=== PATIENT | male | born 1940 | race Caucasian/White ===

== ENCOUNTER → 2018-01-01 14:25 | Outpatient (CLI) | payer MEDICARE, OTHER, SELFPAY | PROVIDERS: Visit Provider Urology | DX: N39.0 Urinary tract infection, site not specified (principal) | CPT/HCPCS: 87086; 87088 ==

== ENCOUNTER → 2018-05-23 10:45 | Outpatient (CLI) | payer MEDICARE, OTHER, SELFPAY ==
[2018-05-23 11:06] LABS: Absolute Lymphocyte Count 1.21 X10^3/ul (0.83-4.51); Absolute Neutrophil Count 6.4 X10^3/uL (2.0-7.7); Basophil# 0.04 X10^3/uL; Basophil% 0.4 % (0-1); Eosinophil# 0.23 X10^3/uL; Eosinophils% 2.5 % (0-5); Hematocrit 39.5 % (40-54); Hemoglobin 13.1 g/dl (13.0-16.5); Lymphocyte # 1.21 X10^3/ul (4.0); Lymphocyte % 13.4 % (19-41); Mean Corp Hgb Conc 33.2 g/gl (32-36); Mean Corpuscular Hgb 28.9 pg (27.0-32.0); Mean Platelet Vol. 9.9 fl (6.2-12.0); Monocyte% 12.2 % (0-10); Neutrophil # 6.43 X10^3/uL (2.7-7.7); Neutrophil % 71.3 % (47-70); Platelet Count 163 K/mm3 (150-450); RBC Distribution Width CV 13.2 % (11.6-14.6); RBC Distribution Width SD 42.2 fl (35.1-43.9); Red Blood Count 4.54 M/mm3 (4.6-6.2)
[2018-05-23 11:07] LABS: POSITIVE COUNT NO; POSITIVE DIFFERENTIAL NO; POSITIVE MORPHOLOGY NO
[2018-05-23 11:32] LABS: Anion Gap 10 (5-15); BUN 26 mg/dL (7-18); BUN/Creat Ratio 19.5 RATIO (10-20); Calcium,Total 9.1 mg/dL (8.5-10.1); Chloride 100 mmol/L (98-107); Creatinine, Serum 1.33 mg/dL (0.70-1.30); EST Glomerular Filtration Rate 56 mL/min (>60); Est Glom Filt Rate - Afr Amer 67 mL/min (>60); Glucose 220 mg/dL (74-106); Sodium Level 136 mmol/L (136-145)
== END ==
PROVIDERS: Visit Provider Urology
DX: I10 Essential (primary) hypertension (principal); I51.9 Heart disease, unspecified
CPT/HCPCS: 36415; 80048; 85025

== ENCOUNTER → 2018-06-19 11:30 | Outpatient (CLI) | payer MEDICARE, OTHER, SELFPAY | PROVIDERS: Visit Provider Urology | DX: R31.9 Hematuria, unspecified (principal) | CPT/HCPCS: 87086; 87088 ==

== ENCOUNTER 2018-08-01 06:56 | Day surgery (SDC) | payer MEDICARE, OTHER, SELFPAY ==
[2018-08-01] VITALS (7 sets, daily range): BP systolic 108–161; BP diastolic 53–86; PULSE 65–73; RESP 14–18; TEMP 36.4–37.4; O2SAT 98–99; BMI 26.2
--- NOTE | 2018-08-01 | COLBX_PTH ---
PATIENT: SHONNA MCCORD LOC: EN U#:[id number] AGE/SX: 78/M ROOM: RE08/01/[address]: Dr. Kam Jenkins MD : 1940 BED: DIS: 08/01/2018 SPEC #: [id number] RECD: 08/01/18 13:06 STATUS: NEREYDA KAILYN #: [id number] VIPUL: 08/01/18 00:[address]: Kam Jenkins DEPT: SURGICAL PATHOLOGY RECD BY: Ruddy Harrison ENTERED: 08/01/18 13:07 SP TYPE: COLON BX OTHR DR: Dr. Jonathan Lombardi MD Tissues: Transverse colon Procedures: Surgery Specimen Level IV HEADER OPERATION: Colonoscopy PRE-OP DIAGNOSIS: Screening TISSUE SUBMITTED: Transverse colon polyps MICROSCOPIC DIAGNOSIS Transverse colon polyps, biopsy: Fragments of tubular adenoma. AM:corin 08/02/18 MICROSCOPIC DESCRIPTION Slides are reviewed. GROSS DESCRIPTION Received in fixative is one container labeled with the patient's name and designated transverse colon polyps. The specimen consists of multiple irregular fragments of chandler soft tissue mixed with fecal material that in aggregate measure 2.5 x 0.5 x 0.1 cm. The specimen is totally submitted in one cassette. / SJ:corin 08/01/18 TC:5 CPT: 06300
[2018-08-01 07:26] LABS: Bedside Glucose 190 mg/dL (70-110)
--- NOTE | 2018-08-01 08:44 | PCM.OPRPT ---
Problem List (1) Colon cancer screening Status: Acute Report of Operation Date of Procedure: 08/01/18 Pre-Operative Diagnosis: Z12.11 screening colon cancer Post-Operative Diagnosis: Same Surgery/Procedure Performed:: [id number] colonoscopy with snare polypectomy Type of Anesthesia:: MAC Description of Procedure: Patient was brought into the endoscopy suite. Placed in the left lateral decubitus position. He was given graded anesthesia. Colonoscope was inserted into the rectum. It was directed through the sigmoid colon, descending colon, transverse colon, ascending colon, to the cecum without difficulty. Operative findings: 1. Cecum: Normal appearance no mass lesions normal ileocecal valve. 2. Ascending colon: Normal appearance no mass lesions. 3. Transverse colon: 2 polyps were identified. One was sessile and was removed with snare cautery technique ?2 had a little bit of bleeding here and I injected some epinephrine and placed a clip on the area which controlled the bleeding quite nicely. Just next to this was another polyp which I removed with snare cautery technique and brought back to the channel the scope. Good hemostasis was noted. 4. Descending colon: Small polyp was identified was removed with snare cautery technique and brought back to the channel the scope. 5. Sigmoid colon: Normal appearance minimal diverticular disease seen. There is some slight narrowing in the distal sigmoid colon as it enters into the rectum. The scope was easily able to traverse this without any problem. And all of the mucosa looked normal. 6. Rectum: Normal appearance no mass lesions internal hemorrhoids were identified. Scope was withdrawn digital rectal exam showed no masses within the anus. He did however have a rock hard prostate and was very uncomfortable even with sedation with a rectal exam. He did not have any rectal fissures Patient will need to have another colonoscopy in 3 years. - Admit VTE Documentation VTE Present on Admission: No VTE Mechan Device Prophylaxis: None VTE Pharm Prophylaxis ordered?: No Reason prophylaxis not ordered:: Treatment Not Indicated
== END 2018-08-01 09:45 | disposition home or self-care (01) ==
LOC: EN 06:57 → AC 06:58
PROVIDERS: Visit Provider Surgery
PROC: 0DJD8ZZ Inspection of Lower Intestinal Tract, Via Natural or Artificial Opening Endoscopic (ICD-10-PCS; CPT 45378; principal; 2018-08-01 08:10)
DX: Z12.11 Encounter for screening for malignant neoplasm of colon (principal); D12.3 Benign neoplasm of transverse colon; K57.30 Diverticulosis of large intestine without perforation or abscess without bleeding; K64.8 Other hemorrhoids; I11.0 Hypertensive heart disease with heart failure; I50.22 Chronic systolic (congestive) heart failure; E78.5 Hyperlipidemia, unspecified; I25.10 Atherosclerotic heart disease of native coronary artery without angina pectoris; I25.2 Old myocardial infarction; E11.9 Type 2 diabetes mellitus without complications; Z87.891 Personal history of nicotine dependence; Z85.51 Personal history of malignant neoplasm of bladder; Z79.82 Long term (current) use of aspirin; Z79.84 Long term (current) use of oral hypoglycemic drugs; Z79.899 Other long term (current) drug therapy
CPT/HCPCS: 45380; 82962; 88305; J7120

== ENCOUNTER 2018-08-11 21:43 | Emergency (ER) | payer MEDICARE, OTHER, SELFPAY ==
[2018-08-11 21:44] VITALS: BP 141/73; PULSE 106; RESP 15; TEMP 36.6; O2SAT 96; BMI 26.6
[2018-08-11] MEDS: traMADol 50 MG Tablet PO ×2 (22:43→23:54)
[2018-08-11 22:56] LABS: Bacteria 0 SEEN /hpf (None Seen); Mucous, Urine 0 SEEN /hpf (<or=2+)
[2018-08-11 22:59] LABS: Color, Urine Yellow (Yellow); Glucose, Dipstick 100 mg/dl (Normal); Ketone-Dipstick Negative (Negative); Leukocyte Esterase-Dipstick 500 /ul (Negative); Nitrite-Dipstick Negative (Negative); Occult Blood-Urine 250 /ul (Negative); Protein-Dipstick 30 mg/dl (Negative); Specific Gravity, Urine 1.015 (1.002-1.030); Urine Bilirubin Dipstick Negative (Negative); Urine Clarity Clear (Clear); Urine Urobilinogen Normal (Normal)
[2018-08-11 23:11] LABS: Red Blood Cells-Urine 10-25 SEEN /hpf (0-5); Squamous Epithelial Cells - UA 0-5 SEEN /hpf (0-5); Transitional Epithelial - Ur 0-5 SEEN /hpf (0-5); White Blood Cells 25-50 SEEN /hpf (0-5)
--- NOTE | 2018-08-11 23:36 | ED.DCSUM_ITS ---
- ER Visit Summary Date of Service: 08/11/18 Chief Complaint: Rectal pain History of Present Illness: The patient is a 78 M who presents with rectal pain. The patient has a history of bladder cancer. He has to have frequent ureteral stents. He also recently had a prostate lift. He has continued to have some rectal pain since that time so underwent a colonoscopy 1 week ago which was reportedly normal. He has had increased rectal and prostate pain since that time. He called his urologist who has not yet been able to see him in the office but did call in Cipro. Tylenol and ibuprofen were helping with pain but his pain has become more severe so he presented here tonight in 3 days. No fevers. No nausea vomiting or diarrhea. Physical Examination: Afebrile heart rate 106 vitals otherwise unremarkable Resting comfortably no distress Heart regular rate and rhythm Lungs are clear Abdomen soft nontender nondistended Rectal exam is tender he has some external hemorrhoids I do not appreciate any fissures or perianal abscess he does have an enlarged firm prostate with some tenderness it is not boggy or fluctuant Test Results: Bladder scan showed roughly 240 cc of urine. Urinalysis shows 500 leukocyte esterase, 25-50 WBCs. Emergency Department Course and Treatment: Patient has been on antibiotics, I believe for presumed prostatitis. Given that he is not improving with Cipro and also has evidence of UTI we will switch to doxycycline. He was advised to keep his urology appointment. He was given tramadol here with improvement in symptoms. He will be given a prescription for the same. He understands to return for new or worsening symptoms and was discharged home. Treatment Plan: [] Disposition: Discharge Impression: UTI Prostatitis This note was generated with [employer] dictation software. It may contain incorrect words, spelling, and punctuation that were not noted in review of the chart prior to signing ED Disposition - Plan for ED Patient: Chief Complaint: Other, Pain/Inj Referrals: Jonathan Lombardi MD [Primary Care Provider] -
--- NOTE | 2018-08-11 23:36 | ED.DEP ---
ED Disposition - Plan for ED Patient: Chief Complaint: Other, Pain/Inj Instructions: ED UTI Cystitis Male, ED Prostatitis, ED Retention Urinary Male Prescriptions: Doxycycline Monohydrate 100 mg PO BID #20 cap traMADol [Ultram] 50 mg PO Q6H PRN 3 Days #12 tab PRN Reason: Pain Referrals: Jonathan Lombardi MD [Primary Care Provider] - Beltran Yi MD [STAFF PHYSICIAN] -
[2018-08-11] MEDS: Doxycycline 100 MG CAPSULE PO (23:54)
[2018-08-11 23:56] VITALS: BP 142/75; PULSE 81; RESP 18; O2SAT 100
== END 2018-08-11 23:57 | disposition home or self-care (01) ==
LOC: ED 22:39
PROVIDERS: Emergency Provider Emergency Medicine
DX: N41.9 Inflammatory disease of prostate, unspecified (principal); N39.0 Urinary tract infection, site not specified; Z85.51 Personal history of malignant neoplasm of bladder; I25.10 Atherosclerotic heart disease of native coronary artery without angina pectoris; I25.2 Old myocardial infarction; E11.9 Type 2 diabetes mellitus without complications; I10 Essential (primary) hypertension; Z79.2 Long term (current) use of antibiotics; Z79.84 Long term (current) use of oral hypoglycemic drugs; Z79.899 Other long term (current) drug therapy
CPT/HCPCS: 81001; 87086; 99283; A4216

== ENCOUNTER 2018-08-22 19:31 | Inpatient (IN) | payer MEDICARE, OTHER, SELFPAY ==
[2018-08-22 19:33] VITALS: BP 213/98; PULSE 87; RESP 17; TEMP 36.7; O2SAT 97; BMI 25.0
[2018-08-22 19:38] VITALS: BP 195/94; PULSE 83; RESP 14; O2SAT 98
--- NOTE | 2018-08-22 20:20 | CT_ITS ---
STUDY: CT ABDOMEN AND PELVIS WITHOUT CONTRAST REASON FOR EXAM: Male, 78 years old. Right flank pain. Prostatitis, biopsy tomorrow. Bladder CA status post excision, chemotherapy. Left ureteral stent. RADIATION DOSAGE (If Supplied By Facility): CTDIvol = ( 7.02 ) mGy, DLP = ( 372.02 ) mGycm TECHNIQUE: Transaxial images were obtained from the dome of the diaphragm to the symphysis pubis without oral contrast, and without intravenous contrast. Sagittal and coronal images were reconstructed. Individualized dose optimization techniques were used for this CT. COMPARISON: 10/07/2016. FINDINGS: The visualized lung bases are unremarkable. The visualized portions of the heart are within normal limits. Normal liver. Normal gallbladder and extrahepatic biliary system. Several granulomatous calcifications are noted in the spleen. The spleen is otherwise unremarkable. Normal pancreas. Normal bilateral adrenal glands. Aorta is normal in caliber, with marked atherosclerotic calcification. There is moderate to severe right hydronephrosis, new compared to the prior study. There is severe left hydronephrosis with ureteral stent in place. There is marked left ureteral dilation. Ureteral stent terminates in the bladder. The bladder is well distended. There is a 4.8 x 1.6 cm soft tissue mass in the posterior bladder base. This is suspicious for malignancy. There is a 1.5 x 1.6 cm nodule at the right ureterovesical junction which may result from direct extension of the posterior bladder mass. This is the likely cause of right hydronephrosis. The prostate gland measures 5.3 x 4.4 x 7.8 cm. Brachytherapy seeds are noted within the prostate gland. The superior-posterior margin of the prostate gland and seminal vesicles is irregular in appearance, greater on the left, concerning for malignancy. On the right, there is asymmetry and a 2.6 x 1.7 cm soft tissue nodule which may represent direct extension from the seminal vesicles, versus adenopathy. There is a 2.4 x 2.1 cm right perirectal node. There is no bowel obstruction or inflammatory change. There is no free fluid, free air, or organized collection. Normal abdominal wall. Degenerative spine changes are noted. No destructive bone changes are seen. CT/Abdomen/Pelvis without Cont IMPRESSION: 1. Posterior bladder mass with involvement of the right ureterovesical junction, superior prostate gland, and right seminal vesicles. 2. Moderate right hydronephrosis, likely due to obstruction by right UVJ nodular lesion. 3. Severe left hydronephrosis despite stent in place. 4. Right perirectal adenopathy. Electronically Signed: Isis Singh MD at 21:42 EDT Tel , Service support ,
--- NOTE | 2018-08-22 20:21 | ED.VISSUMM ---
- ER Visit Summary Date of Service: 08/22/18 Chief Complaint: Right flank pain History of Present Illness: The patient is a 78 M who presents for 2 days of right-sided flank pain. Pain is sharp and continuous, gradually worsening. It is located in the right flank region with no radiation into the abdomen or into the left side. Patient has associated nausea and intermittent vomiting, however that is been going on for the last week. No constipation, diarrhea. No dysuria frequency or urgency. Patient has an enlarged prostate and is scheduled for procedure in the morning for a biopsy. He has been on antibiotics for this. He is on tramadol for his prostate pain, but states that it does not touch the flank pain at all. No fever, chest pain, shortness of breath or other complaints. Physical Examination: Vital signs: afebrile, hemodynamically stable, no hypoxia on room air General: well nourished, well developed, in no distress, appears mildly uncomfortable Skin: warm, dry, no rash, no pallor HEENT: normocephalic and atraumatic; PERRL, EOMI, moist mucous membranes Cardiovascular: regular rate and rhythm without murmurs, no peripheral edema, 2+ pulses all distal extremities Respiratory: No increased work of breathing, lungs are clear to auscultation bilaterally, no rales, rhonchi or wheezing Abdominal: Abdomen is soft, very ticklish, nontender with normoactive bowel sounds, no guarding or rebound, no masses, positive tenderness to palpation of the right flank MSK: Moves all extremities, no deformities, normal strength Neuro: Awake and alert, oriented ?4. No facial droop, sensation and motor function intact and symmetric Test Results: Abnormal Lab Results 08/22/18 08/22/18 08/22/18 19:40 19:40 20:40 WBC 16.5 H RBC 4.90 Hgb 14.2 Hct 41.0 MCV 83.7 MCH 29.0 MCHC 34.6 RDW 12.5 RDW Differential 38.0 Plt Count 253 MPV 10.3 Immature Gran % (Auto) 0.100 Neut % (Auto) 76.0 H Lymph % (Auto) 13.2 L [place] % (Auto) 10.1 H Eos % (Auto) 0.5 Baso % (Auto) 0.1 Absolute Neuts (auto) 12.6 H Absolute Lymphs (auto) 2.18 Total Counted Not Reportable Differential Comment SCANNED Sodium 132 L Potassium 3.3 L Chloride 97 L Carbon Dioxide 22.0 Anion Gap 13 BUN 77 H Creatinine 4.68 H Estim Creat Clear Calc 12.12 Est GFR (MDRD) Af Amer 16 L Est GFR (MDRD) Non-Af 13 L BUN/Creatinine Ratio 16.5 Glucose 242 H Calcium 9.1 Total Bilirubin 0.60 AST 21 ALT 33 Alkaline Phosphatase 121 H Total Protein 8.7 H Albumin 3.6 Globulin 5.1 H Albumin/Globulin Ratio 0.7 L Urine Color Yellow Urine Clarity Sl. Cloudy Urine pH 6.0 Ur Specific [place] 1.015 Urine Protein 30 H Urine Glucose (UA) Normal Urine Ketones Negative Urine Occult Blood 250 H Urine Nitrite Negative Urine Bilirubin Negative Urine Urobilinogen Normal Ur Leukocyte Esterase 500 H Urine RBC 10-25 SEEN Urine WBC 5-10 SEEN Ur Squamous Epith Cells 0-5 SEEN Urine Bacteria 0 SEEN Urine Mucus 0 SEEN Clinical Impression(s) from Imaging Studies Abdomen/Pelvis CT 08/22/18 20:20 IMPRESSION: 1. Posterior bladder mass with involvement of the right ureterovesical junction, superior prostate gland, and right seminal vesicles. 2. Moderate right hydronephrosis, likely due to obstruction by right UVJ nodular lesion. 3. Severe left hydronephrosis despite stent in place. 4. Right perirectal adenopathy. Electronically Signed: Isis Singh MD at 21:42 EDT Tel , Service support , Medications Given Discontinued Medications Ceftriaxone Sodium (Rocephin) 1 gm in 50 mls @ 100 mls/hr IV X1 ONE Stop: 08/22/18 23:07 Last Admin: 08/22/18 22:52 Dose: 100 mls/hr Morphine Sulfate () 4 mg IV X1 ONE Stop: 08/22/18 20:19 Last Admin: 08/22/18 20:28 Dose: 4 mg Morphine Sulfate () 4 mg IV X1 ONE Stop: 08/22/18 21:19 Last Admin: 08/22/18 21:23 Dose: 4 mg Ondansetron HCl (Zofran) 4 mg IV X1 ONE Stop: 08/22/18 20:19 Last Admin: 08/22/18 20:28 Dose: 4 mg Emergency Department Course and Treatment: Patient was given morphine and Zofran for symptomatic relief. CT flank performed to evaluate for possible kidney stone. Labs were remarkable for acute renal insufficiency, with creatinine of 4.68. Patient had a leukocytosis of 16, and urine was concerning for possible infection. CT scan showed a large mass around the prostate and the bladder, with part of the mass causing constriction on the right ureter at the UVJ junction. This is a new finding, and is resulting in severe hydronephrosis. No stone was noted, however the severe hydronephrosis is likely contributing to patient's flank pain as well as his acute renal insufficiency. He has left hydronephrosis as well that is not relieved by the prior stent placement. Patient was started on Rocephin for coverage of urinary infection. He was given additional morphine for continued severe pain. Patient was discussed with Dr. Shaw and will be admitted for further management of his acute renal insufficiency, urinary tract infection, and new bladder mass. Treatment Plan: [] Disposition: [] Impression: Bladder mass concerning for malignancy, acute renal insufficiency, urinary tract infection This note was generated with [employer] dictation software. It may contain incorrect words, spelling, and punctuation that were not noted in review of the chart prior to signing ED Disposition - Plan for ED Patient: Chief Complaint: Flank Pain
[2018-08-22] MEDS: Morphine 4 MG/ML Syringe IV ×2 (20:28→21:23)
[2018-08-22] MEDS: Ondansetron 4 MG/2 ML Vial IV (20:28)
[2018-08-22 20:40] LABS: Absolute Lymphocyte Count 2.18 X10^3/ul (0.83-4.51); Absolute Neutrophil Count 12.6 X10^3/uL (2.0-7.7); Basophil# 0.02 X10^3/uL; Basophil% 0.1 % (0-1); Differential Indicated SCAN CRITERIA MET; Eosinophil# 0.09 X10^3/uL; Eosinophils% 0.5 % (0-5); Hemoglobin 14.2 g/dl (13.0-16.5); Lymphocyte # 2.18 X10^3/ul (4.0); Lymphocyte % 13.2 % (19-41); Mean Corp Hgb Conc 34.6 g/gl (32-36); Mean Corpuscular Volume 83.7 fL (80-94); Mean Platelet Vol. 10.3 fl (6.2-12.0); Monocyte# 1.67 X10^3/uL; Monocyte% 10.1 % (0-10); Neutrophil # 12.56 X10^3/uL (2.7-7.7); POSITIVE COUNT NO; POSITIVE DIFFERENTIAL YES; POSITIVE MORPHOLOGY NO; Platelet Count 253 K/mm3 (150-450); RBC Distribution Width CV 12.5 % (11.6-14.6); White Blood Count 16.5 K/mm3 (4.4-11.0)
[2018-08-22 20:44] LABS: Bacteria 0 SEEN /hpf (None Seen); Mucous, Urine 0 SEEN /hpf (<or=2+)
[2018-08-22 20:44] LABS: ALB/GLOB Ratio 0.7 RATIO (0.9-2.4); AST(SGOT) 21 U/L (15-37); Alanine Aminotransfer ALT/SGPT 33 U/L (16-61); Albumin, Serum 3.6 g/dL (3.2-5.0); Alkaline Phosphatase 121 U/L (45-117); Anion Gap 13 (5-15); BUN 77 mg/dL (7-18); BUN/Creat Ratio 16.5 RATIO (10-20); Calcium,Total 9.1 mg/dL (8.5-10.1); Chloride 97 mmol/L (98-107); Creatinine, Serum 4.68 mg/dL (0.70-1.30); EST Glomerular Filtration Rate 13 mL/min (>60); Est Glom Filt Rate - Afr Amer 16 mL/min (>60); Estimated Creatinine Clearance 12.12 ml/min; Globulin 5.1 g/dL (2.2-4.2); Glucose 242 mg/dL (74-106); Potassium 3.3 mmol/L (3.5-5.1); Protein, Total 8.7 g/dL (6.4-8.2); Sodium Level 132 mmol/L (136-145)
[2018-08-22 20:51] LABS: Color, Urine Yellow (Yellow); Glucose, Dipstick Normal (Normal); Ketone-Dipstick Negative (Negative); Leukocyte Esterase-Dipstick 500 /ul (Negative); Nitrite-Dipstick Negative (Negative); Occult Blood-Urine 250 /ul (Negative); Protein-Dipstick 30 mg/dl (Negative); Specific Gravity, Urine 1.015 (1.002-1.030); Urine Bilirubin Dipstick Negative (Negative); Urine Clarity Sl. Cloudy (Clear); Urine Urobilinogen Normal (Normal)
[2018-08-22 21:03] LABS: Red Blood Cells-Urine 10-25 SEEN /hpf (0-5); Squamous Epithelial Cells - UA 0-5 SEEN /hpf (0-5); White Blood Cells 5-10 SEEN /hpf (0-5)
[2018-08-22 21:08] LABS: Differential Comment SCANNED
[2018-08-22 21:14] VITALS: BP 184/89; PULSE 80; RESP 17; O2SAT 96
[2018-08-22] MEDS: Ceftriaxone 1 GM/50 ML BAG IV (22:52)
[2018-08-22 23:06] VITALS: BP 165/95; PULSE 79; RESP 15; O2SAT 96
--- NOTE | 2018-08-22 23:55 | NURSING ---
Pt arrives to room 208 c/o pain 3-4/10 in right flank. Pt appears calm without distress orientation to room provided. Family at bedside
--- NOTE | 2018-08-22 23:56 | PCM.HP.STD ---
Problem List (1) YOEL (acute kidney injury) Status: Acute (2) Bladder mass Status: Acute (3) Hydronephrosis Status: Acute Qualifiers: Hydronephrosis type: unspecified Qualified Code(s): N13.30 - Unspecified hydronephrosis (4) History of prostate surgery Status: Chronic Comment: Urolift system implanted (5) History of stent insertion of renal artery Status: Chronic Comment: Left kidney (6) Hx of bladder cancer Status: Chronic (7) Hyperlipidemia Status: Chronic Qualifiers: Hyperlipidemia type: pure hypercholesterolemia Qualified Code(s): E78.00 - Pure hypercholesterolemia, unspecified; E78.0 - Pure hypercholesterolemia (8) Atherosclerotic heart disease of elem coronary artery without angina pectoris Status: Chronic Qualifiers: [place] vs. transplanted heart: elem heart Qualified Code(s): I25.10 - Atherosclerotic heart disease of elem coronary artery without angina pectoris Comment: 99% stenosis in proximal to mid LAD, 70% stenosis in mid RCA and diffuse distal disease per [facility] 01/30/[address] Jameson (9) Congenital insufficiency of aortic valve Status: Chronic (10) Chronic systolic heart failure Status: Chronic (11) NSTEMI (non-ST elevated myocardial infarction) Status: Chronic Comment: 03/05/14, Non-ST elevation ND (12) Hypertension Status: Chronic Qualifiers: Hypertension type: essential hypertension Qualified Code(s): I10 - Essential (primary) hypertension (13) Type 2 diabetes mellitus Status: Chronic Qualifiers: Diabetes mellitus termite treater helper insulin use: without termite treater helper use Diabetes mellitus complication status: with unspecified complications Qualified Code(s): E11.8 - Type 2 diabetes mellitus with unspecified complications History of Present Illness Date of Admission: 08/22/18 Chief Complaint: R Flank Pain The patient is a 78 y/o M w/ PMHx: Chronic Systolic CHF, CAD w/ Hx NSTEMI following w/ Dr. Jameson, Chronic Normocytic Anemia, Diabetes mellitus type II, HTN, HLD, History of Advanced Invasive Bladder Cancer s/p local bladder surgeries in -01/2014 with post-operative radiation and very short duration of chemotherapy secondary to intolerance previously following w/ Dr. Mijares and ongoing evaluation per Dr. Yi w/ severe stricture and blockage of the left kidney with 07/02/2014 TUR bladder tumor and most recent 10/2016 laparoscopic robotic assisted left pelvic lymph node dissection, cystoscopy and left stent change who was recently initiated on treatment w/ cipro and possibly doxycycline for concern for prostatitis ~ 2 weeks prior to current presentation w/ planned per patient and family report planned prostate bx 08/23/[address] Yi who has had ongoing debilitating rectal pain, nausea and emesis; however, his discomfort has improved w/ narcotic therapy but suddenly worsened on day of ED presentation w/ onset new R flank, sharp, severe, constant pain. Work-up in the ED included T 97.5, heart rate 83, BP initially 195/94--> following administration of pain regimen improvement of BP to 165/95, respiratory rate 14, 98% on room air, BC with WBC 16.5, heme globin 14.2, platelet 253 with left shift, CMP with sodium 132, potassium 3.3, chloride 97, BUN/creatinine 77/4.68, glucose 242, alkaline phosphatase 121, analysis not severe appearing but noted 30 urine protein, 250 urine occult blood, 500 leukocyte esterase, 10-25 RBC, 5-10 WBC, no urine bacteria noted, culture pending per ED, CT A/P with posterior bladder mass with involvement of the right ureterovesical junction, superior prostate gland and right seminal vesicles, moderate right hydronephrosis likely secondary to obstruction by the right UVJ nodular lesion, severe left hydronephrosis despite stent in place, right perirectal adenopathy. In the ED patient administered Rocephin, morphine 4 mg x2 in addition to Zofran 4 mg IV x1. Past Medical History Past Medical History (Chronic Problems): Chronic Problems (Last Reviewed 07/03/18 @ 09:18 by Kam Jenkisn MD) History of prostate surgery (Chronic) Urolift system implanted History of stent insertion of renal artery (Chronic) Left kidney Hx of bladder cancer (Chronic) History of left heart catheterization (Chronic) 01/30/[address] Jameson @[facility] Hyperlipidemia (Chronic) Atherosclerotic heart disease of elem coronary artery without angina pectoris (Chronic) 99% stenosis in proximal to mid LAD, 70% stenosis in mid RCA and diffuse distal disease per [facility] 01/30/[address] Jameson Congenital insufficiency of aortic valve (Chronic) Old myocardial infarction (Chronic) Chronic systolic heart failure (Chronic) Other group home (current) drug therapy (Chronic) NSTEMI (non-ST elevated myocardial infarction) (Chronic) 03/05/14, Non-ST elevation ND Bladder cancer (Chronic) Hypertension (Chronic) Type 2 diabetes mellitus (Chronic) Medical History: Medical History (Last Reviewed 07/03/18 @ 09:18 by Kam Jenkins MD) Hx of bladder cancer (Acute) Z85.51 Hyperlipidemia (Chronic) E78.5 Atherosclerotic heart disease of elem coronary artery without angina pectoris (Chronic) I25.10 99% stenosis in proximal to mid LAD, 70% stenosis in mid RCA and diffuse distal disease per [facility] 01/30/[address] 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) Z79.899 NSTEMI (non-ST elevated myocardial infarction) (Resolved) I21.4 03/05/14, Non-ST elevation ND Hypertension (Chronic) I10 Type 2 diabetes mellitus (Chronic) E11.9 Allergies No Known Allergies Allergy (Verified 08/22/18 19:32) Home Medications: Ambulatory Orders Medication Instructions Recorded Metformin HCl [Glucophage] 1,000 mg PO BIDCM 02/06/15 losartan 100 mg tablet 100 mg PO QDAY 01/24/18 nitroglycerin 0.4 mg sublingual 0.4 mg SUBLINGUAL Q5M PRN 01/24/18 tablet sitagliptin 100 mg tablet 100 mg PO QDAY 07/03/18 Metoprolol Tartrate [Lopressor 75 mg PO BID 07/26/18 (beta prasanth)] traMADol [Ultram] 50 mg PO Q6H PRN 3 Days #12 tab 08/11/18 Hydrochlorothiazide [Hctz] 25 mg PO DAILY 08/22/18 Ibuprofen 400 - 600 mg PO PRN PRN 08/22/18 Isosorbide Mononitrate [Imdur] 60 mg PO DAILY 08/22/18 Surgical History: Surgical History (Last Reviewed 07/03/18 @ 09:18 by Kam Jenkins MD) Hx of appendectomy (Acute) Z90.49 History of prostate surgery (Acute) Z98.890 Urolift system implanted History of stent insertion of renal artery (Acute) Z98.890 Left kidney Hx of right inguinal hernia repair (Acute) Z98.890, Z87.19 History of left heart catheterization (Chronic) Z98.890 01/30/[address] Jameson @[facility] Surgical History: herniorrhaphy, - - Removal of benign neck mass on the right neck, appendectomy, multiple cystoscopies w/ L stent placement and change, hernia repair, TUR bladder mass, Renal artery stent placement, Prostate Urolift system implant. Psychiatric History: No pertinent psych hx Lives: Alone Smoking Status: Former smoker Tobacco Use: Non-smoker Alcohol: None Drugs: None - *Family History Maternal Family History: Family History (Last Reviewed 07/03/18 @ 09:18 by Kam Jenkins MD) Father Prostate cancer Mother CAD (coronary artery disease) Myocardial infarction, Onset Age: 48 Cancer Brother Myocardial infarction Abdominal aortic aneurysm History Items: Cancer, Heart Disease Paternal Family History: Family History (Last Reviewed 07/03/18 @ 09:18 by Kam Jenkins MD) Father Prostate cancer Mother CAD (coronary artery disease) Myocardial infarction, Onset Age: 48 Cancer Brother Myocardial infarction Abdominal aortic aneurysm History Items: Cancer Review of Systems Constitutional: Reports: Anorexia, Malaise, Weakness, Fatigue. Denies: Chills, Fever, Weight Change HEENT: Denies: Head Aches, Sinus Congestion, Sinus Drainage Cardiovascular: Denies: Chest Pain, Palpitations Respiratory: Denies: Cough, Shortness of breath at rest, Sputum production Gastrointestinal: Reports: Abdominal Pain, Nausea, Vomiting Genitourinary: Denies: Dysuria Musculoskeletal: Denies: Joint Pain, Joint Tenderness Skin: Denies: Rash, Wounds Neurological: Denies: Numbness, Tingling, Focal weakness Psychiatric: Denies: Anxiety, Depression, Homicidal Ideations, Suicidal Ideations Hematologic/ Lymphatic: Reports: Anemia. Denies: Easy Bruising, Easy Bleeding VTE Information - Inpt Only VTE Present on Admission: No VTE Mechan Device Prophylaxis: SCD's VTE Pharm Prophylaxis ordered?: No Reason prophylaxis not ordered:: Medical Contraindication - Hold for OR possibility Patient Problems: Active and Suspected Problems (Last Reviewed 07/03/18 @ 09:18 by Kam Jenkins MD) YOEL (acute kidney injury) (Acute) Bladder mass (Acute) Hydronephrosis (Acute) Subjective: Patient notes more comfortable than initial presentation, no current marked R flank pain. Objective: Physical Examination: General: awake, alert, oriented x 3 and cooperative, seated upright in bed in no apparent distress, notes pain improved currently, more comfortable. Skin: normal color, turgor, no icterus, cyanosis. HEENT: AT/NC, EOMI, PERRLA, moderately dry MM, no carotid bruits or JVD noted. Lungs: Diminished BS, > BL bases, moderate effort, no rales, ronchi or wheezing. Heart: Regular rate and rhythm; no gallop, rub audible. Abdomen: soft, NTTP, difficult examination as patient severely ticklish, ND, normal BS, difficulty assessing HSM secondary to patient being severely ticklish. Extremities: no cyanosis, clubbing, or edema. Neurological: patient awake, alert, oriented x 3; cognitive function intact; pupils equally reactive to light and accomodation; cranial nerves II-XII grossly normal, moving all 4 extremities, no focal deficits, strength moderately to severely globally decreased secondary to acute presentation. Psychiatric: affect appears fatigued, no acute evidence of depressive or anxiety feelings. - Physical Exam Vital Signs Temp Pulse Resp BP Pulse Ox 98.0 F 79 15 165/95 H 96 08/22/18 19:33 08/22/18 23:06 08/22/18 23:06 08/22/18 23:06 08/22/18 23:06 Oxygen Delivery Method Room Air Weight: 154 lb 15.759 oz Body Mass Index (BMI) 25.0 Finger Stick Blood Glucose 229 Laboratory Tests Past 24 Hrs 08/22/18 08/22/18 08/22/18 19:40 19:40 20:40 WBC 16.5 H RBC 4.90 Hgb 14.2 Hct 41.0 MCV 83.7 MCH 29.0 MCHC 34.6 RDW 12.5 RDW Differential 38.0 Plt Count 253 MPV 10.3 Immature Gran % (Auto) 0.100 Neut % (Auto) 76.0 H Lymph % (Auto) 13.2 L [place] % (Auto) 10.1 H Eos % (Auto) 0.5 Baso % (Auto) 0.1 Absolute Neuts (auto) 12.6 H Absolute Lymphs (auto) 2.18 Total Counted Not Reportable Differential Comment SCANNED Sodium 132 L Potassium 3.3 L Chloride 97 L Carbon Dioxide 22.0 Anion Gap 13 BUN 77 H Creatinine 4.68 H Estim Creat Clear Calc 12.12 Est GFR (MDRD) Af Amer 16 L Est GFR (MDRD) Non-Af 13 L BUN/Creatinine Ratio 16.5 Glucose 242 H Calcium 9.1 Total Bilirubin 0.60 AST 21 ALT 33 Alkaline Phosphatase 121 H Total Protein 8.7 H Albumin 3.6 Globulin 5.1 H Albumin/Globulin Ratio 0.7 L Urine Color Yellow Urine Clarity Sl. Cloudy Urine pH 6.0 Ur Specific [place] 1.015 Urine Protein 30 H Urine Glucose (UA) Normal Urine Ketones Negative Urine Occult Blood 250 H Urine Nitrite Negative Urine Bilirubin Negative Urine Urobilinogen Normal Ur Leukocyte Esterase 500 H Urine RBC 10-25 SEEN Urine WBC 5-10 SEEN Ur Squamous Epith Cells 0-5 SEEN Urine Bacteria 0 SEEN Urine Mucus 0 SEEN Assessment/Plan All Active Problems (Last Reviewed 07/03/18 @ 09:18 by Kam Jenkins MD) Colon cancer screening (Acute) YOEL (acute kidney injury) (Acute) Bladder mass (Acute) Hydronephrosis (Acute) Hx of appendectomy (Acute) Hx of right inguinal hernia repair (Acute) Precordial chest pain (Acute) The patient is a 78 y/o M w/ PMHx: Chronic Systolic CHF, CAD w/ Hx NSTEMI following w/ Dr. Jameson, Chronic Normocytic Anemia, Diabetes mellitus type II, HTN, HLD, History of Advanced Invasive Bladder Cancer s/p local bladder surgeries in -01/2014 with post-operative radiation and very short duration of chemotherapy secondary to intolerance previously following w/ Dr. Mijares and ongoing evaluation per Dr. Yi w/ severe stricture and blockage of the left kidney with 07/02/2014 TUR bladder tumor and most recent 10/2016 laparoscopic robotic assisted left pelvic lymph node dissection, cystoscopy and left stent change who was recently initiated on treatment w/ cipro and possibly doxycycline for concern for prostatitis ~ 2 weeks prior to current presentation w/ planned per patient and family report planned prostate bx 08/23/[address] Yi who has had ongoing debilitating rectal pain, nausea and emesis; however, his discomfort has improved w/ narcotic therapy but suddenly worsened on day of ED presentation w/ onset new R flank, sharp, severe, constant pain. (1) Posterior Bladder Mass Suspicious for Recurrent Bladder CA w/ Regional Involvement including Prostate w/ Hydronephrosis BL possibly secondary to Obstruction from Mass w/ ? Concurrent Prostatitis: Will admit to [facility] upon ED evaluation not severe appearing, was recently on cipro x 2 weeks and possible also doxycycline, CBC w/ WBC 16.5 with L shift, afebrile in the ED and at home, denies urinary retention but given CT appearance and patient admitted chronic retention issues concern for worsened retention, pending UCx, continue gentle IVFs, monitor I/Os, continue IV Rocephin given renal function. Urology consulted, NPO status, given prior plan for prostate Bx 08/23/18 and worsened YOEL w/ obstructive appearance hopeful for possible intervention 08/23/18, will discuss case with Urology. (2) Acute kidney injury: Secondary to obstruction with mass as noted, suspect recurrent bladder CA. Admission BUN/Cr 77/4.68, prior baseline creatinine noted to be 1.2-1.6. Will gently hydrate given underlying CHF history, hold nephrotoxic medications and repeat chemistry in AM. Will obtain FeNa assessment. Urology consulted as noted. (3) Hypokalemia: Admission K+ 3.3, supplementation given, repeat level in AM. (4) Diabetes mellitus type II: Hold oral home regimen, NPO status currently pending Urology assessment, accu checks w/ ISS. (5) CAD: Prior cardiac catheterization with left main coronary artery normal, ramus intermedius with moderate disease, left anterior descending artery with severe distal disease and 95% stenosis, first diagonal vessel with 95% stenosis circumflex artery, mild disease in a dominant right coronary artery with 70% stenosis w/ ongoing medical management. 10/14/2016 stress testing unremarkable. Maintain on BB, not on statin, holding ARB, hold ASA given planned intervention. (6) Hypertension: Continue home regimen including isosorbide, metoprolol, holding patient hydrochlorothiazide and losartan secondary to acute kidney injury as noted, PRN hydralazine. Will dose his medications to be given now as he has not had his medications today he notes. (7) Hyperlipidemia: Not on statin, defer to outpatient. (8) Chronic Systolic CHF: Appears compensated, following w/ Dr. Jameson, most recent 01/30/18 visit w/ Cardiology, ECHO 03/08/2014 normal LV size, EF 45%, mild to moderate segmental systolic dysfunction, mild MVI, PASP 34 mmHg, anterior hypokinesis. Holding asa, holding ARB, continue BB, not on statin. (9) DVT Prophylaxis: SCDs, defer chemoprophylaxis given possible AM interventions per Urology. Code Visit Inpatient E&M: 22185 Init Hosp L3
[2018-08-23] VITALS (17 sets, daily range): BP systolic 113–174; BP diastolic 59–84; PULSE 54–76; RESP 14–18; TEMP 36.1–36.8; O2SAT 95–99; BMI 24.5; BMI 24.6
--- NOTE | 2018-08-23 | IMM_PTH ---
PATIENT: SHONNA MCCORD LOC: MS2 U#:[id number] AGE/SX: 78/M ROOM: [facility] [place] RE08/22/[address]: Dr. Freddie Ortiz DO : 1940 BED: 1 DIS: 08/26/2018 SPEC #: [id number] RECD: 08/24/18 11:23 STATUS: NEREYDA REQ #: [id number] VIPUL: 08/23/18 00:[address]: Beltran Yi DEPT: IMMUNOHISTOCHEMISTRY RECD BY: Rylie Manning ENTERED: 08/24/18 11:25 SP TYPE: IMMUNO OTHR DR: Dr. Jonathan Lombardi MD Tissues: PROSTATE BIOPSY Procedures: Synapto (add) CD45 (add) CD56 (add) CHROMO (add) CK20 (add) CK5-6 (add) CK8 (add) P53 (add) PSA (add) Vimentin (add) Pankeratin (add) P40 (add) CD44 (add) PSAP (add) CK7 (initial) Comments: @ Originally on account #[id number] Req #[id number] PHYSICIAN & [place] [address] SPECIMEN INFORMATION: Tissue Source: Prostate biopsy and base of bladder Clinical Info: Bladder cancer and outlet obstruction Specimen Number: [id number] #3 CPT code: 51380, 97473 x14 METHODOLOGY: Deparaffinized sections of prefer/formalin-fixed tissue or PAP/DQ stained slides are incubated with monoclonal/polyclonal antibodies/oligonucleotide probes. Localization is made via biotin free immunoperoxidase method. Appropriate controls are performed and reacted as expected. Results on target cell population are indicated in the following table: RESULTS: ANTIBODY / CLONE RESULT Block 3 CK7 (OV-TL12/30) negative CK8 (88wdrmI37) negative CK20 (KS20.8) negative P53 (DO-7) positive, focal anti-CD44 (SP37) negative PSA (ER-PR8) negative PSAP (PASE/4LJ) negative P40 (BC28) negative CK5-6 (D5 & 1684) negative CD45 (RP2/18) negative Chromo (LK2H10) negative Synapto (polyclonal) positive CD56 (123C3.D5) positive AE1-3 (AE1/AE3/PCK26) positive Vimentin (V9) negative These tests were developed and their performance characteristics determined by [facility]. They may not have been cleared or approved by the U.[place]. Food and Drug Administration. The FDA has determined that such clearance or approval is not necessary. INTERPRETATION: Prostate biopsy and base of bladder: Poorly differentiated carcinoma with neuroendocrine features, small cell carcinoma. SJ:corin 08/27/18
[2018-08-23 00:42] LABS: Magnesium 2.8 mg/dL (1.6-2.6)
[2018-08-23] MEDS: 0.9% Normal Saline 1,000 ML 100 ML IV ×4 (00:51→21:55)
[2018-08-23] MEDS: Metoprolol Tartrate 50 MG Tablet 75 MG PO ×3 (00:55→21:54)
[2018-08-23] MEDS: Isosorbide Mononitrate 60 MG Tablet PO ×2 (00:56→16:59)
[2018-08-23] MEDS: Morphine 2 MG/ML Syringe IV ×5 (01:08→20:14)
[2018-08-23] MEDS: 0.9% NaCl Peripheral Flush Adult/Peds IV ×2 (01:11→03:54)
[2018-08-23 03:45] LABS: Urine Sodium 73 mmol/L (Not Establ.)
[2018-08-23] MEDS: oxyCODONE 5 MG Tablet PO ×2 (06:01→22:49)
[2018-08-23 06:31] LABS: Anion Gap 11 (5-15); BUN 81 mg/dL (7-18); BUN/Creat Ratio 17.7 RATIO (10-20); Calcium,Total 8.6 mg/dL (8.5-10.1); Chloride 105 mmol/L (98-107); Creatinine, Serum 4.58 mg/dL (0.70-1.30); EST Glomerular Filtration Rate 13 mL/min (>60); Est Glom Filt Rate - Afr Amer 16 mL/min (>60); Estimated Creatinine Clearance 12.38 ml/min; Glucose 140 mg/dL (74-106); Potassium 4.3 mmol/L (3.5-5.1); Sodium Level 136 mmol/L (136-145)
[2018-08-23 06:37] LABS: Absolute Lymphocyte Count 1.97 X10^3/ul (0.83-4.51); Basophil# 0.03 X10^3/uL; Basophil% 0.2 % (0-1); Eosinophil# 0.12 X10^3/uL; Eosinophils% 0.8 % (0-5); Hematocrit 37.1 % (40-54); Lymphocyte # 1.97 X10^3/ul (4.0); Mean Corpuscular Hgb 29.3 pg (27.0-32.0); Mean Corpuscular Volume 83.6 fL (80-94); Mean Platelet Vol. 10.1 fl (6.2-12.0); Monocyte# 2.04 X10^3/uL; Monocyte% 13.4 % (0-10); Neutrophil # 10.97 X10^3/uL (2.7-7.7); Neutrophil % 72.2 % (47-70); Platelet Count 233 K/mm3 (150-450); RBC Distribution Width CV 12.4 % (11.6-14.6); RBC Distribution Width SD 37.6 fl (35.1-43.9); Red Blood Count 4.44 M/mm3 (4.6-6.2); White Blood Count 15.2 K/mm3 (4.4-11.0)
[2018-08-23 06:47] LABS: POSITIVE COUNT NO; POSITIVE DIFFERENTIAL YES; POSITIVE MORPHOLOGY NO
[2018-08-23 06:48] LABS: Differential Indicated SCAN CRITERIA MET
[2018-08-23 06:56] LABS: Bedside Glucose 147 mg/dL (70-110)
--- NOTE | 2018-08-23 07:53 | PCM.CONS.U ---
Problem List (1) Bladder mass Status: Acute (2) Hx of bladder cancer Status: Chronic (3) Hydronephrosis Status: Acute Qualifiers: Hydronephrosis type: other Qualified Code(s): N13.39 - Other hydronephrosis Reason for Consult Date of Consultation: 08/23/18 Reason for Consultation: Recurrent bladder mass hydronephrosis History of Present Illness: The patient is a 78 year old male well known to my practice who has a history of bladder cancer treated with radiation therapy and chemotherapy a few years ago we have been changing his stent on the left side chronically now and presented to the hospital with new onset of right flank pain. Also in the office I have seen her recently for more difficulty with urination more difficulty with emptying his bladder. CAT scan was done which unfortunately demonstrates a recurrent mass within the prostate base and appears to be a mass going over to the right side. I suspect he has recurrent bladder cancer. Past Medical History Past Medical History (Chronic Problems): Chronic Problems (Last Reviewed 07/03/18 @ 09:18 by Kam Jenkins MD) History of prostate surgery (Chronic) Urolift system implanted History of stent insertion of renal artery (Chronic) Left kidney Hx of bladder cancer (Chronic) History of left heart catheterization (Chronic) 01/30/[address] Jameson @[facility] Hyperlipidemia (Chronic) Atherosclerotic heart disease of [place] coronary artery without angina pectoris (Chronic) 99% stenosis in proximal to mid LAD, 70% stenosis in mid RCA and diffuse distal disease per [facility] 01/30/[address] 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) Z79.899 NSTEMI (non-ST elevated myocardial infarction) (Chronic) I21.4 4, Non-ST elevation [place] Hypertension (Chronic) I10 Type 2 diabetes mellitus (Chronic) E11.9 Allergies No Known Allergies Allergy (Verified 08/22/18 19:32) Home Medications: Ambulatory Orders Medication Instructions Recorded Metformin HCl [Glucophage] 1,000 mg PO BIDCM 02/06/15 losartan 100 mg tablet 100 mg PO QDAY 01/24/18 nitroglycerin 0.4 mg sublingual 0.4 mg SUBLINGUAL Q5M PRN 01/24/18 tablet sitagliptin 100 mg tablet 100 mg PO QDAY 07/03/18 Metoprolol Tartrate [Lopressor 75 mg PO BID 07/26/18 (beta prasanth)] traMADol [Ultram] 50 mg PO Q6H PRN 3 Days #12 tab 08/11/18 Hydrochlorothiazide [Hctz] 25 mg PO DAILY 08/22/18 Ibuprofen 400 - 600 mg PO PRN PRN 08/22/18 Isosorbide Mononitrate [Imdur] 60 mg PO DAILY 08/22/18 Surgical History: Surgical History (Last Reviewed 07/03/18 @ 09:18 by Kam Jenkins MD) Hx of appendectomy (Acute) Z90.49 History of prostate surgery (Chronic) Z98.890 Urolift system implanted History of stent insertion of renal artery (Chronic) Z98.890 Left kidney Hx of right inguinal hernia repair (Acute) Z98.890, Z87.19 History of left heart catheterization (Chronic) Z98.890 01/30/[address] Jameson @[facility] Surgical History: herniorrhaphy, - - Removal of benign neck mass on the right neck, appendectomy, multiple cystoscopies w/ L stent placement and change, hernia repair, TUR bladder mass, Renal artery stent placement, Prostate Urolift system implant. Psychiatric History: No pertinent psych hx Lives: Alone Smoking Status: Former smoker Tobacco Use: Non-smoker Alcohol: None Drugs: None - *Family History Maternal Family History: Family History (Last Reviewed 07/03/18 @ 09:18 by Kam Jenkins MD) Father Prostate cancer Mother CAD (coronary artery disease) Myocardial infarction, Onset Age: 48 Cancer Brother Myocardial infarction Abdominal aortic aneurysm History Items: Cancer, Heart Disease Paternal Family History: Family History (Last Reviewed 07/03/18 @ 09:18 by Kam Jenkins MD) Father Prostate cancer Mother CAD (coronary artery disease) Myocardial infarction, Onset Age: 48 Cancer Brother Myocardial infarction Abdominal aortic aneurysm History Items: Cancer Review of Systems Constitutional: Denies: Chills, Fever, Weight Change HEENT: Denies: Head Aches, Sinus Congestion, Sinus Drainage Cardiovascular: Denies: Chest Pain, Palpitations Respiratory: Denies: Cough, Shortness of breath at rest, Sputum production Gastrointestinal: Denies: Abdominal Pain, Nausea, Vomiting Genitourinary: Denies: Dysuria Musculoskeletal: Denies: Joint Pain, Joint Tenderness Skin: Denies: Rash, Wounds Neurological: Denies: Numbness, Tingling, Focal weakness Psychiatric: Denies: Anxiety, Depression, Homicidal Ideations, Suicidal Ideations Hematologic/ Lymphatic: Denies: Easy Bruising, Easy Bleeding Physical Exam - Physical Exam Vital Signs Temp 98.3 F 08/23/18 03:57 Pulse 61 08/23/18 03:57 Resp 16 08/23/18 03:57 BP 128/66 H 08/23/18 03:57 Pulse Ox 96 08/23/18 07:38 Intake & Output 08/21/18 08/22/18 08/23/18 23:59 23:59 23:59 Intake Total 565 / 565 Balance 565 / 565 Weight: 70.3 kg 69.1 kg Intake: IV fluid/meds 565 / 565 General: Alert, Oriented x3 HEENT: Atraumatic Oral: Moist Mucosa Neck: Supple Lungs: Normal air movement Cardiovascular: Regular rate, Regular Rhythm Abdomen: Bowel Sounds Present, Soft, Obese Laboratory Tests Past 24 Hrs 08/22/18 08/22/18 08/22/18 19:40 19:40 19:40 WBC 16.5 H RBC 4.90 Hgb 14.2 Hct 41.0 MCV 83.7 MCH 29.0 MCHC 34.6 RDW 12.5 RDW Differential 38.0 Plt Count 253 MPV 10.3 Immature Gran % (Auto) 0.100 Neut % (Auto) 76.0 H Lymph % (Auto) 13.2 L [place] % (Auto) 10.1 H Eos % (Auto) 0.5 Baso % (Auto) 0.1 Absolute Neuts (auto) 12.6 H Absolute Lymphs (auto) 2.18 Total Counted Not Reportable Differential Comment SCANNED Sodium 132 L Potassium 3.3 L Chloride 97 L Carbon Dioxide 22.0 Anion Gap 13 BUN 77 H Creatinine 4.68 H Estim Creat Clear Calc 12.12 Est GFR (MDRD) Af Amer 16 L Est GFR (MDRD) Non-Af 13 L BUN/Creatinine Ratio 16.5 Glucose 242 H Calcium 9.1 Magnesium 2.8 H Total Bilirubin 0.60 AST 21 ALT 33 Alkaline Phosphatase 121 H Total Protein 8.7 H Albumin 3.6 Globulin 5.1 H Albumin/Globulin Ratio 0.7 L Urine Color Urine Clarity Urine pH Ur Specific [place] Urine Protein Urine Glucose (UA) Urine Ketones Urine Occult Blood Urine Nitrite Urine Bilirubin Urine Urobilinogen Ur Leukocyte Esterase Urine RBC Urine WBC Ur Squamous Epith Cells Urine Bacteria Urine Mucus Ur Random Sodium Urine Creatinine 08/22/18 08/22/18 08/23/18 20:40 20:40 06:02 WBC 15.2 H RBC 4.44 L Hgb 13.0 Hct 37.1 L MCV 83.6 MCH 29.3 MCHC 35.0 RDW 12.4 RDW Differential 37.6 Plt Count 233 MPV 10.1 Immature Gran % (Auto) 0.400 Neut % (Auto) 72.2 H Lymph % (Auto) 13.0 L [place] % (Auto) 13.4 H Eos % (Auto) 0.8 Baso % (Auto) 0.2 Absolute Neuts (auto) 11.0 H Absolute Lymphs (auto) 1.97 Total Counted Not Reportable Differential Comment Sodium Potassium Chloride Carbon Dioxide Anion Gap BUN Creatinine Estim Creat Clear Calc Est GFR (MDRD) Af Amer Est GFR (MDRD) Non-Af BUN/Creatinine Ratio Glucose Calcium Magnesium Total Bilirubin AST ALT Alkaline Phosphatase Total Protein Albumin Globulin Albumin/Globulin Ratio Urine Color Yellow Urine Clarity Sl. Cloudy Urine pH 6.0 Ur Specific [place] 1.015 Urine Protein 30 H Urine Glucose (UA) Normal Urine Ketones Negative Urine Occult Blood 250 H Urine Nitrite Negative Urine Bilirubin Negative Urine Urobilinogen Normal Ur Leukocyte Esterase 500 H Urine RBC 10-25 SEEN Urine WBC 5-10 SEEN Ur Squamous Epith Cells 0-5 SEEN Urine Bacteria 0 SEEN Urine Mucus 0 SEEN Ur Random Sodium 73 Urine Creatinine 84.80 08/23/18 06:02 WBC RBC Hgb Hct MCV MCH MCHC RDW RDW Differential Plt Count MPV Immature Gran % (Auto) Neut % (Auto) Lymph % (Auto) [place] % (Auto) Eos % (Auto) Baso % (Auto) Absolute Neuts (auto) Absolute Lymphs (auto) Total Counted Differential Comment Sodium 136 Potassium 4.3 Chloride 105 Carbon Dioxide 20.0 L Anion Gap 11 BUN 81 H Creatinine 4.58 H Estim Creat Clear Calc 12.38 Est GFR (MDRD) Af Amer 16 L Est GFR (MDRD) Non-Af 13 L BUN/Creatinine Ratio 17.7 Glucose 140 H Calcium 8.6 Magnesium Total Bilirubin AST ALT Alkaline Phosphatase Total Protein Albumin Globulin Albumin/Globulin Ratio Urine Color Urine Clarity Urine pH Ur Specific [place] Urine Protein Urine Glucose (UA) Urine Ketones Urine Occult Blood Urine Nitrite Urine Bilirubin Urine Urobilinogen Ur Leukocyte Esterase Urine RBC Urine WBC Ur Squamous Epith Cells Urine Bacteria Urine Mucus Ur Random Sodium Urine Creatinine Assessment/Plan All Active Problems (Last Reviewed 07/03/18 @ 09:18 by Kam Jenkins MD) Colon cancer screening (Acute) YOEL (acute kidney injury) (Acute) Bladder mass (Acute) Hydronephrosis (Acute) Hx of appendectomy (Acute) Hx of right inguinal hernia repair (Acute) Precordial chest pain (Acute) Plan today is to taken to the operating room for a cystoscopy and a do a transrectal prostate biopsy I am also going to do a transurethral resection of this bladder mass and place a stent on the right side where the new hydro-has developed he has a stent in the left side will probably get some resection of tissue on the left side to to document this recurrence. Recently did a cystoscopy and changes stent and did not see this mass this is a rapid progression. Patient is n.p.o. we will have the nurse put a catheter and if he cannot urinate and will plan for surgery today at noon as planned.
--- NOTE | 2018-08-23 07:56 | CON.PCM_ITS ---
Problem List (1) Bladder mass Status: Acute (2) Hx of bladder cancer Status: Chronic (3) Hydronephrosis Status: Acute Qualifiers: Hydronephrosis type: other Qualified Code(s): N13.39 - Other hydronephrosis Reason for Consult Date of Consultation: 08/23/18 Reason for Consultation: Recurrent bladder mass hydronephrosis History of Present Illness: The patient is a 78 year old male well known to my practice who has a history of bladder cancer treated with radiation therapy and chemotherapy a few years ago we have been changing his stent on the left side chronically now and presented to the hospital with new onset of right flank pain. Also in the office I have seen her recently for more difficulty with urination more difficulty with emptying his bladder. CAT scan was done which unfortunately demonstrates a recurrent mass within the prostate base and appears to be a mass going over to the right side. I suspect he has recurrent bladder cancer. Past Medical History Past Medical History (Chronic Problems): Chronic Problems (Last Reviewed 07/03/18 @ 09:18 by Kam Jenkins MD) History of prostate surgery (Chronic) Urolift system implanted History of stent insertion of renal artery (Chronic) Left kidney Hx of bladder cancer (Chronic) History of left heart catheterization (Chronic) 01/30/[address] Jameson @[facility] Hyperlipidemia (Chronic) Atherosclerotic heart disease of [place] coronary artery without angina pectoris (Chronic) 99% stenosis in proximal to mid LAD, 70% stenosis in mid RCA and diffuse distal disease per [facility] 01/30/[address] 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 therapy (Chronic) Z79.899 NSTEMI (non-ST elevated myocardial infarction) (Chronic) I21.4 4, Non-ST elevation [place] Hypertension (Chronic) I10 Type 2 diabetes mellitus (Chronic) E11.9 Allergies No Known Allergies Allergy (Verified 08/22/18 19:32) Home Medications: Ambulatory Orders Medication Instructions Recorded Metformin HCl [Glucophage] 1,000 mg PO BIDCM 02/06/15 losartan 100 mg tablet 100 mg PO QDAY 01/24/18 nitroglycerin 0.4 mg sublingual 0.4 mg SUBLINGUAL Q5M PRN 01/24/18 tablet sitagliptin 100 mg tablet 100 mg PO QDAY 07/03/18 Metoprolol Tartrate [Lopressor 75 mg PO BID 07/26/18 (beta prasanth)] traMADol [Ultram] 50 mg PO Q6H PRN 3 Days #12 tab 08/11/18 Hydrochlorothiazide [Hctz] 25 mg PO DAILY 08/22/18 Ibuprofen 400 - 600 mg PO PRN PRN 08/22/18 Isosorbide Mononitrate [Imdur] 60 mg PO DAILY 08/22/18 Surgical History: Surgical History (Last Reviewed 07/03/18 @ 09:18 by Kam Jenkins MD) Hx of appendectomy (Acute) Z90.49 History of prostate surgery (Chronic) Z98.890 Urolift system implanted History of stent insertion of renal artery (Chronic) Z98.890 Left kidney Hx of right inguinal hernia repair (Acute) Z98.890, Z87.19 History of left heart catheterization (Chronic) Z98.890 01/30/[address] Jameson @[facility] Surgical History: herniorrhaphy, - - Removal of benign neck mass on the right neck, appendectomy, multiple cystoscopies w/ L stent placement and change, hernia repair, TUR bladder mass, Renal artery stent placement, Prostate Urolift system implant. Psychiatric History: No pertinent psych hx Lives: Alone Smoking Status: Former smoker Tobacco Use: Non-smoker Alcohol: None Drugs: None - *Family History Maternal Family History: Family History (Last Reviewed 07/03/18 @ 09:18 by Kam Jenkins MD) Father Prostate cancer Mother CAD (coronary artery disease) Myocardial infarction, Onset Age: 48 Cancer Brother Myocardial infarction Abdominal aortic aneurysm History Items: Cancer, Heart Disease Paternal Family History: Family History (Last Reviewed 07/03/18 @ 09:18 by aKm Jenkins MD) Father Prostate cancer Mother CAD (coronary artery disease) Myocardial infarction, Onset Age: 48 Cancer Brother Myocardial infarction Abdominal aortic aneurysm History Items: Cancer Review of Systems Constitutional: Denies: Chills, Fever, Weight Change HEENT: Denies: Head Aches, Sinus Congestion, Sinus Drainage Cardiovascular: Denies: Chest Pain, Palpitations Respiratory: Denies: Cough, Shortness of breath at rest, Sputum production Gastrointestinal: Denies: Abdominal Pain, Nausea, Vomiting Genitourinary: Denies: Dysuria Musculoskeletal: Denies: Joint Pain, Joint Tenderness Skin: Denies: Rash, Wounds Neurological: Denies: Numbness, Tingling, Focal weakness Psychiatric: Denies: Anxiety, Depression, Homicidal Ideations, Suicidal Ideations Hematologic/ Lymphatic: Denies: Easy Bruising, Easy Bleeding Physical Exam - Physical Exam Vital Signs Temp 98.3 F 08/23/18 03:57 Pulse 61 08/23/18 03:57 Resp 16 08/23/18 03:57 BP 128/66 H 08/23/18 03:57 Pulse Ox 96 08/23/18 07:38 Intake & Output 08/21/18 08/22/18 08/23/18 23:59 23:59 23:59 Intake Total 565 / 565 Balance 565 / 565 Weight: 70.3 kg 69.1 kg Intake: IV fluid/meds 565 / 565 General: Alert, Oriented x3 HEENT: Atraumatic Oral: Moist Mucosa Neck: Supple Lungs: Normal air movement Cardiovascular: Regular rate, Regular Rhythm Abdomen: Bowel Sounds Present, Soft, Obese Laboratory Tests Past 24 Hrs 08/22/18 08/22/18 08/22/18 19:40 19:40 19:40 WBC 16.5 H RBC 4.90 Hgb 14.2 Hct 41.0 MCV 83.7 MCH 29.0 MCHC 34.6 RDW 12.5 RDW Differential 38.0 Plt Count 253 MPV 10.3 Immature Gran % (Auto) 0.100 Neut % (Auto) 76.0 H Lymph % (Auto) 13.2 L [place] % (Auto) 10.1 H Eos % (Auto) 0.5 Baso % (Auto) 0.1 Absolute Neuts (auto) 12.6 H Absolute Lymphs (auto) 2.18 Total Counted Not Reportable Differential Comment SCANNED Sodium 132 L Potassium 3.3 L Chloride 97 L Carbon Dioxide 22.0 Anion Gap 13 BUN 77 H Creatinine 4.68 H Estim Creat Clear Calc 12.12 Est GFR (MDRD) Af Amer 16 L Est GFR (MDRD) Non-Af 13 L BUN/Creatinine Ratio 16.5 Glucose 242 H Calcium 9.1 Magnesium 2.8 H Total Bilirubin 0.60 AST 21 ALT 33 Alkaline Phosphatase 121 H Total Protein 8.7 H Albumin 3.6 Globulin 5.1 H Albumin/Globulin Ratio 0.7 L Urine Color Urine Clarity Urine pH Ur Specific [place] Urine Protein Urine Glucose (UA) Urine Ketones Urine Occult Blood Urine Nitrite Urine Bilirubin Urine Urobilinogen Ur Leukocyte Esterase Urine RBC Urine WBC Ur Squamous Epith Cells Urine Bacteria Urine Mucus Ur Random Sodium Urine Creatinine 08/22/18 08/22/18 08/23/18 20:40 20:40 06:02 WBC 15.2 H RBC 4.44 L Hgb 13.0 Hct 37.1 L MCV 83.6 MCH 29.3 MCHC 35.0 RDW 12.4 RDW Differential 37.6 Plt Count 233 MPV 10.1 Immature Gran % (Auto) 0.400 Neut % (Auto) 72.2 H Lymph % (Auto) 13.0 L [place] % (Auto) 13.4 H Eos % (Auto) 0.8 Baso % (Auto) 0.2 Absolute Neuts (auto) 11.0 H Absolute Lymphs (auto) 1.97 Total Counted Not Reportable Differential Comment Sodium Potassium Chloride Carbon Dioxide Anion Gap BUN Creatinine Estim Creat Clear Calc Est GFR (MDRD) Af Amer Est GFR (MDRD) Non-Af BUN/Creatinine Ratio Glucose Calcium Magnesium Total Bilirubin AST ALT Alkaline Phosphatase Total Protein Albumin Globulin Albumin/Globulin Ratio Urine Color Yellow Urine Clarity Sl. Cloudy Urine pH 6.0 Ur Specific [place] 1.015 Urine Protein 30 H Urine Glucose (UA) Normal Urine Ketones Negative Urine Occult Blood 250 H Urine Nitrite Negative Urine Bilirubin Negative Urine Urobilinogen Normal Ur Leukocyte Esterase 500 H Urine RBC 10-25 SEEN Urine WBC 5-10 SEEN Ur Squamous Epith Cells 0-5 SEEN Urine Bacteria 0 SEEN Urine Mucus 0 SEEN Ur Random Sodium 73 Urine Creatinine 84.80 08/23/18 06:02 WBC RBC Hgb Hct MCV MCH MCHC RDW RDW Differential Plt Count MPV Immature Gran % (Auto) Neut % (Auto) Lymph % (Auto) [place] % (Auto) Eos % (Auto) Baso % (Auto) Absolute Neuts (auto) Absolute Lymphs (auto) Total Counted Differential Comment Sodium 136 Potassium 4.3 Chloride 105 Carbon Dioxide 20.0 L Anion Gap 11 BUN 81 H Creatinine 4.58 H Estim Creat Clear Calc 12.38 Est GFR (MDRD) Af Amer 16 L Est GFR (MDRD) Non-Af 13 L BUN/Creatinine Ratio 17.7 Glucose 140 H Calcium 8.6 Magnesium Total Bilirubin AST ALT Alkaline Phosphatase Total Protein Albumin Globulin Albumin/Globulin Ratio Urine Color Urine Clarity Urine pH Ur Specific [place] Urine Protein Urine Glucose (UA) Urine Ketones Urine Occult Blood Urine Nitrite Urine Bilirubin Urine Urobilinogen Ur Leukocyte Esterase Urine RBC Urine WBC Ur Squamous Epith Cells Urine Bacteria Urine Mucus Ur Random Sodium Urine Creatinine Assessment/Plan All Active Problems (Last Reviewed 07/03/18 @ 09:18 by Kam Jenkins MD) Colon cancer screening (Acute) YOEL (acute kidney injury) (Acute) Bladder mass (Acute) Hydronephrosis (Acute) Hx of appendectomy (Acute) Hx of right inguinal hernia repair (Acute) Precordial chest pain (Acute) Plan today is to taken to the operating room for a cystoscopy and a do a transrectal prostate biopsy I am also going to do a transurethral resection of this bladder mass and place a stent on the right side where the new hydro-has developed he has a stent in the left side will probably get some resection of tissue on the left side to to document this recurrence. Recently did a cystoscopy and changes stent and did not see this mass this is a rapid progression. Patient is n.p.o. we will have the nurse put a catheter and if he cannot urinate and will plan for surgery today at noon as planned.
[2018-08-23] MEDS: Ceftriaxone 1 GM/50 ML BAG IV (10:19)
--- NOTE | 2018-08-23 11:09 | CASEMGMT ---
RN CM assessment completed. Anticipate dc to home. CM will continue to follow and assist with dc needs if they arise. -pt states he was independent prior to admission. Murray ARCOSN RN ACM
[2018-08-23 11:10] LABS: Bedside Glucose 167 mg/dL (70-110)
--- NOTE | 2018-08-23 11:14 | NURSING ---
called report to Ingrid in [place].
--- NOTE | 2018-08-23 11:44 | US_ITS ---
PROCEDURE: Ultrasound Guided prostate biopsy. CLINICAL HISTORY: Male, 78 years old. Heterogeneous prostate. CONSENT: Time-Out Called: Yes Consent form signed: YES PT-PTT Levels Checked: Yes TECHNIQUE: Under direct sonographic guidance, the urologist performed 6 core biopsies of the prostate. US/Prostate Biopsy IMPRESSION: Successful ultrasound-guided prostate biopsy. Electronically Signed: Suresh Rosales MD at 15:00 EDT Tel [phone], Service support ,
--- NOTE | 2018-08-23 12:30 | PROSB_PTH ---
PATIENT: SHONNA MCCORD LOC: MS2 U#:[id number] AGE/SX: 78/M ROOM: [facility] [place] RE08/22/[address]: Dr. Freddie Ortiz DO : 1940 BED: 1 DIS: 08/26/2018 SPEC #: [id number] RECD: 08/23/18 14:50 STATUS: KADENLuis REQ #: [id number] VIPUL: 08/23/18 12:[address]: Beltran Yi DEPT: SURGICAL PATHOLOGY RECD BY: Anuj Sorenson ENTERED: 08/24/18 04:58 SP TYPE: PROST BX OTHR DR: Dr. Jonathan Lombardi MD Tissues: Prostate, NOS Procedures: Surgery Specimen Level IV Comments: @ Originally on account #[id number] Req #[id number] HEADER OPERATION: Transrectal ultrasound-guided prostate biopsy, cystoscopy PRE-OP DIAGNOSIS: Bladder cancer and outlet obstruction TISSUE SUBMITTED: Prostate biopsy and base of bladder MICROSCOPIC DIAGNOSIS Prostate and base of bladder, core biopsy: Poorly differentiated carcinoma with neuroendocrine features, small cell carcinoma. See comment. RANI:corin 08/24/18 COMMENT Immunohistochemistry ([id number]) supports the above diagnosis. Correlation with clinical findings and appropriate follow up are necessary. Please make reference to previous specimen ([id number]), bladder tumor, TUR with diagnosis of necrotic carcinoma, favor squamous cell carcinoma. MICROSCOPIC DESCRIPTION Slides are reviewed. GROSS DESCRIPTION Received in fixative is one container labeled with the patient's name and designated prostate biopsy and base of bladder. The specimen consists of eight elongated fragments of [place]andler soft tissue measuring 0.5 to 2.5 cm in length and 0.1 cm in diameter. The entire specimen is submitted in three cassettes. / RANI:corin 08/23/18 TC:0 CPT: 36599
--- NOTE | 2018-08-23 13:03 | PCM.OPRPT ---
Problem List (1) Bladder mass Status: Acute (2) Hx of bladder cancer Status: Chronic (3) Hydronephrosis Status: Acute Qualifiers: Hydronephrosis type: other Qualified Code(s): N13.39 - Other hydronephrosis Report of Operation Date of Procedure: 08/23/18 Pre-Operative Diagnosis: Recurrent bladder cancer Post-Operative Diagnosis: Same Surgery/Procedure Performed:: Transrectal ultrasound-guided prostate biopsy and cystoscopy Description of Surgical Findings:: 78-year-old male had a history of bladder cancer was treated with radiation chemotherapy about 4 years ago he has been cancer free ever since then and then this past month has been having more difficulty going to the bathroom or difficulty with urination we were setting him up for a cystoscopy and evaluation he presented to the hospital with more pain and discomfort CAT scan was done to demonstrate a mass growing in within the bladder base and prostate is a stent and on the left side. Today we will taken back to the operating room for cystoscopy evaluate of this mass and biopsy. Most of the performed transrectal ultrasound-guided biopsy. 78-year-old male taken back to the operating room after smooth induction of anesthesia he was placed supine on the table in dorsal lithotomy position. On exam of the prostate the really rockhard firm prostate I then introduced a ultrasound probe into the rectum I did transrectal ultrasonography could see the large mass protruding into the base of the bladder biopsies were done and these were sent off as specimens. I then went to the bladder with the scope could see a really high riding bladder neck from a mass growing at the base of the bladder stent was in place on the left side I could not identify any orifice on the right side of the left side start the stent emanating so stands [address] thought about trying to place a stent on the right side but it is impossible given the mass growing in the base of the bladder so at this point I drain the bladder the prostate biopsies and transrectal ultrasound of these were performed I suspect he has significant recurrence of his bladder cancer in the pelvic area. Will consult Dr. Mijares from oncology for further evaluation and possible management options. Type of Anesthesia:: General Drains: del rosario - Admit VTE Documentation VTE Present on Admission: No VTE Mechan Device Prophylaxis: SCD's VTE Pharm Prophylaxis ordered?: No
[2018-08-23 13:41] LABS: Bedside Glucose 125 mg/dL (70-110)
[2018-08-23] MEDS: Polyethylene Glycol 3350 17 GM PACKET PO (14:54)
--- NOTE | 2018-08-23 15:42 | CHAPLAIN ---
Type of Pastoral Visit _x__ Initial Visit ___ Follow-up Visit ___ On-call Visit ___ General Patient Visit ___ Spiritual Assessment ___ Family Conference ___ Bereavement ___ Rapid Response ___ Code Blue ___ Other (describe below) Pastoral Care Referral From _x__ Patient _x__ Family ___ Nurse ___ Physician ___ Director Of Services ___ Boiler Fireman ___ Other (describe below) Sacrament/Intervention ___ Active listening ___ Anointing ___ Alevism ___ Bereavement ___ Communion ___ Vikki exploration ___ ___ Life review _x__ Prayer ___ Reconciliation ___ Sacrament of Sick _x__ Supportive presence ___ Wedding ___ Other (describe below) Pastoral Comments many family members in the room; RN also actively attending to patient; pt and family are welcoming of prayer and give invitation to come back; family steps out of room and network design architect offers further support;
--- NOTE | 2018-08-23 16:52 | PCM.PROGNOTE ---
Patient Problems: Active and Suspected Problems (Last Reviewed 07/03/18 @ 09:18 by Kam Jenkins MD) YOEL (acute kidney injury) (Acute) Bladder mass (Acute) Hydronephrosis (Acute) Subjective: Patient was seen and examined today, his family are in the room at the time of my examination. Patient underwent a cystoscopy today with biopsy of a bladder mass and also needle biopsy of the prostate. Urology was unable to place a ureteral stent, I talked to Dr. Yi late this afternoon and he agreed that a percutaneous nephrostomy tube would need to be placed on the right side because of his hydronephrosis and acute kidney injury. I am worried that if this is not placed tomorrow, the patient would have pain on Monday and we would have to transfer him out to another hospital for treatment. - Physical Exam General: Alert, Oriented x3, Cooperative, No apparent distress, Well developed, Well nourished HEENT: Atraumatic, PERRLA, EOMI, Normocephalic Oral: Moist Mucosa Neck: Supple, No Nuchal Rigidity, Trachea Midline, Thyroid Normal Size and Texture Lungs: Clear to auscultation, Normal air movement, No rhonchi, No wheeze Cardiovascular: Regular rate, Regular Rhythm, Normal S1, Normal S2, No murmurs, No Ectopic Activity, PMI Normal, No rub noted, No Gallop Abdomen: Bowel Sounds Present, Soft, Non Tender, Non-Distended Extremities: No clubbing, No cyanosis, No edema, Capillary Refill Less than 3 Seconds Skin: No rashes, No breakdown Musculoskeletal: No Tenderness to Palpation of Joints or Extremities Neurological: Cranial nerves II-XII grossly intact, Neuro grossly intact, Sensory exam intact to light touch and pain, Coordination normal Psych/Mental Status: Normal Affect, Appropriate, Alert and oriented to time, place, person, mood and affect Vital Signs Temp Pulse Resp BP Pulse Ox 97.6 F L 64 14 134/64 H 96 08/23/18 14:36 08/23/18 14:36 08/23/18 14:36 08/23/18 14:36 08/23/18 14:36 Oxygen Delivery Method Room Air Weight: 69.1 kg Body Mass Index (BMI) 24.5 Finger Stick Blood Glucose 125 Intake and Output for Last 24 Hours 08/21/18 08/22/18 08/23/18 23:59 23:59 23:59 Intake Total 1665 / 1665 Output Total 200 / 200 Balance 1465 / 1465 Laboratory Tests Past 24 Hrs 08/22/18 08/22/18 08/22/18 19:40 19:40 19:40 WBC 16.5 H RBC 4.90 Hgb 14.2 Hct 41.0 MCV 83.7 MCH 29.0 MCHC 34.6 RDW 12.5 RDW Differential 38.0 Plt Count 253 MPV 10.3 Immature Gran % (Auto) 0.100 Neut % (Auto) 76.0 H Lymph % (Auto) 13.2 L [place] % (Auto) 10.1 H Eos % (Auto) 0.5 Baso % (Auto) 0.1 Absolute Neuts (auto) 12.6 H Absolute Lymphs (auto) 2.18 Total Counted Not Reportable Differential Comment SCANNED Sodium 132 L Potassium 3.3 L Chloride 97 L Carbon Dioxide 22.0 Anion Gap 13 BUN 77 H Creatinine 4.68 H Estim Creat Clear Calc 12.12 Est GFR (MDRD) Af Amer 16 L Est GFR (MDRD) Non-Af 13 L BUN/Creatinine Ratio 16.5 Glucose 242 H Calcium 9.1 Magnesium 2.8 H Total Bilirubin 0.60 AST 21 ALT 33 Alkaline Phosphatase 121 H Total Protein 8.7 H Albumin 3.6 Globulin 5.1 H Albumin/Globulin Ratio 0.7 L Urine Color Urine Clarity Urine pH Ur Specific [place] Urine Protein Urine Glucose (UA) Urine Ketones Urine Occult Blood Urine Nitrite Urine Bilirubin Urine Urobilinogen Ur Leukocyte Esterase Urine RBC Urine WBC Ur Squamous Epith Cells Urine Bacteria Urine Mucus Ur Random Sodium Urine Creatinine 08/22/18 08/22/18 08/23/18 20:40 20:40 06:02 WBC 15.2 H RBC 4.44 L Hgb 13.0 Hct 37.1 L MCV 83.6 MCH 29.3 MCHC 35.0 RDW 12.4 RDW Differential 37.6 Plt Count 233 MPV 10.1 Immature Gran % (Auto) 0.400 Neut % (Auto) 72.2 H Lymph % (Auto) 13.0 L [place] % (Auto) 13.4 H Eos % (Auto) 0.8 Baso % (Auto) 0.2 Absolute Neuts (auto) 11.0 H Absolute Lymphs (auto) 1.97 Total Counted Not Reportable Differential Comment Sodium Potassium Chloride Carbon Dioxide Anion Gap BUN Creatinine Estim Creat Clear Calc Est GFR (MDRD) Af Amer Est GFR (MDRD) Non-Af BUN/Creatinine Ratio Glucose Calcium Magnesium Total Bilirubin AST ALT Alkaline Phosphatase Total Protein Albumin Globulin Albumin/Globulin Ratio Urine Color Yellow Urine Clarity Sl. Cloudy Urine pH 6.0 Ur Specific [place] 1.015 Urine Protein 30 H Urine Glucose (UA) Normal Urine Ketones Negative Urine Occult Blood 250 H Urine Nitrite Negative Urine Bilirubin Negative Urine Urobilinogen Normal Ur Leukocyte Esterase 500 H Urine RBC 10-25 SEEN Urine WBC 5-10 SEEN Ur Squamous Epith Cells 0-5 SEEN Urine Bacteria 0 SEEN Urine Mucus 0 SEEN Ur Random Sodium 73 Urine Creatinine 84.80 08/23/18 06:02 WBC RBC Hgb Hct MCV MCH MCHC RDW RDW Differential Plt Count MPV Immature Gran % (Auto) Neut % (Auto) Lymph % (Auto) [place] % (Auto) Eos % (Auto) Baso % (Auto) Absolute Neuts (auto) Absolute Lymphs (auto) Total Counted Differential Comment Sodium 136 Potassium 4.3 Chloride 105 Carbon Dioxide 20.0 L Anion Gap 11 BUN 81 H Creatinine 4.58 H Estim Creat Clear Calc 12.38 Est GFR (MDRD) Af Amer 16 L Est GFR (MDRD) Non-Af 13 L BUN/Creatinine Ratio 17.7 Glucose 140 H Calcium 8.6 Magnesium Total Bilirubin AST ALT Alkaline Phosphatase Total Protein Albumin Globulin Albumin/Globulin Ratio Urine Color Urine Clarity Urine pH Ur Specific [place] Urine Protein Urine Glucose (UA) Urine Ketones Urine Occult Blood Urine Nitrite Urine Bilirubin Urine Urobilinogen Ur Leukocyte Esterase Urine RBC Urine WBC Ur Squamous Epith Cells Urine Bacteria Urine Mucus Ur Random Sodium Urine Creatinine POC Glucose 08/23/18 08/23/18 08/23/18 13:38 11:05 06:46 POC Glucose 125 H 167 H 147 H Medical Necessity - Tobacco Use Smoking Status: Former smoker Tobacco Use: Non-smoker Assessment/Plan All Active Problems (Last Reviewed 07/03/18 @ 09:18 by Kam Jenkins MD) Colon cancer screening (Resolved) YOEL (acute kidney injury) (Acute) Bladder mass (Acute) Hydronephrosis (Acute) Precordial chest pain (Resolved) #1 right flank pain secondary to right hydronephrosis from bladder cancer-patient will undergo a right percutaneous nephrostomy tube insertion tomorrow #2 acute kidney injury secondary to hydronephrosis from bladder cancer-again, nephrostomy tube will be inserted tomorrow, labs will be monitored #3 chronic bladder cancer #4 atherosclerotic heart disease #5 hypertension #6 type 2 diabetes #7 hyperlipidemia #8 leukocytosis-possibly secondary to acute cystitis, patient is now on Rocephin, I will maintain him on Rocephin daily #9 hypokalemia-resolved at this time Code Visit Inpatient E&M: [id number] Subs Hosp L2
--- NOTE | 2018-08-23 17:06 | CON.PCM_ITS ---
Consult Referring Physician: Dr. Ortiz Consult Results: Recurrent bladder cancer. Subjective Date of Service:: 08/23/18 Chief Complaint: Right flank pain History of Present Illness: 78y.o.man was diagnosed with bladder cancer on July 02, 2014. He was treated with chemotherapy and radiation therapy, did not tolerate first cycle of chemo so finished treatment with radiation alone. He was recently admitted with right flank pain, CT on 08/22/2018 showed posterior bladder mass with involvement of the right ureterovesical junction, superior plus prostate gland and right seminal vesicles with moderate right hydronephrosis and severe left hydronephrosis with right perirectal adenopathy. He had cystoscopy and transrectal biopsy on 08/23/2018, stenting of right ureter was not possible. He is scheduled to have right nephrostomy tube placed. 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) NSTEMI (non-ST elevated myocardial infarction) (Chronic) 03/05/14, Non-ST elevation [place] Bladder cancer (Chronic) Hypertension (Chronic) Type 2 diabetes mellitus (Chronic) Past Medical/Surgical History: Past Medical History - Most Recent Inpatient Visit Past Medical History Start: 08/23/18 00:01 Text: Status: Complete Freq: ONCE Protocol: Document 08/23/18 00:01 EKP (Rec: 08/23/18 00:14 EKP [id number]) BMI Required to complete PMH What is Patient's BMI 24.6 Past Medical History Unable History Recalled No Query Text:Pt Unable/Family Not Present Neurologic Medical History Hx Stroke/TIA No Hx Dementia/Alzheimer's No Hx Parkinson's Disease No Hx Seizures No Hx Multiple Sclerosis No Hx Migraines No Cardiac Medical History VTE Present on Admission No Hx of Deep Vein Thrombosis/VTE/PE No Hx Hypertension Yes: STATES CONTROLLED WITH MEDS Hx Chest Pain/Angina No Hx Heart Attack Yes: 2013 Hx Cardiac Surgery/Stents/Etc. No Hx Heart Failure No Hx Pacemaker/AICD No Hx Irregular Heartbeat and/or Afib No: follows with dr lauren last visit 01/2018 Hx Anticoagulant Therapy Yes: asprin 81 mg Query Text:(Coumadin, Aspirin, Plavix, Xarelto, etc.) Hx Pain in Legs when Walking/Leg Cramps No Respiratory Medical History Hx COPD No Hx Emphysema No Hx Smoking Yes: QUIT 1997 Smoking Status Former smoker Hx Smoking Cessation Counseling No Hx Smoking Exposure Yes Hx Tobacco Use in last 12 months No Hx of Pipe Smoking Yes Hx Sleep Apnea No CPAP No BIPAP No Do you snore loudly (louder than talking No or can be heard through closed doors)? Do you often feel tired/ fatigued/ No sleepy during daytime? Has anyone observed you stop breathing No during sleep? STOP Results Negative GI Medical History Hx Ulcer No Hx Hepatitis No Hx Cirrhosis No Hx GI Bleed No Hx Unplanned Weight Loss No Genitourinary Medical History Indwelling Catheter in Place on Arrival/ No Admission Hx Renal Disease Yes: BLADDER CA 2013/ RADIATION Hx Dialysis No Musculoskeletal History Hx Arthritis Yes Hx Rheumatoid Arthritis No Endocrine Medical History Hx Diabetes Yes: ORAL MEDS Hx Thyroid Disease No Hematologic Medical History Hx of Blood Transfusion No Hx of Transfusion in last 3 Months No Ever experience any problems with No transfusion(s)? Hx of Preganancy in last 3 Months N/A Nurse Filling Out Transfusion & EPETERSHE Questions: Date: 08/23/18 Time: 00:12 Psycho/Social Medical History Hx Depression No Hx Anxiety No Hx Alcohol Use No Hx Substance Use No Other Medical History Hx Blood Disorders No Hx Anemia No Hx Cancer Yes: BLADDER-- TUMOR REMOVED Hx Drug Resistant Organism No Wound/Pressure Injury Present on Arrival No /Admission Query Text:If yes, chart assessment in Shift/Clinical Findings Central Line/PICC/VAD Present on Arrival No /Admission Antibiotics within last 7 days? 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) Old myocardial infarction (Chronic) Chronic systolic heart failure (Chronic) 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) NSTEMI (non-ST elevated myocardial infarction) (Chronic) Hypertension (Chronic) Type 2 diabetes mellitus (Chronic) Past Surgical History (Last Reviewed 07/03/18 @ 09:18 by Kam Jenkins MD) Hx of appendectomy (Acute) History of prostate surgery (Chronic) History of stent insertion of renal artery (Chronic) Hx of right inguinal hernia repair (Acute) History of left heart catheterization (Chronic) Maternal Family History: Family History (Last Reviewed 07/03/18 @ 09:18 by Kam Jenkins MD) Father Prostate cancer Mother CAD (coronary artery disease) Myocardial infarction, Onset Age: 48 Cancer Brother Myocardial infarction Abdominal aortic aneurysm Family History: Cancer, Heart Disease Paternal Family History: Family History (Last Reviewed 07/03/18 @ 09:18 by Kam Jenkins MD) Father Prostate cancer Mother CAD (coronary artery disease) Myocardial infarction, Onset Age: 48 Cancer Brother Myocardial infarction Abdominal aortic aneurysm Family History: Cancer - Social History Lives: Alone Smoking Status: Former smoker Tobacco Use: Non-smoker Alcohol: None Drugs: None Allergies/Adverse Reactions: Allergy/AdvReac Type Severity Reaction Status Date / Time No Known Allergies Allergy Verified 08/22/18 19:32 Review of Systems Constitutional:: Reports: Fatigue. Denies: Weakness Cardiovascular:: Denies: Chest pain, Palpitations, Dyspnea on exertion, Orthopnea, PND, Shortness of breath Respiratory: Denies: Cough, Hemoptysis, Shortness of Breath, Wheezing Gastrointestinal:: Reports: Abdominal pain - R flank area. Genitourinary: Denies: Dysuria, Hematuria, 15, Flank pain Musculoskeletal:: Denies: Back pain, Myalgia, Arthralgia Skin: Denies: Rash, Skin Changes, Wounds Neurological:: Denies: Headache, Dizziness, Visual changes, Tinnitus, Hearing loss Psychiatric: Denies: Anxiety, Depression, Homicidal Ideations, Suicidal Ideations Vital Signs Height 5 ft 6 in Weight: 69.1 kg Weight in Pounds 152.3 lbs Pulse Ox 96 Temperature 97.6 F Pulse Rate 64 Respiratory Rate 14 Blood Pressure 134/64 Blood Pressure Position Semi-Fowlers - Physical Exam General: Alert, Oriented x3, No apparent distress HEENT: Atraumatic, PERRLA, EOMI, Normocephalic Oropharynx:: Dry mucosa Neck:: Supple, Trachea midline. Negative for: JVD, bilateral Cardiac:: Regular rate, Regular rhythm, Normal S1, Normal S2. Negative for: Murmur Lungs: Clear to auscultation, Excusion symmetrical. Negative for: Rhonchi, Wheezes Abdomen:: Non-tender Extremities:: Negative for: Cyanosis, Edema Neurological: Neuro grossly intact Skin:: Negative for: Lesions, Rash, Petechiae, Ecchymosis Psychiatric:: Appropriate affect, Euthymic Lymphatics:: Negative for: Cervical lymphadenopathy, Supraclavicular lymphadenopathy, Axillary lymphadenopathy Laboratory Data: Laboratory Tests 08/23/18 08/23/18 08/23/18 Range/Units 13:38 11:05 06:46 WBC (4.4-11.0) K/mm3 RBC (4.6-6.2) M/mm3 Hgb (13.0-16.5) g/dl Hct (40-54) % MCV (80-94) fL MCH (27.0-32.0) pg MCHC (32-36) g/gl RDW (11.6-14.6) % RDW Differential (35.1-43.9) fl Plt Count (150-450) K/mm3 MPV (6.2-12.0) fl Immature Gran % (Auto) (0.0-0.9) % Neut % (Auto) (47-70) % Lymph % (Auto) (19-41) % [place] % (Auto) (0-10) % Eos % (Auto) (0-5) % Baso % (Auto) (0-1) % Absolute Neuts (auto) (2.0-7.7) X10^3/uL Absolute Lymphs (auto) (0.83-4.51) X10^3/ul Total Counted Differential Comment Sodium (136-145) mmol/L Potassium (3.5-5.1) mmol/L Chloride (98-107) mmol/L Carbon Dioxide (21.0-32.0) mmol/L Anion Gap (5-15) BUN (7-18) mg/dL Creatinine (0.70-1.30) mg/dL Estim Creat Clear Calc ml/min Est GFR (MDRD) Af Amer (>60) mL/min Est GFR (MDRD) Non-Af (>60) mL/min BUN/Creatinine Ratio (10-20) RATIO Glucose (74-106) mg/dL Calcium (8.5-10.1) mg/dL Magnesium (1.6-2.6) mg/dL Total Bilirubin (0.20-1.00) mg/dL AST (15-37) U/L ALT (16-61) U/L Alkaline Phosphatase (45-117) U/L Total Protein (6.4-8.2) g/dL Albumin (3.2-5.0) g/dL Globulin (2.2-4.2) g/dL Albumin/Globulin Ratio (0.9-2.4) RATIO Urine Color (Yellow) Urine Clarity (Clear) Urine pH (5.0 - 8.0) Ur Specific [place] (1.002-1.030) Urine Protein (Negative) mg/dl Urine Glucose (UA) (Normal) mg/dl Urine Ketones (Negative) mg/dl Urine Occult Blood (Negative) /ul Urine Nitrite (Negative) Urine Bilirubin (Negative) mg/dL Urine Urobilinogen (Normal) mg/dl Ur Leukocyte Esterase (Negative) /ul Urine RBC (0-5) /hpf Urine WBC (0-5) /hpf Ur Squamous Epith Cells (0-5) /hpf Urine Bacteria (None Seen) /hpf Urine Mucus (<or=2+) /hpf Ur Random Sodium (Not Establ.) mmol/L Urine Creatinine (NO RANGE EST.) mg/dL POC Glucose 125 H 167 H 147 H (70-110) mg/dL 08/23/18 08/23/18 08/22/18 Range/Units 06:02 06:02 20:40 WBC 15.2 H (4.4-11.0) K/mm3 RBC 4.44 L (4.6-6.2) M/mm3 Hgb 13.0 (13.0-16.5) g/dl Hct 37.1 L (40-54) % MCV 83.6 (80-94) fL MCH 29.3 (27.0-32.0) pg MCHC 35.0 (32-36) g/gl RDW 12.4 (11.6-14.6) % RDW Differential 37.6 (35.1-43.9) fl Plt Count 233 (150-450) K/mm3 MPV 10.1 (6.2-12.0) fl Immature Gran % (Auto) 0.400 (0.0-0.9) % Neut % (Auto) 72.2 H (47-70) % Lymph % (Auto) 13.0 L (19-41) % [place] % (Auto) 13.4 H (0-10) % Eos % (Auto) 0.8 (0-5) % Baso % (Auto) 0.2 (0-1) % Absolute Neuts (auto) 11.0 H (2.0-7.7) X10^3/uL Absolute Lymphs (auto) 1.97 (0.83-4.51) X10^3/ul Total Counted Not Reportable Differential Comment Sodium 136 (136-145) mmol/L Potassium 4.3 (3.5-5.1) mmol/L Chloride 105 (98-107) mmol/L Carbon Dioxide 20.0 L (21.0-32.0) mmol/L Anion Gap 11 (5-15) BUN 81 H (7-18) mg/dL Creatinine 4.58 H (0.70-1.30) mg/dL Estim Creat Clear Calc 12.38 ml/min Est GFR (MDRD) Af Amer 16 L (>60) mL/min Est GFR (MDRD) Non-Af 13 L (>60) mL/min BUN/Creatinine Ratio 17.7 (10-20) RATIO Glucose 140 H (74-106) mg/dL Calcium 8.6 (8.5-10.1) mg/dL Magnesium (1.6-2.6) mg/dL Total Bilirubin (0.20-1.00) mg/dL AST (15-37) U/L ALT (16-61) U/L Alkaline Phosphatase (45-117) U/L Total Protein (6.4-8.2) g/dL Albumin (3.2-5.0) g/dL Globulin (2.2-4.2) g/dL Albumin/Globulin Ratio (0.9-2.4) RATIO Urine Color (Yellow) Urine Clarity (Clear) Urine pH (5.0 - 8.0) Ur Specific [place] (1.002-1.030) Urine Protein (Negative) mg/dl Urine Glucose (UA) (Normal) mg/dl Urine Ketones (Negative) mg/dl Urine Occult Blood (Negative) /ul Urine Nitrite (Negative) Urine Bilirubin (Negative) mg/dL Urine Urobilinogen (Normal) mg/dl Ur Leukocyte Esterase (Negative) /ul Urine RBC (0-5) /hpf Urine WBC (0-5) /hpf Ur Squamous Epith Cells (0-5) /hpf Urine Bacteria (None Seen) /hpf Urine Mucus (<or=2+) /hpf Ur Random Sodium 73 (Not Establ.) mmol/L Urine Creatinine 84.80 (NO RANGE EST.) mg/dL POC Glucose (70-110) mg/dL 08/22/18 08/22/18 08/22/18 Range/Units 20:40 19:40 19:40 WBC (4.4-11.0) K/mm3 RBC (4.6-6.2) M/mm3 Hgb (13.0-16.5) g/dl Hct (40-54) % MCV (80-94) fL MCH (27.0-32.0) pg MCHC (32-36) g/gl RDW (11.6-14.6) % RDW Differential (35.1-43.9) fl Plt Count (150-450) K/mm3 MPV (6.2-12.0) fl Immature Gran % (Auto) (0.0-0.9) % Neut % (Auto) (47-70) % Lymph % (Auto) (19-41) % [place] % (Auto) (0-10) % Eos % (Auto) (0-5) % Baso % (Auto) (0-1) % Absolute Neuts (auto) (2.0-7.7) X10^3/uL Absolute Lymphs (auto) (0.83-4.51) X10^3/ul Total Counted Differential Comment Sodium 132 L (136-145) mmol/L Potassium 3.3 L (3.5-5.1) mmol/L Chloride 97 L (98-107) mmol/L Carbon Dioxide 22.0 (21.0-32.0) mmol/L Anion Gap 13 (5-15) BUN 77 H (7-18) mg/dL Creatinine 4.68 H (0.70-1.30) mg/dL Estim Creat Clear Calc 12.12 ml/min Est GFR (MDRD) Af Amer 16 L (>60) mL/min Est GFR (MDRD) Non-Af 13 L (>60) mL/min BUN/Creatinine Ratio 16.5 (10-20) RATIO Glucose 242 H (74-106) mg/dL Calcium 9.1 (8.5-10.1) mg/dL Magnesium 2.8 H (1.6-2.6) mg/dL Total Bilirubin 0.60 (0.20-1.00) mg/dL AST 21 (15-37) U/L ALT 33 (16-61) U/L Alkaline Phosphatase 121 H (45-117) U/L Total Protein 8.7 H (6.4-8.2) g/dL Albumin 3.6 (3.2-5.0) g/dL Globulin 5.1 H (2.2-4.2) g/dL Albumin/Globulin Ratio 0.7 L (0.9-2.4) RATIO Urine Color Yellow (Yellow) Urine Clarity Sl. Cloudy (Clear) Urine pH 6.0 (5.0 - 8.0) Ur Specific [place] 1.015 (1.002-1.030) Urine Protein 30 H (Negative) mg/dl Urine Glucose (UA) Normal (Normal) mg/dl Urine Ketones Negative (Negative) mg/dl Urine Occult Blood 250 H (Negative) /ul Urine Nitrite Negative (Negative) Urine Bilirubin Negative (Negative) mg/dL Urine Urobilinogen Normal (Normal) mg/dl Ur Leukocyte Esterase 500 H (Negative) /ul Urine RBC 10-25 SEEN (0-5) /hpf Urine WBC 5-10 SEEN (0-5) /hpf Ur Squamous Epith Cells 0-5 SEEN (0-5) /hpf Urine Bacteria 0 SEEN (None Seen) /hpf Urine Mucus 0 SEEN (<or=2+) /hpf Ur Random Sodium (Not Establ.) mmol/L Urine Creatinine (NO RANGE EST.) mg/dL POC Glucose (70-110) mg/dL 08/22/18 Range/Units 19:40 WBC 16.5 H (4.4-11.0) K/mm3 RBC 4.90 (4.6-6.2) M/mm3 Hgb 14.2 (13.0-16.5) g/dl Hct 41.0 (40-54) % MCV 83.7 (80-94) fL MCH 29.0 (27.0-32.0) pg MCHC 34.6 (32-36) g/gl RDW 12.5 (11.6-14.6) % RDW Differential 38.0 (35.1-43.9) fl Plt Count 253 (150-450) K/mm3 MPV 10.3 (6.2-12.0) fl Immature Gran % (Auto) 0.100 (0.0-0.9) % Neut % (Auto) 76.0 H (47-70) % Lymph % (Auto) 13.2 L (19-41) % [place] % (Auto) 10.1 H (0-10) % Eos % (Auto) 0.5 (0-5) % Baso % (Auto) 0.1 (0-1) % Absolute Neuts (auto) 12.6 H (2.0-7.7) X10^3/uL Absolute Lymphs (auto) 2.18 (0.83-4.51) X10^3/ul Total Counted Not Reportable Differential Comment SCANNED Sodium (136-145) mmol/L Potassium (3.5-5.1) mmol/L Chloride (98-107) mmol/L Carbon Dioxide (21.0-32.0) mmol/L Anion Gap (5-15) BUN (7-18) mg/dL Creatinine (0.70-1.30) mg/dL Estim Creat Clear Calc ml/min Est GFR (MDRD) Af Amer (>60) mL/min Est GFR (MDRD) Non-Af (>60) mL/min BUN/Creatinine Ratio (10-20) RATIO Glucose (74-106) mg/dL Calcium (8.5-10.1) mg/dL Magnesium (1.6-2.6) mg/dL Total Bilirubin (0.20-1.00) mg/dL AST (15-37) U/L ALT (16-61) U/L Alkaline Phosphatase (45-117) U/L Total Protein (6.4-8.2) g/dL Albumin (3.2-5.0) g/dL Globulin (2.2-4.2) g/dL Albumin/Globulin Ratio (0.9-2.4) RATIO Urine Color (Yellow) Urine Clarity (Clear) Urine pH (5.0 - 8.0) Ur Specific [place] (1.002-1.030) Urine Protein (Negative) mg/dl Urine Glucose (UA) (Normal) mg/dl Urine Ketones (Negative) mg/dl Urine Occult Blood (Negative) /ul Urine Nitrite (Negative) Urine Bilirubin (Negative) mg/dL Urine Urobilinogen (Normal) mg/dl Ur Leukocyte Esterase (Negative) /ul Urine RBC (0-5) /hpf Urine WBC (0-5) /hpf Ur Squamous Epith Cells (0-5) /hpf Urine Bacteria (None Seen) /hpf Urine Mucus (<or=2+) /hpf Ur Random Sodium (Not Establ.) mmol/L Urine Creatinine (NO RANGE EST.) mg/dL POC Glucose (70-110) mg/dL Diagnostic Data: Diagnostic Data Abdomen/Pelvis CT 08/22/18 20:20 IMPRESSION: 1. Posterior bladder mass with involvement of the right ureterovesical junction, superior prostate gland, and right seminal vesicles. 2. Moderate right hydronephrosis, likely due to obstruction by right UVJ nodular lesion. 3. Severe left hydronephrosis despite stent in place. 4. Right perirectal adenopathy. Electronically Signed: Isis Singh MD at 21:42 EDT Tel , Service support , Prostate Biopsy 08/23/18 11:44 IMPRESSION: Successful ultrasound-guided prostate biopsy. Electronically Signed: Suresh Rosales MD at 15:00 EDT Tel [phone], Service support , Assessment and Plan Recurrent Bladder cancer with R & L hydronephrosis. S/P bladder and prostate biopsies. Agree with nephrostomy tube placement to maintain kidney function. Suggest is to await biopsy results and decide on further management. If stable and discharged, follow up in the [facility] as outpatient. Thank you. Medications: Prescriptions This Visit Medication Instructions Recorded Hydrochlorothiazide [Hctz] 25 mg PO DAILY 08/22/18 Ibuprofen 400 - 600 mg PO PRN PRN 08/22/18 Isosorbide Mononitrate [Imdur] 60 mg PO DAILY 08/22/18 Medications Added to Medication List This Visit Category Date Time Status Ceftriaxone [Rocephin] Med 08/23/18 10:00 Active 1 gm in 50 ml IV Q24 Polyethylene Glycol 3350 [Miralax] Med 08/23/18 10:00 Active 17 gm PO DAILY Primary Care Provider: Jonathan Lombardi MD Referring Provider: - 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 Status: Acute (2) Bladder cancer Status: Chronic Code Visit Office Visits / Consults: [id number] IP Consult L5
[2018-08-23 17:31] LABS: Bedside Glucose 135 mg/dL (70-110)
--- NOTE | 2018-08-23 18:11 | NURSING ---
reviewed and agree with charting by Christa Knight, student nurse
[2018-08-23 22:01] LABS: Bedside Glucose 149 mg/dL (70-110)
[2018-08-23] MEDS: Acetaminophen 325 MG Tablet 650 MG PO (22:49)
[2018-08-24] VITALS (15 sets, daily range): BP systolic 100–196; BP diastolic 29–102; PULSE 66–82; RESP 12–18; TEMP 36.7–36.8; O2SAT 95–100; BMI 24.5
[2018-08-24] MEDS: Magnesium Hydroxide 30 ML UDC PO (02:07)
[2018-08-24 05:15] LABS: International Normalized Ratio 1.3; Prothrombin Time (Protime)PT. 16.6 SECONDS (11.7-14.9)
[2018-08-24 05:16] LABS: Partial Thromboplast Time 36.9 Seconds (24.1-36.2)
[2018-08-24 05:19] LABS: Anion Gap 9 (5-15); BUN 66 mg/dL (7-18); BUN/Creat Ratio 18.5 RATIO (10-20); Calcium,Total 8.3 mg/dL (8.5-10.1); Chloride 111 mmol/L (98-107); Creatinine, Serum 3.57 mg/dL (0.70-1.30); EST Glomerular Filtration Rate 18 mL/min (>60); Est Glom Filt Rate - Afr Amer 22 mL/min (>60); Estimated Creatinine Clearance 15.89 ml/min; Glucose 126 mg/dL (74-106); Potassium 4.1 mmol/L (3.5-5.1); Sodium Level 140 mmol/L (136-145)
[2018-08-24 05:27] LABS: Absolute Lymphocyte Count 1.46 X10^3/ul (0.83-4.51); Absolute Neutrophil Count 9.7 X10^3/uL (2.0-7.7); Basophil# 0.04 X10^3/uL; Basophil% 0.3 % (0-1); Eosinophil# 0.13 X10^3/uL; Hematocrit 36.9 % (40-54); Hemoglobin 12.4 g/dl (13.0-16.5); Lymphocyte # 1.46 X10^3/ul (4.0); Lymphocyte % 11.2 % (19-41); Mean Corp Hgb Conc 33.6 g/gl (32-36); Mean Corpuscular Hgb 29.1 pg (27.0-32.0); Mean Corpuscular Volume 86.6 fL (80-94); Monocyte# 1.67 X10^3/uL; Monocyte% 12.8 % (0-10); Neutrophil # 9.69 X10^3/uL (2.7-7.7); Neutrophil % 74.5 % (47-70); Platelet Count 197 K/mm3 (150-450); RBC Distribution Width CV 12.8 % (11.6-14.6); RBC Distribution Width SD 39.8 fl (35.1-43.9); Red Blood Count 4.26 M/mm3 (4.6-6.2)
[2018-08-24 05:28] LABS: Differential Indicated SCAN CRITERIA MET; POSITIVE COUNT NO; POSITIVE DIFFERENTIAL YES; POSITIVE MORPHOLOGY NO
--- NOTE | 2018-08-24 05:55 | CT_ITS ---
PROCEDURE: DIGITAL COMPUTED TOMOGRAPHIC GUIDANCE DURING PERCUTANEOUS NEPHROSTOMY PROCEDURE. DATE OF EXAMINATION: August 24, 2018 INDICATION: Male, 78 years old. Right ureteral obstruction PHYSICIAN: Suresh Rosales M.D. CONSENT: The patient's history and physical findings were reviewed. Prior to the procedure the percutaneous nephrostomy and attempted right ureteral stent insertion were described to the patient who then signed a consent. SEDATION: Conscious sedation was performed. The patient received 3 mg of Versed and 50 mcg of fentanyl intravenously. The patient was monitored independently by the department nurse. Conscious sedation was started at 1:20 PM and terminated at 2:[address] D: 21.7 DLP: 13.4, 2.56. Individualized dose optimization techniques were utilized. TECHNIQUE: A percutaneous right nephrostomy catheter was inserted under CT guidance. A loop of the pigtail catheter was formed within the right renal pelvis and locked in this position. There is dilatation of the upper collecting system and dilatation of the right ureter to the bladder. No contrast passed into the urinary bladder. A guidewire would not pass into the urinary bladder. The catheter was secured to the skin surface and covered with a sterile dressing. The catheter was attached to a drainage bag attached to the patient's leg. CT/Guided Neph Tube Ins IMPRESSION: 1. The percutaneous right nephrostomy catheter is in good position with the pigtail portion located in the right renal pelvis. Electronically Signed: Suresh Rosales MD at 15:30 EDT Tel [phone], Service support ,
[2018-08-24] MEDS: 0.9% Normal Saline 1,000 ML 100 ML IV ×2 (06:24→15:02)
[2018-08-24] MEDS: Morphine 2 MG/ML Syringe IV ×4 (06:24→21:36)
[2018-08-24 06:46] LABS: Bedside Glucose 122 mg/dL (70-110)
[2018-08-24] MEDS: Metoprolol Tartrate 50 MG Tablet 75 MG PO ×2 (09:54→21:29)
[2018-08-24] MEDS: Ceftriaxone 1 GM/50 ML BAG IV (10:33)
--- NOTE | 2018-08-24 11:14 | PN_ITS ---
Patient Problems: Active and Suspected Problems (Last Reviewed 07/03/18 @ 09:18 by Kam Jenkins MD) YOEL (acute kidney injury) (Acute) Bladder mass (Acute) Hydronephrosis (Acute) Subjective: Patient seen and examined today, he still having some pain in his right flank area, patient's blood pressure is elevated today, I noted that he was taken off his Cozaar when he was admitted due to his kidney failure, I have decided to add Norvasc 10 mg p.o. daily starting today. Patient's renal function is improved today. Patient is due for a percutaneous nephrostomy tube insertion today. - Physical Exam General: Alert, Oriented x3, Cooperative, No apparent distress, Well developed, Well nourished HEENT: Atraumatic, PERRLA, EOMI, Normocephalic Oral: Moist Mucosa Neck: Supple, No Nuchal Rigidity, Trachea Midline, Thyroid Normal Size and Texture Lungs: Clear to auscultation, Normal air movement, No rhonchi, No wheeze, No rales Cardiovascular: Regular rate, Regular Rhythm, Normal S1, Normal S2, No murmurs, No Ectopic Activity, PMI Normal, No rub noted, No Gallop Abdomen: Bowel Sounds Present, Soft, Non Tender, Non-Distended Extremities: No clubbing, No cyanosis, No edema, Capillary Refill Less than 3 Seconds Skin: No rashes, No breakdown Musculoskeletal: No Tenderness to Palpation of Joints or Extremities Neurological: Cranial nerves II-XII grossly intact, Neuro grossly intact, Sensory exam intact to light touch and pain, Coordination normal Psych/Mental Status: Normal Affect, Appropriate, Alert and oriented to time, place, person, mood and affect Vital Signs Temp Pulse Resp BP Pulse Ox 98.1 F 77 16 196/102 H 97 08/24/18 09:42 08/24/18 09:54 08/24/18 09:42 08/24/18 09:54 08/24/18 09:42 Oxygen Delivery Method Room Air Weight: 69.1 kg Body Mass Index (BMI) 24.5 Finger Stick Blood Glucose 125 Intake and Output for Last 24 Hours 08/22/18 08/23/18 08/24/18 23:59 23:59 23:59 Intake Total 2925 / 2925 714 / 714 Output Total 1450 / 1450 700 / 700 Balance 1475 / 1475 Microbiology Past 72 Hours 08/22/18 20:40 Urine Culture - Preliminary Urine, Clean Catch Culture exhibits no growth. Laboratory Tests Past 24 Hrs 08/24/18 08/24/18 08/24/18 05:00 05:00 05:00 WBC 13.0 H RBC 4.26 L Hgb 12.4 L Hct 36.9 L MCV 86.6 MCH 29.1 MCHC 33.6 RDW 12.8 RDW Differential 39.8 Plt Count 197 MPV 10.0 Immature Gran % (Auto) 0.200 Neut % (Auto) 74.5 H Lymph % (Auto) 11.2 L [place] % (Auto) 12.8 H Eos % (Auto) 1.0 Baso % (Auto) 0.3 Absolute Neuts (auto) 9.7 H Absolute Lymphs (auto) 1.46 Total Counted Not Reportable PT 16.6 H INR 1.3 APTT 36.9 H Sodium 140 Potassium 4.1 Chloride 111 H Carbon Dioxide 20.0 L Anion Gap 9 BUN 66 H Creatinine 3.57 H Estim Creat Clear Calc 15.89 Est GFR (MDRD) Af Amer 22 L Est GFR (MDRD) Non-Af 18 L BUN/Creatinine Ratio 18.5 Glucose 126 H Calcium 8.3 L POC Glucose 08/24/18 08/23/18 08/23/18 06:21 21:51 17:07 POC Glucose 122 H 149 H 135 H 08/23/18 08/23/18 13:38 11:05 POC Glucose 125 H 167 H Medical Necessity - Tobacco Use Smoking Status: Former smoker Tobacco Use: Non-smoker Assessment/Plan All Active Problems (Last Reviewed 07/03/18 @ 09:18 by Kam Jenkins MD) Colon cancer screening (Resolved) YOEL (acute kidney injury) (Acute) Bladder mass (Acute) Hydronephrosis (Acute) Precordial chest pain (Resolved) #1 right flank pain secondary to right hydronephrosis from bladder cancer- patient will undergo a right percutaneous nephrostomy tube insertion today #2 acute kidney injury secondary to hydronephrosis from bladder cancer-again, nephrostomy tube will be inserted tomorrow, labs will be monitored #3 chronic bladder cancer #4 atherosclerotic heart disease #5 hypertension-patient's blood pressure is elevated today, I have added Norvasc to his medications #6 type 2 diabetes #7 hyperlipidemia #8 leukocytosis-possibly secondary to acute cystitis, patient is now on Rocephin, I will maintain him on Rocephin daily #9 hypokalemia-resolved at this time Code Visit Inpatient E&M: 32035 Subs Hosp L2
[2018-08-24] MEDS: amLODIPine 10 MG Tablet PO (11:50)
[2018-08-24] MEDS: Isosorbide Mononitrate 60 MG Tablet PO (11:50)
[2018-08-24 12:25] LABS: Bedside Glucose 142 mg/dL (70-110)
--- NOTE | 2018-08-24 12:51 | CASEMGMT ---
SW spoke w/pt and pt's granddaughter's in room, support offered to pt. Pt talked about getting a nephrostomy tube today, pt states he has had a nephrostomy tube in the past and it did not stay in, states that the procedure is barbaric. Pt spoke w/Dr. Yo yesterday, the plan for treatment is yet to be determined. SW offered support and let pt know that SW is available for pt and family if needed. AUGUSTINA Andersen, SENIOR COMMUNICATIONS SPECIALIST
--- NOTE | 2018-08-24 12:54 | NURSING ---
pt transported down to CT for procedure.
--- NOTE | 2018-08-24 13:04 | CASEMGMT ---
RN CM Note. DC plan remains home on dc. Per [facility] nurse, nephrostomy tube bag will be supplied and dressing changes sent home with pt. No further script for supplies needed. Pt has had nephrostomy tube in past, nursing will complete teaching. Home Health not indicated Murray ARCOSN RN ACM
[2018-08-24] MEDS: Polyethylene Glycol 3350 17 GM PACKET PO (15:03)
[2018-08-24] MEDS: oxyCODONE 5 MG Tablet PO ×2 (15:24→23:52)
--- NOTE | 2018-08-24 16:11 | CHAPLAIN ---
Type of Pastoral Visit ___ Initial Visit _x__ Follow-up Visit ___ On-call Visit ___ General Patient Visit ___ Spiritual Assessment ___ Family Conference ___ Bereavement ___ Rapid Response ___ Code Blue ___ Other (describe below) Pastoral Care Referral From _x__ Patient _x__ Family ___ Nurse ___ Physician ___ Front Desk Worker ___ Skilled Nursing Facilities Professional ___ Other (describe below) Sacrament/Intervention ___ Active listening ___ Anointing ___ Druze ___ Bereavement ___ Communion ___ Vikki exploration ___ ___ Life review ___ Prayer ___ Reconciliation ___ Sacrament of Sick ___ Supportive presence ___ Wedding _x__ Other (describe below) Pastoral Comments spoke with and offered support to family member in the room; patient was having procedure done at time of visit
[2018-08-24] MEDS: Insulin Lispro 100 UNIT/ML INSULN.PEN SC ×2 (16:27→21:29)
[2018-08-24 17:20] LABS: Bedside Glucose 190 mg/dL (70-110)
[2018-08-24 22:20] LABS: Bedside Glucose 176 mg/dL (70-110)
[2018-08-25] VITALS (9 sets, daily range): BP systolic 127–186; BP diastolic 77–97; PULSE 75–85; RESP 16–18; TEMP 35.7–36.8; O2SAT 97–98
[2018-08-25] MEDS: 0.9% Normal Saline 1,000 ML 100 ML IV (00:48)
[2018-08-25] MEDS: 0.9% NaCl Peripheral Flush Adult/Peds IV ×2 (02:41→02:59)
[2018-08-25] MEDS: Magnesium Hydroxide 30 ML UDC PO (02:46)
[2018-08-25] MEDS: Morphine 2 MG/ML Syringe IV ×2 (02:58→09:11)
[2018-08-25] MEDS: oxyCODONE 5 MG Tablet PO ×4 (05:42→20:27)
[2018-08-25] MEDS: Insulin Lispro 100 UNIT/ML INSULN.PEN SC ×4 (06:08→20:36)
[2018-08-25 06:50] LABS: Bedside Glucose 168 mg/dL (70-110)
[2018-08-25 07:54] LABS: Anion Gap 8 (5-15); BUN 35 mg/dL (7-18); BUN/Creat Ratio 19.6 RATIO (10-20); Calcium,Total 8.4 mg/dL (8.5-10.1); Chloride 109 mmol/L (98-107); Creatinine, Serum 1.79 mg/dL (0.70-1.30); EST Glomerular Filtration Rate 39 mL/min (>60); Est Glom Filt Rate - Afr Amer 48 mL/min (>60); Estimated Creatinine Clearance 31.68 ml/min; Glucose 195 mg/dL (74-106); Potassium 3.9 mmol/L (3.5-5.1); Sodium Level 139 mmol/L (136-145)
[2018-08-25] MEDS: Metoprolol Tartrate 50 MG Tablet 75 MG PO ×2 (09:00→20:29)
[2018-08-25] MEDS: Polyethylene Glycol 3350 17 GM PACKET PO (09:00)
[2018-08-25] MEDS: amLODIPine 10 MG Tablet PO (09:00)
[2018-08-25] MEDS: Isosorbide Mononitrate 60 MG Tablet PO (09:01)
[2018-08-25] MEDS: Ceftriaxone 1 GM/50 ML BAG IV (09:06)
--- NOTE | 2018-08-25 09:44 | PCM.PROGNOTE ---
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 Patient's creatinine is dropped down to 1.79, I believe he does not need IV fluids currently so I have stopped them. I will place the patient on oral antibiotics for a short course due to his urinary tract instrumentation. - Physical Exam General: Alert, Oriented x3, Cooperative, No apparent distress, Well developed, Well nourished HEENT: Atraumatic, PERRLA, EOMI, Normocephalic Oral: Moist Mucosa Neck: Supple, Trachea Midline, Thyroid Normal Size and Texture Lungs: Clear to auscultation, Normal air movement, No rhonchi, No wheeze, No rales Cardiovascular: Regular rate, Regular Rhythm, Normal S1, Normal S2, No murmurs, PMI Normal, No rub noted, No Gallop Abdomen: Bowel Sounds Present, Soft, Non Tender Extremities: No clubbing, No cyanosis, No edema, Capillary Refill Less than 3 Seconds Skin: No rashes, No breakdown Musculoskeletal: No Tenderness to Palpation of Joints or Extremities Neurological: Cranial nerves II-XII grossly intact, Neuro grossly intact, Sensory exam intact to light touch and pain, Coordination normal Psych/Mental Status: Normal Affect, Appropriate, Alert and oriented to time, place, person, mood and affect Vital Signs Temp Pulse Resp BP Pulse Ox 97.9 F 85 18 186/85 H 98 08/25/18 08:57 08/25/18 09:00 08/25/18 08:57 08/25/18 08:57 08/25/18 08:57 Oxygen Flow Rate (L/min) [9] 2 Oxygen Flow Rate (L/min) [8] 2 Oxygen Flow Rate (L/min) [7] 2 Oxygen Flow Rate (L/min) [6] 2 Oxygen Flow Rate (L/min) [5] 2 Oxygen Flow Rate (L/min) [4] 2 Oxygen Flow Rate (L/min) [3] 2 Oxygen Flow Rate (L/min) [2] 2 Oxygen Flow Rate (L/min) [1 ( 2 Initial Baseline)] Oxygen Delivery Method [9] Nasal Cannula Oxygen Delivery Method [8] Nasal Cannula Oxygen Delivery Method [7] Nasal Cannula Oxygen Delivery Method [6] Nasal Cannula Oxygen Delivery Method [5] Nasal Cannula Oxygen Delivery Method [4] Nasal Cannula Oxygen Delivery Method [3] Nasal Cannula Oxygen Delivery Method [2] Nasal Cannula Oxygen Delivery Method [1 ( Nasal Cannula Initial Baseline)] Oxygen Delivery Method Room Air Weight: 69.1 kg Body Mass Index (BMI) 24.5 Finger Stick Blood Glucose 125 Intake and Output for Last 24 Hours 08/23/18 08/24/18 08/25/18 23:59 23:59 23:59 Intake Total 2925 / 2925 2329 / 2329 751 / 751 Output Total 1450 / 1450 2975 / 2975 1450 / 1450 Balance 1475 / 1475 -646 / -646 -699 / -699 Microbiology Past 72 Hours 08/22/18 20:40 Urine Culture - Final Urine, Clean Catch Culture exhibits no growth. 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 #6 type 2 diabetes #7 hyperlipidemia #8 leukocytosis-possibly secondary to acute cystitis, patient is now on Rocephin, I will maintain him on Rocephin today and change him to oral antibiotics tomorrow #9 hypokalemia-resolved at this time #10 generalized debility-patient will see PT and OT today Code Visit Inpatient E&M: 52241 Subs Hosp L2
[2018-08-25 12:01] LABS: Bedside Glucose 232 mg/dL (70-110)
[2018-08-25] MEDS: Acetaminophen 325 MG Tablet 650 MG PO ×2 (12:56→19:33)
[2018-08-25 16:31] LABS: Bedside Glucose 284 mg/dL (70-110)
[2018-08-25 20:51] LABS: Bedside Glucose 233 mg/dL (70-110)
[2018-08-26 03:09] VITALS: BP 154/60; PULSE 75; RESP 16; TEMP 36.9; O2SAT 99
[2018-08-26] MEDS: oxyCODONE 5 MG Tablet PO ×2 (03:13→11:20)
[2018-08-26] MEDS: Acetaminophen 325 MG Tablet 650 MG PO ×2 (03:13→11:20)
[2018-08-26] MEDS: Insulin Lispro 100 UNIT/ML INSULN.PEN SC ×2 (06:15→11:24)
[2018-08-26 06:33] LABS: Anion Gap 7 (5-15); BUN 28 mg/dL (7-18); BUN/Creat Ratio 19.6 RATIO (10-20); Calcium,Total 8.2 mg/dL (8.5-10.1); Chloride 106 mmol/L (98-107); Creatinine, Serum 1.43 mg/dL (0.70-1.30); EST Glomerular Filtration Rate 51 mL/min (>60); Est Glom Filt Rate - Afr Amer 62 mL/min (>60); Estimated Creatinine Clearance 39.66 ml/min; Glucose 146 mg/dL (74-106); Potassium 3.6 mmol/L (3.5-5.1); Sodium Level 137 mmol/L (136-145)
[2018-08-26 06:35] LABS: Bedside Glucose 158 mg/dL (70-110)
[2018-08-26 07:13] VITALS: O2SAT 97
[2018-08-26 08:07] VITALS: BP 173/78; PULSE 89; RESP 18; TEMP 36.4; O2SAT 98
[2018-08-26 08:09] VITALS: PULSE 89
[2018-08-26] MEDS: Isosorbide Mononitrate 60 MG Tablet PO (08:09)
[2018-08-26] MEDS: Metoprolol Tartrate 50 MG Tablet 75 MG PO (08:09)
[2018-08-26] MEDS: amLODIPine 10 MG Tablet PO (08:10)
[2018-08-26] MEDS: Polyethylene Glycol 3350 17 GM PACKET PO (08:10)
[2018-08-26] MEDS: Ceftriaxone 1 GM/50 ML BAG IV (08:13)
[2018-08-26] MEDS: 0.9% NaCl Peripheral Flush Adult/Peds IV (08:13)
--- NOTE | 2018-08-26 11:05 | PCM.DC ---
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 (Acute) YOEL (acute kidney injury) (Acute) Bladder mass (Acute) Hydronephrosis (Acute) You will use the following diet at home:: Calorie/Carbohydrate Controlled (specify 1200, 1400, etc) - 1800 joshua Your food should be the consistency of: Regular Your liquids should be the consistency of: Regular/Thin Discharge Activity: Return to Normal Activity Weight Bearing Status: Full weight bearing Allergies/Adverse Reactions: Allergies No Known Allergies Allergy (Verified 08/22/18 19:32) Medications to take at Discharge Metformin HCl [Glucophage] 1,000 mg PO BIDCM 02/06/15 nitroglycerin 0.4 mg sublingual tablet 0.4 mg SUBLINGUAL Q5M PRN 01/24/18 sitagliptin 100 mg tablet 100 mg PO QDAY 07/03/18 Metoprolol Tartrate [Lopressor (beta prasanth)] 75 mg PO BID 07/26/18 Isosorbide Mononitrate [Imdur] 60 mg PO DAILY 08/22/18 Acetaminophen [Tylenol Tablet] 650 mg PO Q6H PRN PRN tablet 08/26/18 Amlodipine [Norvasc] 10 mg PO DAILY #30 tab 08/26/18 Cephalexin [Keflex] 500 mg PO BID #4 cap 08/26/18 Hydrocodone Bitart/Apap 5-325 [[place] 5MG-325MG] 1 - 2 tablet PO Q4H PRN PRN 7 Days #40 tablet 08/26/18 Polyethylene Glycol 3350 [Miralax] 17 gm PO DAILY packet 08/26/18 The following prescriptions were given: Hydrocodone Bitart/Apap 5-325 [[place] 5MG-325MG] 1 - 2 tablet PO Q4H PRN PRN 7 Days #40 tablet PRN Reason: Pain Amlodipine [Norvasc] 10 mg PO DAILY #30 tab Cephalexin [Keflex] 500 mg PO BID #4 cap Primary Care Physician: Jonathan Lombardi MD [Primary Care Provider] - Please follow up with your Primary Care Physician in: in 2 weeks Test Results: Test results from this visit will be discussed in further detail at your follow-up appointment, if applicable. Please Follow Up With: Joe Yo MD When: this Monday or next Monday-call for appt Please Follow Up With: Beltran Yi MD When: next week-call for apptionment
--- NOTE | 2018-08-26 11:08 | DCINST_ITS ---
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 (Acute) YOEL (acute kidney injury) (Acute) Bladder mass (Acute) Hydronephrosis (Acute) You will use the following diet at home:: Calorie/Carbohydrate Controlled (specify 1200, 1400, etc) - 1800 joshua Your food should be the consistency of: Regular Your liquids should be the consistency of: Regular/Thin Discharge Activity: Return to Normal Activity Weight Bearing Status: Full weight bearing Allergies/Adverse Reactions: Allergies No Known Allergies Allergy (Verified 08/22/18 19:32) Medications to take at Discharge Metformin HCl [Glucophage] 1,000 mg PO BIDCM 02/06/15 nitroglycerin 0.4 mg sublingual tablet 0.4 mg SUBLINGUAL Q5M PRN 01/24/18 sitagliptin 100 mg tablet 100 mg PO QDAY 07/03/18 Metoprolol Tartrate [Lopressor (beta prasanth)] 75 mg PO BID 07/26/18 Isosorbide Mononitrate [Imdur] 60 mg PO DAILY 08/22/18 Acetaminophen [Tylenol Tablet] 650 mg PO Q6H PRN PRN tablet 08/26/18 Amlodipine [Norvasc] 10 mg PO DAILY #30 tab 08/26/18 Cephalexin [Keflex] 500 mg PO BID #4 cap 08/26/18 Hydrocodone Bitart/Apap 5-325 [[place] 5MG-325MG] 1 - 2 tablet PO Q4H PRN PRN 7 Days #40 tablet 08/26/18 Polyethylene Glycol 3350 [Miralax] 17 gm PO DAILY packet 08/26/18 The following prescriptions were given: Hydrocodone Bitart/Apap 5-325 [[place] 5MG-325MG] 1 - 2 tablet PO Q4H PRN PRN 7 Days #40 tablet PRN Reason: Pain Amlodipine [Norvasc] 10 mg PO DAILY #30 tab Cephalexin [Keflex] 500 mg PO BID #4 cap Primary Care Physician: Jonathan Lombardi MD [Primary Care Provider] - Please follow up with your Primary Care Physician in: in 2 weeks Test Results: Test results from this visit will be discussed in further detail at your follow- up appointment, if applicable. Please Follow Up With: Joe Yo MD When: this Monday or next Monday-call for appt Please Follow Up With: Beltran Yi MD When: next week-call for apptionment
[2018-08-26 12:16] LABS: Bedside Glucose 316 mg/dL (70-110)
--- NOTE | 2018-08-26 17:19 | PCM.DC.SUM ---
Discharge Date and Diagnosis Date of Admission: 08/22/18 Date of Discharge: 08/26/18 - Primary Discharge Diagnosis 1 right flank pain secondary to right hydronephrosis from bladder cancer #2 acute kidney injury secondary to hydronephrosis from bladder cancer #3 chronic bladder cancer #4 atherosclerotic heart disease #5 hypertension- #6 type 2 diabetes #7 hyperlipidemia #8 leukocytosis- etiology unknown #9 hypokalemia #10 generalized debility #11 severe caloric and protein malnutrition #12 ischemic cardiomyopathy - Secondary Discharge Diagnosis Chronic Problems (Last Reviewed 07/03/18 @ 09:18 by Kam Jenkins MD) History of stent insertion of renal artery (Chronic) Left kidney Hx of bladder cancer (Chronic) Hyperlipidemia (Chronic) Atherosclerotic heart disease of [place] coronary artery without angina pectoris (Chronic) 99% stenosis in proximal to mid LAD, 70% stenosis in mid RCA and diffuse distal disease per [facility] 01/30/[address] 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) NSTEMI (non-ST elevated myocardial infarction) (Chronic) 03/05/14, Non-ST elevation [place] Bladder cancer (Chronic) Hypertension (Chronic) Type 2 diabetes mellitus (Chronic) Hospital Course and Treatment Operations: - - Cystoscopy with bladder biopsy Procedures: - - Right nephrostomy tube insertion Summary of Care Provided: The patient is a 78 year old M who was seen in the emergency room at [facility] with chief complaint of right flank pain, workup in the emergency room revealed the patient's white blood cell count to be elevated at 16.5, patient's creatinine was elevated at 4.68 with an elevated BUN at 77. Glucose was 242, potassium was 3.3, sodium was 132. Patient's magnesium was 2.8. CT of the abdomen and pelvis was obtained which showed a posterior bladder mass with involvement of the right ureterovesical junction superior prostate gland and right seminal vesicles. There was moderate right hydronephrosis likely due to obstruction, severe left hydronephrosis was present despite a stent being in place. Patient was admitted to [place] [address], seen in consultation by urology, given IV fluids, IV pain medications, and placed on IV antibiotics. Cystoscopy was performed which showed an extensive bladder mass, ureteral stent were not able to be placed in the right ureter. Due to the patient's pain and increased creatinine, it was felt necessary to place a percutaneous nephrostomy tube in the right kidney. This was done and the patient's creatinine dropped after this procedure was performed. Patient was seen by PT and OT. On 08/26/18, patient was seen and examined felt to be in stable condition for discharge home, patient was seen in the hospital by Dr. Yo for follow-up oncology care, at the time of discharge, patient's pathology from his bladder biopsy was not available for review. Physical exam: On examination he appeared in good health and spirits. Vital signs as documented. Skin warm and dry and without overt rashes. Neck without JVD. Lungs clear. Heart exam notable for regular rhythm, normal sounds and absence of murmurs, rubs or gallops. Abdomen unremarkable and without evidence of organomegaly, masses, or abdominal aortic enlargement. Extremities nonedematous. There is a percutaneous right nephrostomy tube present and it is draining clear urine. Patient has a French present and it is draining clear urine. Neuro: Cranial nerves II through XII are grossly intact, no focal motor deficits were noted. Psych: Patient is alert and oriented x3 and is appropriate, patient does not seem anxious or depressed Patient was discharged home in stable condition on 08/26/18. Discharge Activity: Return to Normal Activity Weight Bearing Status: Full weight bearing Home Medications: Medications to take at Discharge Metformin HCl [Glucophage] 1,000 mg PO BIDCM 02/06/15 nitroglycerin 0.4 mg sublingual tablet 0.4 mg SUBLINGUAL Q5M PRN 01/24/18 sitagliptin 100 mg tablet 100 mg PO QDAY 07/03/18 Metoprolol Tartrate [Lopressor (beta prasanth)] 75 mg PO BID 07/26/18 Isosorbide Mononitrate [Imdur] 60 mg PO DAILY 08/22/18 Acetaminophen [Tylenol Tablet] 650 mg PO Q6H PRN PRN tablet 08/26/18 Amlodipine [Norvasc] 10 mg PO DAILY #30 tab 08/26/18 Cephalexin [Keflex] 500 mg PO BID #4 cap 08/26/18 Hydrocodone Bitart/Apap 5-325 [[place] 5MG-325MG] 1 - 2 tab PO Q4H PRN PRN 7 Days #40 tab 08/26/18 Polyethylene Glycol 3350 [Miralax] 17 gm PO DAILY packet 08/26/18 Following Prescrptions Were Given to Patient: Hydrocodone Bitart/Apap 5-325 [[place] 5MG-325MG] 1 - 2 tab PO Q4H PRN PRN 7 Days #40 tab PRN Reason: Pain Amlodipine [Norvasc] 10 mg PO DAILY #30 tab Cephalexin [Keflex] 500 mg PO BID #4 cap Primary Care Physician: Jonathan Lombardi MD [Primary Care Provider] - Please follow up with your Primary Care Physician in: in 2 weeks Please Follow Up With: Joe Yo MD When: this Monday or next Monday-call for appt Please Follow Up With: Beltran Yi MD When: next week-call for apptionment Disposition: Home Minutes spent on discharge:: 32 Patient Condition:: Stable Medical Necessity - Tobacco Use Smoking Status: Former smoker Tobacco Use: Non-smoker Meaningful Use Info Meaningful Use Diagnoses (Choose all that apply): None applicable Code Visit Inpatient E&M: 39534 Disch Hosp
--- NOTE | 2018-08-26 17:31 | DS.PCM_ITS ---
Discharge Date and Diagnosis Date of Admission: 08/22/18 Date of Discharge: 08/26/18 - Primary Discharge Diagnosis 1 right flank pain secondary to right hydronephrosis from bladder cancer #2 acute kidney injury secondary to hydronephrosis from bladder cancer #3 chronic bladder cancer #4 atherosclerotic heart disease #5 hypertension- #6 type 2 diabetes #7 hyperlipidemia #8 leukocytosis- etiology unknown #9 hypokalemia #10 generalized debility #11 severe caloric and protein malnutrition #12 ischemic cardiomyopathy - Secondary Discharge Diagnosis Chronic Problems (Last Reviewed 07/03/18 @ 09:18 by Kam Jenkins MD) History of stent insertion of renal artery (Chronic) Left kidney Hx of bladder cancer (Chronic) Hyperlipidemia (Chronic) Atherosclerotic heart disease of [place] coronary artery without angina pectoris (Chronic) 99% stenosis in proximal to mid LAD, 70% stenosis in mid RCA and diffuse distal disease per [facility] 01/30/[address] 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) NSTEMI (non-ST elevated myocardial infarction) (Chronic) 03/05/14, Non-ST elevation [place] Bladder cancer (Chronic) Hypertension (Chronic) Type 2 diabetes mellitus (Chronic) Hospital Course and Treatment Operations: - - Cystoscopy with bladder biopsy Procedures: - - Right nephrostomy tube insertion Summary of Care Provided: The patient is a 78 year old M who was seen in the emergency room at [facility] with chief complaint of right flank pain, workup in the emergency room revealed the patient's white blood cell count to be elevated at 16.5, patient's creatinine was elevated at 4.68 with an elevated BUN at 77. Glucose was 242, potassium was 3.3, sodium was 132. Patient's magnesium was 2.8. CT of the abdomen and pelvis was obtained which showed a posterior bladder mass with involvement of the right ureterovesical junction superior prostate gland and right seminal vesicles. There was moderate right hydronephrosis likely due to obstruction, severe left hydronephrosis was present despite a stent being in place. Patient was admitted to [place] [address], seen in consultation by urology, given IV fluids, IV pain medications, and placed on IV antibiotics. Cystoscopy was performed which showed an extensive bladder mass, ureteral stent were not able to be placed in the right ureter. Due to the patient's pain and increased creatinine, it was felt necessary to place a percutaneous nephrostomy tube in the right kidney. This was done and the patient's creatinine dropped after this procedure was performed. Patient was seen by PT and OT. On 08/26/18, patient was seen and examined felt to be in stable condition for discharge home, patient was seen in the hospital by Dr. Yo for follow-up oncology care, at the time of discharge, patient's pathology from his bladder biopsy was not available for review. Physical exam: On examination he appeared in good health and spirits. Vital signs as documented. Skin warm and dry and without overt rashes. Neck without JVD. Lungs clear. Heart exam notable for regular rhythm, normal sounds and absence of murmurs, rubs or gallops. Abdomen unremarkable and without evidence of organomegaly, masses, or abdominal aortic enlargement. Extremities nonedematous. There is a percutaneous right nephrostomy tube present and it is draining clear urine. Patient has a French present and it is draining clear urine. Neuro: Cranial nerves II through XII are grossly intact, no focal motor deficits were noted. Psych: Patient is alert and oriented x3 and is appropriate, patient does not seem anxious or depressed Patient was discharged home in stable condition on 08/26/18. Discharge Activity: Return to Normal Activity Weight Bearing Status: Full weight bearing Home Medications: Medications to take at Discharge Metformin HCl [Glucophage] 1,000 mg PO BIDCM 02/06/15 nitroglycerin 0.4 mg sublingual tablet 0.4 mg SUBLINGUAL Q5M PRN 01/24/18 sitagliptin 100 mg tablet 100 mg PO QDAY 07/03/18 Metoprolol Tartrate [Lopressor (beta prasanth)] 75 mg PO BID 07/26/18 Isosorbide Mononitrate [Imdur] 60 mg PO DAILY 08/22/18 Acetaminophen [Tylenol Tablet] 650 mg PO Q6H PRN PRN tablet 08/26/18 Amlodipine [Norvasc] 10 mg PO DAILY #30 tab 08/26/18 Cephalexin [Keflex] 500 mg PO BID #4 cap 08/26/18 Hydrocodone Bitart/Apap 5-325 [[place] 5MG-325MG] 1 - 2 tab PO Q4H PRN PRN 7 Days #40 tab 08/26/18 Polyethylene Glycol 3350 [Miralax] 17 gm PO DAILY packet 08/26/18 Following Prescrptions Were Given to Patient: Hydrocodone Bitart/Apap 5-325 [[place] 5MG-325MG] 1 - 2 tab PO Q4H PRN PRN 7 Days #40 tab PRN Reason: Pain Amlodipine [Norvasc] 10 mg PO DAILY #30 tab Cephalexin [Keflex] 500 mg PO BID #4 cap Primary Care Physician: Jonathan Lombardi MD [Primary Care Provider] - Please follow up with your Primary Care Physician in: in 2 weeks Please Follow Up With: Joe Yo MD When: this Monday or next Monday-call for appt Please Follow Up With: Beltran Yi MD When: next week-call for apptionment Disposition: Home Minutes spent on discharge:: 32 Patient Condition:: Stable Medical Necessity - Tobacco Use Smoking Status: Former smoker Tobacco Use: Non-smoker Meaningful Use Info Meaningful Use Diagnoses (Choose all that apply): None applicable Code Visit Inpatient E&M: 35456 Disch Hosp
== END 2018-08-26 12:26 | disposition home or self-care (01) | DRG 668 ==
LOC: ED 20:32 → MS2 23:28
PROVIDERS: Urology; Admitting Provider Family Medicine; Emergency Provider Emergency Medicine; Visit Provider Internal Medicine
PROC: 0TBB3ZX Excision of Bladder, Percutaneous Approach, Diagnostic (ICD-10-PCS; CPT 55700; principal; 2018-08-23 12:20)
DX: C67.9 Malignant neoplasm of bladder, unspecified (principal); E43 Unspecified severe protein-calorie malnutrition; N17.9 Acute kidney failure, unspecified; I50.22 Chronic systolic (congestive) heart failure; N13.39 Other hydronephrosis; E87.6 Hypokalemia; E11.9 Type 2 diabetes mellitus without complications; I11.0 Hypertensive heart disease with heart failure; Z23 Encounter for immunization; I25.10 Atherosclerotic heart disease of native coronary artery without angina pectoris; E78.5 Hyperlipidemia, unspecified; R53.81 Other malaise; I25.5 Ischemic cardiomyopathy; D72.829 Elevated white blood cell count, unspecified; Z79.899 Other long term (current) drug therapy; Z68.24 Body mass index [BMI] 24.0-24.9, adult; I25.2 Old myocardial infarction; Z79.84 Long term (current) use of oral hypoglycemic drugs; Z87.891 Personal history of nicotine dependence
CPT/HCPCS: 36415; 50395; 55700; 74176; 74485; 76942; 80048; 80053; 81001; 82570; 82962; 83735; 84300; 85025; 85610; 85730; 87086; 88305; 88341; 88342; 97161; 97802; 99156; 99157; 99283; J7030; J7040; 90686; A4216; J2405

== ENCOUNTER → 2018-09-05 13:24 | Outpatient (CLI) | payer MEDICARE, OTHER, SELFPAY ==
--- NOTE | 2018-09-05 13:28 | CT_ITS ---
STUDY: CT CHEST WITHOUT CONTRAST REASON FOR EXAM: Male, 78 years old. Bladder cancer with possible lung metastasis RADIATION DOSAGE (If Supplied By Facility): CTDIvol = ( 13.72 ) mGy, DLP = ( 497.16 ) mGycm TECHNIQUE: Transaxial imaging was performed without the administration of intravenous contrast material. Multiplanar coronal and sagittal images were reformatted. Individualized dose optimization techniques were used for this CT. COMPARISON: CT abdomen and pelvis from 08/22/2018 FINDINGS: Centrilobular emphysematous changes with blebs of the upper lung zones identified. There are NO noncalcified pulmonary nodules are localized groundglass opacities. No intrabronchial lesions are seen. No pleural effusions or mass. Normal heart and pericardium. There are calcifications of the coronary arteries. Normal mediastinum. Normal hilar regions. Normal unenhanced pulmonary arteries. There is atherosclerotic calcification of the aortic arch with tortuosity and elongation of the aortic arch and descending thoracic aorta. There are multi-level degenerative changes of the thoracic spine. A right nephrostomy tube is partially visualized. There is a small hiatal hernia. CT/Chest without Contrast IMPRESSION: 1. No pulmonary nodule, mass or metastasis. 2. Atherosclerosis. 3. Right nephrostomy tube partially visualized. Electronically Signed: Jimi Delaney MD at 9:43 EDT , Service support ,
== END ==
PROVIDERS: Referring Provider Internal Medicine Medical Oncology; Visit Provider Internal Medicine Medical Oncology
DX: C61 Malignant neoplasm of prostate (principal)
CPT/HCPCS: 71250

== ENCOUNTER → 2018-09-26 14:16 | Outpatient (CLI) | payer MEDICARE, OTHER, SELFPAY ==
[2018-09-13 08:52] VITALS: BMI 24.7
== END ==
PROVIDERS: Visit Provider Urology
DX: R10.9 Unspecified abdominal pain (principal); R30.0 Dysuria
CPT/HCPCS: 87077; 87086; 87088; 87186

== ENCOUNTER 2018-10-12 14:37 | Inpatient (IN) | payer MEDICARE, OTHER, SELFPAY ==
[2018-09-13 08:52] VITALS: BMI 24.7
[2018-10-12] VITALS (20 sets, daily range): BP systolic 89–168; BP diastolic 58–130; PULSE 83–161; RESP 11–30; TEMP 36.8–37.7; O2SAT 90–100; BMI 23.2; BMI 23.3; BMI 23.4
--- NOTE | 2018-10-12 15:07 | EKG12_ITS ---
Test Reason : GENERALILLNESS Blood Pressure : / mmHG Vent. Rate : 126 BPM Atrial Rate : 126 BPM P-R Int : 118 ms QRS Dur : 082 ms QT Int : 314 ms P-R-T Axes : 071 060 062 degrees QTc Int : 454 ms Sinus tachycardia Otherwise normal ECG Confirmed by FALGUNI DSOUZA, STEPHANY ([id number]), international editorial producer LORENA YAÑEZ ([id number]) on 10/17/2018 11:35:03 AM Referred By: Joe Yo Confirmed By:STEPHANY MONTES DE OCA MD
[2018-10-12] MEDS: 0.9% Normal Saline 1,000 ML IV.SOLN. 2000 ML IV (15:22)
[2018-10-12 15:31] LABS: ALB/GLOB Ratio 0.4 RATIO (0.9-2.4); AST(SGOT) 55 U/L (15-37); Alanine Aminotransfer ALT/SGPT 153 U/L (16-61); Albumin, Serum 2.5 g/dL (3.2-5.0); Alkaline Phosphatase 211 U/L (45-117); Anion Gap 21 (5-15); BUN 22 mg/dL (7-18); BUN/Creat Ratio 10.3 RATIO (10-20); Chloride 92 mmol/L (98-107); Creatinine, Serum 2.14 mg/dL (0.70-1.30); EST Glomerular Filtration Rate 32 mL/min (>60); Est Glom Filt Rate - Afr Amer 39 mL/min (>60); Glucose 282 mg/dL (74-106); Lactic Acid 14.9 mmol/L (0.4-2.0); Potassium 3.9 mmol/L (3.5-5.1); Protein, Total 8.5 g/dL (6.4-8.2); Sodium Level 131 mmol/L (136-145)
[2018-10-12] MEDS: Piperacil/Tazobactam 3.375 GM/50 ML ML IV (15:31)
[2018-10-12 15:39] LABS: International Normalized Ratio 1.4; Partial Thromboplast Time 33.1 Seconds (24.1-36.2); Prothrombin Time (Protime)PT. 16.7 SECONDS (11.7-14.9)
[2018-10-12 15:41] LABS: Absolute Lymphocyte Count 2.48 X10^3/ul (0.83-4.51); Basophil# 0.01 X10^3/uL; Basophil% 0.3 % (0-1); Eosinophil# 0.01 X10^3/uL; Eosinophils% 0.3 % (0-5); Hematocrit 27.8 % (40-54); Hemoglobin 9.1 g/dl (13.0-16.5); Lymphocyte # 2.48 X10^3/ul (4.0); Lymphocyte % 74.3 % (19-41); Mean Corp Hgb Conc 32.7 g/gl (32-36); Mean Corpuscular Hgb 27.5 pg (27.0-32.0); Mean Platelet Vol. 11.3 fl (6.2-12.0); Monocyte# 0.84 X10^3/uL; Monocyte% 25.1 % (0-10); RBC Distribution Width SD 39.8 fl (35.1-43.9); Red Blood Count 3.31 M/mm3 (4.6-6.2); White Blood Count 3.3 K/mm3 (4.4-11.0)
[2018-10-12 15:43] LABS: POSITIVE COUNT YES; POSITIVE DIFFERENTIAL YES; POSITIVE MORPHOLOGY YES; Platelet Count 37 K/mm3 (150-450)
[2018-10-12 15:44] LABS: Differential Indicated SCAN CRITERIA MET
[2018-10-12 15:49] LABS: Platelet Estimate MKD DEC (ADEQ)
[2018-10-12] MEDS: Vancomycin IV 1,000 MG/200 ML BAG 200 MG IV (16:24)
[2018-10-12] MEDS: 0.9% Normal Saline 1,000 ML 50 ML IV (16:25)
--- NOTE | 2018-10-12 16:26 | ED.RN ---
UNABLE TO OBTAIN URINE, AWARE.
--- NOTE | 2018-10-12 16:58 | ED.RN ---
UNABLE TO OBTAIN URINE FROM BOTH NEPHROSTOMY AND JESUSMD AWARE, ATB STARTED WITHOUT OBTAINING URINE CULTURE.
--- NOTE | 2018-10-12 17:36 | NURSING ---
DR MUNROE FOR DR VALE
--- NOTE | 2018-10-12 17:58 | PCM.HP.STD ---
<Ricky Penny - Last Filed: 10/12/18 17:58> Problem List (1) Septic shock Status: Acute (2) YOEL (acute kidney injury) Status: Acute (3) CAD (coronary artery disease) Status: Chronic (4) Prostate cancer Status: Chronic (5) Hyperlipidemia Status: Chronic (6) Bladder cancer Status: Chronic (7) Hypertension Status: Chronic (8) Type 2 diabetes mellitus Status: Chronic History of Present Illness Date of Admission: 10/12/18 Chief Complaint: fever The patient is a 78 year old M with pmhx of bladder and prostate cancer, pt of Dr. Yo, last chemo October 03 (palliative), s/p right nephrostomy tube, chronic del rosario, also with hx of CAD, HTN, HLD, T2DM, who presents to the ER today with c/o fever and shaking chills at home. He notes that he has been feeling generalized malaise for several days that has progressively worsened. He had shaking chills at home today, checked his temperature and found it to be 101. He came to the ER and appears to have septic shock with LA of 14.9, pancytopenia, tachycardia, hypotension. UA is pending. He has no output from his nephrostomy. He appears to have YOEL. CXR is pending. Central line is in place. He c/o right flank pain around nephrostomy, occasionally productive cough, mild dyspnea. He was treated 3 weeks ago for UTI with Cipro, keflex, and amoxicillin. He will be admitted to ICU. [] Past Medical History Past Medical History (Chronic Problems): Chronic Problems (Last Reviewed 10/01/18 @ 11:38 by India Laguna) Prostate cancer (Chronic) CAD (coronary artery disease) (Chronic) History of stent insertion of renal artery (Chronic) Left kidney Hx of bladder cancer (Chronic) Hyperlipidemia (Chronic) Atherosclerotic heart disease of [place] coronary artery without angina pectoris (Chronic) 99% stenosis in proximal to mid LAD, 70% stenosis in mid RCA and diffuse distal disease per [facility] 01/30/[address] Jameson Congenital insufficiency of aortic valve (Chronic) Old myocardial infarction (Chronic) Chronic systolic heart failure (Chronic) Other long term care social worker (current) drug therapy (Chronic) NSTEMI (non-ST elevated myocardial infarction) (Chronic) 03/05/14, Non-ST elevation [place] Bladder cancer (Chronic) Hypertension (Chronic) Type 2 diabetes mellitus (Chronic) Medical History: Medical History (Last Reviewed 10/01/18 @ 11:38 by India Laguna) Hx of bladder cancer (Chronic) Z85.51 Hyperlipidemia (Chronic) E78.5 Atherosclerotic heart disease of [place] coronary artery without angina pectoris (Chronic) I25.10 99% stenosis in proximal to mid LAD, 70% stenosis in mid RCA and diffuse distal disease per [facility] 01/30/[address] Jameson Congenital insufficiency of aortic valve (Chronic) Q23.1 Old myocardial infarction (Chronic) I25.2 Chronic systolic heart failure (Chronic) I50.22 Other nursing home (current) drug therapy (Chronic) Z79.899 NSTEMI (non-ST elevated myocardial infarction) (Chronic) I21.4 03/05/14, Non-ST elevation [place] Hypertension (Chronic) I10 Type 2 diabetes mellitus (Chronic) E11.9 Allergies No Known Allergies Allergy (Verified 10/12/18 14:45) Home Medications: Ambulatory Orders Medication Instructions Recorded Metformin HCl [Glucophage] 1,000 mg PO BIDCM 02/06/15 nitroglycerin 0.4 mg sublingual 0.4 mg SUBLINGUAL Q5M PRN 01/24/18 tablet sitagliptin 100 mg tablet 100 mg PO QDAY 07/03/18 Metoprolol Tartrate [Lopressor 75 mg PO BID 07/26/18 (beta prasanth)] Amlodipine [Norvasc] 10 mg PO DAILY #30 tab 08/26/18 Polyethylene Glycol 3350 [Miralax] 17 gm PO DAILY packet 08/26/18 Dutasteride [Avodart] 0.5 mg PO DAILY 09/04/18 Hydrochlorothiazide [Hctz] 25 mg PO DAILY 09/04/18 isosorbide mononitrate ER 60 mg 60 mg PO DAILY #90 tab 09/07/18 tablet,extended release 24 hr Oxycodone CR [Oxycontin] 10 mg PO Q12H #60 tablet 09/10/18 Hydrocodone Bitart/Apap 5-325 1 - 2 tablet PO Q4H PRN PRN #60 09/17/18 [[place] 5MG-325MG] tablet Ondansetron [Zofran Odt] 4 mg PO Q8H PRN PRN #30 tablet 09/17/18 Alfuzosin HCl [Uroxatral] 10 mg PO QHS 10/12/18 Surgical History: Surgical History (Last Reviewed 10/01/18 @ 11:38 by India Laguna) Hx of appendectomy (Inactive) Z90.49 History of prostate surgery (Inactive) Z98.890 Urolift system implanted History of stent insertion of renal artery (Chronic) Z98.890 Left kidney Hx of right inguinal hernia repair (Inactive) Z98.890, Z87.19 History of left heart catheterization (Inactive) Z98.890 01/30/[address] Jameson @[facility] Surgical History: herniorrhaphy, - - Removal of benign neck mass on the right neck, appendectomy, multiple cystoscopies w/ L stent placement and change, hernia repair, TUR bladder mass, Renal artery stent placement, Prostate Urolift system implant. Psychiatric History: No pertinent psych hx Smoking Status: Former smoker - *Family History Maternal Family History: Family History (Last Reviewed 10/01/18 @ 11:38 by India Laguna) Father Prostate cancer Mother CAD (coronary artery disease) Myocardial infarction, Onset Age: 48 Cancer Brother Myocardial infarction Abdominal aortic aneurysm History Items: Cancer, Heart Disease Paternal Family History: Family History (Last Reviewed 10/01/18 @ 11:38 by India Laguna) Father Prostate cancer Mother CAD (coronary artery disease) Myocardial infarction, Onset Age: 48 Cancer Brother Myocardial infarction Abdominal aortic aneurysm History Items: Cancer Review of Systems Constitutional: Reports: Chills, Fever, Malaise, Weakness, Fatigue. Denies: Weight Change HEENT: Denies: Head Aches, Sinus Congestion, Sinus Drainage Cardiovascular: Denies: Chest Pain, Palpitations Respiratory: Reports: Cough, Shortness of Breath, Sputum production. Denies: Hemoptysis, Pleuritic Pain, Shortness of breath at rest Gastrointestinal: Reports: - - right flank pain. Denies: Abdominal Pain, Nausea, Vomiting Genitourinary: Denies: Dysuria Musculoskeletal: Denies: Joint Pain, Joint Tenderness Skin: Denies: Rash, Wounds Neurological: Denies: Numbness, Tingling, Focal weakness Psychiatric: Denies: Anxiety, Depression, Homicidal Ideations, Suicidal Ideations Hematologic/ Lymphatic: Denies: Easy Bruising, Easy Bleeding VTE Information - Inpt Only VTE Present on Admission: No VTE Mechan Device Prophylaxis: None VTE Pharm Prophylaxis ordered?: No Patient Problems: Active and Suspected Problems (Last Reviewed 10/01/18 @ 11:38 by India Laguna) Septic shock (Acute) - Physical Exam General: Alert, Oriented x3, Cooperative, - - frail HEENT: Atraumatic, PERRLA, EOMI, Normocephalic Neck: Supple, No JVD, Negative Carotid Bruits Lungs: Clear to auscultation, Normal air movement Cardiovascular: Regular rate, No murmurs Abdomen: Bowel Sounds Present, Soft, Non Tender Extremities: No edema, Capillary Refill Less than 3 Seconds Skin: No rashes, No breakdown Musculoskeletal: No Tenderness to Palpation of Joints or Extremities Neurological: Cranial nerves II-XII grossly intact Psych/Mental Status: Normal Affect, Appropriate, Alert and oriented to time, place, person, mood and affect Vital Signs Temp Pulse Resp BP Pulse Ox 98.2 F 93 15 100/67 100 10/12/18 15:07 10/12/18 17:54 10/12/18 17:54 10/12/18 17:54 10/12/18 17:54 Oxygen Flow Rate (L/min) 2 Oxygen Delivery Method Room Air Weight: 144 lb 2.917 oz Body Mass Index (BMI) 23.2 Finger Stick Blood Glucose 125 Laboratory Tests Past 24 Hrs 10/12/18 10/12/18 10/12/18 14:35 14:45 14:45 WBC 3.3 L RBC 3.31 L Hgb 9.1 L Hct 27.8 L MCV 84.0 MCH 27.5 MCHC 32.7 RDW 13.0 RDW Differential 39.8 Plt Count 37 L* MPV 11.3 Immature Gran % (Auto) 0.000 Neut % (Auto) 0.0 L Lymph % (Auto) 74.3 H [place] % (Auto) 25.1 H Eos % (Auto) 0.3 Baso % (Auto) 0.3 Absolute Neuts (auto) 0.0 L Absolute Lymphs (auto) 2.48 Total Counted Not Reportable Diff Path Review May foll Platelet Estimate MKD DEC PT 16.7 H INR 1.4 APTT 33.1 Sodium Potassium Chloride Carbon Dioxide Anion Gap BUN Creatinine Estim Creat Clear Calc Est GFR (MDRD) Af Amer Est GFR (MDRD) Non-Af BUN/Creatinine Ratio Glucose Lactic Acid Calcium Total Bilirubin AST ALT Alkaline Phosphatase Troponin I Total Protein Albumin Globulin Albumin/Globulin Ratio Urine Color Cancelled Urine Clarity Cancelled Urine pH Cancelled Ur Specific [place] Cancelled U Specif Grav (Refrac) Cancelled Urine Protein Cancelled Urine Glucose (UA) Cancelled Urine Ketones Cancelled Urine Occult Blood Cancelled Urine Nitrite Cancelled Urine Bilirubin Cancelled Urine Urobilinogen Cancelled Ur Leukocyte Esterase Cancelled Urine RBC Cancelled Urine WBC Cancelled Ur Squamous Epith Cells Cancelled Ur Transition Epith Cell Cancelled Ur Renal Epithelial Cell Cancelled Calcium Oxalate Crystal Cancelled Uric Acid Crystals Cancelled Triple Phos Crystals Cancelled Other Crystals Cancelled Amorphous Sediment Cancelled Urine Bacteria Cancelled Hyaline Casts Cancelled Fine Granular Casts Cancelled Coarse Granular Casts Cancelled Waxy Casts Cancelled RBC Casts Cancelled WBC Casts Cancelled Urine Mucus Cancelled Urine Trichomonas Cancelled Urine Yeast Cancelled 10/12/18 10/12/18 14:45 14:45 WBC RBC Hgb Hct MCV MCH MCHC RDW RDW Differential Plt Count MPV Immature Gran % (Auto) Neut % (Auto) Lymph % (Auto) [place] % (Auto) Eos % (Auto) Baso % (Auto) Absolute Neuts (auto) Absolute Lymphs (auto) Total Counted Diff Path Review Platelet Estimate PT INR APTT Sodium 131 L Potassium 3.9 Chloride 92 L Carbon Dioxide 18.0 L Anion Gap 21 H BUN 22 H Creatinine 2.14 H Estim Creat Clear Calc 26.50 Est GFR (MDRD) Af Amer 39 L Est GFR (MDRD) Non-Af 32 L BUN/Creatinine Ratio 10.3 Glucose 282 H Lactic Acid 14.9 H* Calcium 9.0 Total Bilirubin 1.30 H AST 55 H ALT 153 H Alkaline Phosphatase 211 H Troponin I < 0.015 Total Protein 8.5 H Albumin 2.5 L Globulin 6.0 H Albumin/Globulin Ratio 0.4 L Urine Color Urine Clarity Urine pH Ur Specific [place] U Specif Grav (Refrac) Urine Protein Urine Glucose (UA) Urine Ketones Urine Occult Blood Urine Nitrite Urine Bilirubin Urine Urobilinogen Ur Leukocyte Esterase Urine RBC Urine WBC Ur Squamous Epith Cells Ur Transition Epith Cell Ur Renal Epithelial Cell Calcium Oxalate Crystal Uric Acid Crystals Triple Phos Crystals Other Crystals Amorphous Sediment Urine Bacteria Hyaline Casts Fine Granular Casts Coarse Granular Casts Waxy Casts RBC Casts WBC Casts Urine Mucus Urine Trichomonas Urine Yeast Assessment/Plan All Active Problems (Last Reviewed 10/01/18 @ 11:38 by India Laguna) 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 Acute septic shock, presumed 2/2 Neutropenic fever possibly UTI, respiratory infection - ANC=0.0. UA and CXR pending at this time. Continue Vanc/Zosyn. Culture del rosario, nephrostomy, blood, sputum. Continue IV hydration - monitor for fluid overload with CHF hx. May need pressors. BP systolic 60s responded to IV fluids in ER. 2. YOEL - 2/2 sepsis. Hydrate. Urine from del rosario, however none from nephrostomy (right). He does not have a healthcare manager. 3. Bladder/Prostate cancer - pt of Dr. Yo. Has nephrostomy and del rosario. Last chemo Oct 03 - reportedly palliative. 4. Pancytopenia - trend, 2/2 above. 5. Hx CAD - hold antihypertensives. 6. DMt2 - SSI 7. Hx CHF, last echo showed indeterminate EF 45% (2013) DVT ppx: SCDs, thrombocytopenic - avoid heparin producits DC planning: PTOT, very weak, lives alone, on palliative chemo, wants DNRCCA, d/w granddaughter POA. This patient was seen by Ricky Penny PA-C under the supervision of Dr. Blanton. <Meron Blanton - Last Filed: 10/12/18 19:47> History of Present Illness The patient is a 78 year old M [] Past Medical History Medical History: Medical History (Last Reviewed 10/01/18 @ 11:38 by India Laguna) Hx of bladder cancer (Chronic) Z85.51 Hyperlipidemia (Chronic) E78.5 Atherosclerotic heart disease of [place] coronary artery without angina pectoris (Chronic) I25.10 99% stenosis in proximal to mid LAD, 70% stenosis in mid RCA and diffuse distal disease per [facility] 01/30/[address] Jameson Congenital insufficiency of aortic valve (Chronic) Q23.1 Old myocardial infarction (Chronic) I25.2 Chronic systolic heart failure (Chronic) I50.22 Other long term care social worker (current) drug therapy (Chronic) Z79.899 NSTEMI (non-ST elevated myocardial infarction) (Chronic) I21.4 03/05/14, Non-ST elevation [place] Hypertension (Chronic) I10 Type 2 diabetes mellitus (Chronic) E11.9 Allergies No Known Allergies Allergy (Verified 10/12/18 14:45) Surgical History: Surgical History (Last Reviewed 10/01/18 @ 11:38 by India Laguna) Hx of appendectomy (Inactive) Z90.49 History of prostate surgery (Inactive) Z98.890 Urolift system implanted History of stent insertion of renal artery (Chronic) Z98.890 Left kidney Hx of right inguinal hernia repair (Inactive) Z98.890, Z87.19 History of left heart catheterization (Inactive) Z98.890 01/30/[address] Jameson @[facility] - *Family History Maternal Family History: Family History (Last Reviewed 10/01/18 @ 11:38 by India Laguna) Father Prostate cancer Mother CAD (coronary artery disease) Myocardial infarction, Onset Age: 48 Cancer Brother Myocardial infarction Abdominal aortic aneurysm Paternal Family History: Family History (Last Reviewed 10/01/18 @ 11:38 by India Laguna) Father Prostate cancer Mother CAD (coronary artery disease) Myocardial infarction, Onset Age: 48 Cancer Brother Myocardial infarction Abdominal aortic aneurysm - Physical Exam Vital Signs Temp Pulse Resp BP Pulse Ox 98.2 F 93 15 100/67 100 10/12/18 15:07 10/12/18 17:54 10/12/18 17:54 10/12/18 17:54 10/12/18 17:54 Oxygen Flow Rate (L/min) 2 Oxygen Delivery Method Room Air Weight: 65.4 kg Body Mass Index (BMI) 23.2 Finger Stick Blood Glucose 125 Laboratory Tests Past 24 Hrs 10/12/18 10/12/18 10/12/18 14:35 14:45 14:45 WBC 3.3 L RBC 3.31 L Hgb 9.1 L Hct 27.8 L MCV 84.0 MCH 27.5 MCHC 32.7 RDW 13.0 RDW Differential 39.8 Plt Count 37 L* MPV 11.3 Immature Gran % (Auto) 0.000 Neut % (Auto) 0.0 L Lymph % (Auto) 74.3 H [place] % (Auto) 25.1 H Eos % (Auto) 0.3 Baso % (Auto) 0.3 Absolute Neuts (auto) 0.0 L Absolute Lymphs (auto) 2.48 Total Counted Not Reportable Diff Path Review May foll Platelet Estimate MKD DEC PT 16.7 H INR 1.4 APTT 33.1 Sodium Potassium Chloride Carbon Dioxide Anion Gap BUN Creatinine Estim Creat Clear Calc Est GFR (MDRD) Af Amer Est GFR (MDRD) Non-Af BUN/Creatinine Ratio Glucose Lactic Acid Calcium Total Bilirubin AST ALT Alkaline Phosphatase Troponin I Total Protein Albumin Globulin Albumin/Globulin Ratio Urine Color Cancelled Urine Clarity Cancelled Urine pH Cancelled Ur Specific [place] Cancelled U Specif Grav (Refrac) Cancelled Urine Protein Cancelled Urine Glucose (UA) Cancelled Urine Ketones Cancelled Urine Occult Blood Cancelled Urine Nitrite Cancelled Urine Bilirubin Cancelled Urine Urobilinogen Cancelled Ur Leukocyte Esterase Cancelled Urine RBC Cancelled Urine WBC Cancelled Ur Squamous Epith Cells Cancelled Ur Transition Epith Cell Cancelled Ur Renal Epithelial Cell Cancelled Calcium Oxalate Crystal Cancelled Uric Acid Crystals Cancelled Triple Phos Crystals Cancelled Other Crystals Cancelled Amorphous Sediment Cancelled Urine Bacteria Cancelled Hyaline Casts Cancelled Fine Granular Casts Cancelled Coarse Granular Casts Cancelled Waxy Casts Cancelled RBC Casts Cancelled WBC Casts Cancelled Urine Mucus Cancelled Urine Trichomonas Cancelled Urine Yeast Cancelled 10/12/18 10/12/18 10/12/18 14:45 14:45 18:00 WBC RBC Hgb Hct MCV MCH MCHC RDW RDW Differential Plt Count MPV Immature Gran % (Auto) Neut % (Auto) Lymph % (Auto) [place] % (Auto) Eos % (Auto) Baso % (Auto) Absolute Neuts (auto) Absolute Lymphs (auto) Total Counted Diff Path Review Platelet Estimate PT INR APTT Sodium 131 L Potassium 3.9 Chloride 92 L Carbon Dioxide 18.0 L Anion Gap 21 H BUN 22 H Creatinine 2.14 H Estim Creat Clear Calc 26.50 Est GFR (MDRD) Af Amer 39 L Est GFR (MDRD) Non-Af 32 L BUN/Creatinine Ratio 10.3 Glucose 282 H Lactic Acid 14.9 H* Calcium 9.0 Total Bilirubin 1.30 H AST 55 H ALT 153 H Alkaline Phosphatase 211 H Troponin I < 0.015 Total Protein 8.5 H Albumin 2.5 L Globulin 6.0 H Albumin/Globulin Ratio 0.4 L Urine Color [place]iki Urine Clarity Cloudy Urine pH 5.0 Ur Specific [place] 1.015 U Specif Grav (Refrac) Urine Protein 100 H Urine Glucose (UA) Normal Urine Ketones 5 H Urine Occult Blood 250 H Urine Nitrite Positive H Urine Bilirubin 1 H Urine Urobilinogen 4 H Ur Leukocyte Esterase 500 H Urine RBC Pending Urine WBC Pending Ur Squamous Epith Cells Pending Ur Transition Epith Cell Ur Renal Epithelial Cell Calcium Oxalate Crystal Uric Acid Crystals Triple Phos Crystals Other Crystals Amorphous Sediment Urine Bacteria Pending Hyaline Casts Fine Granular Casts Coarse Granular Casts Waxy Casts RBC Casts WBC Casts Urine Mucus Pending Urine Trichomonas Urine Yeast Assessment/Plan This patient was seen in conjunction with RYLEY Rosenthal. I have independently interviewed and examined the patient and reviewed pertinent historical, laboratory, and other data. Please refer to RYLEY Rosenthal note for his patient's presentation, findings, and recommendations. I have reviewed and his note and concur with his documentation 78-year-old male with past medical history of squamous cell bladder CA, poorly differentiated prostate cancer, follows with oncology in the outpatient, status post radiotherapy and currently on palliative chemotherapy who last had chemotherapy on 10/03/2018. Patient complains of feeling unwell, shortness of breath and fever of 101 over the last couple of days. He denied any chest pain, dizziness, palpitations. PMHX: CAD, chronic systolic CHF, aortic valve insufficiency, hypertension, hyperlipidemia, type II DM, history of an STEMI PSHX: Status post prostate surgery, cystoscopies, appendectomy, herniorrhaphy, s/p nephrostomy FHx: CAD/[place] in mother, prostate cancer in father SHx: Denies any use of alcohol, smoking or tobacco use or illicit drugs ROS: 11 point review of system was negative except for in HPI Physical Exam: GEN: Oriented x3, appears weak, not pale, not jaundiced, moderately dehydrated HEENT: Atraumatic, EOMI CVS:HS I +II, regular, 3/6 holosystolic murmur best in the aortic region RESP:Clinically clear to auscultation, vesicular breath sounds, no added sounds GI: BS present and normal, flat abdomen, soft, nontender, no palpable organs EXT:No edema DOUPER: Alert oriented x3, cranial nerves II through XII intact, power is 5/5 in all extremities, normal tone Labs: WBC count is 3.3, hemoglobin 9.1, platelet 37, INR 1.4, sodium 131, potassium 3.9, chloride 92, bicarbonate 18, anion gap 21, BUN 22, creatinine 2.14 Lactic acid 14.9, total bilirubin 1.30, AST 55, ALT 153, ALP 211 Imaging: Chest X-ray -No acute cardiopulmonary findings ASSESSMENT: 1. Septic shock 2. Neutropenia/pancytopenia 3. YOEL on CKD stage III 4. Elevated liver enzymes 5. Malnutrition, BMI 23.3 6. Hypertension 7. Chronic systolic CHF, no signs of acute exacerbation 8. Type II DM 9. Bladder/prostate cancer Plan: Admit to ICU Journeyman Mechanic consult IV vancomycin and Zosyn IV fluids Neutropenic precautions Granix 480 mcg daily Oncology consult Hold metformin and sitagliptin Accu-Cheks with insulin sliding scale Labs in a.m. Code Visit Inpatient E&M: 58609 Init Hosp L3
--- NOTE | 2018-10-12 18:00 | RAD_ITS ---
STUDY: X-RAY CHEST REASON FOR EXAM: Male, 78 years old. Evaluation of central line placement. TECHNIQUE: 1 view COMPARISON: Prior chest radiograph from July 03, 2014. FINDINGS: A right central venous catheter ends in the distal superior vena cava with no complication of line placement. The lung ortiz remain well expanded and clear. A small nodular opacity at the right lung base is most likely a nipple marker. Normal size heart. Normal mediastinum and maria m. Normal visualized pulmonary arteries. There is atherosclerotic calcification of the aortic arch with tortuosity. Normal visualized thoracic spine. Normal visualized ribs, clavicles, and shoulders. There is no demonstrated abnormality of the visualized soft tissue structures of the upper abdomen. RAD/CXR for Line Placement IMPRESSION: Right central venous catheter ends in the distal superior vena cava with no complication of line placement. No additional acute cardiopulmonary findings or changes. Electronically Signed: Eva Thakur MD at 18:25 EST , Service support ,
--- NOTE | 2018-10-12 18:03 | HP.PCM_ITS ---
<Ricky Penny - Last Filed: 10/12/18 17:58> Problem List (1) Septic shock Status: Acute (2) YOEL (acute kidney injury) Status: Acute (3) CAD (coronary artery disease) Status: Chronic (4) Prostate cancer Status: Chronic (5) Hyperlipidemia Status: Chronic (6) Bladder cancer Status: Chronic (7) Hypertension Status: Chronic (8) Type 2 diabetes mellitus Status: Chronic History of Present Illness Date of Admission: 10/12/18 Chief Complaint: fever The patient is a 78 year old M with pmhx of bladder and prostate cancer, pt of Dr. Yo, last chemo October 03 (palliative), s/p right nephrostomy tube, chronic del rosario, also with hx of CAD, HTN, HLD, T2DM, who presents to the ER today with c/o fever and shaking chills at home. He notes that he has been feeling generalized malaise for several days that has progressively worsened. He had shaking chills at home today, checked his temperature and found it to be 101. He came to the ER and appears to have septic shock with LA of 14.9, pancytopenia, tachycardia, hypotension. UA is pending. He has no output from his nephrostomy. He appears to have YOEL. CXR is pending. Central line is in place. He c/o right flank pain around nephrostomy, occasionally productive cough, mild dyspnea. He was treated 3 weeks ago for UTI with Cipro, keflex, and amoxicillin. He will be admitted to ICU. [] Past Medical History Past Medical History (Chronic Problems): Chronic Problems (Last Reviewed 10/01/18 @ 11:38 by India Laguna) Prostate cancer (Chronic) CAD (coronary artery disease) (Chronic) History of stent insertion of renal artery (Chronic) Left kidney Hx of bladder cancer (Chronic) Hyperlipidemia (Chronic) Atherosclerotic heart disease of [place] coronary artery without angina pectoris (Chronic) 99% stenosis in proximal to mid LAD, 70% stenosis in mid RCA and diffuse distal disease per [facility] 01/30/[address] Jameson Congenital insufficiency of aortic valve (Chronic) Old myocardial infarction (Chronic) Chronic systolic heart failure (Chronic) Other grape crusher (current) drug therapy (Chronic) NSTEMI (non-ST elevated myocardial infarction) (Chronic) 03/05/14, Non-ST elevation [place] Bladder cancer (Chronic) Hypertension (Chronic) Type 2 diabetes mellitus (Chronic) Medical History: Medical History (Last Reviewed 10/01/18 @ 11:38 by India Laguna) Hx of bladder cancer (Chronic) Z85.51 Hyperlipidemia (Chronic) E78.5 Atherosclerotic heart disease of [place] coronary artery without angina pectoris (Chronic) I25.10 99% stenosis in proximal to mid LAD, 70% stenosis in mid RCA and diffuse distal disease per [facility] 01/30/[address] Jameson Congenital insufficiency of aortic valve (Chronic) Q23.1 Old myocardial infarction (Chronic) I25.2 Chronic systolic heart failure (Chronic) I50.22 Other mcfp (current) drug therapy (Chronic) Z79.899 NSTEMI (non-ST elevated myocardial infarction) (Chronic) I21.4 03/05/14, Non-ST elevation [place] Hypertension (Chronic) I10 Type 2 diabetes mellitus (Chronic) E11.9 Allergies No Known Allergies Allergy (Verified 10/12/18 14:45) Home Medications: Ambulatory Orders Medication Instructions Recorded Metformin HCl [Glucophage] 1,000 mg PO BIDCM 02/06/15 nitroglycerin 0.4 mg sublingual 0.4 mg SUBLINGUAL Q5M PRN 01/24/18 tablet sitagliptin 100 mg tablet 100 mg PO QDAY 07/03/18 Metoprolol Tartrate [Lopressor 75 mg PO BID 07/26/18 (beta prasanth)] Amlodipine [Norvasc] 10 mg PO DAILY #30 tab 08/26/18 Polyethylene Glycol 3350 [Miralax] 17 gm PO DAILY packet 08/26/18 Dutasteride [Avodart] 0.5 mg PO DAILY 09/04/18 Hydrochlorothiazide [Hctz] 25 mg PO DAILY 09/04/18 isosorbide mononitrate ER 60 mg 60 mg PO DAILY #90 tab 09/07/18 tablet,extended release 24 hr Oxycodone CR [Oxycontin] 10 mg PO Q12H #60 tablet 09/10/18 Hydrocodone Bitart/Apap 5-325 1 - 2 tablet PO Q4H PRN PRN #60 09/17/18 [[place] 5MG-325MG] tablet Ondansetron [Zofran Odt] 4 mg PO Q8H PRN PRN #30 tablet 09/17/18 Alfuzosin HCl [Uroxatral] 10 mg PO QHS 10/12/18 Surgical History: Surgical History (Last Reviewed 10/01/18 @ 11:38 by India Laguna) Hx of appendectomy (Inactive) Z90.49 History of prostate surgery (Inactive) Z98.890 Urolift system implanted History of stent insertion of renal artery (Chronic) Z98.890 Left kidney Hx of right inguinal hernia repair (Inactive) Z98.890, Z87.19 History of left heart catheterization (Inactive) Z98.890 01/30/[address] Jameson @[facility] Surgical History: herniorrhaphy, - - Removal of benign neck mass on the right neck, appendectomy, multiple cystoscopies w/ L stent placement and change, hernia repair, TUR bladder mass, Renal artery stent placement, Prostate Urolift system implant. Psychiatric History: No pertinent psych hx Smoking Status: Former smoker - *Family History Maternal Family History: Family History (Last Reviewed 10/01/18 @ 11:38 by India Laguna) Father Prostate cancer Mother CAD (coronary artery disease) Myocardial infarction, Onset Age: 48 Cancer Brother Myocardial infarction Abdominal aortic aneurysm History Items: Cancer, Heart Disease Paternal Family History: Family History (Last Reviewed 10/01/18 @ 11:38 by India Laguna) Father Prostate cancer Mother CAD (coronary artery disease) Myocardial infarction, Onset Age: 48 Cancer Brother Myocardial infarction Abdominal aortic aneurysm History Items: Cancer Review of Systems Constitutional: Reports: Chills, Fever, Malaise, Weakness, Fatigue. Denies: Weight Change HEENT: Denies: Head Aches, Sinus Congestion, Sinus Drainage Cardiovascular: Denies: Chest Pain, Palpitations Respiratory: Reports: Cough, Shortness of Breath, Sputum production. Denies: Hemoptysis, Pleuritic Pain, Shortness of breath at rest Gastrointestinal: Reports: - - right flank pain. Denies: Abdominal Pain, Nausea, Vomiting Genitourinary: Denies: Dysuria Musculoskeletal: Denies: Joint Pain, Joint Tenderness Skin: Denies: Rash, Wounds Neurological: Denies: Numbness, Tingling, Focal weakness Psychiatric: Denies: Anxiety, Depression, Homicidal Ideations, Suicidal Ideations Hematologic/ Lymphatic: Denies: Easy Bruising, Easy Bleeding VTE Information - Inpt Only VTE Present on Admission: No VTE Mechan Device Prophylaxis: None VTE Pharm Prophylaxis ordered?: No Patient Problems: Active and Suspected Problems (Last Reviewed 10/01/18 @ 11:38 by India Laguna) Septic shock (Acute) - Physical Exam General: Alert, Oriented x3, Cooperative, - - frail HEENT: Atraumatic, PERRLA, EOMI, Normocephalic Neck: Supple, No JVD, Negative Carotid Bruits Lungs: Clear to auscultation, Normal air movement Cardiovascular: Regular rate, No murmurs Abdomen: Bowel Sounds Present, Soft, Non Tender Extremities: No edema, Capillary Refill Less than 3 Seconds Skin: No rashes, No breakdown Musculoskeletal: No Tenderness to Palpation of Joints or Extremities Neurological: Cranial nerves II-XII grossly intact Psych/Mental Status: Normal Affect, Appropriate, Alert and oriented to time, place, person, mood and affect Vital Signs Temp Pulse Resp BP Pulse Ox 98.2 F 93 15 100/67 100 10/12/18 15:07 10/12/18 17:54 10/12/18 17:54 10/12/18 17:54 10/12/18 17:54 Oxygen Flow Rate (L/min) 2 Oxygen Delivery Method Room Air Weight: 144 lb 2.917 oz Body Mass Index (BMI) 23.2 Finger Stick Blood Glucose 125 Laboratory Tests Past 24 Hrs 10/12/18 10/12/18 10/12/18 14:35 14:45 14:45 WBC 3.3 L RBC 3.31 L Hgb 9.1 L Hct 27.8 L MCV 84.0 MCH 27.5 MCHC 32.7 RDW 13.0 RDW Differential 39.8 Plt Count 37 L* MPV 11.3 Immature Gran % (Auto) 0.000 Neut % (Auto) 0.0 L Lymph % (Auto) 74.3 H [place] % (Auto) 25.1 H Eos % (Auto) 0.3 Baso % (Auto) 0.3 Absolute Neuts (auto) 0.0 L Absolute Lymphs (auto) 2.48 Total Counted Not Reportable Diff Path Review May foll Platelet Estimate MKD DEC PT 16.7 H INR 1.4 APTT 33.1 Sodium Potassium Chloride Carbon Dioxide Anion Gap BUN Creatinine Estim Creat Clear Calc Est GFR (MDRD) Af Amer Est GFR (MDRD) Non-Af BUN/Creatinine Ratio Glucose Lactic Acid Calcium Total Bilirubin AST ALT Alkaline Phosphatase Troponin I Total Protein Albumin Globulin Albumin/Globulin Ratio Urine Color Cancelled Urine Clarity Cancelled Urine pH Cancelled Ur Specific [place] Cancelled U Specif Grav (Refrac) Cancelled Urine Protein Cancelled Urine Glucose (UA) Cancelled Urine Ketones Cancelled Urine Occult Blood Cancelled Urine Nitrite Cancelled Urine Bilirubin Cancelled Urine Urobilinogen Cancelled Ur Leukocyte Esterase Cancelled Urine RBC Cancelled Urine WBC Cancelled Ur Squamous Epith Cells Cancelled Ur Transition Epith Cell Cancelled Ur Renal Epithelial Cell Cancelled Calcium Oxalate Crystal Cancelled Uric Acid Crystals Cancelled Triple Phos Crystals Cancelled Other Crystals Cancelled Amorphous Sediment Cancelled Urine Bacteria Cancelled Hyaline Casts Cancelled Fine Granular Casts Cancelled Coarse Granular Casts Cancelled Waxy Casts Cancelled RBC Casts Cancelled WBC Casts Cancelled Urine Mucus Cancelled Urine Trichomonas Cancelled Urine Yeast Cancelled 10/12/18 10/12/18 14:45 14:45 WBC RBC Hgb Hct MCV MCH MCHC RDW RDW Differential Plt Count MPV Immature Gran % (Auto) Neut % (Auto) Lymph % (Auto) [place] % (Auto) Eos % (Auto) Baso % (Auto) Absolute Neuts (auto) Absolute Lymphs (auto) Total Counted Diff Path Review Platelet Estimate PT INR APTT Sodium 131 L Potassium 3.9 Chloride 92 L Carbon Dioxide 18.0 L Anion Gap 21 H BUN 22 H Creatinine 2.14 H Estim Creat Clear Calc 26.50 Est GFR (MDRD) Af Amer 39 L Est GFR (MDRD) Non-Af 32 L BUN/Creatinine Ratio 10.3 Glucose 282 H Lactic Acid 14.9 H* Calcium 9.0 Total Bilirubin 1.30 H AST 55 H ALT 153 H Alkaline Phosphatase 211 H Troponin I < 0.015 Total Protein 8.5 H Albumin 2.5 L Globulin 6.0 H Albumin/Globulin Ratio 0.4 L Urine Color Urine Clarity Urine pH Ur Specific [place] U Specif Grav (Refrac) Urine Protein Urine Glucose (UA) Urine Ketones Urine Occult Blood Urine Nitrite Urine Bilirubin Urine Urobilinogen Ur Leukocyte Esterase Urine RBC Urine WBC Ur Squamous Epith Cells Ur Transition Epith Cell Ur Renal Epithelial Cell Calcium Oxalate Crystal Uric Acid Crystals Triple Phos Crystals Other Crystals Amorphous Sediment Urine Bacteria Hyaline Casts Fine Granular Casts Coarse Granular Casts Waxy Casts RBC Casts WBC Casts Urine Mucus Urine Trichomonas Urine Yeast Assessment/Plan All Active Problems (Last Reviewed 10/01/18 @ 11:38 by [place] Laguna) 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 Acute septic shock, presumed 2/2 Neutropenic fever possibly UTI, respiratory infection - ANC=0.0. UA and CXR pending at this time. Continue Vanc/Zosyn. Culture del rosario, nephrostomy, blood, sputum. Continue IV hydration - monitor for fluid overload with CHF hx. May need pressors. BP systolic 60s responded to IV fluids in ER. 2. YOEL - 2/2 sepsis. Hydrate. Urine from del rosario, however none from nephrostomy (right). 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 3. Bladder/Prostate cancer - pt of Dr. Yo. Has nephrostomy and del rosario. Last chemo Oct 03 - reportedly palliative. 4. Pancytopenia - trend, 2/2 above. 5. Hx CAD - hold antihypertensives. 6. DMt2 - SSI 7. Hx CHF, last echo showed indeterminate EF 45% (2013) DVT ppx: SCDs, thrombocytopenic - avoid heparin producits DC planning: PTOT, very weak, lives alone, on palliative chemo, wants DNRCCA, d/w granddaughter POA. This patient was seen by Ricky Penny PA-C under the supervision of Dr. Blanton. <Meron Blanton - Last Filed: 10/12/18 19:47> History of Present Illness The patient is a 78 year old M [] Past Medical History Medical History: Medical History (Last Reviewed 10/01/18 @ 11:38 by India Laguna) Hx of bladder cancer (Chronic) Z85.51 Hyperlipidemia (Chronic) E78.5 Atherosclerotic heart disease of [place] coronary artery without angina pectoris (Chronic) I25.10 99% stenosis in proximal to mid LAD, 70% stenosis in mid RCA and diffuse distal disease per [facility] 01/30/[address] Jameson Congenital insufficiency of aortic valve (Chronic) Q23.1 Old myocardial infarction (Chronic) I25.2 Chronic systolic heart failure (Chronic) I50.22 Other grape crusher (current) drug therapy (Chronic) Z79.899 NSTEMI (non-ST elevated myocardial infarction) (Chronic) I21.4 03/05/14, Non-ST elevation [place] Hypertension (Chronic) I10 Type 2 diabetes mellitus (Chronic) E11.9 Allergies No Known Allergies Allergy (Verified 10/12/18 14:45) Surgical History: Surgical History (Last Reviewed 10/01/18 @ 11:38 by India Laguna) Hx of appendectomy (Inactive) Z90.49 History of prostate surgery (Inactive) Z98.890 Urolift system implanted History of stent insertion of renal artery (Chronic) Z98.890 Left kidney Hx of right inguinal hernia repair (Inactive) Z98.890, Z87.19 History of left heart catheterization (Inactive) Z98.890 01/30/[address] Jameson @[facility] - *Family History Maternal Family History: Family History (Last Reviewed 10/01/18 @ 11:38 by India Laguna) Father Prostate cancer Mother CAD (coronary artery disease) Myocardial infarction, Onset Age: 48 Cancer Brother Myocardial infarction Abdominal aortic aneurysm Paternal Family History: Family History (Last Reviewed 10/01/18 @ 11:38 by India Laguna) Father Prostate cancer Mother CAD (coronary artery disease) Myocardial infarction, Onset Age: 48 Cancer Brother Myocardial infarction Abdominal aortic aneurysm - Physical Exam Vital Signs Temp Pulse Resp BP Pulse Ox 98.2 F 93 15 100/67 100 10/12/18 15:07 10/12/18 17:54 10/12/18 17:54 10/12/18 17:54 10/12/18 17:54 Oxygen Flow Rate (L/min) 2 Oxygen Delivery Method Room Air Weight: 65.4 kg Body Mass Index (BMI) 23.2 Finger Stick Blood Glucose 125 Laboratory Tests Past 24 Hrs 10/12/18 10/12/18 10/12/18 14:35 14:45 14:45 WBC 3.3 L RBC 3.31 L Hgb 9.1 L Hct 27.8 L MCV 84.0 MCH 27.5 MCHC 32.7 RDW 13.0 RDW Differential 39.8 Plt Count 37 L* MPV 11.3 Immature Gran % (Auto) 0.000 Neut % (Auto) 0.0 L Lymph % (Auto) 74.3 H [place] % (Auto) 25.1 H Eos % (Auto) 0.3 Baso % (Auto) 0.3 Absolute Neuts (auto) 0.0 L Absolute Lymphs (auto) 2.48 Total Counted Not Reportable Diff Path Review May foll Platelet Estimate MKD DEC PT 16.7 H INR 1.4 APTT 33.1 Sodium Potassium Chloride Carbon Dioxide Anion Gap BUN Creatinine Estim Creat Clear Calc Est GFR (MDRD) Af Amer Est GFR (MDRD) Non-Af BUN/Creatinine Ratio Glucose Lactic Acid Calcium Total Bilirubin AST ALT Alkaline Phosphatase Troponin I Total Protein Albumin Globulin Albumin/Globulin Ratio Urine Color Cancelled Urine Clarity Cancelled Urine pH Cancelled Ur Specific [place] Cancelled U Specif Grav (Refrac) Cancelled Urine Protein Cancelled Urine Glucose (UA) Cancelled Urine Ketones Cancelled Urine Occult Blood Cancelled Urine Nitrite Cancelled Urine Bilirubin Cancelled Urine Urobilinogen Cancelled Ur Leukocyte Esterase Cancelled Urine RBC Cancelled Urine WBC Cancelled Ur Squamous Epith Cells Cancelled Ur Transition Epith Cell Cancelled Ur Renal Epithelial Cell Cancelled Calcium Oxalate Crystal Cancelled Uric Acid Crystals Cancelled Triple Phos Crystals Cancelled Other Crystals Cancelled Amorphous Sediment Cancelled Urine Bacteria Cancelled Hyaline Casts Cancelled Fine Granular Casts Cancelled Coarse Granular Casts Cancelled Waxy Casts Cancelled RBC Casts Cancelled WBC Casts Cancelled Urine Mucus Cancelled Urine Trichomonas Cancelled Urine Yeast Cancelled 10/12/18 10/12/18 10/12/18 14:45 14:45 18:00 WBC RBC Hgb Hct MCV MCH MCHC RDW RDW Differential Plt Count MPV Immature Gran % (Auto) Neut % (Auto) Lymph % (Auto) [place] % (Auto) Eos % (Auto) Baso % (Auto) Absolute Neuts (auto) Absolute Lymphs (auto) Total Counted Diff Path Review Platelet Estimate PT INR APTT Sodium 131 L Potassium 3.9 Chloride 92 L Carbon Dioxide 18.0 L Anion Gap 21 H BUN 22 H Creatinine 2.14 H Estim Creat Clear Calc 26.50 Est GFR (MDRD) Af Amer 39 L Est GFR (MDRD) Non-Af 32 L BUN/Creatinine Ratio 10.3 Glucose 282 H Lactic Acid 14.9 H* Calcium 9.0 Total Bilirubin 1.30 H AST 55 H ALT 153 H Alkaline Phosphatase 211 H Troponin I < 0.015 Total Protein 8.5 H Albumin 2.5 L Globulin 6.0 H Albumin/Globulin Ratio 0.4 L Urine Color [place] Urine Clarity Cloudy Urine pH 5.0 Ur Specific [place] 1.015 U Specif Grav (Refrac) Urine Protein 100 H Urine Glucose (UA) Normal Urine Ketones 5 H Urine Occult Blood 250 H Urine Nitrite Positive H Urine Bilirubin 1 H Urine Urobilinogen 4 H Ur Leukocyte Esterase 500 H Urine RBC Pending Urine WBC Pending Ur Squamous Epith Cells Pending Ur Transition Epith Cell Ur Renal Epithelial Cell Calcium Oxalate Crystal Uric Acid Crystals Triple Phos Crystals Other Crystals Amorphous Sediment Urine Bacteria Pending Hyaline Casts Fine Granular Casts Coarse Granular Casts Waxy Casts RBC Casts WBC Casts Urine Mucus Pending Urine Trichomonas Urine Yeast Assessment/Plan This patient was seen in conjunction with RYLEY Rosenthal. I have independently interviewed and examined the patient and reviewed pertinent historical, laboratory, and other data. Please refer to RYLEY Rosenthal note for his patient's presentation, findings, and recommendations. I have reviewed and his note and concur with his documentation 78-year-old male with past medical history of squamous cell bladder CA, poorly differentiated prostate cancer, follows with oncology in the outpatient, status post radiotherapy and currently on palliative chemotherapy who last had chemotherapy on 10/03/2018. Patient complains of feeling unwell, shortness of breath and fever of 101 over the last couple of days. He denied any chest pain, dizziness, palpitations. PMHX: CAD, chronic systolic CHF, aortic valve insufficiency, hypertension, hyperlipidemia, type II DM, history of an STEMI PSHX: Status post prostate surgery, cystoscopies, appendectomy, herniorrhaphy, s/p nephrostomy FHx: CAD/[place] in mother, prostate cancer in father SHx: Denies any use of alcohol, smoking or tobacco use or illicit drugs ROS: 11 point review of system was negative except for in HPI Physical Exam: GEN: Oriented x3, appears weak, not pale, not jaundiced, moderately dehydrated HEENT: Atraumatic, EOMI CVS:HS I +II, regular, 3/6 holosystolic murmur best in the aortic region RESP:Clinically clear to auscultation, vesicular breath sounds, no added sounds GI: BS present and normal, flat abdomen, soft, nontender, no palpable organs EXT:No edema DIRECTOR ELECTRONICS: Alert oriented x3, cranial nerves II through XII intact, power is 5/5 in all extremities, normal tone Labs: WBC count is 3.3, hemoglobin 9.1, platelet 37, INR 1.4, sodium 131, potassium 3.9, chloride 92, bicarbonate 18, anion gap 21, BUN 22, creatinine 2.14 Lactic acid 14.9, total bilirubin 1.30, AST 55, ALT 153, ALP 211 Imaging: Chest X-ray -No acute cardiopulmonary findings ASSESSMENT: 1. Septic shock 2. Neutropenia/pancytopenia 3. YOEL on CKD stage III 4. Elevated liver enzymes 5. Malnutrition, BMI 23.3 6. Hypertension 7. Chronic systolic CHF, no signs of acute exacerbation 8. Type II DM 9. Bladder/prostate cancer Plan: Admit to ICU Vessel Captain consult IV vancomycin and Zosyn IV fluids Neutropenic precautions Granix 480 mcg daily Oncology consult Hold metformin and sitagliptin Accu-Cheks with insulin sliding scale Labs in a.m. Code Visit Inpatient E&M: 15588 Init Hosp L3
--- NOTE | 2018-10-12 18:09 | ED.VISSUMM ---
- ER Visit Summary Date of Service: 10/12/18 Chief Complaint: Fever Patient and his healthcare power of county attorney state that he does not want chest compressions, CPR, or intubation. History of Present Illness: The patient is a 78 M with fever, chills, and shaking episodes. Symptoms started this morning. He has had some mild shortness of breath which is new but otherwise does not have many other new symptoms. His family thought he looked pale and ashen. He does have a history of prostate cancer and follows with Dr. Yo. He has undergone chemotherapy, most recently on October 03. He is primarily focused on palliative care. He is not a radiation candidate or a surgical candidate. He does report that he was septic in the past and after fluid resuscitation had an IL and CHF. Physical Examination: Afebrile and normotensive. Heart rate 151 and respiratory rate 30. 93% on 4 L. Patient appears pale but has no diaphoresis or rashes noted. HEENT exam unremarkable. Heart tachycardic but regular. Lungs clear throughout. Abdomen soft and nontender. Calves soft and supple. Test Results: EKG showed sinus rhythm at a rate of 126. No sign of acute ischemia or infarction pattern. He is pancytopenic, white count 3.3, Hemoccult 9.1, platelets 37. Sodium 131, chloride 92, CO2 18, anion gap 21, glucose 282, BUN 22, creatinine 2.14. Total bilirubin 1.3, alkaline phosphatase 211, ALT 153, AST 55. INR 1.4 and PTT 33.1. Urinalysis pending. Troponin normal. Lactate 14.9. Cultures pending. Chest x-ray pending but appears to be unremarkable. Line appears to be in good placement. Emergency Department Course and Treatment: Patient was treated with oxygen and fluids. He was monitored. He had neutropenic precautions on arrival. His pressures started to trend down despite fluid hydration. He was started on Zosyn and vancomycin for broad-spectrum coverage. We continued fluid hydration, but it became apparent that he would likely need central access if he were to have pressors. Patient consented to this. Area was identified with ultrasound. Cleaned and draped. Anesthetized with lidocaine. Reidentified with ultrasound under sterile conditions. Right IJ central line was placed using the Seldinger technique under sterile conditions. The patient tolerated this well. Follow-up chest x-ray appeared to be normal. Official read is pending. Patient's heart rate has improved but his most recent systolic blood pressure is 99. We will continue fluid hydration. He will likely need pressors if this drops any further. Healthcare Translator and hospitalist were contacted. At this time, he is being evaluated by the hospitalist for further inpatient care. Treatment Plan: As above Disposition: Admit to ICU Impression: 1. Neutropenic fever 2. Septic shock 3. Prostate cancer This note was generated with [employer] dictation software. It may contain incorrect words, spelling, and punctuation that were not noted in review of the chart prior to signing ED Disposition - Plan for ED Patient: Chief Complaint: General Illness Referrals: Jonathan Lombardi MD [Primary Care Provider] -
[2018-10-12 18:10] LABS: Mucous, Urine 0 SEEN /hpf (<or=2+); Squamous Epithelial Cells - UA 0 SEEN /hpf (0-5)
--- NOTE | 2018-10-12 18:13 | NURSING ---
ICU PAINTSIL SEPTIC SHOCK, NEUT FEVER
--- NOTE | 2018-10-12 18:15 | ED.DCSUM_ITS ---
- ER Visit Summary Date of Service: 10/12/18 Chief Complaint: Fever Patient and his healthcare power of state attorney state that he does not want chest compressions, CPR, or intubation. History of Present Illness: The patient is a 78 M with fever, chills, and shaking episodes. Symptoms started this morning. He has had some mild shortness of breath which is new but otherwise does not have many other new symptoms. His family thought he looked pale and ashen. He does have a history of prostate cancer and follows with Dr. Yo. He has undergone chemotherapy, most recently on October 03. He is primarily focused on palliative care. He is not a radiation candidate or a surgical candidate. He does report that he was septic in the past and after fluid resuscitation had an TX and CHF. Physical Examination: Afebrile and normotensive. Heart rate 151 and respiratory rate 30. 93% on 4 L. Patient appears pale but has no diaphoresis or rashes noted. HEENT exam unremarkable. Heart tachycardic but regular. Lungs clear throughout. Abdomen soft and nontender. Calves soft and supple. Test Results: EKG showed sinus rhythm at a rate of 126. No sign of acute ischemia or infarction pattern. He is pancytopenic, white count 3.3, Hemoccult 9.1, platelets 37. Sodium 131, chloride 92, CO2 18, anion gap 21, glucose 282, BUN 22, creatinine 2.14. Total bilirubin 1.3, alkaline phosphatase 211, ALT 153, AST 55. INR 1.4 and PTT 33.1. Urinalysis pending. Troponin normal. Lactate 14.9. Cultures pending. Chest x-ray pending but appears to be unremarkable. Line appears to be in good placement. Emergency Department Course and Treatment: Patient was treated with oxygen and fluids. He was monitored. He had neutropenic precautions on arrival. His pressures started to trend down despite fluid hydration. He was started on Zosyn and vancomycin for broad-spectrum coverage. We continued fluid hydration, but it became apparent that he would likely need central access if he were to have pressors. Patient consented to this. Area was identified with ultrasound. Cleaned and draped. Anesthetized with lidocaine. Reidentified with ultrasound under sterile conditions. Right IJ central line was placed using the Seldinger technique under sterile conditions. The patient tolerated this well. Follow-up chest x-ray appeared to be normal. Official read is pending. Patient's heart rate has improved but his most recent systolic blood pressure is 99. We will continue fluid hydration. He will likely need pressors if this drops any further. Medicaid Billing Clerk and hospitalist were contacted. At this time, he is being evaluated by the hospitalist for further inpatient care. Treatment Plan: As above Disposition: Admit to ICU Impression: 1. Neutropenic fever 2. Septic shock 3. Prostate cancer This note was generated with [employer]er[employer] dictation software. It may contain incorrect words, spelling, and punctuation that were not noted in review of the chart prior to signing ED Disposition - Plan for ED Patient: Chief Complaint: General Illness Referrals: Jonathan Lombardi MD [Primary Care Provider] -
[2018-10-12 18:20] LABS: Color, Urine Amber (Yellow); Glucose, Dipstick Normal (Normal); Ketone-Dipstick 5 mg/dl (Negative); Leukocyte Esterase-Dipstick 500 /ul (Negative); Nitrite-Dipstick Positive (Negative); Occult Blood-Urine 250 /ul (Negative); Protein-Dipstick 100 mg/dl (Negative); Specific Gravity, Urine 1.015 (1.002-1.030); Urine Clarity Cloudy (Clear); Urine Urobilinogen 4 mg/dl (Normal)
[2018-10-12 18:23] LABS: Urine Bilirubin Dipstick 1 mg/dL (Negative)
[2018-10-12 18:33] LABS: Amorphous Sediment 1+; Bacteria RARE /hpf (None Seen); Red Blood Cells-Urine > 100 SEEN /hpf (0-5); White Blood Cells >100 SEEN /hpf (0-5); Yeast-Urine 1+ /hpf (None Seen)
[2018-10-12] MEDS: Oxymetazoline 0.05% 1 SPRAY SPRAY.BTL 2 SPRAY NASAL (18:33)
[2018-10-12 19:13] LABS: Reflex Lactate? Y
[2018-10-12 20:14] LABS: Lactic Acid 2.6 mmol/L (0.4-2.0)
--- NOTE | 2018-10-12 20:46 | PCM.RX.CS ---
Consult Pharmacy has been consulted to manage selected antiobiotic: Vancomycin Type of Consult: New start Suspected Infection: Sepsis Prior Doses of Antibiotics Received/Current Regimen: 1000MG GIVEN IN ED 10/12 AT 16:24 Labs: Sodium 131 mmol/L (136-145) L 10/12/18 14:45 Potassium 3.9 mmol/L (3.5-5.1) 10/12/18 14:45 Chloride 92 mmol/L (98-107) L 10/12/18 14:45 Carbon Dioxide 18.0 mmol/L (21.0-32.0) L 10/12/18 14:45 Anion Gap 21 (5-15) H 10/12/18 14:45 BUN 22 mg/dL (7-18) H 10/12/18 14:45 Creatinine 2.14 mg/dL (0.70-1.30) H 10/12/18 14:45 Est GFR (MDRD) Af Amer 39 mL/min (>60) L 10/12/18 14:45 Est GFR (MDRD) Non-Af 32 mL/min (>60) L 10/12/18 14:45 BUN/Creatinine Ratio 10.3 RATIO (10-20) 10/12/18 14:45 Glucose 282 mg/dL (74-106) H 10/12/18 14:45 Weight used for dosin lb 2.917 oz Estimated Creatinine Clearance: 26.5 Goal Trough: 15-20 mcg/mL Pharmacy Plan for Drug Dosing: Calculated dose is 750mg q24 for goal rate of 15-20. First dose will be 10/13 at 1600. A trough is ordered for 10/14 15:30 Pharmacy Service will continue to monitor and adjust dosing as required.
[2018-10-12] MEDS: TBO-FILGRASTIM 480 MCG/0.8 ML ML SC (21:13)
[2018-10-12] MEDS: Acetaminophen 325 MG Tablet 650 MG PO (21:13)
[2018-10-12] MEDS: guaiFENesin 10 ML UDC (200MG/10ML) PO (21:13)
[2018-10-12] MEDS: Heparin Injection (Vial) 5,000 UNIT/ML VIAL 5000 UNIT SC (21:14)
[2018-10-12] MEDS: Tamsulosin HCl 0.4 MG Capsule PO (21:14)
[2018-10-12] MEDS: Insulin Lispro 100 UNIT/ML INSULN.PEN SQ (21:24)
[2018-10-12 21:36] LABS: Bedside Glucose 189 mg/dL (70-110)
--- NOTE | 2018-10-12 22:02 | NURSING ---
no zone management tools were applicable for this patient at this time
[2018-10-12 23:28] LABS: M R Staph aureus DNA By PCR Negative (Negative)
[2018-10-12 23:29] LABS: Probe Check PASS; Specimen Processing Control PASS
[2018-10-13] VITALS (26 sets, daily range): BP systolic 98–135; BP diastolic 54–87; PULSE 80–115; RESP 13–22; TEMP 36.3–37.2; O2SAT 91–100
[2018-10-13] MEDS: guaiFENesin 10 ML UDC (200MG/10ML) PO (02:48)
[2018-10-13] MEDS: CHLORHEXIDINE GLUC 2% CLOTH 1 EACH TOWELETTE TOPICAL (04:50)
[2018-10-13 05:00] LABS: Hematocrit 20.4 % (40-54); Mean Corp Hgb Conc 34.3 g/gl (32-36); Mean Corpuscular Hgb 28.2 pg (27.0-32.0); Mean Corpuscular Volume 82.3 fL (80-94); Mean Platelet Vol. 10.5 fl (6.2-12.0); RBC Distribution Width CV 12.1 % (11.6-14.6); RBC Distribution Width SD 35.2 fl (35.1-43.9); Red Blood Count 2.48 M/mm3 (4.6-6.2)
[2018-10-13 05:02] LABS: Platelet Count 19 K/mm3 (150-450)
[2018-10-13 05:03] LABS: White Blood Count 1.3 K/mm3 (4.4-11.0)
[2018-10-13 05:08] LABS: Phosphorus 2.1 mg/dL (2.5-4.9)
[2018-10-13 05:40] LABS: Differential Comment SCANNED; Scan Indicated on CBC? Y/N YES- FLAGS NOTED
--- NOTE | 2018-10-13 07:00 | PCM.CON.CC ---
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 Status: Acute (2) Prostate cancer Status: Chronic (3) Pelvic pain Status: Acute (4) Septic shock Status: Acute (5) CAD (coronary artery disease) Status: Chronic (6) YOEL (acute kidney injury) Status: Acute (7) Hx of appendectomy Status: Inactive (8) History of prostate surgery Status: Inactive Comment: Urolift system implanted (9) History of stent insertion of renal artery Status: Chronic Comment: Left kidney (10) Hx of bladder cancer Status: Chronic (11) Hx of right inguinal hernia repair Status: Inactive (12) Hyperlipidemia Status: Chronic Qualifiers: (13) 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 Patient reportedly had symptoms of onset on the day of presentation. Patient had had some mild shortness of breath and family thought he looked pale and ashen. Patient does have a history of prostate cancer being treated by Dr. Yo, but is currently on palliative chemotherapy. On presentation, patient was noted to have a heart rate of 151 bpm and 4 L nasal cannula to maintain saturations. Patient also had an elevated creatinine at 2.14, INR 1.4 and lactate of 14.9. Patient was pancytopenic with neutropenia. Patient was given Zosyn, vancomycin and fluid resuscitation prior to being sent to the intensive care unit. In the intensive care unit, patient has remained relatively hemodynamically stable. Patient responded well to fluid boluses. Patient has not received any Zosyn therapy, but does have vancomycin ordered. Patient denies any chest pain, abdominal pain, nausea or vomiting. Patient does feel subjectively improved since presentation. Patient had complained of right flank pain around the nephrostomy and feels this is also improved. Patient did reveal that he was treated 3 weeks ago for UTI with Cipro, Keflex and amoxicillin. Patient does not endorse any other symptoms on review of systems x10. Past Medical History Past Medical History (Chronic Problems): Chronic Problems (Last Reviewed 10/01/18 @ 11:38 by India Laguna) Prostate cancer (Chronic) CAD (coronary artery disease) (Chronic) History of stent insertion of renal artery (Chronic) Left kidney Hx of bladder cancer (Chronic) Hyperlipidemia (Chronic) Atherosclerotic heart disease of [place] coronary artery without angina pectoris (Chronic) 99% stenosis in proximal to mid LAD, 70% stenosis in mid RCA and diffuse distal disease per [facility] 01/30/[address] 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 Jameson Congenital insufficiency of aortic valve (Chronic) Q23.1 Old myocardial infarction (Chronic) I25.2 Chronic systolic heart failure (Chronic) I50.22 Other [facility] (current) drug therapy (Chronic) Z79.899 NSTEMI (non-ST elevated myocardial infarction) (Chronic) I21.4 03/05/14, Non-ST elevation [place] Hypertension (Chronic) I10 Type 2 diabetes mellitus (Chronic) E11.9 Allergies No Known Allergies Allergy (Verified 10/12/18 14:45) Home Medications: Ambulatory Orders Medication Instructions Recorded Metformin HCl [Glucophage] 1,000 mg PO BIDCM 02/06/15 nitroglycerin 0.4 mg sublingual 0.4 mg SUBLINGUAL Q5M PRN 01/24/18 tablet sitagliptin 100 mg tablet 100 mg PO QDAY 07/03/18 Metoprolol Tartrate [Lopressor 75 mg PO BID 07/26/18 (beta prasanth)] Amlodipine [Norvasc] 10 mg PO DAILY #30 tab 08/26/18 Polyethylene Glycol 3350 [Miralax] 17 gm PO DAILY packet 08/26/18 Dutasteride [Avodart] 0.5 mg PO DAILY 09/04/18 Hydrochlorothiazide [Hctz] 25 mg PO DAILY 09/04/18 isosorbide mononitrate ER 60 mg 60 mg PO DAILY #90 tab 09/07/18 tablet,extended release 24 hr Oxycodone CR [Oxycontin] 10 mg PO Q12H #60 tablet 09/10/18 Hydrocodone Bitart/Apap 5-325 1 - 2 tablet PO Q4H PRN PRN #60 09/17/18 [[place] 5MG-325MG] tablet Ondansetron [Zofran Odt] 4 mg PO Q8H PRN PRN #30 tablet 09/17/18 Alfuzosin HCl [Uroxatral] 10 mg PO QHS 10/12/18 Surgical History: Surgical History (Last Reviewed 10/01/18 @ 11:38 by India Laguna) Hx of appendectomy (Inactive) Z90.49 History of prostate surgery (Inactive) Z98.890 Urolift system implanted History of stent insertion of renal artery (Chronic) Z98.890 Left kidney Hx of right inguinal hernia repair (Inactive) Z98.890, Z87.19 History of left heart catheterization (Inactive) Z98.890 01/30/[address] Jameson @[facility] Surgical History: herniorrhaphy, - - Removal of benign neck mass on the right neck, appendectomy, multiple cystoscopies w/ L stent placement and change, hernia repair, TUR bladder mass, Renal artery stent placement, Prostate Urolift system implant. Psychiatric History: No pertinent psych hx Smoking Status: Former smoker - *Family History Maternal Family History: Family History (Last Reviewed 10/01/18 @ 11:38 by India Laguna) Father Prostate cancer Mother CAD (coronary artery disease) Myocardial infarction, Onset Age: 48 Cancer Brother Myocardial infarction Abdominal aortic aneurysm History Items: Cancer, Heart Disease Paternal Family History: Family History (Last Reviewed 10/01/18 @ 11:38 by India Laguna) Father Prostate cancer Mother CAD (coronary artery disease) Myocardial infarction, Onset Age: 48 Cancer Brother Myocardial infarction Abdominal aortic aneurysm History Items: Cancer Review of Systems Comment: See HPI, otherwise negative x10 systems. Patient Problems: Active and Suspected Problems (Last Reviewed 10/01/18 @ 11:38 by [place] Laguna) Septic shock (Acute) Objective: Chest x-ray was personally reviewed showing a right IJ in proper position and no acute infiltrates. - Physical Exam General: Alert, Oriented x3, Cooperative, No apparent distress, - - Appears stated age. No conversational dyspnea. HEENT: Atraumatic, PERRLA, EOMI, Normocephalic, - - No scleral icterus or injection noted. Oral: Moist Mucosa, No Gingival or Mucosal Lesions/ Ulcerations Neck: Supple, No JVD, No Nodes, Trachea Midline, - - Right IJ has mild blood at insertion site. Lungs: Clear to auscultation, Normal air movement, No rhonchi, No wheeze, No rales, - - Symmetric expansion. No dullness to percussion. Cardiovascular: Regular rate, Regular Rhythm, Normal S1, Normal S2, No murmurs, No rub noted, No Gallop Abdomen: Bowel Sounds Present, Soft, Non-Distended, Tender - Slightly to palpation Extremities: No clubbing, No cyanosis, No edema, Capillary Refill Less than 3 Seconds Skin: No rashes, No breakdown Musculoskeletal: No Tenderness to Palpation of Joints or Extremities Lymphatic: No Cervical, Supraclavicular, or Inguinal Adenopathy Neurological: Cranial nerves II-XII grossly intact, Neuro grossly intact, Motor Exam 5/5 strength throughout Psych/Mental Status: Alert and oriented to time, place, person, mood and affect Vital Signs Temp Pulse Resp BP Pulse Ox 36.3 C L 94 22 H 119/61 92 10/13/18 05:00 10/13/18 06:00 10/13/18 06:00 10/13/18 06:00 10/13/18 06:00 Oxygen Flow Rate (L/min) 2 Oxygen Delivery Method Room Air Weight: 63.7 kg Body Mass Index (BMI) 23.4 Finger Stick Blood Glucose 125 Intake and Output for Last 24 Hours 10/11/18 10/12/18 10/13/18 23:59 23:59 23:59 Intake Total 240 / 240 120 / 120 Output Total 385 / 385 600 / 600 Balance -145 / -145 -480 / -480 Laboratory Tests Past 24 Hrs 10/12/18 10/12/18 10/12/18 14:35 14:45 14:45 WBC 3.3 L RBC 3.31 L Hgb 9.1 L Hct 27.8 L MCV 84.0 MCH 27.5 MCHC 32.7 RDW 13.0 RDW Differential 39.8 Plt Count 37 L* MPV 11.3 Immature Gran % (Auto) 0.000 Neut % (Auto) 0.0 L Lymph % (Auto) 74.3 H [place] % (Auto) 25.1 H Eos % (Auto) 0.3 Baso % (Auto) 0.3 Absolute Neuts (auto) 0.0 L Absolute Lymphs (auto) 2.48 Total Counted Not Reportable Differential Comment Diff Path Review May foll Platelet Estimate MKD OCT PT 16.7 H INR 1.4 APTT 33.1 Sodium Potassium Chloride Carbon Dioxide Anion Gap BUN Creatinine Estim Creat Clear Calc Est GFR (MDRD) Af Amer Est GFR (MDRD) Non-Af BUN/Creatinine Ratio Glucose Lactic Acid Calcium Phosphorus Total Bilirubin AST ALT Alkaline Phosphatase Troponin I Total Protein Albumin Globulin Albumin/Globulin Ratio Urine Color Cancelled Urine Clarity Cancelled Urine pH Cancelled Ur Specific [place] Cancelled U Specif Grav (Refrac) Cancelled Urine Protein Cancelled Urine Glucose (UA) Cancelled Urine Ketones Cancelled Urine Occult Blood Cancelled Urine Nitrite Cancelled Urine Bilirubin Cancelled Urine Urobilinogen Cancelled Ur Leukocyte Esterase Cancelled Urine RBC Cancelled Urine WBC Cancelled Ur Squamous Epith Cells Cancelled Ur Transition Epith Cell Cancelled Ur Renal Epithelial Cell Cancelled Calcium Oxalate Crystal Cancelled Uric Acid Crystals Cancelled Triple Phos Crystals Cancelled Other Crystals Cancelled Amorphous Sediment Cancelled Urine Bacteria Cancelled Hyaline Casts Cancelled Fine Granular Casts Cancelled Coarse Granular Casts Cancelled Waxy Casts Cancelled RBC Casts Cancelled WBC Casts Cancelled Urine Mucus Cancelled Urine Trichomonas Cancelled Urine Yeast Cancelled MRSA (PCR) 10/12/18 10/12/18 10/12/18 14:45 14:45 18:00 WBC RBC Hgb Hct MCV MCH MCHC RDW RDW Differential Plt Count MPV Immature Gran % (Auto) Neut % (Auto) Lymph % (Auto) Coke % (Auto) Eos % (Auto) Baso % (Auto) Absolute Neuts (auto) Absolute Lymphs (auto) Total Counted Differential Comment Diff Path Review Platelet Estimate PT INR APTT Sodium 131 L Potassium 3.9 Chloride 92 L Carbon Dioxide 18.0 L Anion Gap 21 H BUN 22 H Creatinine 2.14 H Estim Creat Clear Calc 26.50 Est GFR (MDRD) Af Amer 39 L Est GFR (MDRD) Non-Af 32 L BUN/Creatinine Ratio 10.3 Glucose 282 H Lactic Acid 14.9 H* Calcium 9.0 Phosphorus Total Bilirubin 1.30 H AST 55 H ALT 153 H Alkaline Phosphatase 211 H Troponin I < 0.015 Total Protein 8.5 H Albumin 2.5 L Globulin 6.0 H Albumin/Globulin Ratio 0.4 L Urine Color [place] Urine Clarity Cloudy Urine pH 5.0 Ur Specific [place] 1.015 U Specif Grav (Refrac) Urine Protein 100 H Urine Glucose (UA) Normal Urine Ketones 5 H Urine Occult Blood 250 H Urine Nitrite Positive H Urine Bilirubin 1 H Urine Urobilinogen 4 H Ur Leukocyte Esterase 500 H Urine RBC > 100 SEEN Urine WBC >100 SEEN Ur Squamous Epith Cells 0 SEEN Ur Transition Epith Cell Ur Renal Epithelial Cell Calcium Oxalate Crystal Uric Acid Crystals Triple Phos Crystals Other Crystals Amorphous Sediment 1+ Urine Bacteria RARE Hyaline Casts Fine Granular Casts Coarse Granular Casts Waxy Casts RBC Casts WBC Casts Urine Mucus 0 SEEN Urine Trichomonas Urine Yeast 1+ MRSA (PCR) 10/12/18 10/12/18 10/13/18 19:35 21:45 04:50 WBC 1.3 L* RBC 2.48 L Hgb 7.0 L Hct 20.4 L MCV 82.3 MCH 28.2 MCHC 34.3 RDW 12.1 RDW Differential 35.2 Plt Count 19 L* MPV 10.5 Immature Gran % (Auto) Neut % (Auto) Lymph % (Auto) [place] % (Auto) Eos % (Auto) Baso % (Auto) Absolute Neuts (auto) Absolute Lymphs (auto) Total Counted Differential Comment SCANNED Diff Path Review May foll Platelet Estimate PT INR APTT Sodium Potassium Chloride Carbon Dioxide Anion Gap BUN Creatinine Estim Creat Clear Calc Est GFR (MDRD) Af Amer Est GFR (MDRD) Non-Af BUN/Creatinine Ratio Glucose Lactic Acid 2.6 H Calcium Phosphorus Total Bilirubin AST ALT Alkaline Phosphatase Troponin I Total Protein Albumin Globulin Albumin/Globulin Ratio Urine Color Urine Clarity Urine pH Ur Specific [place] U Specif Grav (Refrac) Urine Protein Urine Glucose (UA) Urine Ketones Urine Occult Blood Urine Nitrite Urine Bilirubin Urine Urobilinogen Ur Leukocyte Esterase Urine RBC Urine WBC Ur Squamous Epith Cells Ur Transition Epith Cell Ur Renal Epithelial Cell Calcium Oxalate Crystal Uric Acid Crystals Triple Phos Crystals Other Crystals Amorphous Sediment Urine Bacteria Hyaline Casts Fine Granular Casts Coarse Granular Casts Waxy Casts RBC Casts WBC Casts Urine Mucus Urine Trichomonas Urine Yeast MRSA (PCR) Negative 10/13/18 04:50 WBC RBC Hgb Hct MCV MCH MCHC RDW RDW Differential Plt Count MPV Immature Gran % (Auto) Neut % (Auto) Lymph % (Auto) [place] % (Auto) Eos % (Auto) Baso % (Auto) Absolute Neuts (auto) Absolute Lymphs (auto) Total Counted Differential Comment Diff Path Review Platelet Estimate PT INR APTT Sodium Potassium Chloride Carbon Dioxide Anion Gap BUN Creatinine Estim Creat Clear Calc Est GFR (MDRD) Af Amer Est GFR (MDRD) Non-Af BUN/Creatinine Ratio Glucose Lactic Acid Calcium Phosphorus 2.1 L Total Bilirubin AST ALT Alkaline Phosphatase Troponin I Total Protein Albumin Globulin Albumin/Globulin Ratio Urine Color Urine Clarity Urine pH Ur Specific [place] U Specif Grav (Refrac) Urine Protein Urine Glucose (UA) Urine Ketones Urine Occult Blood Urine Nitrite Urine Bilirubin Urine Urobilinogen Ur Leukocyte Esterase Urine RBC Urine WBC Ur Squamous Epith Cells Ur Transition Epith Cell Ur Renal Epithelial Cell Calcium Oxalate Crystal Uric Acid Crystals Triple Phos Crystals Other Crystals Amorphous Sediment Urine Bacteria Hyaline Casts Fine Granular Casts Coarse Granular Casts Waxy Casts RBC Casts WBC Casts Urine Mucus Urine Trichomonas Urine Yeast MRSA (PCR) POC Glucose 10/12/18 21:21 POC Glucose 189 H Clinical Impression(s) from Imaging Studies Chest X-Ray 10/12/18 18:00 IMPRESSION: Right central venous catheter ends in the distal superior vena cava with no complication of line placement. No additional acute cardiopulmonary findings or changes. Electronically Signed: Eva Thakur MD at 18:25 EST , Service support , Assessment/Plan Active and Suspected Problems (Last Reviewed 10/01/18 @ 11:38 by [place] Laguna) Septic shock (Acute) RECOMMENDATIONS: 1. Reinitiate Zosyn therapy 2. Fluid boluses as necessary for hypotension 3. No transfusions at this time 4. Sliding scale insulin for diabetes 5. Avoid heparin given thrombocytopenia IMPRESSIONS: 1. Septic shock secondary to probable nephrostomy infection Patient with significant pyuria, leukocyte esterase and nitrite positive urine in the setting of nephrostomy tube. High clinical suspicion for gram-negative infection. Patient is on Zosyn therapy. MRSA swab is negative, but patient does have a nephrostomy tube, so coverage for MRSA for 48 hours would be reasonable. Patient currently neutropenic and may develop significant hypotension with lysis of bacteria and reconstitution of bone marrow. Monitor in the intensive care unit over the next 24 hours 2. Pancytopenia secondary to chemotherapy for bladder/prostate cancer Patient currently receiving palliative chemotherapy. Patient's last chemotherapy was on October 03. Patient may benefit from Neulasta, but defer to primary service. Would hold on heparin products given patient's thrombocytopenia. 3. Acute kidney injury/hypovolemic hyponatremia and hypochloremia Likely secondary to #1. Continue with blood pressure support and aggressive rehydration. No indication for renal replacement therapy initially. Patient will continue to have electrolytes followed. 4. Diabetes mellitus type 2 Patient was some hyperglycemia on presentation. We will continue to follow. Patient should have sliding scale insulin. May need to add basal insulin. 5. Chronic systolic congestive heart failure/history of coronary artery disease/advanced age/debility Last known ejection fraction of 45% in 2013. Complicates care, management, recovery and prognosis. Patient currently saturating okay on room air. Will continue to monitor closely with fluid output. No indication for Lasix at this time. Code Visit Inpatient E&M: [id number] Init [facility] L3
--- NOTE | 2018-10-13 07:05 | CON.PCM_ITS ---
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 Status: Acute (2) Prostate cancer Status: Chronic (3) Pelvic pain Status: Acute (4) Septic shock Status: Acute (5) CAD (coronary artery disease) Status: Chronic (6) YOEL (acute kidney injury) Status: Acute (7) Hx of appendectomy Status: Inactive (8) History of prostate surgery Status: Inactive Comment: Urolift system implanted (9) History of stent insertion of renal artery Status: Chronic Comment: Left kidney (10) Hx of bladder cancer Status: Chronic (11) Hx of right inguinal hernia repair Status: Inactive (12) Hyperlipidemia Status: Chronic Qualifiers: (13) Congenital insufficiency of aortic valve Status: Chronic (14) Chronic systolic heart failure Status: Chronic (15) Precordial chest pain Status: Resolved (16) NSTEMI (non-ST elevated myocardial infarction) Status: Chronic Comment: 03/05/14, Non-ST elevation [place] (17) Type 2 diabetes mellitus Status: Chronic Qualifiers: Reason for Consult Date of Consultation: 10/13/18 Reason for Consultation: Septic shock History of Present Illness: The patient is a 78 year old M, with past medical history listed below, who presented to [facility] on 10/12/2018 after developing fever, chills and shaking episodes. Patient reportedly had symptoms of onset on the day of presentation. Patient had had some mild shortness of breath and family thought he looked pale and ashen. Patient does have a history of prostate cancer being treated by Dr. Yo, but is currently on palliative chemotherapy. On presentation, patient was noted to have a heart rate of 151 bpm and 4 L nasal cannula to maintain saturations. Patient also had an elevated creatinine at 2.14, INR 1.4 and lactate of 14.9. Patient was pancytopenic with neutropenia. Patient was given Zosyn, vancomycin and fluid resuscitation prior to being sent to the intensive care unit. In the intensive care unit, patient has remained relatively hemodynamically stable. Patient responded well to fluid boluses. Patient has not received any Zosyn therapy, but does have vancomycin ordered. Patient denies any chest pain, abdominal pain, nausea or vomiting. Patient does feel subjectively improved since presentation. Patient had complained of right flank pain around the nephrostomy and feels this is also improved. Patient did reveal that he was treated 3 weeks ago for UTI with Cipro, Keflex and amoxicillin. Patient does not endorse any other symptoms on review of systems x10. Past Medical History Past Medical History (Chronic Problems): Chronic Problems (Last Reviewed 10/01/18 @ 11:38 by India Laguna) Prostate cancer (Chronic) CAD (coronary artery disease) (Chronic) History of stent insertion of renal artery (Chronic) Left kidney Hx of bladder cancer (Chronic) Hyperlipidemia (Chronic) Atherosclerotic heart disease of [place] coronary artery without angina pectoris (Chronic) 99% stenosis in proximal to mid LAD, 70% stenosis in mid RCA and diffuse distal disease per [facility] 01/30/[address] Jameson Congenital insufficiency of aortic valve (Chronic) Old myocardial infarction (Chronic) Chronic systolic heart failure (Chronic) Other [employer] (current) drug therapy (Chronic) NSTEMI (non-ST elevated myocardial infarction) (Chronic) 03/05/14, Non-ST elevation AL Bladder cancer (Chronic) Hypertension (Chronic) Type 2 diabetes mellitus (Chronic) Medical History: Medical History (Last Reviewed 10/01/18 @ 11:38 by India Laguna) Hx of bladder cancer (Chronic) Z85.51 Hyperlipidemia (Chronic) E78.5 Atherosclerotic heart disease of [place] coronary artery without angina pectoris (Chronic) I25.10 99% stenosis in proximal to mid LAD, 70% stenosis in mid RCA and diffuse distal disease per [facility] 01/30/[address] Jameson Congenital insufficiency of aortic valve (Chronic) Q23.1 Old myocardial infarction (Chronic) I25.2 Chronic systolic heart failure (Chronic) I50.22 Other fpc (current) drug therapy (Chronic) Z79.899 NSTEMI (non-ST elevated myocardial infarction) (Chronic) I21.4 03/05/14, Non-ST elevation AL Hypertension (Chronic) I10 Type 2 diabetes mellitus (Chronic) E11.9 Allergies No Known Allergies Allergy (Verified 10/12/18 14:45) Home Medications: Ambulatory Orders Medication Instructions Recorded Metformin HCl [Glucophage] 1,000 mg PO BIDCM 02/06/15 nitroglycerin 0.4 mg sublingual 0.4 mg SUBLINGUAL Q5M PRN 01/24/18 tablet sitagliptin 100 mg tablet 100 mg PO QDAY 07/03/18 Metoprolol Tartrate [Lopressor 75 mg PO BID 07/26/18 (beta prasanth)] Amlodipine [Norvasc] 10 mg PO DAILY #30 tab 08/26/18 Polyethylene Glycol 3350 [Miralax] 17 gm PO DAILY packet 08/26/18 Dutasteride [Avodart] 0.5 mg PO DAILY 09/04/18 Hydrochlorothiazide [Hctz] 25 mg PO DAILY 09/04/18 isosorbide mononitrate ER 60 mg 60 mg PO DAILY #90 tab 09/07/18 tablet,extended release 24 hr Oxycodone CR [Oxycontin] 10 mg PO Q12H #60 tablet 09/10/18 Hydrocodone Bitart/Apap 5-325 1 - 2 tablet PO Q4H PRN PRN #60 09/17/18 [[place] 5MG-325MG] tablet Ondansetron [Zofran Odt] 4 mg PO Q8H PRN PRN #30 tablet 09/17/18 Alfuzosin HCl [Uroxatral] 10 mg PO QHS 10/12/18 Surgical History: Surgical History (Last Reviewed 10/01/18 @ 11:38 by India Laguna) Hx of appendectomy (Inactive) Z90.49 History of prostate surgery (Inactive) Z98.890 Urolift system implanted History of stent insertion of renal artery (Chronic) Z98.890 Left kidney Hx of right inguinal hernia repair (Inactive) Z98.890, Z87.19 History of left heart catheterization (Inactive) Z98.890 01/30/[address] Jameson @[facility] Surgical History: herniorrhaphy, - - Removal of benign neck mass on the right neck, appendectomy, multiple cystoscopies w/ L stent placement and change, hernia repair, TUR bladder mass, Renal artery stent placement, Prostate Urolift system implant. Psychiatric History: No pertinent psych hx Smoking Status: Former smoker - *Family History Maternal Family History: Family History (Last Reviewed 10/01/18 @ 11:38 by India Laguna) Father Prostate cancer Mother CAD (coronary artery disease) Myocardial infarction, Onset Age: 48 Cancer Brother Myocardial infarction Abdominal aortic aneurysm History Items: Cancer, Heart Disease Paternal Family History: Family History (Last Reviewed 10/01/18 @ 11:38 by India Laguna) Father Prostate cancer Mother CAD (coronary artery disease) Myocardial infarction, Onset Age: 48 Cancer Brother Myocardial infarction Abdominal aortic aneurysm History Items: Cancer Review of Systems Comment: See HPI, otherwise negative x10 systems. Patient Problems: Active and Suspected Problems (Last Reviewed 10/01/18 @ 11:38 by India Laguna) Septic shock (Acute) Objective: Chest x-ray was personally reviewed showing a right IJ in proper position and no acute infiltrates. - Physical Exam General: Alert, Oriented x3, Cooperative, No apparent distress, - - Appears stated age. No conversational dyspnea. HEENT: Atraumatic, PERRLA, EOMI, Normocephalic, - - No scleral icterus or injection noted. Oral: Moist Mucosa, No Gingival or Mucosal Lesions/ Ulcerations Neck: Supple, No JVD, No Nodes, Trachea Midline, - - Right IJ has mild blood at insertion site. Lungs: Clear to auscultation, Normal air movement, No rhonchi, No wheeze, No rales, - - Symmetric expansion. No dullness to percussion. Cardiovascular: Regular rate, Regular Rhythm, Normal S1, Normal S2, No murmurs, No rub noted, No Gallop Abdomen: Bowel Sounds Present, Soft, Non-Distended, Tender - Slightly to palpation Extremities: No clubbing, No cyanosis, No edema, Capillary Refill Less than 3 Seconds Skin: No rashes, No breakdown Musculoskeletal: No Tenderness to Palpation of Joints or Extremities Lymphatic: No Cervical, Supraclavicular, or Inguinal Adenopathy Neurological: Cranial nerves II-XII grossly intact, Neuro grossly intact, Motor Exam 5/5 strength throughout Psych/Mental Status: Alert and oriented to time, place, person, mood and affect Vital Signs Temp Pulse Resp BP Pulse Ox 36.3 C L 94 22 H 119/61 92 10/13/18 05:00 10/13/18 06:00 10/13/18 06:00 10/13/18 06:00 10/13/18 06:00 Oxygen Flow Rate (L/min) 2 Oxygen Delivery Method Room Air Weight: 63.7 kg Body Mass Index (BMI) 23.4 Finger Stick Blood Glucose 125 Intake and Output for Last 24 Hours 10/11/18 10/12/18 10/13/18 23:59 23:59 23:59 Intake Total 240 / 240 120 / 120 Output Total 385 / 385 600 / 600 Balance -145 / -145 -480 / -480 Laboratory Tests Past 24 Hrs 10/12/18 10/12/18 10/12/18 14:35 14:45 14:45 WBC 3.3 L RBC 3.31 L Hgb 9.1 L Hct 27.8 L MCV 84.0 MCH 27.5 MCHC 32.7 RDW 13.0 RDW Differential 39.8 Plt Count 37 L* MPV 11.3 Immature Gran % (Auto) 0.000 Neut % (Auto) 0.0 L Lymph % (Auto) 74.3 H [place] % (Auto) 25.1 H Eos % (Auto) 0.3 Baso % (Auto) 0.3 Absolute Neuts (auto) 0.0 L Absolute Lymphs (auto) 2.48 Total Counted Not Reportable Differential Comment Diff Path Review May foll Platelet Estimate MKD OCT PT 16.7 H INR 1.4 APTT 33.1 Sodium Potassium Chloride Carbon Dioxide Anion Gap BUN Creatinine Estim Creat Clear Calc Est GFR (MDRD) Af Amer Est GFR (MDRD) Non-Af BUN/Creatinine Ratio Glucose Lactic Acid Calcium Phosphorus Total Bilirubin AST ALT Alkaline Phosphatase Troponin I Total Protein Albumin Globulin Albumin/Globulin Ratio Urine Color Cancelled Urine Clarity Cancelled Urine pH Cancelled Ur Specific [place] Cancelled U Specif Grav (Refrac) Cancelled Urine Protein Cancelled Urine Glucose (UA) Cancelled Urine Ketones Cancelled Urine Occult Blood Cancelled Urine Nitrite Cancelled Urine Bilirubin Cancelled Urine Urobilinogen Cancelled Ur Leukocyte Esterase Cancelled Urine RBC Cancelled Urine WBC Cancelled Ur Squamous Epith Cells Cancelled Ur Transition Epith Cell Cancelled Ur Renal Epithelial Cell Cancelled Calcium Oxalate Crystal Cancelled Uric Acid Crystals Cancelled Triple Phos Crystals Cancelled Other Crystals Cancelled Amorphous Sediment Cancelled Urine Bacteria Cancelled Hyaline Casts Cancelled Fine Granular Casts Cancelled Coarse Granular Casts Cancelled Waxy Casts Cancelled RBC Casts Cancelled WBC Casts Cancelled Urine Mucus Cancelled Urine Trichomonas Cancelled Urine Yeast Cancelled MRSA (PCR) 10/12/18 10/12/18 10/12/18 14:45 14:45 18:00 WBC RBC Hgb Hct MCV MCH MCHC RDW RDW Differential Plt Count MPV Immature Gran % (Auto) Neut % (Auto) Lymph % (Auto) [place] % (Auto) Eos % (Auto) Baso % (Auto) Absolute Neuts (auto) Absolute Lymphs (auto) Total Counted Differential Comment Diff Path Review Platelet Estimate PT INR APTT Sodium 131 L Potassium 3.9 Chloride 92 L Carbon Dioxide 18.0 L Anion Gap 21 H BUN 22 H Creatinine 2.14 H Estim Creat Clear Calc 26.50 Est GFR (MDRD) Af Amer 39 L Est GFR (MDRD) Non-Af 32 L BUN/Creatinine Ratio 10.3 Glucose 282 H Lactic Acid 14.9 H* Calcium 9.0 Phosphorus Total Bilirubin 1.30 H AST 55 H ALT 153 H Alkaline Phosphatase 211 H Troponin I < 0.015 Total Protein 8.5 H Albumin 2.5 L Globulin 6.0 H Albumin/Globulin Ratio 0.4 L Urine Color [place] Urine Clarity Cloudy Urine pH 5.0 Ur Specific [place] 1.015 U Specif Grav (Refrac) Urine Protein 100 H Urine Glucose (UA) Normal Urine Ketones 5 H Urine Occult Blood 250 H Urine Nitrite Positive H Urine Bilirubin 1 H Urine Urobilinogen 4 H Ur Leukocyte Esterase 500 H Urine RBC > 100 SEEN Urine WBC >100 SEEN Ur Squamous Epith Cells 0 SEEN Ur Transition Epith Cell Ur Renal Epithelial Cell Calcium Oxalate Crystal Uric Acid Crystals Triple Phos Crystals Other Crystals Amorphous Sediment 1+ Urine Bacteria RARE Hyaline Casts Fine Granular Casts Coarse Granular Casts Waxy Casts RBC Casts WBC Casts Urine Mucus 0 SEEN Urine Trichomonas Urine Yeast 1+ MRSA (PCR) 10/12/18 10/12/18 10/13/18 19:35 21:45 04:50 WBC 1.3 L* RBC 2.48 L Hgb 7.0 L Hct 20.4 L MCV 82.3 MCH 28.2 MCHC 34.3 RDW 12.1 RDW Differential 35.2 Plt Count 19 L* MPV 10.5 Immature Gran % (Auto) Neut % (Auto) Lymph % (Auto) [place] % (Auto) Eos % (Auto) Baso % (Auto) Absolute Neuts (auto) Absolute Lymphs (auto) Total Counted Differential Comment SCANNED Diff Path Review May foll Platelet Estimate PT INR APTT Sodium Potassium Chloride Carbon Dioxide Anion Gap BUN Creatinine Estim Creat Clear Calc Est GFR (MDRD) Af Amer Est GFR (MDRD) Non-Af BUN/Creatinine Ratio Glucose Lactic Acid 2.6 H Calcium Phosphorus Total Bilirubin AST ALT Alkaline Phosphatase Troponin I Total Protein Albumin Globulin Albumin/Globulin Ratio Urine Color Urine Clarity Urine pH Ur Specific [place] U Specif Grav (Refrac) Urine Protein Urine Glucose (UA) Urine Ketones Urine Occult Blood Urine Nitrite Urine Bilirubin Urine Urobilinogen Ur Leukocyte Esterase Urine RBC Urine WBC Ur Squamous Epith Cells Ur Transition Epith Cell Ur Renal Epithelial Cell Calcium Oxalate Crystal Uric Acid Crystals Triple Phos Crystals Other Crystals Amorphous Sediment Urine Bacteria Hyaline Casts Fine Granular Casts Coarse Granular Casts Waxy Casts RBC Casts WBC Casts Urine Mucus Urine Trichomonas Urine Yeast MRSA (PCR) Negative 10/13/18 04:50 WBC RBC Hgb Hct MCV MCH MCHC RDW RDW Differential Plt Count MPV Immature Gran % (Auto) Neut % (Auto) Lymph % (Auto) [place] % (Auto) Eos % (Auto) Baso % (Auto) Absolute Neuts (auto) Absolute Lymphs (auto) Total Counted Differential Comment Diff Path Review Platelet Estimate PT INR APTT Sodium Potassium Chloride Carbon Dioxide Anion Gap BUN Creatinine Estim Creat Clear Calc Est GFR (MDRD) Af Amer Est GFR (MDRD) Non-Af BUN/Creatinine Ratio Glucose Lactic Acid Calcium Phosphorus 2.1 L Total Bilirubin AST ALT Alkaline Phosphatase Troponin I Total Protein Albumin Globulin Albumin/Globulin Ratio Urine Color Urine Clarity Urine pH Ur Specific [place] U Specif Grav (Refrac) Urine Protein Urine Glucose (UA) Urine Ketones Urine Occult Blood Urine Nitrite Urine Bilirubin Urine Urobilinogen Ur Leukocyte Esterase Urine RBC Urine WBC Ur Squamous Epith Cells Ur Transition Epith Cell Ur Renal Epithelial Cell Calcium Oxalate Crystal Uric Acid Crystals Triple Phos Crystals Other Crystals Amorphous Sediment Urine Bacteria Hyaline Casts Fine Granular Casts Coarse Granular Casts Waxy Casts RBC Casts WBC Casts Urine Mucus Urine Trichomonas Urine Yeast MRSA (PCR) POC Glucose 10/12/18 21:21 POC Glucose 189 H Clinical Impression(s) from Imaging Studies Chest X-Ray 10/12/18 18:00 IMPRESSION: Right central venous catheter ends in the distal superior vena cava with no complication of line placement. No additional acute cardiopulmonary findings or changes. Electronically Signed: Eva Thakur MD at 18:25 EST , Service support , Assessment/Plan Active and Suspected Problems (Last Reviewed 10/01/18 @ 11:38 by India Laguna) Septic shock (Acute) RECOMMENDATIONS: 1. Reinitiate Zosyn therapy 2. Fluid boluses as necessary for hypotension 3. No transfusions at this time 4. Sliding scale insulin for diabetes 5. Avoid heparin given thrombocytopenia IMPRESSIONS: 1. Septic shock secondary to probable nephrostomy infection Patient with significant pyuria, leukocyte esterase and nitrite positive urine in the setting of nephrostomy tube. High clinical suspicion for gram- negative infection. Patient is on Zosyn therapy. MRSA swab is negative, but patient does have a nephrostomy tube, so coverage for MRSA for 48 hours would be reasonable. Patient currently neutropenic and may develop significant hypotension with lysis of bacteria and reconstitution of bone marrow. Monitor in the intensive care unit over the next 24 hours 2. Pancytopenia secondary to chemotherapy for bladder/prostate cancer Patient currently receiving palliative chemotherapy. Patient's last chemotherapy was on October 03. Patient may benefit from Neulasta, but defer to primary service. Would hold on heparin products given patient's thrombocytopenia. 3. Acute kidney injury/hypovolemic hyponatremia and hypochloremia Likely secondary to #1. Continue with blood pressure support and aggressive rehydration. No indication for renal replacement therapy initially. Patient will continue to have electrolytes followed. 4. Diabetes mellitus type 2 Patient was some hyperglycemia on presentation. We will continue to follow. Patient should have sliding scale insulin. May need to add basal insulin. 5. Chronic systolic congestive heart failure/history of coronary artery disease/advanced age/debility Last known ejection fraction of 45% in 2013. Complicates care, management, recovery and prognosis. Patient currently saturating okay on room air. Will continue to monitor closely with fluid output. No indication for Lasix at this time. Code Visit Inpatient E&M: [id number] Init [facility] L3
[2018-10-13] MEDS: Piperacil/Tazobactam 3.375 GM/50 ML ML IV ×3 (07:14→21:16)
[2018-10-13 07:30] LABS: Bedside Glucose 140 mg/dL (70-110)
--- NOTE | 2018-10-13 09:31 | PN_ITS ---
Patient Problems: Active and Suspected Problems (Last Updated 10/13/18 @ 09:32 by Elijah Frederick MD) Septic shock (Acute) Subjective: Chief complaint: Follow-up after admission for septic shock secondary to acute complicated cystitis and pancytopenia as well as acute kidney injury top of stage III chronic kidney disease. Patient seen and examined. No acute events overnight. He complains of minimal cough, no sputum. He denies chest pain or shortness of breath. He reported minimal discomfort at the insertion site of the right nephrostomy tube. Denied abdominal pain, nausea or vomiting. He is afebrile, tachycardic, blood pressure is maintained, pulse ox is 96% on room air. - Physical Exam General: Alert, Oriented x3, Cooperative, No apparent distress HEENT: Atraumatic, PERRLA, EOMI, Normocephalic Oral: Moist Mucosa, No Gingival or Mucosal Lesions/ Ulcerations Neck: Supple, No JVD, Negative Carotid Bruits, Trachea Midline, Thyroid Normal Size and Texture Lungs: Clear to auscultation, No rhonchi, No wheeze, No rales, Diminished Cardiovascular: Regular rate, Regular Rhythm, Normal S1, Normal S2, PMI Normal, Tachycardic Abdomen: Bowel Sounds Present, Soft, Non Tender, Non-Distended, No Hepato- splenomegaly, - - Right nephrostomy tube in place. Extremities: No clubbing, No cyanosis, No edema Skin: No rashes, No breakdown Lymphatic: No Cervical, Supraclavicular, or Inguinal Adenopathy Neurological: Cranial nerves II-XII grossly intact, Motor Exam 5/5 strength throughout Psych/Mental Status: Normal Affect, Appropriate, Alert and oriented to time, place, person, mood and affect Vital Signs Temp Pulse Resp BP Pulse Ox 98 F 102 H 21 H 125/57 H 96 10/13/18 07:00 10/13/18 09:00 10/13/18 09:00 10/13/18 09:00 10/13/18 09:00 Oxygen Flow Rate (L/min) 2 Oxygen Delivery Method Room Air Weight: 140 lb 6.951 oz Body Mass Index (BMI) 23.4 Finger Stick Blood Glucose 125 Intake and Output for Last 24 Hours 10/11/18 10/12/18 10/13/18 23:59 23:59 23:59 Intake Total 240 / 240 120 / 120 Output Total 385 / 385 1000 / 1000 Balance -145 / -145 -880 / -880 Laboratory Tests Past 24 Hrs 10/12/18 10/12/18 10/12/18 14:35 14:45 14:45 WBC 3.3 L RBC 3.31 L Hgb 9.1 L Hct 27.8 L MCV 84.0 MCH 27.5 MCHC 32.7 RDW 13.0 RDW Differential 39.8 Plt Count 37 L* MPV 11.3 Immature Gran % (Auto) 0.000 Neut % (Auto) 0.0 L Lymph % (Auto) 74.3 H [place] % (Auto) 25.1 H Eos % (Auto) 0.3 Baso % (Auto) 0.3 Absolute Neuts (auto) 0.0 L Absolute Lymphs (auto) 2.48 Total Counted Not Reportable Differential Comment Diff Path Review May foll Platelet Estimate MKD OCT PT 16.7 H INR 1.4 APTT 33.1 Sodium Potassium Chloride Carbon Dioxide Anion Gap BUN Creatinine Estim Creat Clear Calc Est GFR (MDRD) Af Amer Est GFR (MDRD) Non-Af BUN/Creatinine Ratio Glucose Lactic Acid Calcium Phosphorus Total Bilirubin AST ALT Alkaline Phosphatase Troponin I Total Protein Albumin Globulin Albumin/Globulin Ratio Urine Color Cancelled Urine Clarity Cancelled Urine pH Cancelled Ur Specific [place] Cancelled U Specif Grav (Refrac) Cancelled Urine Protein Cancelled Urine Glucose (UA) Cancelled Urine Ketones Cancelled Urine Occult Blood Cancelled Urine Nitrite Cancelled Urine Bilirubin Cancelled Urine Urobilinogen Cancelled Ur Leukocyte Esterase Cancelled Urine RBC Cancelled Urine WBC Cancelled Ur Squamous Epith Cells Cancelled Ur Transition Epith Cell Cancelled Ur Renal Epithelial Cell Cancelled Calcium Oxalate Crystal Cancelled Uric Acid Crystals Cancelled Triple Phos Crystals Cancelled Other Crystals Cancelled Amorphous Sediment Cancelled Urine Bacteria Cancelled Hyaline Casts Cancelled Fine Granular Casts Cancelled Coarse Granular Casts Cancelled Waxy Casts Cancelled RBC Casts Cancelled WBC Casts Cancelled Urine Mucus Cancelled Urine Trichomonas Cancelled Urine Yeast Cancelled MRSA (PCR) 10/12/18 10/12/18 10/12/18 14:45 14:45 18:00 WBC RBC Hgb Hct MCV MCH MCHC RDW RDW Differential Plt Count MPV Immature Gran % (Auto) Neut % (Auto) Lymph % (Auto) [place] % (Auto) Eos % (Auto) Baso % (Auto) Absolute Neuts (auto) Absolute Lymphs (auto) Total Counted Differential Comment Diff Path Review Platelet Estimate PT INR APTT Sodium 131 L Potassium 3.9 Chloride 92 L Carbon Dioxide 18.0 L Anion Gap 21 H BUN 22 H Creatinine 2.14 H Estim Creat Clear Calc 26.50 Est GFR (MDRD) Af Amer 39 L Est GFR (MDRD) Non-Af 32 L BUN/Creatinine Ratio 10.3 Glucose 282 H Lactic Acid 14.9 H* Calcium 9.0 Phosphorus Total Bilirubin 1.30 H AST 55 H ALT 153 H Alkaline Phosphatase 211 H Troponin I < 0.015 Total Protein 8.5 H Albumin 2.5 L Globulin 6.0 H Albumin/Globulin Ratio 0.4 L Urine Color [place] Urine Clarity Cloudy Urine pH 5.0 Ur Specific [place] 1.015 U Specif Grav (Refrac) Urine Protein 100 H Urine Glucose (UA) Normal Urine Ketones 5 H Urine Occult Blood 250 H Urine Nitrite Positive H Urine Bilirubin 1 H Urine Urobilinogen 4 H Ur Leukocyte Esterase 500 H Urine RBC > 100 SEEN Urine WBC >100 SEEN Ur Squamous Epith Cells 0 SEEN Ur Transition Epith Cell Ur Renal Epithelial Cell Calcium Oxalate Crystal Uric Acid Crystals Triple Phos Crystals Other Crystals Amorphous Sediment 1+ Urine Bacteria RARE Hyaline Casts Fine Granular Casts Coarse Granular Casts Waxy Casts RBC Casts WBC Casts Urine Mucus 0 SEEN Urine Trichomonas Urine Yeast 1+ MRSA (PCR) 10/12/18 10/12/18 10/13/18 19:35 21:45 04:50 WBC 1.3 L* RBC 2.48 L Hgb 7.0 L Hct 20.4 L MCV 82.3 MCH 28.2 MCHC 34.3 RDW 12.1 RDW Differential 35.2 Plt Count 19 L* MPV 10.5 Immature Gran % (Auto) Neut % (Auto) Lymph % (Auto) [place] % (Auto) Eos % (Auto) Baso % (Auto) Absolute Neuts (auto) Absolute Lymphs (auto) Total Counted Differential Comment SCANNED Diff Path Review May foll Platelet Estimate PT INR APTT Sodium Potassium Chloride Carbon Dioxide Anion Gap BUN Creatinine Estim Creat Clear Calc Est GFR (MDRD) Af Amer Est GFR (MDRD) Non-Af BUN/Creatinine Ratio Glucose Lactic Acid 2.6 H Calcium Phosphorus Total Bilirubin AST ALT Alkaline Phosphatase Troponin I Total Protein Albumin Globulin Albumin/Globulin Ratio Urine Color Urine Clarity Urine pH Ur Specific [place] U Specif Grav (Refrac) Urine Protein Urine Glucose (UA) Urine Ketones Urine Occult Blood Urine Nitrite Urine Bilirubin Urine Urobilinogen Ur Leukocyte Esterase Urine RBC Urine WBC Ur Squamous Epith Cells Ur Transition Epith Cell Ur Renal Epithelial Cell Calcium Oxalate Crystal Uric Acid Crystals Triple Phos Crystals Other Crystals Amorphous Sediment Urine Bacteria Hyaline Casts Fine Granular Casts Coarse Granular Casts Waxy Casts RBC Casts WBC Casts Urine Mucus Urine Trichomonas Urine Yeast MRSA (PCR) Negative 10/13/18 04:50 WBC RBC Hgb Hct MCV MCH MCHC RDW RDW Differential Plt Count MPV Immature Gran % (Auto) Neut % (Auto) Lymph % (Auto) [place] % (Auto) Eos % (Auto) Baso % (Auto) Absolute Neuts (auto) Absolute Lymphs (auto) Total Counted Differential Comment Diff Path Review Platelet Estimate PT INR APTT Sodium Potassium Chloride Carbon Dioxide Anion Gap BUN Creatinine Estim Creat Clear Calc Est GFR (MDRD) Af Amer Est GFR (MDRD) Non-Af BUN/Creatinine Ratio Glucose Lactic Acid Calcium Phosphorus 2.1 L Total Bilirubin AST ALT Alkaline Phosphatase Troponin I Total Protein Albumin Globulin Albumin/Globulin Ratio Urine Color Urine Clarity Urine pH Ur Specific [place] U Specif Grav (Refrac) Urine Protein Urine Glucose (UA) Urine Ketones Urine Occult Blood Urine Nitrite Urine Bilirubin Urine Urobilinogen Ur Leukocyte Esterase Urine RBC Urine WBC Ur Squamous Epith Cells Ur Transition Epith Cell Ur Renal Epithelial Cell Calcium Oxalate Crystal Uric Acid Crystals Triple Phos Crystals Other Crystals Amorphous Sediment Urine Bacteria Hyaline Casts Fine Granular Casts Coarse Granular Casts Waxy Casts RBC Casts WBC Casts Urine Mucus Urine Trichomonas Urine Yeast MRSA (PCR) POC Glucose 10/13/18 10/12/18 06:52 21:21 POC Glucose 140 H 189 H Clinical Impression(s) from Imaging Studies Chest X-Ray 10/12/18 18:00 IMPRESSION: Right central venous catheter ends in the distal superior vena cava with no complication of line placement. No additional acute cardiopulmonary findings or changes. Electronically Signed: Eva Thakur MD at 18:25 EST , Service support , Medical Necessity - Tobacco Use Smoking Status: Former smoker Assessment/Plan All Active Problems (Last Updated 10/13/18 @ 09:32 by Elijah Frederick MD) Septic shock (Acute) This is a 78 years old male patient presented to the emergency room because of fever and malaise and he was found to have septic shock secondary to acute complicated cystitis, pancytopenia and acute kidney injury on top of stage III chronic kidney disease. #1 septic shock: Attributed to acute complicated cystitis. He is on IV vancomycin and Zosyn. Remain tachycardic, blood pressure maintained, pulse ox is normal on room air. His white blood cell count is very low, worsened than yesterday. Lactic acid came down to 2.6, it was 14.9 upon admission. Blood and urine cultures are pending. Plan to continue same treatment, repeat CBC and CMP tomorrow morning. #2 acute complicated cystitis: In context of insertion of right nephrostomy tube for right hydronephrosis due to obstructive uropathy secondary to bladder cancer. Urinalysis reviewed, revealed cloudy urine, positive for nitrite and leukocyte esterase, there was more than 100 WBCs and RBCs. Again, he is on IV Zosyn and vancomycin. Cultures are pending. #3 pancytopenia: Secondary to recent chemotherapy for bladder and prostate cancer, last dose of chemotherapy was on October 03. Total white blood cell count and platelet count as well as hemoglobin are worsening compared to yesterday. Differential was not done today. Yesterday, absolute neutrophil count was 0. He is on Granix injections. Plan to transfuse if patient becomes hypotensive, to repeat CBC tomorrow morning. #4 elevated LFT: Probably due to recent chemotherapy. Patient denied any right upper quadrant abdominal pain. Plan to repeat LFT tomorrow morning. #5 right-sided hydronephrosis: Secondary to obstructive uropathy due to bladder cancer. Status post right nephrostomy tube. Nephrostomy tube is working, urine is clear on the urine bag. #6 bladder cancer/prostate cancer: On palliative chemotherapy, last session was October 03, 2018. He follows up with Dr. Yo as outpatient, he was consulted. #7 coronary artery disease: Stable, no chest pain. EKG revealed sinus tachycardia, otherwise normal. He is on isosorbide mononitrate. Metoprolol held. #8 type 2 diabetes mellitus: ADA diet, Accu-Cheks, insulin sliding scale. Metformin and sitagliptin held because of worsening kidney function. #9 hypertension: Blood pressure maintained with fluids. Antihypertensive medications held at this time. #10 chronic systolic CHF: Clinically stable, compensated. He is on isosorbide mononitrate. Metoprolol and HCTZ held. #12 DVT prophylaxis: SCDs. No chemical prophylaxis because of severe thrombocytopenia. This note was generated with [employer] dictation software. It may contain incorrect words, spelling, and punctuation that were not noted in checking the note before signing. Code Visit Inpatient E&M: 93081 Subs Hosp L3
--- NOTE | 2018-10-13 09:42 | CM.UR ---
Participated in interdisciplinary rounds and then completed devops consultant. Plan is to return home as a DNRCC-A with home care. Plan will be to transition to palliative care/hospice after skilled care. Debating to complete ongoing palliative chemo. Granddaughter will discuss further with patient. See devops consultant for further details. Peter Nolasco RN, [facility].
--- NOTE | 2018-10-13 09:48 | CM.UR ---
See assessment consultant. Patient lives alone but has a lot of family support. Granddaughter is a RN in [facility] ([facility]). Patient has expressed that he wants no CPR or intubation. Discuss DNRCC-Marquis Tapia RN was in room and explained that Dr. Perkins can do that for them. Encouraged them to keep a copy on his refrigerator at home. Peter Nolasco RN, [facility].
[2018-10-13] MEDS: Glucerna Shake 120 ML LIQUID PO ×4 (10:40→21:16)
[2018-10-13] MEDS: Isosorbide Mononitrate 60 MG Tablet PO (10:41)
[2018-10-13] MEDS: TBO-FILGRASTIM 480 MCG/0.8 ML ML SC (10:41)
[2018-10-13] MEDS: Finasteride 5 MG Tablet PO (10:41)
[2018-10-13] MEDS: Polyethylene Glycol 3350 17 GM PACKET PO (10:41)
--- NOTE | 2018-10-13 10:50 | ONC.CONS.INP ---
Consult Referring Physician: Dr. Frederick Consult Results: Neutropenic sepsis. Subjective Date of Service:: 10/13/18 Chief Complaint: Septic Shock History of Present Illness: 78y.o.man was diagnosed with bladder cancer, squamous cell type on June 30, 2014. He was treated with radiation therapy and a short course of chemotherapy. He did not tolerate chemotherapy so most of his treatment was with radiation therapy. He presented to the hospital with abdominal pain, was found to have right hydronephrosis with posterior bladder mass involving right ureterovesical junction, superior prostate gland and right seminal vesicles left hydronephrosis with stent in place and right perirectal adenopathy on CT done on 08/22/2018. He had R nephrostomy tube placed for hydronephrosis. Biopsy of prostate on 08/23/2018 showed Poorly differentiated carcinoma with neuroendocrine features, small cell carcinoma. He switched his care to [facility]. Chemotherapy was suggested but he wants to see if Radiation can be done before thinking about chemotherapy. Pain in pelvic area has improved with Oxycontin, requires [place] 1-2 tabs per day. He received chemotherapy-Carboplatin and Etoposide C1from 10/01/2018-10/03/2018. He is now admitted with Neutropenic fever and sepsis with ANC of Zero. 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) Prostate cancer (Chronic) CAD (coronary artery disease) (Chronic) History of stent insertion of renal artery (Chronic) Left kidney Hyperlipidemia (Chronic) Chronic systolic heart failure (Chronic) NSTEMI (non-ST elevated myocardial infarction) (Chronic) 03/05/14, Non-ST elevation NC Bladder cancer (Chronic) Hypertension (Chronic) Type 2 diabetes mellitus (Chronic) Past Medical/Surgical History: Past Medical History - Most Recent Inpatient Visit Past Medical History Start: 10/12/18 18:34 Text: Status: Complete Freq: Protocol: Document 10/12/18 18:37 [facility] [place] (Rec: 10/12/18 18:40 [facility] [id number]) BMI Required to complete PMH What is Patient's BMI 23.3 Past Medical History Unable History Recalled No Query Text:Pt Unable/Family Not Present Neurologic Medical History Hx Stroke/TIA No Hx Dementia/Alzheimer's No Hx Parkinson's Disease No Hx Seizures No Hx Multiple Sclerosis No Hx Migraines No Cardiac Medical History VTE Present on Admission No Hx of Deep Vein Thrombosis/VTE/PE No Hx Hypertension Yes: STATES CONTROLLED WITH MEDS Hx Chest Pain/Angina No Hx Heart Attack Yes: 2013 Hx Cardiac Surgery/Stents/Etc. No Hx Heart Failure Yes Hx Pacemaker/AICD No Hx Irregular Heartbeat and/or Afib No: follows with dr lauren Hx Anticoagulant Therapy Yes: asprin 81 mg Query Text:(Coumadin, Aspirin, Plavix, Xarelto, etc.) Hx Pain in Legs when Walking/Leg Cramps No Respiratory Medical History Hx COPD No Hx Emphysema No Hx Smoking Yes: QUIT 1997 Smoking Status Former smoker Hx Smoking Cessation Date 1997 Hx Smoking Cessation Counseling No Hx Smoking Exposure Yes Hx Tobacco Use in last 12 months No Hx of Pipe Smoking Yes Hx Sleep Apnea No CPAP No BIPAP No Do you snore loudly (louder than talking No or can be heard through closed doors)? Do you often feel tired/ fatigued/ No sleepy during daytime? Has anyone observed you stop breathing No during sleep? STOP Results Negative GI Medical History Hx Ulcer No Hx Hepatitis No Hx Cirrhosis No Hx GI Bleed No Hx Unplanned Weight Loss No Genitourinary Medical History Indwelling Catheter in Place on Arrival/ Yes Admission Hx Renal Disease Yes: BLADDER CA 2013/ RADIATION Hx Dialysis No Comments nephrostomy tube Musculoskeletal History Hx Arthritis Yes Hx Rheumatoid Arthritis No Endocrine Medical History Hx Diabetes Yes: ORAL MEDS Hx Thyroid Disease No Hematologic Medical History Patient unable to answer at this time ( Yes ie. confused, unresponsive etc...) Psycho/Social Medical History Hx Depression No Hx Anxiety No Hx Alcohol Use No Hx Substance Use No Other Medical History Hx Blood Disorders No Hx Anemia No Hx Cancer Yes: BLADDER/Prostate-- TUMOR REMOVED Hx Drug Resistant Organism No Wound/Pressure Injury Present on Arrival No: to be assessed per primary /Admission rn Query Text:If yes, chart assessment in Shift/Clinical Findings Central Line/PICC/VAD Present on Arrival Yes /Admission Antibiotics within last 7 days? No Comments last chemo 2017 CENTRAL LINE PLACED IN ED Risk for Readmission Number of Risk Factors 4 At Risk for Readmission Patient is At Risk For Readmission Patient is eligible for Call Back Y Past Medical History (Last Updated 10/13/18 @ 09:32 by Elijah Frederick MD) Hyperlipidemia (Chronic) Chronic systolic heart failure (Chronic) NSTEMI (non-ST elevated myocardial infarction) (Chronic) Hypertension (Chronic) Type 2 diabetes mellitus (Chronic) Past Surgical History (Last Updated 10/13/18 @ 09:32 by Elijah Frederick MD) Hx of appendectomy (Inactive) History of prostate surgery (Inactive) History of stent insertion of renal artery (Chronic) Maternal Family History: Family History (Last Reviewed 10/01/18 @ 11:38 by India Laguna) Father Prostate cancer Mother CAD (coronary artery disease) Myocardial infarction, Onset Age: 48 Cancer Brother Myocardial infarction Abdominal aortic aneurysm Family History: Cancer, Heart Disease Paternal Family History: Family History (Last Reviewed 10/01/18 @ 11:38 by India Laguna) Father Prostate cancer Mother CAD (coronary artery disease) Myocardial infarction, Onset Age: 48 Cancer Brother Myocardial infarction Abdominal aortic aneurysm Family History: Cancer - Social History Smoking Status: Former smoker Allergies/Adverse Reactions: Allergy/AdvReac Type Severity Reaction Status Date / Time No Known Allergies Allergy Verified 10/12/18 14:45 Review of Systems Constitutional:: Reports: Fatigue, Pain - Pain in rectal area is better., Chills - Had chills before admission. Cardiovascular:: Denies: Chest pain, Palpitations, Dyspnea on exertion, Orthopnea, PND, Shortness of breath Respiratory: Denies: Cough, Hemoptysis, Shortness of Breath, Wheezing Gastrointestinal:: Denies: Abdominal pain, Nausea, Vomiting, Diarrhea, Constipation, Hematochezia Genitourinary: Denies: Dysuria, Hematuria, 15, Flank pain Musculoskeletal:: Denies: Back pain, Myalgia, Arthralgia Vital Signs Height 5 ft 6 in Weight: 63.7 kg Weight in Pounds 140.4 lbs BMI 24.7 Pulse Ox 100 Temperature 98 F Pulse Rate 101 Respiratory Rate 16 Blood Pressure [BP] 117/61 Blood Pressure 110/61 Blood Pressure Position [BP] Semi-Fowlers Blood Pressure Position Semi-Fowlers - Physical Exam General: Alert, Oriented x3, No apparent distress HEENT: Atraumatic, PERRLA, EOMI, Normocephalic Oropharynx:: Dry mucosa Neck:: Supple, Trachea midline. Negative for: JVD, bilateral Cardiac:: Regular rate, Regular rhythm, Normal S1, Normal S2. Negative for: Murmur Lungs: Clear to auscultation, Excusion symmetrical. Negative for: Rhonchi, Wheezes Abdomen:: Bowel sounds x 4, Soft, Non-tender, Non-distended. Negative for: Hepatosplenomegaly Neurological: Neuro grossly intact Lymphatics:: Negative for: Cervical lymphadenopathy, Supraclavicular lymphadenopathy, Axillary lymphadenopathy Laboratory Data: Laboratory Tests 10/13/18 10/13/18 10/13/18 Range/Units 09:30 06:52 04:50 WBC (4.4-11.0) K/mm3 RBC (4.6-6.2) M/mm3 Hgb (13.0-16.5) g/dl Hct (40-54) % MCV (80-94) fL MCH (27.0-32.0) pg MCHC (32-36) g/gl RDW (11.6-14.6) % RDW Differential (35.1-43.9) fl Plt Count (150-450) K/mm3 MPV (6.2-12.0) fl Immature Gran % (Auto) (0.0-0.9) % Neut % (Auto) (47-70) % Lymph % (Auto) (19-41) % [place] % (Auto) (0-10) % Eos % (Auto) (0-5) % Baso % (Auto) (0-1) % Absolute Neuts (auto) (2.0-7.7) X10^3/uL Absolute Lymphs (auto) (0.83-4.51) X10^3/ul Total Counted Differential Comment Diff Path Review Platelet Estimate (ADEQ) PT (11.7-14.9) SECONDS INR APTT (24.1-36.2) Seconds Sodium (136-145) mmol/L Potassium (3.5-5.1) mmol/L Chloride (98-107) mmol/L Carbon Dioxide (21.0-32.0) mmol/L Anion Gap (5-15) BUN (7-18) mg/dL Creatinine (0.70-1.30) mg/dL Estim Creat Clear Calc ml/min Est GFR (MDRD) Af Amer (>60) mL/min Est GFR (MDRD) Non-Af (>60) mL/min BUN/Creatinine Ratio (10-20) RATIO Glucose (74-106) mg/dL Lactic Acid (0.4-2.0) mmol/L Calcium (8.5-10.1) mg/dL Phosphorus 2.1 L (2.5-4.9) mg/dL Total Bilirubin (0.20-1.00) mg/dL AST (15-37) U/L ALT (16-61) U/L Alkaline Phosphatase (45-117) U/L Troponin I (<0.045) ng/mL Total Protein (6.4-8.2) g/dL Albumin (3.2-5.0) g/dL Globulin (2.2-4.2) g/dL Albumin/Globulin Ratio (0.9-2.4) RATIO Urine Color Urine Clarity Urine pH Ur Specific [place] U Specif Grav (Refrac) Urine Protein Urine Glucose (UA) Urine Ketones Urine Occult Blood Urine Nitrite Urine Bilirubin Urine Urobilinogen Ur Leukocyte Esterase Urine RBC Urine WBC Ur Squamous Epith Cells Ur Transition Epith Cell Ur Renal Epithelial Cell Calcium Oxalate Crystal Uric Acid Crystals Triple Phos Crystals Other Crystals Amorphous Sediment Urine Bacteria Hyaline Casts Fine Granular Casts Coarse Granular Casts Waxy Casts RBC Casts WBC Casts Urine Mucus Urine Trichomonas Urine Yeast MRSA (PCR) (Negative) POC Glucose 140 H (70-110) mg/dL Blood Type A POSITIVE Antibody Screen NEGATIVE 10/13/18 10/12/18 10/12/18 Range/Units 04:50 21:45 21:21 WBC 1.3 L* (4.4-11.0) K/mm3 RBC 2.48 L (4.6-6.2) M/mm3 Hgb 7.0 L (13.0-16.5) g/dl Hct 20.4 L (40-54) % MCV 82.3 (80-94) fL MCH 28.2 (27.0-32.0) pg MCHC 34.3 (32-36) g/gl RDW 12.1 (11.6-14.6) % RDW Differential 35.2 (35.1-43.9) fl Plt Count 19 L* (150-450) K/mm3 MPV 10.5 (6.2-12.0) fl Immature Gran % (Auto) (0.0-0.9) % Neut % (Auto) (47-70) % Lymph % (Auto) (19-41) % [place] % (Auto) (0-10) % Eos % (Auto) (0-5) % Baso % (Auto) (0-1) % Absolute Neuts (auto) (2.0-7.7) X10^3/uL Absolute Lymphs (auto) (0.83-4.51) X10^3/ul Total Counted Differential Comment SCANNED Diff Path Review May foll Platelet Estimate (ADEQ) PT (11.7-14.9) SECONDS INR APTT (24.1-36.2) Seconds Sodium (136-145) mmol/L Potassium (3.5-5.1) mmol/L Chloride (98-107) mmol/L Carbon Dioxide (21.0-32.0) mmol/L Anion Gap (5-15) BUN (7-18) mg/dL Creatinine (0.70-1.30) mg/dL Estim Creat Clear Calc ml/min Est GFR (MDRD) Af Amer (>60) mL/min Est GFR (MDRD) Non-Af (>60) mL/min BUN/Creatinine Ratio (10-20) RATIO Glucose (74-106) mg/dL Lactic Acid (0.4-2.0) mmol/L Calcium (8.5-10.1) mg/dL Phosphorus (2.5-4.9) mg/dL Total Bilirubin (0.20-1.00) mg/dL AST (15-37) U/L ALT (16-61) U/L Alkaline Phosphatase (45-117) U/L Troponin I (<0.045) ng/mL Total Protein (6.4-8.2) g/dL Albumin (3.2-5.0) g/dL Globulin (2.2-4.2) g/dL Albumin/Globulin Ratio (0.9-2.4) RATIO Urine Color Urine Clarity Urine pH Ur Specific [place] U Specif Grav (Refrac) Urine Protein Urine Glucose (UA) Urine Ketones Urine Occult Blood Urine Nitrite Urine Bilirubin Urine Urobilinogen Ur Leukocyte Esterase Urine RBC Urine WBC Ur Squamous Epith Cells Ur Transition Epith Cell Ur Renal Epithelial Cell Calcium Oxalate Crystal Uric Acid Crystals Triple Phos Crystals Other Crystals Amorphous Sediment Urine Bacteria Hyaline Casts Fine Granular Casts Coarse Granular Casts Waxy Casts RBC Casts WBC Casts Urine Mucus Urine Trichomonas Urine Yeast MRSA (PCR) Negative (Negative) POC Glucose 189 H (70-110) mg/dL Blood Type Antibody Screen 10/12/18 10/12/18 10/12/18 Range/Units 19:35 18:00 14:45 WBC (4.4-11.0) K/mm3 RBC (4.6-6.2) M/mm3 Hgb (13.0-16.5) g/dl Hct (40-54) % MCV (80-94) fL MCH (27.0-32.0) pg MCHC (32-36) g/gl RDW (11.6-14.6) % RDW Differential (35.1-43.9) fl Plt Count (150-450) K/mm3 MPV (6.2-12.0) fl Immature Gran % (Auto) (0.0-0.9) % Neut % (Auto) (47-70) % Lymph % (Auto) (19-41) % [place] % (Auto) (0-10) % Eos % (Auto) (0-5) % Baso % (Auto) (0-1) % Absolute Neuts (auto) (2.0-7.7) X10^3/uL Absolute Lymphs (auto) (0.83-4.51) X10^3/ul Total Counted Differential Comment Diff Path Review Platelet Estimate (ADEQ) PT (11.7-14.9) SECONDS INR APTT (24.1-36.2) Seconds Sodium (136-145) mmol/L Potassium (3.5-5.1) mmol/L Chloride (98-107) mmol/L Carbon Dioxide (21.0-32.0) mmol/L Anion Gap (5-15) BUN (7-18) mg/dL Creatinine (0.70-1.30) mg/dL Estim Creat Clear Calc ml/min Est GFR (MDRD) Af Amer (>60) mL/min Est GFR (MDRD) Non-Af (>60) mL/min BUN/Creatinine Ratio (10-20) RATIO Glucose (74-106) mg/dL Lactic Acid 2.6 H 14.9 H* (0.4-2.0) mmol/L Calcium (8.5-10.1) mg/dL Phosphorus (2.5-4.9) mg/dL Total Bilirubin (0.20-1.00) mg/dL AST (15-37) U/L ALT (16-61) U/L Alkaline Phosphatase (45-117) U/L Troponin I (<0.045) ng/mL Total Protein (6.4-8.2) g/dL Albumin (3.2-5.0) g/dL Globulin (2.2-4.2) g/dL Albumin/Globulin Ratio (0.9-2.4) RATIO Urine Color [place] Urine Clarity Cloudy Urine pH 5.0 Ur Specific [place] 1.015 U Specif Grav (Refrac) Urine Protein 100 H Urine Glucose (UA) Normal Urine Ketones 5 H Urine Occult Blood 250 H Urine Nitrite Positive H Urine Bilirubin 1 H Urine Urobilinogen 4 H Ur Leukocyte Esterase 500 H Urine RBC > 100 SEEN Urine WBC >100 SEEN Ur Squamous Epith Cells 0 SEEN Ur Transition Epith Cell Ur Renal Epithelial Cell Calcium Oxalate Crystal Uric Acid Crystals Triple Phos Crystals Other Crystals Amorphous Sediment 1+ Urine Bacteria RARE Hyaline Casts Fine Granular Casts Coarse Granular Casts Waxy Casts RBC Casts WBC Casts Urine Mucus 0 SEEN Urine Trichomonas Urine Yeast 1+ MRSA (PCR) (Negative) POC Glucose (70-110) mg/dL Blood Type Antibody Screen 10/12/18 10/12/18 10/12/18 Range/Units 14:45 14:45 14:45 WBC 3.3 L (4.4-11.0) K/mm3 RBC 3.31 L (4.6-6.2) M/mm3 Hgb 9.1 L (13.0-16.5) g/dl Hct 27.8 L (40-54) % MCV 84.0 (80-94) fL MCH 27.5 (27.0-32.0) pg MCHC 32.7 (32-36) g/gl RDW 13.0 (11.6-14.6) % RDW Differential 39.8 (35.1-43.9) fl Plt Count 37 L* (150-450) K/mm3 MPV 11.3 (6.2-12.0) fl Immature Gran % (Auto) 0.000 (0.0-0.9) % Neut % (Auto) 0.0 L (47-70) % Lymph % (Auto) 74.3 H (19-41) % [place] % (Auto) 25.1 H (0-10) % Eos % (Auto) 0.3 (0-5) % Baso % (Auto) 0.3 (0-1) % Absolute Neuts (auto) 0.0 L (2.0-7.7) X10^3/uL Absolute Lymphs (auto) 2.48 (0.83-4.51) X10^3/ul Total Counted Not Reportable Differential Comment Diff Path Review May foll Platelet Estimate MKD DEC (ADEQ) PT 16.7 H (11.7-14.9) SECONDS INR 1.4 APTT 33.1 (24.1-36.2) Seconds Sodium 131 L (136-145) mmol/L Potassium 3.9 (3.5-5.1) mmol/L Chloride 92 L (98-107) mmol/L Carbon Dioxide 18.0 L (21.0-32.0) mmol/L Anion Gap 21 H (5-15) BUN 22 H (7-18) mg/dL Creatinine 2.14 H (0.70-1.30) mg/dL Estim Creat Clear Calc 26.50 ml/min Est GFR (MDRD) Af Amer 39 L (>60) mL/min Est GFR (MDRD) Non-Af 32 L (>60) mL/min BUN/Creatinine Ratio 10.3 (10-20) RATIO Glucose 282 H (74-106) mg/dL Lactic Acid (0.4-2.0) mmol/L Calcium 9.0 (8.5-10.1) mg/dL Phosphorus (2.5-4.9) mg/dL Total Bilirubin 1.30 H (0.20-1.00) mg/dL AST 55 H (15-37) U/L ALT 153 H (16-61) U/L Alkaline Phosphatase 211 H (45-117) U/L Troponin I < 0.015 (<0.045) ng/mL Total Protein 8.5 H (6.4-8.2) g/dL Albumin 2.5 L (3.2-5.0) g/dL Globulin 6.0 H (2.2-4.2) g/dL Albumin/Globulin Ratio 0.4 L (0.9-2.4) RATIO Urine Color Urine Clarity Urine pH Ur Specific [place] U Specif Grav (Refrac) Urine Protein Urine Glucose (UA) Urine Ketones Urine Occult Blood Urine Nitrite Urine Bilirubin Urine Urobilinogen Ur Leukocyte Esterase Urine RBC Urine WBC Ur Squamous Epith Cells Ur Transition Epith Cell Ur Renal Epithelial Cell Calcium Oxalate Crystal Uric Acid Crystals Triple Phos Crystals Other Crystals Amorphous Sediment Urine Bacteria Hyaline Casts Fine Granular Casts Coarse Granular Casts Waxy Casts RBC Casts WBC Casts Urine Mucus Urine Trichomonas Urine Yeast MRSA (PCR) (Negative) POC Glucose (70-110) mg/dL Blood Type Antibody Screen 10/12/18 Range/Units 14:35 WBC (4.4-11.0) K/mm3 RBC (4.6-6.2) M/mm3 Hgb (13.0-16.5) g/dl Hct (40-54) % MCV (80-94) fL MCH (27.0-32.0) pg MCHC (32-36) g/gl RDW (11.6-14.6) % RDW Differential (35.1-43.9) fl Plt Count (150-450) K/mm3 MPV (6.2-12.0) fl Immature Gran % (Auto) (0.0-0.9) % Neut % (Auto) (47-70) % Lymph % (Auto) (19-41) % [place] % (Auto) (0-10) % Eos % (Auto) (0-5) % Baso % (Auto) (0-1) % Absolute Neuts (auto) (2.0-7.7) X10^3/uL Absolute Lymphs (auto) (0.83-4.51) X10^3/ul Total Counted Differential Comment Diff Path Review Platelet Estimate (ADEQ) PT (11.7-14.9) SECONDS INR APTT (24.1-36.2) Seconds Sodium (136-145) mmol/L Potassium (3.5-5.1) mmol/L Chloride (98-107) mmol/L Carbon Dioxide (21.0-32.0) mmol/L Anion Gap (5-15) BUN (7-18) mg/dL Creatinine (0.70-1.30) mg/dL Estim Creat Clear Calc ml/min Est GFR (MDRD) Af Amer (>60) mL/min Est GFR (MDRD) Non-Af (>60) mL/min BUN/Creatinine Ratio (10-20) RATIO Glucose (74-106) mg/dL Lactic Acid (0.4-2.0) mmol/L Calcium (8.5-10.1) mg/dL Phosphorus (2.5-4.9) mg/dL Total Bilirubin (0.20-1.00) mg/dL AST (15-37) U/L ALT (16-61) U/L Alkaline Phosphatase (45-117) U/L Troponin I (<0.045) ng/mL Total Protein (6.4-8.2) g/dL Albumin (3.2-5.0) g/dL Globulin (2.2-4.2) g/dL Albumin/Globulin Ratio (0.9-2.4) RATIO Urine Color Cancelled Urine Clarity Cancelled Urine pH Cancelled Ur Specific [place] Cancelled U Specif Grav (Refrac) Cancelled Urine Protein Cancelled Urine Glucose (UA) Cancelled Urine Ketones Cancelled Urine Occult Blood Cancelled Urine Nitrite Cancelled Urine Bilirubin Cancelled Urine Urobilinogen Cancelled Ur Leukocyte Esterase Cancelled Urine RBC Cancelled Urine WBC Cancelled Ur Squamous Epith Cells Cancelled Ur Transition Epith Cell Cancelled Ur Renal Epithelial Cell Cancelled Calcium Oxalate Crystal Cancelled Uric Acid Crystals Cancelled Triple Phos Crystals Cancelled Other Crystals Cancelled Amorphous Sediment Cancelled Urine Bacteria Cancelled Hyaline Casts Cancelled Fine Granular Casts Cancelled Coarse Granular Casts Cancelled Waxy Casts Cancelled RBC Casts Cancelled WBC Casts Cancelled Urine Mucus Cancelled Urine Trichomonas Cancelled Urine Yeast Cancelled MRSA (PCR) (Negative) POC Glucose (70-110) mg/dL Blood Type Antibody Screen Diagnostic Data: Diagnostic Data Chest X-Ray 10/12/18 18:00 IMPRESSION: Right central venous catheter ends in the distal superior vena cava with no complication of line placement. No additional acute cardiopulmonary findings or changes. Electronically Signed: Eva Thakur MD at 18:25 EST , Service support , Assessment and Plan Neutropenic Fever and Sepsis after Chemotherapy. Clinically improving. BP stable now. Suggestion: To continue broad spectrum antibiotics. Continue Granix till ANC is greater than 1000. Can be discharged for outpatient follow if Neutropenia resolves. Thanks. Medications: Prescriptions This Visit Medication Instructions Recorded Alfuzosin HCl [Uroxatral] 10 mg PO QHS 10/12/18 Medications Added to Medication List This Visit Category Date Time Status Chlorhexidine Gluc 2% Cloth Med 10/13/18 10:00 Active 1 each TOPICAL DAILY Finasteride [Proscar] Med 10/13/18 10:00 Active 5 mg PO DAILY Glucerna Shake Med 10/13/18 10:00 Active 120 ml PO 4X/DAY Isosorbide Mononitrate [Imdur] Med 10/13/18 10:00 Active 60 mg PO DAILY Piperacil/Tazobactam [Zosyn] Med 10/13/18 06:45 Active 3.375 gm in 50 ml IV Q8 Polyethylene Glycol 3350 [Miralax] Med 10/13/18 10:00 Active 17 gm PO DAILY Vancomycin IV 750 mg Med 10/13/18 16:00 Active 0.9% Normal Saline 250 ml IV Q24H Primary Care Provider: Jonathan Lombardi MD Referring Provider: Joe Yo MD - Problem List (1) Neutropenia due to and not concurrent with chemotherapy Status: Acute (2) Septic shock Status: Acute (3) Prostate cancer Status: Chronic Code Visit Office Visits / Consults: [id number] IP Consult [id number]
[2018-10-13 11:16] LABS: Bedside Glucose 272 mg/dL (70-110)
[2018-10-13] MEDS: Insulin Lispro 100 UNIT/ML INSULN.PEN SQ ×3 (11:56→21:18)
[2018-10-13 17:31] LABS: Bedside Glucose 197 mg/dL (70-110)
[2018-10-13] MEDS: Tamsulosin HCl 0.4 MG Capsule PO (21:16)
[2018-10-13 21:25] LABS: Bedside Glucose 193 mg/dL (70-110)
[2018-10-14] VITALS (25 sets, daily range): BP systolic 105–132; BP diastolic 55–97; PULSE 74–113; RESP 14–22; TEMP 36.6–37.1; O2SAT 21–100
[2018-10-14 04:12] LABS: Absolute Lymphocyte Count 0.92 X10^3/ul (0.83-4.51); Absolute Neutrophil Count 2.2 X10^3/uL (2.0-7.7); Basophil# 0.03 X10^3/uL; Basophil% 0.7 % (0-1); Hematocrit 18.7 % (40-54); Hemoglobin 6.4 g/dl (13.0-16.5); Lymphocyte # 0.92 X10^3/ul (4.0); Lymphocyte % 22.8 % (19-41); Mean Corp Hgb Conc 34.2 g/gl (32-36); Mean Corpuscular Hgb 28.1 pg (27.0-32.0); Mean Platelet Vol. 10.7 fl (6.2-12.0); Monocyte# 0.83 X10^3/uL; Monocyte% 20.6 % (0-10); Neutrophil # 2.19 X10^3/uL (2.7-7.7); Neutrophil % 54.4 % (47-70); RBC Distribution Width CV 12.1 % (11.6-14.6); RBC Distribution Width SD 34.7 fl (35.1-43.9); Red Blood Count 2.28 M/mm3 (4.6-6.2)
[2018-10-14 04:13] LABS: International Normalized Ratio 1.3; Prothrombin Time (Protime)PT. 16.5 SECONDS (11.7-14.9)
[2018-10-14 04:25] LABS: Differential Indicated SCAN CRITERIA MET; POSITIVE COUNT YES; POSITIVE DIFFERENTIAL NO; POSITIVE MORPHOLOGY YES; Platelet Count 25 K/mm3 (150-450)
[2018-10-14 04:26] LABS: ALB/GLOB Ratio 0.4 RATIO (0.9-2.4); AST(SGOT) 63 U/L (15-37); Alanine Aminotransfer ALT/SGPT 103 U/L (16-61); Albumin, Serum 1.9 g/dL (3.2-5.0); Alkaline Phosphatase 134 U/L (45-117); Anion Gap 13 (5-15); BUN 19 mg/dL (7-18); BUN/Creat Ratio 12.5 RATIO (10-20); Calcium,Total 7.8 mg/dL (8.5-10.1); Chloride 99 mmol/L (98-107); Creatinine, Serum 1.52 mg/dL (0.70-1.30); EST Glomerular Filtration Rate 48 mL/min (>60); Est Glom Filt Rate - Afr Amer 58 mL/min (>60); Estimated Creatinine Clearance 37.25 ml/min; Globulin 4.3 g/dL (2.2-4.2); Glucose 135 mg/dL (74-106); Potassium 2.7 mmol/L (3.5-5.1); Protein, Total 6.2 g/dL (6.4-8.2); Sodium Level 137 mmol/L (136-145)
[2018-10-14 04:43] LABS: Differential Comment SCAN; Platelet Estimate MKD DEC (ADEQ)
[2018-10-14 04:44] LABS: Platelet Morphology LARGE
[2018-10-14] MEDS: Piperacil/Tazobactam 3.375 GM/50 ML ML IV ×3 (05:29→22:46)
[2018-10-14] MEDS: 0.9% NaCl Peripheral Flush Adult/Peds IV ×3 (05:29→18:22)
[2018-10-14 05:48] LABS: Phosphorus 1.2 mg/dL (2.5-4.9)
--- NOTE | 2018-10-14 06:36 | PCM.PN.INT ---
Subjective: Patient did well overnight. Patient subjectively improved compared to yesterday. No blood loss has been reported. Patient's blood pressure has remained stable and patient is saturating well on room air. Nursing has noted decreased output through the nephrostomy, but overall urine output is adequate. General: Alert, Oriented x3, Cooperative, No apparent distress, Well developed, Well nourished, - - Speaking in full sentences. HEENT: Atraumatic, PERRLA, EOMI, Normocephalic, - - No scleral icterus or injection noted. Slightly pale membranes noted. Oral: Moist Mucosa, No Gingival or Mucosal Lesions/ Ulcerations Neck: Supple, No JVD, No Nodes, Trachea Midline Lungs: No rhonchi, No wheeze, No rales, Diminished, - - Symmetric expansion. No dullness to percussion. Cardiovascular: Regular rate, Regular Rhythm, Normal S1, Normal S2, No murmurs, No rub noted, No Gallop Abdomen: Bowel Sounds Present, Soft, Non Tender, Non-Distended Extremities: No clubbing, No cyanosis, Capillary Refill Less than 3 Seconds, Edema - Trace Skin: - - Grossly unchanged compared to previous Musculoskeletal: No Tenderness to Palpation of Joints or Extremities, No Muscle Wasting Lymphatic: No Cervical, Supraclavicular, or Inguinal Adenopathy Neurological: Cranial nerves II-XII grossly intact, Neuro grossly intact, Motor Exam 5/5 strength throughout Psych/Mental Status: Alert and oriented to time, place, person, mood and affect Vital Signs Temp Pulse Resp BP Pulse Ox 36.8 C 99 16 125/62 H 100 10/14/18 00:00 10/14/18 06:00 10/14/18 06:00 10/14/18 06:00 10/14/18 06:00 Oxygen Flow Rate (L/min) 2 Oxygen Delivery Method Room Air Weight: 66.4 kg Body Mass Index (BMI) 23.4 Finger Stick Blood Glucose 125 Intake and Output for Last 24 Hours 10/12/18 10/13/18 10/14/18 23:59 23:59 23:59 Intake Total 240 / 240 2029 / 2029 133.7 / 133.7 Output Total 385 / 385 2380 / 2380 445 / 445 Balance -145 / -145 -350 / -350 -311.3 / -311.3 Labs (Last 48 Hours) 10/12/18 10/12/18 10/12/18 14:35 14:45 14:45 WBC 3.3 L RBC 3.31 L Hgb 9.1 L Hct 27.8 L MCV 84.0 MCH 27.5 MCHC 32.7 RDW 13.0 RDW Differential 39.8 Plt Count 37 L* MPV 11.3 Immature Gran % (Auto) 0.000 Neut % (Auto) 0.0 L Lymph % (Auto) 74.3 H [place] % (Auto) 25.1 H Eos % (Auto) 0.3 Baso % (Auto) 0.3 Absolute Neuts (auto) 0.0 L Absolute Lymphs (auto) 2.48 Total Counted Not Reportable Differential Comment Diff Path Review May foll Platelet Estimate MKD DEC Plt Morphology Comment PT 16.7 H INR 1.4 APTT 33.1 Sodium Potassium Chloride Carbon Dioxide Anion Gap BUN Creatinine Estim Creat Clear Calc Est GFR (MDRD) Af Amer Est GFR (MDRD) Non-Af BUN/Creatinine Ratio Glucose Lactic Acid Calcium Phosphorus Total Bilirubin AST ALT Alkaline Phosphatase Troponin I Total Protein Albumin Globulin Albumin/Globulin Ratio Urine Color Cancelled Urine Clarity Cancelled Urine pH Cancelled Ur Specific [place] Cancelled U Specif Grav (Refrac) Cancelled Urine Protein Cancelled Urine Glucose (UA) Cancelled Urine Ketones Cancelled Urine Occult Blood Cancelled Urine Nitrite Cancelled Urine Bilirubin Cancelled Urine Urobilinogen Cancelled Ur Leukocyte Esterase Cancelled Urine RBC Cancelled Urine WBC Cancelled Ur Squamous Epith Cells Cancelled Ur Transition Epith Cell Cancelled Ur Renal Epithelial Cell Cancelled Calcium Oxalate Crystal Cancelled Uric Acid Crystals Cancelled Triple Phos Crystals Cancelled Other Crystals Cancelled Amorphous Sediment Cancelled Urine Bacteria Cancelled Hyaline Casts Cancelled Fine Granular Casts Cancelled Coarse Granular Casts Cancelled Waxy Casts Cancelled RBC Casts Cancelled WBC Casts Cancelled Urine Mucus Cancelled Urine Trichomonas Cancelled Urine Yeast Cancelled MRSA (PCR) POC Glucose Blood Type Antibody Screen Crossmatch 10/12/18 10/12/18 10/12/18 14:45 14:45 18:00 WBC RBC Hgb Hct MCV MCH MCHC RDW RDW Differential Plt Count MPV Immature Gran % (Auto) Neut % (Auto) Lymph % (Auto) [place] % (Auto) Eos % (Auto) Baso % (Auto) Absolute Neuts (auto) Absolute Lymphs (auto) Total Counted Differential Comment Diff Path Review Platelet Estimate Plt Morphology Comment PT INR APTT Sodium 131 L Potassium 3.9 Chloride 92 L Carbon Dioxide 18.0 L Anion Gap 21 H BUN 22 H Creatinine 2.14 H Estim Creat Clear Calc 26.50 Est GFR (MDRD) Af Amer 39 L Est GFR (MDRD) Non-Af 32 L BUN/Creatinine Ratio 10.3 Glucose 282 H Lactic Acid 14.9 H* Calcium 9.0 Phosphorus Total Bilirubin 1.30 H AST 55 H ALT 153 H Alkaline Phosphatase 211 H Troponin I < 0.015 Total Protein 8.5 H Albumin 2.5 L Globulin 6.0 H Albumin/Globulin Ratio 0.4 L Urine Color [place] Urine Clarity Cloudy Urine pH 5.0 Ur Specific [place] 1.015 U Specif Grav (Refrac) Urine Protein 100 H Urine Glucose (UA) Normal Urine Ketones 5 H Urine Occult Blood 250 H Urine Nitrite Positive H Urine Bilirubin 1 H Urine Urobilinogen 4 H Ur Leukocyte Esterase 500 H Urine RBC > 100 SEEN Urine WBC >100 SEEN Ur Squamous Epith Cells 0 SEEN Ur Transition Epith Cell Ur Renal Epithelial Cell Calcium Oxalate Crystal Uric Acid Crystals Triple Phos Crystals Other Crystals Amorphous Sediment 1+ Urine Bacteria RARE Hyaline Casts Fine Granular Casts Coarse Granular Casts Waxy Casts RBC Casts WBC Casts Urine Mucus 0 SEEN Urine Trichomonas Urine Yeast 1+ MRSA (PCR) POC Glucose Blood Type Antibody Screen Crossmatch 10/12/18 10/12/18 10/12/18 19:35 21:21 21:45 WBC RBC Hgb Hct MCV MCH MCHC RDW RDW Differential Plt Count MPV Immature Gran % (Auto) Neut % (Auto) Lymph % (Auto) [place] % (Auto) Eos % (Auto) Baso % (Auto) Absolute Neuts (auto) Absolute Lymphs (auto) Total Counted Differential Comment Diff Path Review Platelet Estimate Plt Morphology Comment PT INR APTT Sodium Potassium Chloride Carbon Dioxide Anion Gap BUN Creatinine Estim Creat Clear Calc Est GFR (MDRD) Af Amer Est GFR (MDRD) Non-Af BUN/Creatinine Ratio Glucose Lactic Acid 2.6 H Calcium Phosphorus Total Bilirubin AST ALT Alkaline Phosphatase Troponin I Total Protein Albumin Globulin Albumin/Globulin Ratio Urine Color Urine Clarity Urine pH Ur Specific [place] U Specif Grav (Refrac) Urine Protein Urine Glucose (UA) Urine Ketones Urine Occult Blood Urine Nitrite Urine Bilirubin Urine Urobilinogen Ur Leukocyte Esterase Urine RBC Urine WBC Ur Squamous Epith Cells Ur Transition Epith Cell Ur Renal Epithelial Cell Calcium Oxalate Crystal Uric Acid Crystals Triple Phos Crystals Other Crystals Amorphous Sediment Urine Bacteria Hyaline Casts Fine Granular Casts Coarse Granular Casts Waxy Casts RBC Casts WBC Casts Urine Mucus Urine Trichomonas Urine Yeast MRSA (PCR) Negative POC Glucose 189 H Blood Type Antibody Screen Crossmatch 10/13/18 10/13/18 10/13/18 04:50 04:50 06:52 WBC 1.3 L* RBC 2.48 L Hgb 7.0 L Hct 20.4 L MCV 82.3 MCH 28.2 MCHC 34.3 RDW 12.1 RDW Differential 35.2 Plt Count 19 L* MPV 10.5 Immature Gran % (Auto) Neut % (Auto) Lymph % (Auto) [place] % (Auto) Eos % (Auto) Baso % (Auto) Absolute Neuts (auto) Absolute Lymphs (auto) Total Counted Differential Comment SCANNED Diff Path Review May foll Platelet Estimate Plt Morphology Comment PT INR APTT Sodium Potassium Chloride Carbon Dioxide Anion Gap BUN Creatinine Estim Creat Clear Calc Est GFR (MDRD) Af Amer Est GFR (MDRD) Non-Af BUN/Creatinine Ratio Glucose Lactic Acid Calcium Phosphorus 2.1 L Total Bilirubin AST ALT Alkaline Phosphatase Troponin I Total Protein Albumin Globulin Albumin/Globulin Ratio Urine Color Urine Clarity Urine pH Ur Specific [place] U Specif Grav (Refrac) Urine Protein Urine Glucose (UA) Urine Ketones Urine Occult Blood Urine Nitrite Urine Bilirubin Urine Urobilinogen Ur Leukocyte Esterase Urine RBC Urine WBC Ur Squamous Epith Cells Ur Transition Epith Cell Ur Renal Epithelial Cell Calcium Oxalate Crystal Uric Acid Crystals Triple Phos Crystals Other Crystals Amorphous Sediment Urine Bacteria Hyaline Casts Fine Granular Casts Coarse Granular Casts Waxy Casts RBC Casts WBC Casts Urine Mucus Urine Trichomonas Urine Yeast MRSA (PCR) POC Glucose 140 H Blood Type Antibody Screen Crossmatch 10/13/18 10/13/18 10/13/18 09:30 09:30 11:10 WBC RBC Hgb Hct MCV MCH MCHC RDW RDW Differential Plt Count MPV Immature Gran % (Auto) Neut % (Auto) Lymph % (Auto) [place] % (Auto) Eos % (Auto) Baso % (Auto) Absolute Neuts (auto) Absolute Lymphs (auto) Total Counted Differential Comment Diff Path Review Platelet Estimate Plt Morphology Comment PT INR APTT Sodium Potassium Chloride Carbon Dioxide Anion Gap BUN Creatinine Estim Creat Clear Calc Est GFR (MDRD) Af Amer Est GFR (MDRD) Non-Af BUN/Creatinine Ratio Glucose Lactic Acid Calcium Phosphorus Total Bilirubin AST ALT Alkaline Phosphatase Troponin I Total Protein Albumin Globulin Albumin/Globulin Ratio Urine Color Urine Clarity Urine pH Ur Specific [place] U Specif Grav (Refrac) Urine Protein Urine Glucose (UA) Urine Ketones Urine Occult Blood Urine Nitrite Urine Bilirubin Urine Urobilinogen Ur Leukocyte Esterase Urine RBC Urine WBC Ur Squamous Epith Cells Ur Transition Epith Cell Ur Renal Epithelial Cell Calcium Oxalate Crystal Uric Acid Crystals Triple Phos Crystals Other Crystals Amorphous Sediment Urine Bacteria Hyaline Casts Fine Granular Casts Coarse Granular Casts Waxy Casts RBC Casts WBC Casts Urine Mucus Urine Trichomonas Urine Yeast MRSA (PCR) POC Glucose 272 H Blood Type A POSITIVE Antibody Screen NEGATIVE Crossmatch See Detail 10/13/18 10/13/18 10/14/18 17:08 21:17 03:50 WBC 4.0 L RBC 2.28 L Hgb 6.4 L Hct 18.7 L MCV 82.0 MCH 28.1 MCHC 34.2 RDW 12.1 RDW Differential 34.7 L Plt Count 25 L* MPV 10.7 Immature Gran % (Auto) 1.500 H Neut % (Auto) 54.4 Lymph % (Auto) 22.8 [place] % (Auto) 20.6 H Eos % (Auto) 0.0 Baso % (Auto) 0.7 Absolute Neuts (auto) 2.2 Absolute Lymphs (auto) 0.92 Total Counted Not Reportable Differential Comment SCAN Diff Path Review May foll Platelet Estimate MKD DEC Plt Morphology Comment LARGE PT INR APTT Sodium Potassium Chloride Carbon Dioxide Anion Gap BUN Creatinine Estim Creat Clear Calc Est GFR (MDRD) Af Amer Est GFR (MDRD) Non-Af BUN/Creatinine Ratio Glucose Lactic Acid Calcium Phosphorus Total Bilirubin AST ALT Alkaline Phosphatase Troponin I Total Protein Albumin Globulin Albumin/Globulin Ratio Urine Color Urine Clarity Urine pH Ur Specific [place] U Specif Grav (Refrac) Urine Protein Urine Glucose (UA) Urine Ketones Urine Occult Blood Urine Nitrite Urine Bilirubin Urine Urobilinogen Ur Leukocyte Esterase Urine RBC Urine WBC Ur Squamous Epith Cells Ur Transition Epith Cell Ur Renal Epithelial Cell Calcium Oxalate Crystal Uric Acid Crystals Triple Phos Crystals Other Crystals Amorphous Sediment Urine Bacteria Hyaline Casts Fine Granular Casts Coarse Granular Casts Waxy Casts RBC Casts WBC Casts Urine Mucus Urine Trichomonas Urine Yeast MRSA (PCR) POC Glucose 197 H 193 H Blood Type Antibody Screen Crossmatch 10/14/18 10/14/18 10/14/18 03:50 03:50 03:50 WBC RBC Hgb Hct MCV MCH MCHC RDW RDW Differential Plt Count MPV Immature Gran % (Auto) Neut % (Auto) Lymph % (Auto) [place] % (Auto) Eos % (Auto) Baso % (Auto) Absolute Neuts (auto) Absolute Lymphs (auto) Total Counted Differential Comment Diff Path Review Platelet Estimate Plt Morphology Comment PT 16.5 H INR 1.3 APTT Sodium 137 Potassium 2.7 L* Chloride 99 Carbon Dioxide 25.0 Anion Gap 13 BUN 19 H Creatinine 1.52 H Estim Creat Clear Calc 37.25 Est GFR (MDRD) Af Amer 58 L Est GFR (MDRD) Non-Af 48 L BUN/Creatinine Ratio 12.5 Glucose 135 H Lactic Acid Calcium 7.8 L Phosphorus 1.2 L Total Bilirubin 0.60 AST 63 H ALT 103 H Alkaline Phosphatase 134 H Troponin I Total Protein 6.2 L Albumin 1.9 L Globulin 4.3 H Albumin/Globulin Ratio 0.4 L Urine Color Urine Clarity Urine pH Ur Specific [place] U Specif Grav (Refrac) Urine Protein Urine Glucose (UA) Urine Ketones Urine Occult Blood Urine Nitrite Urine Bilirubin Urine Urobilinogen Ur Leukocyte Esterase Urine RBC Urine WBC Ur Squamous Epith Cells Ur Transition Epith Cell Ur Renal Epithelial Cell Calcium Oxalate Crystal Uric Acid Crystals Triple Phos Crystals Other Crystals Amorphous Sediment Urine Bacteria Hyaline Casts Fine Granular Casts Coarse Granular Casts Waxy Casts RBC Casts WBC Casts Urine Mucus Urine Trichomonas Urine Yeast MRSA (PCR) POC Glucose Blood Type Antibody Screen Crossmatch Microbiology 10/12/18 23:10 Urine, Nephrostomy Urine Culture - Preliminary GPC Poss Enterococcus sp 10/12/18 22:30 Mucosa - Nose Respiratory Panel (PCR) - Final 10/12/18 18:00 Urine Catheter - French Urine Culture - Preliminary GPC Poss Enterococcus sp Medical Necessity - Tobacco Use Smoking Status: Former smoker Assessment/Plan All Active Problems (Last Updated 10/13/18 @ 09:32 by Elijah Frederick MD) Neutropenia due to and not concurrent with chemotherapy (Acute) Septic shock (Acute) RECOMMENDATIONS: 1. Continue empiric antibiotics pending sensitivities 2. Fluid boluses as necessary for hypotension 3. Transfuse 1 unit of packed red blood cells 4. Sliding scale insulin for diabetes 5. Aggressive electrolyte repletion 6. Okay to transfer from the intensive care unit 7. Hemodynamically stable on room air. Will sign off from a critical care perspective IMPRESSIONS: 1. Septic shock secondary to probable nephrostomy infection Patient with significant pyuria, leukocyte esterase and nitrite positive urine in the setting of nephrostomy tube. Patient currently growing enterococcus from the urine. Patient has remained hemodynamically stable on room air. Will await sensitivities, but patient is likely okay to go to the floor from my perspective. No fluid boluses have been required over the last 24 hours. Will sign off from a critical care perspective. 2. Pancytopenia secondary to chemotherapy for bladder/prostate cancer Patient currently receiving palliative chemotherapy. Patient's last chemotherapy was on October 03. Patient may benefit from Neulasta, but defer to hematology. Would hold on heparin products given patient's thrombocytopenia. Patient's hemoglobin is slightly down, likely secondary from decreased production with chemotherapy. 1 unit of packed red blood cells will be ordered. No indication for platelet transfusion. 3. Acute kidney injury/hypovolemic hyponatremia and hypochloremia IMPROVING > likely secondary to #1. Continue with blood pressure support and aggressive rehydration. No indication for renal replacement therapy initially. Patient will continue to have electrolytes followed. 4. Diabetes mellitus type 2 Patient was some hyperglycemia on presentation. We will continue to follow. Patient should have sliding scale insulin. May need to add basal insulin. 5. Chronic systolic congestive heart failure/history of coronary artery disease/advanced age/debility Last known ejection fraction of 45% in 2013. Complicates care, management, recovery and prognosis. Patient currently saturating okay on room air. Will continue to monitor closely with fluid output. No indication for Lasix at this time. Code Visit Inpatient E&M: 16942 [facility] L3
[2018-10-14 06:55] LABS: Bedside Glucose 139 mg/dL (70-110)
--- NOTE | 2018-10-14 08:14 | PCM.PROGNOTE ---
Patient Problems: Active and Suspected Problems (Last Updated 10/13/18 @ 09:32 by Elijah Frederick MD) Neutropenia due to and not concurrent with chemotherapy (Acute) Septic shock (Acute) Subjective: Chief complaint: Follow-up after admission for septic shock secondary to acute complicated cystitis and pancytopenia as well as acute kidney injury top of stage III chronic kidney disease. Hospital course complicated by acute on chronic anemia requiring blood transfusion as well as severe hypokalemia. Patient seen and examined. No acute events overnight. Patient mentioned that he is feeling better compared to yesterday. He reported some discomfort at the right nephrostomy tube insertion site. Denied anterior abdominal pain, nausea or vomiting. No chest pain or shortness of breath. He has been afebrile overnight, heart rate has been 100, blood pressure is maintained and pulse ox is normal on room air. - Physical Exam General: Alert, Oriented x3, Cooperative, No apparent distress HEENT: Atraumatic, PERRLA, EOMI, Normocephalic Oral: Moist Mucosa, No Gingival or Mucosal Lesions/ Ulcerations Neck: Supple, No JVD, Negative Carotid Bruits, Trachea Midline, Thyroid Normal Size and Texture Lungs: Clear to auscultation, No rhonchi, No wheeze, No rales, Diminished Cardiovascular: Regular rate, Regular Rhythm, Normal S1, Normal S2, PMI Normal Abdomen: Bowel Sounds Present, Soft, Non Tender, Non-Distended, No Hepato-splenomegaly, - - Right nephrostomy tube in place. Extremities: No clubbing, No cyanosis, No edema Skin: No rashes, No breakdown Lymphatic: No Cervical, Supraclavicular, or Inguinal Adenopathy Neurological: Cranial nerves II-XII grossly intact, Motor Exam 5/5 strength throughout Psych/Mental Status: Normal Affect, Appropriate, Alert and oriented to time, place, person, mood and affect Vital Signs Temp Pulse Resp BP Pulse Ox 97.8 F 106 H 14 119/71 99 10/14/18 06:50 10/14/18 07:47 10/14/18 07:30 10/14/18 07:30 10/14/18 07:30 Oxygen Flow Rate (L/min) 2 Oxygen Delivery Method Room Air Weight: 146 lb 6.191 oz Body Mass Index (BMI) 23.4 Finger Stick Blood Glucose 125 Intake and Output for Last 24 Hours 10/12/18 10/13/18 10/14/18 23:59 23:59 23:59 Intake Total 240 / 240 2029 / 2029 133.7 / 133.7 Output Total 385 / 385 2380 / 2380 445 / 445 Balance -145 / -145 -350 / -350 -311.3 / -311.3 Microbiology Past 72 Hours 10/12/18 23:10 Urine Culture - Preliminary Urine, Nephrostomy GPC Poss Enterococcus sp 10/12/18 22:30 Respiratory Panel (PCR) - Final Mucosa - Nose 10/12/18 18:00 Urine Culture - Preliminary Urine Catheter - French GPC Poss Enterococcus sp Laboratory Tests Past 24 Hrs 10/13/18 10/13/18 10/14/18 09:30 09:30 03:50 WBC 4.0 L RBC 2.28 L Hgb 6.4 L Hct 18.7 L MCV 82.0 MCH 28.1 MCHC 34.2 RDW 12.1 RDW Differential 34.7 L Plt Count 25 L* MPV 10.7 Immature Gran % (Auto) 1.500 H Neut % (Auto) 54.4 Lymph % (Auto) 22.8 [place] % (Auto) 20.6 H Eos % (Auto) 0.0 Baso % (Auto) 0.7 Absolute Neuts (auto) 2.2 Absolute Lymphs (auto) 0.92 Total Counted Not Reportable Differential Comment SCAN Diff Path Review May foll Platelet Estimate MKD DEC Plt Morphology Comment LARGE PT INR Sodium Potassium Chloride Carbon Dioxide Anion Gap BUN Creatinine Estim Creat Clear Calc Est GFR (MDRD) Af Amer Est GFR (MDRD) Non-Af BUN/Creatinine Ratio Glucose Calcium Phosphorus Total Bilirubin AST ALT Alkaline Phosphatase Total Protein Albumin Globulin Albumin/Globulin Ratio Blood Type A POSITIVE Antibody Screen NEGATIVE Crossmatch See Detail 10/14/18 10/14/18 10/14/18 03:50 03:50 03:50 WBC RBC Hgb Hct MCV MCH MCHC RDW RDW Differential Plt Count MPV Immature Gran % (Auto) Neut % (Auto) Lymph % (Auto) [place] % (Auto) Eos % (Auto) Baso % (Auto) Absolute Neuts (auto) Absolute Lymphs (auto) Total Counted Differential Comment Diff Path Review Platelet Estimate Plt Morphology Comment PT 16.5 H INR 1.3 Sodium 137 Potassium 2.7 L* Chloride 99 Carbon Dioxide 25.0 Anion Gap 13 BUN 19 H Creatinine 1.52 H Estim Creat Clear Calc 37.25 Est GFR (MDRD) Af Amer 58 L Est GFR (MDRD) Non-Af 48 L BUN/Creatinine Ratio 12.5 Glucose 135 H Calcium 7.8 L Phosphorus 1.2 L Total Bilirubin 0.60 AST 63 H ALT 103 H Alkaline Phosphatase 134 H Total Protein 6.2 L Albumin 1.9 L Globulin 4.3 H Albumin/Globulin Ratio 0.4 L Blood Type Antibody Screen Crossmatch POC Glucose 10/14/18 10/13/18 10/13/18 06:46 21:17 17:08 POC Glucose 139 H 193 H 197 H 10/13/18 11:10 POC Glucose 272 H Medical Necessity - Tobacco Use Smoking Status: Former smoker Assessment/Plan All Active Problems (Last Updated 10/13/18 @ 09:32 by Elijah Frederick MD) Neutropenia due to and not concurrent with chemotherapy (Acute) Septic shock (Acute) This is a 78 years old male patient presented to the emergency room because of fever and malaise and he was found to have septic shock secondary to acute complicated cystitis, pancytopenia and acute kidney injury on top of stage III chronic kidney disease. #1 septic shock: Attributed to acute complicated cystitis. He is day 2 of on IV vancomycin and Zosyn. Blood pressure remained stable, slightly tachycardic, has been afebrile overnight. His total white blood cell count as well as absolute neutrophil count is significantly improved. Blood cultures pending. Urine culture revealed enterococcus species, final is pending. Plan: Continue same treatment, transfer to PCU. #2 acute complicated cystitis: He is on IV vancomycin and Zosyn as above. Hemodynamically stabilized, had no more fever, slightly tachycardic. He has history of insertion of right nephrostomy tube for right hydronephrosis due to obstructive uropathy secondary to bladder cancer. Blood cultures pending, urine culture revealed enterococcus species, final is pending. Plan to continue same treatment as above. #3 pancytopenia/acute on chronic anemia: Secondary to recent chemotherapy for bladder and prostate cancer, last dose of chemotherapy was on October 03. He is on Granix injection. Today, white blood cell count is up to 4000 and his absolute neutrophil count is 2200, significantly improved. Hemoglobin is down to 6.4 g/dL, worsening and his platelet count slightly improved. He is receiving 1 unit of packed RBCs. Plan to transfuse another unit of packed RBCs, repeat CBC tomorrow morning, NANCIE Shah. #4 elevated LFT: Probably due to recent chemotherapy. Patient denied any right upper quadrant abdominal pain. Liver transaminases, bilirubin and alkaline phosphatase trending down. #5 acute kidney injury on top of stage III chronic kidney disease: Baseline creatinine has been fluctuating but usually it has been in the range of 1.3-1.7 mg/dL. Admission creatinine was 2.14, most recent creatinine was 1.28. Patient has been on IV fluids. Serum creatinine improved, it is down to 1.5 today. #6 severe hypokalemia/hypophosphatemia: Patient still receiving potassium and phosphorus replacement. Plan to repeat BMP and serum phosphorus tomorrow, will check serum magnesium. #7 right-sided hydronephrosis: Secondary to obstructive uropathy due to bladder cancer. Status post right nephrostomy tube. Nephrostomy tube is working, urine is clear on the urine bag. #8 bladder cancer/prostate cancer: On palliative chemotherapy, last session was October 03, 2018. He follows up with Dr. Yo as outpatient, he was consulted. #9 coronary artery disease: Stable, no chest pain. EKG revealed sinus tachycardia, otherwise normal. He is on isosorbide mononitrate. Metoprolol held. #10 type 2 diabetes mellitus: ADA diet, Accu-Cheks, insulin sliding scale. Metformin and sitagliptin held because of worsening kidney function. #11 hypertension: Blood pressure maintained with fluids. He is on isosorbide mononitrate. Other antihypertensives are held at this time. Plan to resume metoprolol because of tachycardia. #12 chronic systolic CHF: Clinically stable, compensated. He is on isosorbide mononitrate. Resume metoprolol today. #13 DVT prophylaxis: SCDs. No chemical prophylaxis because of severe thrombocytopenia. This note was generated with [employer] software. It may contain incorrect words, spelling, and punctuation that were not noted in checking the note before signing. Code Visit Inpatient E&M: 77869 [facility] L2
[2018-10-14 08:46] LABS: Magnesium 1.8 mg/dL (1.6-2.6)
[2018-10-14] MEDS: CHLORHEXIDINE GLUC 2% CLOTH 1 EACH TOWELETTE TOPICAL (10:40)
[2018-10-14] MEDS: Finasteride 5 MG Tablet PO (10:40)
[2018-10-14] MEDS: Metoprolol Tartrate 50 MG Tablet 75 MG PO ×2 (10:41→22:40)
[2018-10-14] MEDS: Insulin Lispro 100 UNIT/ML INSULN.PEN SQ ×3 (12:02→22:45)
[2018-10-14 12:10] LABS: Bedside Glucose 237 mg/dL (70-110)
[2018-10-14 16:34] LABS: Vancomycin, Trough Level 6.9 ug/mL (5.0-15.0)
--- NOTE | 2018-10-14 18:15 | PHA.PHARE_ITS ---
Consult Pharmacy has been consulted to manage selected antiobiotic: Vancomycin Type of Consult: Follow-up Suspected Infection: Sepsis Prior Doses of Antibiotics Received/Current Regimen: VANCOMYCIN 1000MG IV X1 10/12 @1624 VANCOMYCIN 750MG IV Q24HR: 10/13 @1800 Labs: Sodium 137 mmol/L (136-145) 10/14/18 03:50 Potassium 2.7 mmol/L (3.5-5.1) L* 10/14/18 03:50 Chloride 99 mmol/L (98-107) 10/14/18 03:50 Carbon Dioxide 25.0 mmol/L (21.0-32.0) 10/14/18 03:50 Anion Gap 13 (5-15) 10/14/18 03:50 BUN 19 mg/dL (7-18) H 10/14/18 03:50 Creatinine 1.52 mg/dL (0.70-1.30) H 10/14/18 03:50 Est GFR (MDRD) Af Amer 58 mL/min (>60) L 10/14/18 03:50 Est GFR (MDRD) Non-Af 48 mL/min (>60) L 10/14/18 03:50 BUN/Creatinine Ratio 12.5 RATIO (10-20) 10/14/18 03:50 Glucose 135 mg/dL (74-106) H 10/14/18 03:50 Vancomycin Trough 6.9 ug/mL (5.0-15.0) 10/14/18 15:30 Microbiology: Microbiology 10/12/18 14:45 Blood Culture (Wb) - Anticubital Left Blood Culture - Preliminary No growth in 48 hours. 10/12/18 15:00 Blood Culture (Wb) #2 - Right Hand Blood Culture - Preliminar y No growth in 48 hours. 10/12/18 14:45 Blood Culture (Wb) - Anticubital Left Blood Culture - Preliminary No growth in 48 hours. 10/12/18 23:10 Urine, Nephrostomy Urine Culture - Preliminary GPC Poss Enterococcus sp Gram negative dennise 10/12/18 18:00 Urine Catheter - French Urine Culture - Final Mixed Gram Pos & Gram Neg Org 10/12/18 22:30 Mucosa - Nose Respiratory Panel (PCR) - Final Goal Trough: 15-20 mcg/mL Pharmacy Plan for Drug Dosing: The patient had a trough drawn prior to the 3rd dose of vancomycin, which resulted in a value of 6.9 (21.5hrs from last administered dose). The patient has had some improvement in renal function, but remains in a q24hr interval dosing schedule based on renal function. Will increase dose to 1250mg IV Q24hrs and assess the trough prior to the 3rd dose of new regimen. PLAN/RECOMMENDATIONS 1. Start vancomycin 1250mg IV Q24hrs 10/14 @1800 2. Trough scheduled for 10/16/18 @1730, prior to 3rd dose of new regimen 3. Pharmacy Service will continue to monitor and adjust dosing as required.
[2018-10-14 18:31] LABS: Bedside Glucose 233 mg/dL (70-110)
[2018-10-14] MEDS: HYDROcodone Bitartrate/Apap 5/325 Tablet PO (19:40)
[2018-10-14] MEDS: Tamsulosin HCl 0.4 MG Capsule PO (22:40)
[2018-10-14 23:05] LABS: Bedside Glucose 173 mg/dL (70-110)
[2018-10-15] VITALS (13 sets, daily range): BP systolic 115–160; BP diastolic 60–82; PULSE 67–101; RESP 16–19; TEMP 36.4–36.8; O2SAT 95–98
[2018-10-15] MEDS: Piperacil/Tazobactam 3.375 GM/50 ML ML IV ×2 (05:02→13:41)
[2018-10-15 06:47] LABS: Hematocrit 28.7 % (40-54); Hemoglobin 9.5 g/dl (13.0-16.5); Mean Corp Hgb Conc 33.1 g/gl (32-36); Mean Corpuscular Hgb 27.9 pg (27.0-32.0); Mean Corpuscular Volume 84.2 fL (80-94); Mean Platelet Vol. 10.5 fl (6.2-12.0); RBC Distribution Width CV 14.1 % (11.6-14.6); RBC Distribution Width SD 43.5 fl (35.1-43.9); Red Blood Count 3.41 M/mm3 (4.6-6.2); White Blood Count 15.1 K/mm3 (4.4-11.0)
[2018-10-15 06:49] LABS: Differential Indicated MANUAL DIFF; POSITIVE COUNT YES; POSITIVE DIFFERENTIAL YES; POSITIVE MORPHOLOGY YES; Platelet Count 40 K/mm3 (150-450)
[2018-10-15 06:50] LABS: Anion Gap 11 (5-15); BUN 14 mg/dL (7-18); BUN/Creat Ratio 10.5 RATIO (10-20); Calcium,Total 7.6 mg/dL (8.5-10.1); Chloride 106 mmol/L (98-107); Creatinine, Serum 1.33 mg/dL (0.70-1.30); EST Glomerular Filtration Rate 56 mL/min (>60); Est Glom Filt Rate - Afr Amer 67 mL/min (>60); Estimated Creatinine Clearance 42.64 ml/min; Glucose 131 mg/dL (74-106); Phosphorus 3.2 mg/dL (2.5-4.9); Potassium 3.8 mmol/L (3.5-5.1); Sodium Level 140 mmol/L (136-145)
--- NOTE | 2018-10-15 06:51 | NURSING ---
Critical platelet result of 40 called to RADHA Lynn
[2018-10-15 07:05] LABS: Bedside Glucose 145 mg/dL (70-110)
[2018-10-15 07:21] LABS: Lymphocyte 6 % (19-41); Metamyelocyte 12 % (0-1); Monocyte 1 % (0-10); Myelocyte 9 (0-0); Neutrophil-Band 32 % (0-5); Neutrophil-Segmented 40 % (47-70); Total Cells Counted 100 (MANUAL DIFF)
[2018-10-15 07:23] LABS: Absolute Lymphocyte Count 0.91 X10^3/ul (0.83-4.51); Lymphocyte # 0.91 X10^3/ul (4.0); Neutrophil # 14.04 X10^3/uL (2.7-7.7); Platelet Estimate MKD DEC (ADEQ)
[2018-10-15 07:24] LABS: Red Cell Morphology NORM C+C NORMAL (NORM C&C)
--- NOTE | 2018-10-15 09:03 | NURSING ---
Patient left the floor to Interventional radiology
--- NOTE | 2018-10-15 09:15 | CT_ITS ---
STUDY: CT ABDOMEN AND PELVIS WITHOUT CONTRAST REASON FOR EXAM: Male, 78 years old. Hydronephrosis. History of prior right nephrostomy tube placement. RADIATION DOSAGE (If Supplied By Facility): CTDIvol = ( 6.68 ) mGy, DLP = ( 331.96 ) mGycm TECHNIQUE: Transaxial images were obtained from the dome of the diaphragm to the symphysis pubis without oral contrast, and without intravenous contrast. Sagittal and coronal images were reconstructed. Individualized dose optimization techniques were used for this CT. COMPARISON: Comparison is made with prior study dated August 22, 2018. FINDINGS: Mild increased markings at the lung bases suggestive of scarring. Coronary artery calcification. Normal liver. Normal gallbladder and extrahepatic biliary system. Normal spleen. Normal pancreas. Normal bilateral adrenal glands. There now is a minimal right hydronephrosis. Persistent right perinephric stranding. Stable moderate degree of left hydronephrosis. A double-J stent catheter is seen within the ureter. There is evidence of a left periureteric and perinephric stranding. This is unchanged. There is a small hiatal hernia. Normal small intestine. There are multiple colonic diverticula consistent with diverticulosis. Stable right perirectal lymph node. The appendix is visualized and appears normal. There is diffuse atherosclerotic calcification of the abdominal aorta and its major visceral branches, without a demonstrated aneurysm. Normal inferior vena cava. Normal retroperitoneum. The tip of the left double-J stent catheter is within the bladder. There is diffuse bladder wall thickening. An air fluid level is seen within the most likely secondary to the presence of the catheter. Persistent enlarged lobulated prostate with indentation of the bladder base. This is worse on the right side. There is also evidence of soft tissue density at the base of the bladder on the left side although this has improved as compared to prior study. Normal abdominal wall. There are diffuse degenerative changes of the visualized lumbar spine. CT/Abdomen/Pelvis without Cont IMPRESSION: Minimal right hydronephrosis. Stable left hydronephrosis with a left-sided double-J stent catheter. Bilateral perinephric stranding and periureteric stranding. Electronically Signed: Suresh Rosales MD at 10:16 EST Tel [phone], Service support ,
--- NOTE | 2018-10-15 09:57 | PCM.PROGNOTE ---
<Ricky Penny - Last Filed: 10/15/18 09:57> Patient Problems: Active and Suspected Problems (Last Updated 10/13/18 @ 09:32 by Elijah Frederick MD) Neutropenia due to and not concurrent with chemotherapy (Acute) Septic shock (Acute) Subjective: Pt resting comfortably in bed. C/o right flank pain around nephrostomy site. Nephrostomy tube completely fell out after transition to PCU. No fevers or chills. Tolerating del rosario. D/w Kassidy - needs nephrostomy in place as the bladder cancer is blocking the right ureteral system and the patient gets hydronephrosis without it. - Physical Exam General: Alert, Oriented x3, Cooperative HEENT: Atraumatic, PERRLA, EOMI, Normocephalic Neck: Supple, No JVD, Negative Carotid Bruits Lungs: Clear to auscultation, Normal air movement Cardiovascular: Regular rate, No murmurs Abdomen: Bowel Sounds Present, Soft, Non Tender Extremities: No edema, Capillary Refill Less than 3 Seconds Skin: No rashes, No breakdown Musculoskeletal: No Tenderness to Palpation of Joints or Extremities Neurological: Cranial nerves II-XII grossly intact Psych/Mental Status: Normal Affect, Appropriate Vital Signs Temp Pulse Resp BP Pulse Ox 97.5 F L 75 18 157/81 H 98 10/15/18 07:51 10/15/18 07:51 10/15/18 07:51 10/15/18 07:51 10/15/18 07:51 Oxygen Flow Rate (L/min) 2 Oxygen Delivery Method Room Air Weight: 143 lb 4.807 oz Body Mass Index (BMI) 23.4 Finger Stick Blood Glucose 125 Intake and Output for Last 24 Hours 10/13/18 10/14/18 10/15/18 23:59 23:59 23:59 Intake Total 2029 / 2029 1785.8 / 1785.8 2074 / 2075 Output Total 2380 / 2380 895 / 895 800 / 800 Balance -350 / -350 890.8 / 890.8 1275 / 1275 Microbiology Past 72 Hours 10/12/18 23:10 Urine Culture - Final Urine, Nephrostomy Enterococcus faecalis Stenotrophomonas maltophilia 10/12/18 14:45 Blood Culture - Preliminary Blood Culture (Wb) - Anticubital Left No growth in 48 hours. 10/12/18 15:00 Blood Culture - Preliminary Blood Culture (Wb) #2 - Right Hand No growth in 48 hours. 10/12/18 14:45 Blood Culture - Preliminary Blood Culture (Wb) - Anticubital Left No growth in 48 hours. 10/12/18 18:00 Urine Culture - Final Urine Catheter - Del Rosario Mixed Gram Pos & Gram Neg Org 10/12/18 22:30 Respiratory Panel (PCR) - Final Mucosa - Nose Laboratory Tests Past 24 Hrs 10/13/18 10/14/18 10/15/18 09:30 15:30 06:00 WBC 15.1 H RBC 3.41 L Hgb 9.5 L Hct 28.7 L MCV 84.2 MCH 27.9 MCHC 33.1 RDW 14.1 RDW Differential 43.5 Plt Count 40 L* MPV 10.5 Neut % (Auto) Not Reportable Absolute Neuts (auto) 14.0 H Absolute Lymphs (auto) 0.91 Total Counted 100 Neutrophils % (Manual) 40 L Band Neutrophils % 32 H Lymphocytes % (Manual) 6 L Monocytes % (Manual) 1 Metamyelocytes % 12 H Myelocytes % 9 H Diff Path Review May foll Platelet Estimate MKD DEC RBC Morphology NORM C+C Sodium Potassium Chloride Carbon Dioxide Anion Gap BUN Creatinine Estim Creat Clear Calc Est GFR (MDRD) Af Amer Est GFR (MDRD) Non-Af BUN/Creatinine Ratio Glucose Calcium Phosphorus Magnesium Vancomycin Trough 6.9 Crossmatch See Detail 10/15/18 06:00 WBC RBC Hgb Hct MCV MCH MCHC RDW RDW Differential Plt Count MPV Neut % (Auto) Absolute Neuts (auto) Absolute Lymphs (auto) Total Counted Neutrophils % (Manual) Band Neutrophils % Lymphocytes % (Manual) Monocytes % (Manual) Metamyelocytes % Myelocytes % Diff Path Review Platelet Estimate RBC Morphology Sodium 140 Potassium 3.8 Chloride 106 Carbon Dioxide 23.0 Anion Gap 11 BUN 14 Creatinine 1.33 H Estim Creat Clear Calc 42.64 Est GFR (MDRD) Af Amer 67 Est GFR (MDRD) Non-Af 56 L BUN/Creatinine Ratio 10.5 Glucose 131 H Calcium 7.6 L Phosphorus 3.2 Magnesium 2.0 Vancomycin Trough Crossmatch POC Glucose 10/15/18 10/14/18 10/14/18 07:01 22:45 18:05 POC Glucose 145 H 173 H 233 H 10/14/18 12:00 POC Glucose 237 H Medical Necessity - Tobacco Use Smoking Status: Former smoker Assessment/Plan All Active Problems (Last Updated 10/13/18 @ 09:32 by Elijah Frederick MD) Neutropenia due to and not concurrent with chemotherapy (Acute) Septic shock (Acute) 1. Acute septic shock, presumed 2/2 Neutropenic 2/2 UTI - Continue Vanc/Zosyn with plan to transition to amox/levaquin for oral therapy. ID consulted to further direct care and follow up. E faecalis and stenotrophomonas final cultures on chart. Nephrostomy fell out. D/w Kassidy, pt needs nephrostomy as the bladder cancer is obstructing the right side and he gets hydronephrosis without it. Pt will go for replacement tomorrow. 2. YOEL - 2/2 sepsis. Improved. 3. Bladder CA - pt of Kassidy Peterson. Chronic nephrostomy and del rosario. Last chemo Oct 03 - palliative. Continue flomax. 4. Pancytopenia - trend, 2/2 above. 5. Hx CAD - hold antihypertensives. 6. DMt2 - SSI 7. Hx CHF, last echo showed indeterminate EF 45% (2013) DVT ppx: SCDs DC planning: PTOT, very weak, lives alone, on palliative chemo, wants DNRCCA, d/w granddaughter POA. This patient was seen by Ricky Penny PA-C under the supervision of Dr. Mike. <Jonathan Mike - Last Filed: 10/15/18 10:59> - Physical Exam Vital Signs Temp Pulse Resp BP Pulse Ox 97.5 F L 74 18 160/82 H 98 10/15/18 07:51 10/15/18 10:09 10/15/18 07:51 10/15/18 10:09 10/15/18 07:51 Oxygen Flow Rate (L/min) 2 Oxygen Delivery Method Room Air Weight: 65 kg Body Mass Index (BMI) 23.4 Finger Stick Blood Glucose 125 Intake and Output for Last 24 Hours 10/13/18 10/14/18 10/15/18 23:59 23:59 23:59 Intake Total 2029 / 2029 1785.8 / 1785.8 2074 / 2074 Output Total 2380 / 2380 895 / 895 800 / 800 Balance -350 / -350 890.8 / 890.8 1275 / 1275 Microbiology Past 72 Hours 10/12/18 23:10 Urine Culture - Final Urine, Nephrostomy Enterococcus faecalis Stenotrophomonas maltophilia 10/12/18 14:45 Blood Culture - Preliminary Blood Culture (Wb) - Anticubital Left No growth in 48 hours. 10/12/18 15:00 Blood Culture - Preliminary Blood Culture (Wb) #2 - Right Hand No growth in 48 hours. 10/12/18 14:45 Blood Culture - Preliminary Blood Culture (Wb) - Anticubital Left No growth in 48 hours. 10/12/18 18:00 Urine Culture - Final Urine Catheter - Del Rosario Mixed Gram Pos & Gram Neg Org 10/12/18 22:30 Respiratory Panel (PCR) - Final Mucosa - Nose Laboratory Tests Past 24 Hrs 10/13/18 10/14/18 10/15/18 09:30 15:30 06:00 WBC 15.1 H RBC 3.41 L Hgb 9.5 L Hct 28.7 L MCV 84.2 MCH 27.9 MCHC 33.1 RDW 14.1 RDW Differential 43.5 Plt Count 40 L* MPV 10.5 Neut % (Auto) Not Reportable Absolute Neuts (auto) 14.0 H Absolute Lymphs (auto) 0.91 Total Counted 100 Neutrophils % (Manual) 40 L Band Neutrophils % 32 H Lymphocytes % (Manual) 6 L Monocytes % (Manual) 1 Metamyelocytes % 12 H Myelocytes % 9 H Diff Path Review May foll Platelet Estimate MKD DEC RBC Morphology NORM C+C Sodium Potassium Chloride Carbon Dioxide Anion Gap BUN Creatinine Estim Creat Clear Calc Est GFR (MDRD) Af Amer Est GFR (MDRD) Non-Af BUN/Creatinine Ratio Glucose Calcium Phosphorus Magnesium Vancomycin Trough 6.9 Crossmatch See Detail 10/15/18 06:00 WBC RBC Hgb Hct MCV MCH MCHC RDW RDW Differential Plt Count MPV Neut % (Auto) Absolute Neuts (auto) Absolute Lymphs (auto) Total Counted Neutrophils % (Manual) Band Neutrophils % Lymphocytes % (Manual) Monocytes % (Manual) Metamyelocytes % Myelocytes % Diff Path Review Platelet Estimate RBC Morphology Sodium 140 Potassium 3.8 Chloride 106 Carbon Dioxide 23.0 Anion Gap 11 BUN 14 Creatinine 1.33 H Estim Creat Clear Calc 42.64 Est GFR (MDRD) Af Amer 67 Est GFR (MDRD) Non-Af 56 L BUN/Creatinine Ratio 10.5 Glucose 131 H Calcium 7.6 L Phosphorus 3.2 Magnesium 2.0 Vancomycin Trough Crossmatch POC Glucose 10/15/18 10/14/18 10/14/18 07:01 22:45 18:05 POC Glucose 145 H 173 H 233 H 10/14/18 12:00 POC Glucose 237 H Assessment/Plan This patient was seen in conjunction with Ricky Penny PA-C . I have independently interviewed and examined the patient and reviewed pertinent historical, laboratory, and other data. Please refer to Ricky Penny PA-C note for details of this patient's presentation, findings, and recommendations. I have reviewed Ricky Penny PA-C note and concur with documented findings. In brief, patient is a 78-year-old male with history of bladder CA on palliative chemo admitted with septic shock secondary to complicated cystitis. Patient was also found to have acute on chronic kidney injury as well as pancytopenia Physical Examination: GENERAL: cooperative HEENT: Atraumatic; EYES; Anicteric, Normal Conjunctiva NECK; supple, normal thyroid, RESPIRATORY: Diminished to auscultation bilaterally, CARDIOVASCULAR: Regular S1 S2, no audible murmurs GI: soft, non-tender, normoactive bowel sounds, : No Renal angle tenderness; NEURO: Awake; no lateralizing signs. SKIN: No Rash PSYCH; Normal affect Assessment: 1. Septic shock secondary to complicated cystitis with Enterococcus faecalis and Stenotrophomonas maltophilia 2. Chemotherapy-induced pancytopenia 3. Acute kidney injury 4. Hypokalemia 5. Hypophosphatemia 6. Right-sided hydronephrosis secondary to obstructive uropathy as a result of bladder CA scheduled to undergo nephrostomy tube placement on 10/16/2018 7. History of bladder CA 8. History of prostate CA 9. Coronary artery disease 10. Essential hypertension 11. Chronic systolic congestive heart failure 12. Diabetes mellitus type 2 13. Chronic kidney disease stage III Recommendations: 1. I have discussed the results of my overview and impressions with the patient 2. Options for management were reviewed Microbiology 10/12/18 23:10 Urine Culture - Final Urine, Nephrostomy Enterococcus faecalis Stenotrophomonas maltophilia 10/12/18 14:45 Blood Culture - Preliminary Blood Culture (Wb) - Anticubital Left No growth in 48 hours. 10/12/18 15:00 Blood Culture - Preliminary Blood Culture (Wb) #2 - Right Hand No growth in 48 hours. 10/12/18 14:45 Blood Culture - Preliminary Blood Culture (Wb) - Anticubital Left No growth in 48 hours. 10/12/18 18:00 Urine Culture - Final Urine Catheter - Del Rosario Mixed Gram Pos & Gram Neg Org Clinical Impression(s) from Imaging Studies Chest X-Ray 10/12/18 18:00 IMPRESSION: Right central venous catheter ends in the distal superior vena cava with no complication of line placement. No additional acute cardiopulmonary findings or changes. Electronically Signed: Eva Thakur MD at 18:25 EST , Service support , Abdomen/Pelvis CT 10/15/18 09:15 IMPRESSION: Minimal right hydronephrosis. Stable left hydronephrosis with a left-sided double-J stent catheter. Bilateral perinephric stranding and periureteric stranding. Electronically Signed: Suresh Rosales MD at 10:16 EST Tel [phone], Service support , Active Medications Acetaminophen (Tylenol) 650 mg PO Q6H PRN PRN PRN Reason: Mild Pain (1-3)/Temp > 100.7 F Last Admin: 10/12/18 21:13 Dose: 650 mg Hydrocodone Bitart/Acetaminophen ([place] 5mg-325mg) 1 tablet PO Q4H PRN PRN PRN Reason: PAIN Last Admin: 10/14/18 19:40 Dose: 1 tablet Bisacodyl (Dulcolax) 5 mg PO DAILY PRN PRN PRN Reason: Constipation Chlorhexidine Gluconate () 1 each TOPICAL DAILY GIRISH Last Admin: 10/15/18 10:05 Dose: 1 each Dextrose (D50w Syringe) 0 gm IV X1 PRN; Protocol PRN Reason: Hypoglycemia Finasteride (Proscar) 5 mg PO DAILY GIRISH Last Admin: 10/15/18 10:08 Dose: 5 mg Glucagon () 1 mg IM .X1 PRN PRN Reason: Hypoglycemia Guaifenesin (Robitussin) 10 ml PO Q4H PRN PRN PRN Reason: COUGH/CONGESTION Last Admin: 10/13/18 02:48 Dose: 10 ml Vancomycin IV Pharmacy to Dose (1 ea/ Sodium Chloride) 500 mls @ 250 mls/hr IV X1 PRN; Protocol PRN Reason: Rx to Dose Sodium Chloride () 250 mls @ 15 mls/hr IV .[id number] PRN PRN Reason: SALINE FLUSH Piperacillin Sod/Tazobactam Sod (Zosyn) 3.375 gm in 50 mls @ 12.5 mls/hr IV Q8 [facility] Last Admin: 10/15/18 05:02 Dose: 12.5 mls/hr Vancomycin HCl 1,250 mg/ (Sodium Chloride) 275 mls @ 167 mls/hr IV Q24H [facility] Last Admin: 10/14/18 19:40 Dose: 167 mls/hr Insulin Human Lispro (Humalog Kwikpen (Bkc)) 0 unit SQ ACHS [facility]; Protocol Last Admin: 10/15/18 07:05 Dose: Not Given Isosorbide Mononitrate (Imdur) 60 mg PO DAILY [facility] Last Admin: 10/15/18 10:07 Dose: 60 mg Magnesium Hydroxide (Milk Of Magnesia) 30 ml PO DAILY PRN PRN PRN Reason: Constipation Metoprolol Tartrate (Lopressor (Beta Kaylie)) 75 mg PO BID [facility] Last Admin: 10/15/18 10:09 Dose: 75 mg Nitroglycerin (Nitrostat) 0.4 mg SUBLINGUAL Q5M PRN PRN Reason: CHEST PAIN Nutritional Formula (Lactose Free) (Glucerna Shake) 120 ml PO 4X/DAY [facility] Last Admin: 10/15/18 10:07 Dose: Not Given Oxycodone HCl (Oxycontin) 10 mg PO Q12H PRN PRN Reason: SEVERE PAIN (6-10/10) Polyethylene Glycol (Miralax) 17 gm PO DAILY [facility] Last Admin: 10/15/18 10:07 Dose: Not Given Psyllium Hydrophilic Mucilloid (Metamucil) 1 packet PO DAILY PRN PRN PRN Reason: CONSTIPATION Sodium Chloride () 5 - 30 ml IV UD PRN PRN Reason: SALINE FLUSH Last Admin: 10/14/18 18:22 Dose: 10 ml Tamsulosin HCl (Flomax) 0.4 mg PO QHS [facility] Last Admin: 10/14/18 22:40 Dose: 0.4 mg Code Visit Inpatient E&M: 87254 Subs Hosp L3
--- NOTE | 2018-10-15 10:04 | PN_ITS ---
<Ricky Penny - Last Filed: 10/15/18 09:57> Patient Problems: Active and Suspected Problems (Last Updated 10/13/18 @ 09:32 by Elijah Frederick MD) Neutropenia due to and not concurrent with chemotherapy (Acute) Septic shock (Acute) Subjective: Pt resting comfortably in bed. C/o right flank pain around nephrostomy site. Nephrostomy tube completely fell out after transition to PCU. No fevers or chills. Tolerating del rosario. D/w Kassidy - needs nephrostomy in place as the bladder cancer is blocking the right ureteral system and the patient gets hydronephrosis without it. - Physical Exam General: Alert, Oriented x3, Cooperative HEENT: Atraumatic, PERRLA, EOMI, Normocephalic Neck: Supple, No JVD, Negative Carotid Bruits Lungs: Clear to auscultation, Normal air movement Cardiovascular: Regular rate, No murmurs Abdomen: Bowel Sounds Present, Soft, Non Tender Extremities: No edema, Capillary Refill Less than 3 Seconds Skin: No rashes, No breakdown Musculoskeletal: No Tenderness to Palpation of Joints or Extremities Neurological: Cranial nerves II-XII grossly intact Psych/Mental Status: Normal Affect, Appropriate Vital Signs Temp Pulse Resp BP Pulse Ox 97.5 F L 75 18 157/81 H 98 10/15/18 07:51 10/15/18 07:51 10/15/18 07:51 10/15/18 07:51 10/15/18 07:51 Oxygen Flow Rate (L/min) 2 Oxygen Delivery Method Room Air Weight: 143 lb 4.807 oz Body Mass Index (BMI) 23.4 Finger Stick Blood Glucose 125 Intake and Output for Last 24 Hours 10/13/18 10/14/18 10/15/18 23:59 23:59 23:59 Intake Total 2029 / 2029 1785.8 / 1785.8 2074 / 2075 Output Total 2380 / 2380 895 / 895 800 / 800 Balance -350 / -350 890.8 / 890.8 1275 / 1275 Microbiology Past 72 Hours 10/12/18 23:10 Urine Culture - Final Urine, Nephrostomy Enterococcus faecalis Stenotrophomonas maltophilia 10/12/18 14:45 Blood Culture - Preliminary Blood Culture (Wb) - Anticubital Left No growth in 48 hours. 10/12/18 15:00 Blood Culture - Preliminary Blood Culture (Wb) #2 - Right Hand No growth in 48 hours. 10/12/18 14:45 Blood Culture - Preliminary Blood Culture (Wb) - Anticubital Left No growth in 48 hours. 10/12/18 18:00 Urine Culture - Final Urine Catheter - Del Rosario Mixed Gram Pos & Gram Neg Org 10/12/18 22:30 Respiratory Panel (PCR) - Final Mucosa - Nose Laboratory Tests Past 24 Hrs 10/13/18 10/14/18 10/15/18 09:30 15:30 06:00 WBC 15.1 H RBC 3.41 L Hgb 9.5 L Hct 28.7 L MCV 84.2 MCH 27.9 MCHC 33.1 RDW 14.1 RDW Differential 43.5 Plt Count 40 L* MPV 10.5 Neut % (Auto) Not Reportable Absolute Neuts (auto) 14.0 H Absolute Lymphs (auto) 0.91 Total Counted 100 Neutrophils % (Manual) 40 L Band Neutrophils % 32 H Lymphocytes % (Manual) 6 L Monocytes % (Manual) 1 Metamyelocytes % 12 H Myelocytes % 9 H Diff Path Review May foll Platelet Estimate MKD DEC RBC Morphology NORM C+C Sodium Potassium Chloride Carbon Dioxide Anion Gap BUN Creatinine Estim Creat Clear Calc Est GFR (MDRD) Af Amer Est GFR (MDRD) Non-Af BUN/Creatinine Ratio Glucose Calcium Phosphorus Magnesium Vancomycin Trough 6.9 Crossmatch See Detail 10/15/18 06:00 WBC RBC Hgb Hct MCV MCH MCHC RDW RDW Differential Plt Count MPV Neut % (Auto) Absolute Neuts (auto) Absolute Lymphs (auto) Total Counted Neutrophils % (Manual) Band Neutrophils % Lymphocytes % (Manual) Monocytes % (Manual) Metamyelocytes % Myelocytes % Diff Path Review Platelet Estimate RBC Morphology Sodium 140 Potassium 3.8 Chloride 106 Carbon Dioxide 23.0 Anion Gap 11 BUN 14 Creatinine 1.33 H Estim Creat Clear Calc 42.64 Est GFR (MDRD) Af Amer 67 Est GFR (MDRD) Non-Af 56 L BUN/Creatinine Ratio 10.5 Glucose 131 H Calcium 7.6 L Phosphorus 3.2 Magnesium 2.0 Vancomycin Trough Crossmatch POC Glucose 10/15/18 10/14/18 10/14/18 07:01 22:45 18:05 POC Glucose 145 H 173 H 233 H 10/14/18 12:00 POC Glucose 237 H Medical Necessity - Tobacco Use Smoking Status: Former smoker Assessment/Plan All Active Problems (Last Updated 10/13/18 @ 09:32 by Elijah Frederick MD) Neutropenia due to and not concurrent with chemotherapy (Acute) Septic shock (Acute) 1. Acute septic shock, presumed 2/2 Neutropenic 2/2 UTI - Continue Vanc/Zosyn with plan to transition to amox/levaquin for oral therapy. ID consulted to further direct care and follow up. E faecalis and stenotrophomonas final cultures on chart. Nephrostomy fell out. D/w Kassidy, pt needs nephrostomy as the bladder cancer is obstructing the right side and he gets hydronephrosis without it. Pt will go for replacement tomorrow. 2. YOEL - 2/2 sepsis. Improved. 3. Bladder CA - pt of Kassiyd Peterson. Chronic nephrostomy and del rosario. Last chemo Oct 03 - palliative. Continue flomax. 4. Pancytopenia - trend, 2/2 above. 5. Hx CAD - hold antihypertensives. 6. DMt2 - SSI 7. Hx CHF, last echo showed indeterminate EF 45% (2013) DVT ppx: SCDs DC planning: PTOT, very weak, lives alone, on palliative chemo, wants DNRCCA, d/w granddaughter POA. This patient was seen by Ricky Penny PA-C under the supervision of Dr. Mike. <Jonathan Mike - Last Filed: 10/15/18 10:59> - Physical Exam Vital Signs Temp Pulse Resp BP Pulse Ox 97.5 F L 74 18 160/82 H 98 10/15/18 07:51 10/15/18 10:09 10/15/18 07:51 10/15/18 10:09 10/15/18 07:51 Oxygen Flow Rate (L/min) 2 Oxygen Delivery Method Room Air Weight: 65 kg Body Mass Index (BMI) 23.4 Finger Stick Blood Glucose 125 Intake and Output for Last 24 Hours 10/13/18 10/14/18 10/15/18 23:59 23:59 23:59 Intake Total 2029 / 2029 1785.8 / 1785.8 2074 / 2074 Output Total 2380 / 2380 895 / 895 800 / 800 Balance -350 / -350 890.8 / 890.8 1275 / 1275 Microbiology Past 72 Hours 10/12/18 23:10 Urine Culture - Final Urine, Nephrostomy Enterococcus faecalis Stenotrophomonas maltophilia 10/12/18 14:45 Blood Culture - Preliminary Blood Culture (Wb) - Anticubital Left No growth in 48 hours. 10/12/18 15:00 Blood Culture - Preliminary Blood Culture (Wb) #2 - Right Hand No growth in 48 hours. 10/12/18 14:45 Blood Culture - Preliminary Blood Culture (Wb) - Anticubital Left No growth in 48 hours. 10/12/18 18:00 Urine Culture - Final Urine Catheter - Del Rosario Mixed Gram Pos & Gram Neg Org 10/12/18 22:30 Respiratory Panel (PCR) - Final Mucosa - Nose Laboratory Tests Past 24 Hrs 10/13/18 10/14/18 10/15/18 09:30 15:30 06:00 WBC 15.1 H RBC 3.41 L Hgb 9.5 L Hct 28.7 L MCV 84.2 MCH 27.9 MCHC 33.1 RDW 14.1 RDW Differential 43.5 Plt Count 40 L* MPV 10.5 Neut % (Auto) Not Reportable Absolute Neuts (auto) 14.0 H Absolute Lymphs (auto) 0.91 Total Counted 100 Neutrophils % (Manual) 40 L Band Neutrophils % 32 H Lymphocytes % (Manual) 6 L Monocytes % (Manual) 1 Metamyelocytes % 12 H Myelocytes % 9 H Diff Path Review May foll Platelet Estimate MKD DEC RBC Morphology NORM C+C Sodium Potassium Chloride Carbon Dioxide Anion Gap BUN Creatinine Estim Creat Clear Calc Est GFR (MDRD) Af Amer Est GFR (MDRD) Non-Af BUN/Creatinine Ratio Glucose Calcium Phosphorus Magnesium Vancomycin Trough 6.9 Crossmatch See Detail 10/15/18 06:00 WBC RBC Hgb Hct MCV MCH MCHC RDW RDW Differential Plt Count MPV Neut % (Auto) Absolute Neuts (auto) Absolute Lymphs (auto) Total Counted Neutrophils % (Manual) Band Neutrophils % Lymphocytes % (Manual) Monocytes % (Manual) Metamyelocytes % Myelocytes % Diff Path Review Platelet Estimate RBC Morphology Sodium 140 Potassium 3.8 Chloride 106 Carbon Dioxide 23.0 Anion Gap 11 BUN 14 Creatinine 1.33 H Estim Creat Clear Calc 42.64 Est GFR (MDRD) Af Amer 67 Est GFR (MDRD) Non-Af 56 L BUN/Creatinine Ratio 10.5 Glucose 131 H Calcium 7.6 L Phosphorus 3.2 Magnesium 2.0 Vancomycin Trough Crossmatch POC Glucose 10/15/18 10/14/18 10/14/18 07:01 22:45 18:05 POC Glucose 145 H 173 H 233 H 10/14/18 12:00 POC Glucose 237 H Assessment/Plan This patient was seen in conjunction with Ricky Penny PA-C . I have indep endently interviewed and examined the patient and reviewed pertinent historical, laboratory, and other data. Please refer to Ricky Penny PA-C note for details of this patient's presentation, findings, and recommendations. I have reviewed Ricky Penny PA-C note and concur with documented findings. In brief, patient is a 78-year-old male with history of bladder CA on palliative chemo admitted with septic shock secondary to complicated cystitis. Patient was also found to have acute on chronic kidney injury as well as pancytopenia Physical Examination: GENERAL: cooperative HEENT: Atraumatic; EYES; Anicteric, Normal Conjunctiva NECK; supple, normal thyroid, RESPIRATORY: Diminished to auscultation bilaterally, CARDIOVASCULAR: Regular S1 S2, no audible murmurs GI: soft, non-tender, normoactive bowel sounds, : No Renal angle tenderness; NEURO: Awake; no lateralizing signs. SKIN: No Rash PSYCH; Normal affect Assessment: 1. Septic shock secondary to complicated cystitis with Enterococcus faecalis and Stenotrophomonas maltophilia 2. Chemotherapy-induced pancytopenia 3. Acute kidney injury 4. Hypokalemia 5. Hypophosphatemia 6. Right-sided hydronephrosis secondary to obstructive uropathy as a result of bladder CA scheduled to undergo nephrostomy tube placement on 10/16/2018 7. History of bladder CA 8. History of prostate CA 9. Coronary artery disease 10. Essential hypertension 11. Chronic systolic congestive heart failure 12. Diabetes mellitus type 2 13. Chronic kidney disease stage III Recommendations: 1. I have discussed the results of my overview and impressions with the patient 2. Options for management were reviewed Microbiology 10/12/18 23:10 Urine Culture - Final Urine, Nephrostomy Enterococcus faecalis Stenotrophomonas maltophilia 10/12/18 14:45 Blood Culture - Preliminary Blood Culture (Wb) - Anticubital Left No growth in 48 hours. 10/12/18 15:00 Blood Culture - Preliminary Blood Culture (Wb) #2 - Right Hand No growth in 48 hours. 10/12/18 14:45 Blood Culture - Preliminary Blood Culture (Wb) - Anticubital Left No growth in 48 hours. 10/12/18 18:00 Urine Culture - Final Urine Catheter - Del Rosario Mixed Gram Pos & Gram Neg Org Clinical Impression(s) from Imaging Studies Chest X-Ray 10/12/18 18:00 IMPRESSION: Right central venous catheter ends in the distal superior vena cava with no complication of line placement. No additional acute cardiopulmonary findings or changes. Electronically Signed: Eva Thakur MD at 18:25 EST , Service support , Abdomen/Pelvis CT 10/15/18 09:15 IMPRESSION: Minimal right hydronephrosis. Stable left hydronephrosis with a left-sided double-J stent catheter. Bilateral perinephric stranding and periureteric stranding. Electronically Signed: Suresh Rosales MD at 10:16 EST Tel [phone], Service support , Active Medications Acetaminophen (Tylenol) 650 mg PO Q6H PRN PRN PRN Reason: Mild Pain (1-3)/Temp > 100.7 F Last Admin: 10/12/18 21:13 Dose: 650 mg Hydrocodone Bitart/Acetaminophen ([place] 5mg-325mg) 1 tablet PO Q4H PRN PRN PRN Reason: PAIN Last Admin: 10/14/18 19:40 Dose: 1 tablet Bisacodyl (Dulcolax) 5 mg PO DAILY PRN PRN PRN Reason: Constipation Chlorhexidine Gluconate () 1 each TOPICAL DAILY GIRISH Last Admin: 10/15/18 10:05 Dose: 1 each Dextrose (D50w Syringe) 0 gm IV X1 PRN; Protocol PRN Reason: Hypoglycemia Finasteride (Proscar) 5 mg PO DAILY GIRISH Last Admin: 10/15/18 10:08 Dose: 5 mg Glucagon () 1 mg IM .X1 PRN PRN Reason: Hypoglycemia Guaifenesin (Robitussin) 10 ml PO Q4H PRN PRN PRN Reason: COUGH/CONGESTION Last Admin: 10/13/18 02:48 Dose: 10 ml Vancomycin IV Pharmacy to Dose (1 ea/ Sodium Chloride) 500 mls @ 250 mls/hr IV X1 PRN; Protocol PRN Reason: Rx to Dose Sodium Chloride () 250 mls @ 15 mls/hr IV .[id number] PRN PRN Reason: SALINE FLUSH Piperacillin Sod/Tazobactam Sod (Zosyn) 3.375 gm in 50 mls @ 12.5 mls/hr IV Q8 [facility] Last Admin: 10/15/18 05:02 Dose: 12.5 mls/hr Vancomycin HCl 1,250 mg/ (Sodium Chloride) 275 mls @ 167 mls/hr IV Q24H [facility] Last Admin: 10/14/18 19:40 Dose: 167 mls/hr Insulin Human Lispro (Humalog Kwikpen (Bkc)) 0 unit SQ ACHS [facility]; Protocol Last Admin: 10/15/18 07:05 Dose: Not Given Isosorbide Mononitrate (Imdur) 60 mg PO DAILY [facility] Last Admin: 10/15/18 10:07 Dose: 60 mg Magnesium Hydroxide (Milk Of Magnesia) 30 ml PO DAILY PRN PRN PRN Reason: Constipation Metoprolol Tartrate (Lopressor (Beta Kaylie)) 75 mg PO BID [facility] Last Admin: 10/15/18 10:09 Dose: 75 mg Nitroglycerin (Nitrostat) 0.4 mg SUBLINGUAL Q5M PRN PRN Reason: CHEST PAIN Nutritional Formula (Lactose Free) (Glucerna Shake) 120 ml PO 4X/DAY [facility] Last Admin: 10/15/18 10:07 Dose: Not Given Oxycodone HCl (Oxycontin) 10 mg PO Q12H PRN PRN Reason: SEVERE PAIN (6-10/10) Polyethylene Glycol (Miralax) 17 gm PO DAILY [facility] Last Admin: 10/15/18 10:07 Dose: Not Given Psyllium Hydrophilic Mucilloid (Metamucil) 1 packet PO DAILY PRN PRN PRN Reason: CONSTIPATION Sodium Chloride () 5 - 30 ml IV UD PRN PRN Reason: SALINE FLUSH Last Admin: 10/14/18 18:22 Dose: 10 ml Tamsulosin HCl (Flomax) 0.4 mg PO QHS GIRISH Last Admin: 10/14/18 22:40 Dose: 0.4 mg Code Visit Inpatient E&M: 46080 Subs Hosp L3
[2018-10-15] MEDS: CHLORHEXIDINE GLUC 2% CLOTH 1 EACH TOWELETTE TOPICAL (10:05)
[2018-10-15] MEDS: Isosorbide Mononitrate 60 MG Tablet PO (10:07)
[2018-10-15] MEDS: Finasteride 5 MG Tablet PO (10:08)
[2018-10-15] MEDS: Metoprolol Tartrate 50 MG Tablet 75 MG PO ×2 (10:09→22:03)
[2018-10-15] MEDS: Insulin Lispro 100 UNIT/ML INSULN.PEN SQ ×3 (11:03→22:03)
[2018-10-15 11:16] LABS: Bedside Glucose 154 mg/dL (70-110)
[2018-10-15 12:56] LABS: Pathologist Review Reviewed
[2018-10-15 12:57] LABS: Pathologist Review Reviewed
[2018-10-15 12:59] LABS: Pathologist Review Reviewed
[2018-10-15 13:00] LABS: Pathologist Review Reviewed
[2018-10-15] MEDS: levoFLOXacin 500 MG Tablet PO (13:44)
--- NOTE | 2018-10-15 13:53 | CON.PCM_ITS ---
Problem List (1) Septic shock Status: Acute Reason for Consult: pyelonephritis Consulted by: Dr. Mike History of Present Illness: The patient is a 78 year old M with bladder cancer on chemo with del rosario and neph tube in place who presented with several days of progressive malaise, not feeling well. Last chemo was several days prior to symptoms starting. No port in place. No abd pain, no dysuria. On 10/12 developed shaking chills and fever associated with some SOB and weakness. Sent to ED, cxs sent, admitted to icu with neutropenic fever. Ucx showed enterococcus and stenotrophomonas. Neph tube was dislodged. Now feeling much better, out of icu, wbc recovered, no further fever. Urology planning on neph tube replacement tomorrow. Full ROS performed and neg except as noted above. 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) Prostate cancer (Chronic) CAD (coronary artery disease) (Chronic) History of stent insertion of renal artery (Chronic) Left kidney Hyperlipidemia (Chronic) Chronic systolic heart failure (Chronic) NSTEMI (non-ST elevated myocardial infarction) (Chronic) 03/05/14, Non-ST elevation [place] Bladder cancer (Chronic) Hypertension (Chronic) Type 2 diabetes mellitus (Chronic) Allergies/Adverse Reactions: Allergies No Known Allergies Allergy (Verified 10/12/18 14:45) Home Medications: Ambulatory Orders Medication Instructions Recorded Metformin HCl [Glucophage] 1,000 mg PO BIDCM 02/06/15 nitroglycerin 0.4 mg sublingual 0.4 mg SUBLINGUAL Q5M PRN 01/24/18 tablet sitagliptin 100 mg tablet 100 mg PO QDAY 07/03/18 Metoprolol Tartrate [Lopressor 75 mg PO BID 07/26/18 (beta prasanth)] Amlodipine [Norvasc] 10 mg PO DAILY #30 tab 08/26/18 Polyethylene Glycol 3350 [Miralax] 17 gm PO DAILY packet 08/26/18 Dutasteride [Avodart] 0.5 mg PO DAILY 09/04/18 Hydrochlorothiazide [Hctz] 25 mg PO DAILY 09/04/18 isosorbide mononitrate ER 60 mg 60 mg PO DAILY #90 tab 09/07/18 tablet,extended release 24 hr Oxycodone CR [Oxycontin] 10 mg PO Q12H #60 tablet 09/10/18 Hydrocodone Bitart/Apap 5-325 1 - 2 tablet PO Q4H PRN PRN #60 09/17/18 [[place] 5MG-325MG] tablet Ondansetron [Zofran Odt] 4 mg PO Q8H PRN PRN #30 tablet 09/17/18 Alfuzosin HCl [Uroxatral] 10 mg PO QHS 10/12/18 - Social History SMOKING STATUS:: Former smoker Vital Signs Temp Pulse Resp BP Pulse Ox 97.5 F L 67 18 160/82 H 98 10/15/18 07:51 10/15/18 11:06 10/15/18 07:51 10/15/18 10:09 10/15/18 07:51 Oxygen Flow Rate (L/min) 2 Oxygen Delivery Method Room Air Weight: 65 kg Body Mass Index (BMI) 23.4 Finger Stick Blood Glucose 125 Microbiology Past 72 Hours 10/12/18 23:10 Urine Culture - Final Urine, Nephrostomy Enterococcus faecalis Stenotrophomonas maltophilia 10/12/18 14:45 Blood Culture - Preliminary Blood Culture (Wb) - Anticubital Left No growth in 48 hours. 10/12/18 15:00 Blood Culture - Preliminary Blood Culture (Wb) #2 - Right Hand No growth in 48 hours. 10/12/18 14:45 Blood Culture - Preliminary Blood Culture (Wb) - Anticubital Left No growth in 48 hours. 10/12/18 18:00 Urine Culture - Final Urine Catheter - Del Rosario Mixed Gram Pos & Gram Neg Org 10/12/18 22:30 Respiratory Panel (PCR) - Final Mucosa - Nose Laboratory Tests Past 24 Hrs 10/12/18 10/13/18 10/14/18 14:45 04:50 03:50 WBC RBC Hgb Hct MCV MCH MCHC RDW RDW Differential Plt Count MPV Neut % (Auto) Absolute Neuts (auto) Absolute Lymphs (auto) Total Counted Neutrophils % (Manual) Band Neutrophils % Lymphocytes % (Manual) Monocytes % (Manual) Metamyelocytes % Myelocytes % Diff Path Review Reviewed Reviewed Reviewed Platelet Estimate RBC Morphology Sodium Potassium Chloride Carbon Dioxide Anion Gap BUN Creatinine Estim Creat Clear Calc Est GFR (MDRD) Af Amer Est GFR (MDRD) Non-Af BUN/Creatinine Ratio Glucose Calcium Phosphorus Magnesium Vancomycin Trough 10/14/18 10/15/18 10/15/18 15:30 06:00 06:00 WBC 15.1 H RBC 3.41 L Hgb 9.5 L Hct 28.7 L MCV 84.2 MCH 27.9 MCHC 33.1 RDW 14.1 RDW Differential 43.5 Plt Count 40 L* MPV 10.5 Neut % (Auto) Not Reportable Absolute Neuts (auto) 14.0 H Absolute Lymphs (auto) 0.91 Total Counted 100 Neutrophils % (Manual) 40 L Band Neutrophils % 32 H Lymphocytes % (Manual) 6 L Monocytes % (Manual) 1 Metamyelocytes % 12 H Myelocytes % 9 H Diff Path Review Reviewed Platelet Estimate MKD DEC RBC Morphology NORM C+C Sodium 140 Potassium 3.8 Chloride 106 Carbon Dioxide 23.0 Anion Gap 11 BUN 14 Creatinine 1.33 H Estim Creat Clear Calc 42.64 Est GFR (MDRD) Af Amer 67 Est GFR (MDRD) Non-Af 56 L BUN/Creatinine Ratio 10.5 Glucose 131 H Calcium 7.6 L Phosphorus 3.2 Magnesium 2.0 Vancomycin Trough 6.9 - Other Studies Radiology: [] reviewed Other Studies: [] Route of nutrition/ use of supplements: [] Nutritional Intake: [] IV Site: [] Del Rosario Catheter: [] - Physical Exam General: Alert, Oriented x3, Cooperative, No apparent distress HEENT: Atraumatic, PERRLA, EOMI Neck: Supple, No Nodes Lungs: Clear to auscultation, Normal air movement Cardiovascular: Regular rate, Regular Rhythm Abdomen: Soft, Non Tender, Non-Distended Extremities: No edema Skin: No rashes, Ulcer/ Wound - Mild soreness over R flank former neph tube site IV Site: Central Line - R IJ no redness, some blood Musculoskeletal: No Tenderness to Palpation of Joints or Extremities Neurological: Cranial nerves II-XII grossly intact - Assessment/Plan Antibiotics: [] Assessment/Plan: [] Active and Suspected Problems (Last Updated 10/13/18 @ 09:32 by Elijah Frederick MD) Neutropenia due to and not concurrent with chemotherapy (Acute) Septic shock (Acute) Due to enterococcus and steno pyelonephritis with chronic del rosario and R neph tube - much improved. On zosyn/levaquin. Neph tube to be replaced tomorrow. Will narrow abx to iv PCN and po levaquin given pending surgery, then plan on home on po amoxicillin and levaquin. Will follow, thank you. D/w primary team.
--- NOTE | 2018-10-15 15:05 | CHAPLAIN ---
Type of Pastoral Visit _x__ Initial Visit ___ Follow-up Visit ___ On-call Visit ___ General Patient Visit ___ Spiritual Assessment ___ Family Conference ___ Bereavement ___ Rapid Response ___ Code Blue ___ Other (describe below) Pastoral Care Referral From _x__ Patient ___ Family ___ Nurse ___ Physician ___ Product Consultant ___ Media Producer ___ Other (describe below) Sacrament/Intervention _x__ Active listening ___ Anointing ___ Mandaen ___ Bereavement ___ Communion _x__ Vikki exploration ___ _x__ Life review _x__ Prayer ___ Reconciliation ___ Sacrament of Sick _x__ Supportive presence ___ Wedding ___ Other (describe below) Pastoral Comments patient believes that he will have a date with that no one can change and thought it was on weekend but just don't want to have pain; pt is at peace with dying; pt has a nephew visiting with him now; prayer welcomed
[2018-10-15] MEDS: HYDROcodone Bitartrate/Apap 5/325 Tablet PO (18:09)
[2018-10-15] MEDS: 0.9% NaCl Peripheral Flush Adult/Peds IV (18:09)
[2018-10-15 18:16] LABS: Bedside Glucose 279 mg/dL (70-110)
[2018-10-15] MEDS: Tamsulosin HCl 0.4 MG Capsule PO (22:02)
[2018-10-15 22:25] LABS: Bedside Glucose 302 mg/dL (70-110)
[2018-10-16] VITALS (7 sets, daily range): BP systolic 143–152; BP diastolic 71–77; PULSE 74–86; RESP 13–18; TEMP 36.3–36.6; O2SAT 96–97
[2018-10-16] MEDS: 0.9% NaCl Peripheral Flush Adult/Peds IV (05:16)
[2018-10-16 05:33] LABS: Hematocrit 28.9 % (40-54); Hemoglobin 9.4 g/dl (13.0-16.5); Mean Corp Hgb Conc 32.5 g/gl (32-36); Mean Corpuscular Hgb 27.8 pg (27.0-32.0); Mean Corpuscular Volume 85.5 fL (80-94); Platelet Count 60 K/mm3 (150-450); RBC Distribution Width CV 13.9 % (11.6-14.6); RBC Distribution Width SD 41.7 fl (35.1-43.9); Red Blood Count 3.38 M/mm3 (4.6-6.2); White Blood Count 15.6 K/mm3 (4.4-11.0)
[2018-10-16 05:34] LABS: POSITIVE COUNT NO; POSITIVE DIFFERENTIAL YES
[2018-10-16 05:35] LABS: Differential Indicated MANUAL DIFF; POSITIVE MORPHOLOGY YES
[2018-10-16 05:37] LABS: Anion Gap 11 (5-15); BUN 12 mg/dL (7-18); BUN/Creat Ratio 9.3 RATIO (10-20); Calcium,Total 7.8 mg/dL (8.5-10.1); Chloride 106 mmol/L (98-107); Creatinine, Serum 1.29 mg/dL (0.70-1.30); EST Glomerular Filtration Rate 58 mL/min (>60); Est Glom Filt Rate - Afr Amer 70 mL/min (>60); Estimated Creatinine Clearance 43.96 ml/min; Glucose 219 mg/dL (74-106); Potassium 3.7 mmol/L (3.5-5.1); Sodium Level 141 mmol/L (136-145)
[2018-10-16] MEDS: levoFLOXacin 250 MG Tablet PO (05:55)
[2018-10-16 05:56] LABS: Anisocytosis 1+; Blast 1 % (0-0); Eosinophil 1 % (0-5); Hypochromasia 1+; Lymphocyte 19 % (19-41); Metamyelocyte 5 % (0-1); Monocyte 7 % (0-10); Myelocyte 4 (0-0); Neutrophil-Band 8 % (0-5); Neutrophil-Segmented 54 % (47-70); Platelet Estimate MOD DEC (ADEQ); Polychromasia 1+; Promyelocyte 1 (0-0); Total Cells Counted 100 (MANUAL DIFF)
[2018-10-16 05:57] LABS: Platelet Morphology LARGE
[2018-10-16 05:58] LABS: Absolute Lymphocyte Count 2.96 X10^3/ul (0.83-4.51); Absolute Neutrophil Count 9.7 X10^3/uL (2.0-7.7)
--- NOTE | 2018-10-16 09:00 | CASEMGMT ---
This RADHA SHAW received message from Collette at [facility] and she states that they received a referral for pt for [facility] for RN, PT from Alysia GARCIA CM from over the weekend. Pt does have [facility] order in at this time. Collette requests to be notified when pt to be discharged. Julio GARCIA CM
[2018-10-16] MEDS: Metoprolol Tartrate 50 MG Tablet 75 MG PO (09:14)
[2018-10-16] MEDS: Isosorbide Mononitrate 60 MG Tablet PO (09:14)
[2018-10-16] MEDS: Finasteride 5 MG Tablet PO (09:14)
[2018-10-16] MEDS: Insulin Lispro 100 UNIT/ML INSULN.PEN SQ (09:15)
--- NOTE | 2018-10-16 09:22 | PCM.DC ---
- Discharge Diagnoses Current Active Problems: Current Active and Chronic Problems (Last Updated 10/13/18 @ 09:32 by Elijah Frederick MD) Neutropenia due to and not concurrent with chemotherapy (Acute) Septic shock (Acute) CAD (coronary artery disease) (Chronic) You will use the following diet at home:: Calorie/Carbohydrate Controlled (specify 1200, 1400, etc) - 1800 Your food should be the consistency of: Regular Discharge Activity: May not drive while taking narcotic pain medications. Allergies/Adverse Reactions: Allergies No Known Allergies Allergy (Verified 10/12/18 14:45) Medications to take at Discharge Metformin HCl [Glucophage] 1,000 mg PO BIDCM 02/06/15 nitroglycerin 0.4 mg sublingual tablet 0.4 mg SUBLINGUAL Q5M PRN 01/24/18 sitagliptin 100 mg tablet 100 mg PO QDAY 07/03/18 Metoprolol Tartrate [Lopressor (beta prasanth)] 75 mg PO BID 07/26/18 Amlodipine [Norvasc] 10 mg PO DAILY #30 tab 08/26/18 Polyethylene Glycol 3350 [Miralax] 17 gm PO DAILY packet 08/26/18 Dutasteride [Avodart] 0.5 mg PO DAILY 09/04/18 isosorbide mononitrate ER 60 mg tablet,extended release 24 hr 60 mg PO DAILY #90 tab 09/07/18 Oxycodone CR [Oxycontin] 10 mg PO Q12H #60 tablet 09/10/18 Hydrocodone Bitart/Apap 5-325 [[place] 5/325] 1 - 2 tablet PO Q4H PRN PRN #60 tablet 09/17/18 Ondansetron [Zofran Odt] 4 mg PO Q8H PRN PRN #30 tablet 09/17/18 Alfuzosin HCl [Uroxatral] 10 mg PO QHS 10/12/18 Amoxicillin 500 mg PO BIDCM #14 tablet 10/16/18 levoFLOXacin tablet [Levaquin tablet] 250 mg PO DAILY@0600 #7 tablet 10/16/18 The following prescriptions were given: Amoxicillin 500 mg PO BIDCM #14 tablet levoFLOXacin tablet [Levaquin tablet] 250 mg PO DAILY@0600 #7 tablet Primary Care Physician: Jonathan Lombardi MD [Primary Care Provider] - Please follow up with your Primary Care Physician in: in 5-7 days Test Results: Test results from this visit will be discussed in further detail at your follow-up appointment, if applicable. Please Follow Up With: Beltran Yi MD When: in 1-2 weeks Please Follow Up With: Joe Yo MD When: as previously scheduled
--- NOTE | 2018-10-16 09:25 | CASEMGMT ---
Collette at [facility] notified that pt to be discharged today, voices understanding. Julio GARCIA CM
--- NOTE | 2018-10-16 09:27 | DS.PCM_ITS ---
Discharge Date and Diagnosis - Problem List Patient Problems: Active and Suspected Problems (Last Updated 10/13/18 @ 09:32 by Elijah Frederick MD) Neutropenia due to and not concurrent with chemotherapy (Acute) Septic shock (Acute) Date of Admission: 10/12/18 Date of Discharge: 10/16/18 - Primary Discharge Diagnosis Active and Suspected Problems (Last Updated 10/13/18 @ 09:32 by Elijah Frederick MD) Neutropenia due to and not concurrent with chemotherapy (Acute) Septic shock (Acute) - Secondary Discharge Diagnosis Chronic Problems (Last Updated 10/13/18 @ 09:32 by Elijah Frederick MD) Stage III chronic kidney disease (Chronic) 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) Prostate cancer (Chronic) CAD (coronary artery disease) (Chronic) History of stent insertion of renal artery (Chronic) Left kidney Hyperlipidemia (Chronic) Chronic systolic heart failure (Chronic) NSTEMI (non-ST elevated myocardial infarction) (Chronic) 03/05/14, Non-ST elevation PA Bladder cancer (Chronic) Hypertension (Chronic) Type 2 diabetes mellitus (Chronic) Hospital Course and Treatment Imaging Results: Clinical Impression(s) from Imaging Studies Chest X-Ray 10/12/18 18:00 IMPRESSION: Right central venous catheter ends in the distal superior vena cava with no complication of line placement. No additional acute cardiopulmonary findings or changes. Electronically Signed: Eva Thakur MD at 18:25 EST , Service support , Abdomen/Pelvis CT 10/15/18 09:15 IMPRESSION: Minimal right hydronephrosis. Stable left hydronephrosis with a left-sided double-J stent catheter. Bilateral perinephric stranding and periureteric stranding. Electronically Signed: Suresh Rosales MD at 10:16 EST Tel [phone], Service support , Microbiology 10/12/18 23:10 Urine, Nephrostomy Urine Culture - Final Enterococcus faecalis Stenotrophomonas maltophilia 10/12/18 14:45 Blood Culture (Wb) - Anticubital Left Blood Culture - Preliminary No growth in 48 hours. 10/12/18 15:00 Blood Culture (Wb) #2 - Right Hand Blood Culture - Preliminary No growth in 48 hours. 10/12/18 14:45 Blood Culture (Wb) - Anticubital Left Blood Culture - Preliminary No growth in 48 hours. 10/12/18 18:00 Urine Catheter - French Urine Culture - Final Mixed Gram Pos & Gram Neg Org 10/12/18 22:30 Mucosa - Nose Respiratory Panel (PCR) - Final Summary of Care Provided: In brief, patient is a 78-year-old male with history of bladder CA on palliative chemo admitted with septic shock secondary to complicated cystitis. Patient was also found to have acute on chronic kidney injury as well as pancytopenia Assessment: 1. Septic shock secondary to complicated cystitis with Enterococcus faecalis and Stenotrophomonas maltophilia patient was treated per protocol consultation placed to ID discharged home on Levaquin as well as amoxicillin for 7 additional days 2. Chemotherapy-induced pancytopenia 3. Acute kidney injury; due to dehydration as well as patient being on diuretics HCTZ which was discontinued on discharge 4. Hypokalemia; corrected per protocol 5. Hypophosphatemia; corrected per protocol 6. Right-sided hydronephrosis secondary to obstructive uropathy as a result of bladder CA: An order was placed for patient to undergo nephrostomy tube placement on 10/16/2018 however patient did not have enough fluid in his hydronephrosis this was discussed with both the radiologist as well as patient's urologist decision was therefore made not to place a tube 7. History of bladder CA\ 8. History of prostate CA 9. Coronary artery disease 10. Essential hypertension 11. Chronic systolic congestive heart failure 12. Diabetes mellitus type 2 13. Chronic kidney disease stage III Patient Problems: Active and Suspected Problems (Last Updated 10/13/18 @ 09:32 by Elijah Frederick MD) Neutropenia due to and not concurrent with chemotherapy (Acute) Septic shock (Acute) - Physical Exam General: Alert HEENT: Atraumatic Oral: Moist Mucosa Neck: Supple Lungs: Diminished Neurological: Neuro grossly intact Vital Signs Temp Pulse Resp BP Pulse Ox 97.4 F L 86 18 146/77 H 97 10/16/18 09:10 10/16/18 09:14 10/16/18 09:10 10/16/18 09:10 10/16/18 09:10 Oxygen Flow Rate (L/min) 2 Oxygen Delivery Method Room Air Weight: 65.6 kg Body Mass Index (BMI) 23.4 Finger Stick Blood Glucose 125 Intake and Output for Last 24 Hours 10/14/18 10/15/18 10/16/18 23:59 23:59 23:59 Intake Total 1785.8 / 1785.8 3641 / 3641 126 / 126 Output Total 895 / 895 2250 / 2250 775 / 775 Balance 890.8 / 890.8 1391 / 1391 -649 / -649 Microbiology Past 72 Hours 10/12/18 23:10 Urine Culture - Final Urine, Nephrostomy Enterococcus faecalis Stenotrophomonas maltophilia 10/12/18 14:45 Blood Culture - Preliminary Blood Culture (Wb) - Anticubital Left No growth in 48 hours. 10/12/18 15:00 Blood Culture - Preliminary Blood Culture (Wb) #2 - Right Hand No growth in 48 hours. 10/12/18 14:45 Blood Culture - Preliminary Blood Culture (Wb) - Anticubital Left No growth in 48 hours. 10/12/18 18:00 Urine Culture - Final Urine Catheter - French Mixed Gram Pos & Gram Neg Org 10/12/18 22:30 Respiratory Panel (PCR) - Final Mucosa - Nose Laboratory Tests Past 24 Hrs 10/12/18 10/13/18 10/14/18 14:45 04:50 03:50 WBC RBC Hgb Hct MCV MCH MCHC RDW RDW Differential Plt Count MPV Neut % (Auto) Absolute Neuts (auto) Absolute Lymphs (auto) Total Counted Neutrophils % (Manual) Band Neutrophils % Lymphocytes % (Manual) Monocytes % (Manual) Eosinophils % (Manual) Metamyelocytes % Myelocytes % Promyelocytes % Blast Cells % Diff Path Review Reviewed Reviewed Reviewed Platelet Estimate Plt Morphology Comment Polychromasia Hypochromasia Anisocytosis Sodium Potassium Chloride Carbon Dioxide Anion Gap BUN Creatinine Estim Creat Clear Calc Est GFR (MDRD) Af Amer Est GFR (MDRD) Non-Af BUN/Creatinine Ratio Glucose Calcium 10/15/18 10/16/18 10/16/18 06:00 05:15 05:15 WBC 15.6 H RBC 3.38 L Hgb 9.4 L Hct 28.9 L MCV 85.5 MCH 27.8 MCHC 32.5 RDW 13.9 RDW Differential 41.7 Plt Count 60 L MPV 10.0 Neut % (Auto) Not Reportable Absolute Neuts (auto) 9.7 H Absolute Lymphs (auto) 2.96 Total Counted 100 Neutrophils % (Manual) 54 Band Neutrophils % 8 H Lymphocytes % (Manual) 19 Monocytes % (Manual) 7 Eosinophils % (Manual) 1 Metamyelocytes % 5 H Myelocytes % 4 H Promyelocytes % 1 H Blast Cells % 1 H* Diff Path Review Reviewed May foll Platelet Estimate MOD DEC Plt Morphology Comment LARGE Polychromasia 1+ Hypochromasia 1+ Anisocytosis 1+ Sodium 141 Potassium 3.7 Chloride 106 Carbon Dioxide 24.0 Anion Gap 11 BUN 12 Creatinine 1.29 Estim Creat Clear Calc 43.96 Est GFR (MDRD) Af Amer 70 Est GFR (MDRD) Non-Af 58 L BUN/Creatinine Ratio 9.3 L Glucose 219 H Calcium 7.8 L POC Glucose 10/15/18 10/15/18 10/15/18 22:00 16:03 11:00 POC Glucose 302 H 279 H 154 H Discharge Diet: 1800 Calorie Control Diet Discharge Activity: May not drive while taking narcotic pain medications. Home Medications: Medications to take at Discharge Metformin HCl [Glucophage] 1,000 mg PO BIDCM 02/06/15 nitroglycerin 0.4 mg sublingual tablet 0.4 mg SUBLINGUAL Q5M PRN 01/24/18 sitagliptin 100 mg tablet 100 mg PO QDAY 07/03/18 Metoprolol Tartrate [Lopressor (beta prasanth)] 75 mg PO BID 07/26/18 Amlodipine [Norvasc] 10 mg PO DAILY #30 tab 08/26/18 Polyethylene Glycol 3350 [Miralax] 17 gm PO DAILY packet 08/26/18 Dutasteride [Avodart] 0.5 mg PO DAILY 09/04/18 isosorbide mononitrate ER 60 mg tablet,extended release 24 hr 60 mg PO DAILY #90 tab 09/07/18 Oxycodone CR [Oxycontin] 10 mg PO Q12H #60 tablet 09/10/18 Hydrocodone Bitart/Apap 5-325 [[place] 5/325] 1 - 2 tablet PO Q4H PRN PRN #60 tablet 09/17/18 Ondansetron [Zofran Odt] 4 mg PO Q8H PRN PRN #30 tablet 09/17/18 Alfuzosin HCl [Uroxatral] 10 mg PO QHS 10/12/18 Amoxicillin 500 mg PO BIDCM #14 tablet 10/16/18 levoFLOXacin tablet [Levaquin tablet] 250 mg PO DAILY@0600 #7 tablet 10/16/18 Following Prescrptions Were Given to Patient: Amoxicillin 500 mg PO BIDCM #14 tablet levoFLOXacin tablet [Levaquin tablet] 250 mg PO DAILY@0600 #7 tablet Primary Care Physician: Jonathan Lombardi MD [Primary Care Provider] - Please follow up with your Primary Care Physician in: in 5-7 days Please Follow Up With: Beltran Yi MD When: in 1-2 weeks Please Follow Up With: Joe Yo MD When: as previously scheduled Minutes spent on discharge:: 35 Patient Condition:: Stable Medical Necessity - Tobacco Use Smoking Status: Former smoker Meaningful Use Info Meaningful Use Diagnoses (Choose all that apply): None applicable Code Visit Inpatient E&M: 05511 Disch Hosp
--- NOTE | 2018-10-16 10:07 | PCM.PN.ID ---
Patient Problems: Active and Suspected Problems (Last Updated 10/13/18 @ 09:32 by Elijah Frederick MD) Neutropenia due to and not concurrent with chemotherapy (Acute) Septic shock (Acute) Subjective: Feeling ok, neph tube unable to be placed, no fever, no n/v/d. - Physical Exam General: Alert, Cooperative, No apparent distress Lungs: Clear to auscultation, Normal air movement Cardiovascular: Regular rate, Regular Rhythm Abdomen: Soft, Non Tender, Non-Distended Skin: No rashes Vital Signs Temp Pulse Resp BP Pulse Ox 97.4 F L 86 18 146/77 H 97 10/16/18 09:10 10/16/18 09:14 10/16/18 09:10 10/16/18 09:10 10/16/18 09:10 Oxygen Flow Rate (L/min) 2 Oxygen Delivery Method Room Air Weight: 65.6 kg Body Mass Index (BMI) 23.4 Finger Stick Blood Glucose 125 Intake and Output for Last 24 Hours 10/14/18 10/15/18 10/16/18 23:59 23:59 23:59 Intake Total 1785.8 / 1785.8 3641 / 3641 126 / 126 Output Total 895 / 895 2250 / 2250 775 / 775 Balance 890.8 / 890.8 1391 / 1391 -649 / -649 Microbiology Past 72 Hours 10/12/18 23:10 Urine Culture - Final Urine, Nephrostomy Enterococcus faecalis Stenotrophomonas maltophilia 10/12/18 14:45 Blood Culture - Preliminary Blood Culture (Wb) - Anticubital Left No growth in 48 hours. 10/12/18 15:00 Blood Culture - Preliminary Blood Culture (Wb) #2 - Right Hand No growth in 48 hours. 10/12/18 14:45 Blood Culture - Preliminary Blood Culture (Wb) - Anticubital Left No growth in 48 hours. 10/12/18 18:00 Urine Culture - Final Urine Catheter - Del Rosario Mixed Gram Pos & Gram Neg Org 10/12/18 22:30 Respiratory Panel (PCR) - Final Mucosa - Nose Laboratory Tests Past 24 Hrs 10/12/18 10/13/18 10/14/18 14:45 04:50 03:50 WBC RBC Hgb Hct MCV MCH MCHC RDW RDW Differential Plt Count MPV Neut % (Auto) Absolute Neuts (auto) Absolute Lymphs (auto) Total Counted Neutrophils % (Manual) Band Neutrophils % Lymphocytes % (Manual) Monocytes % (Manual) Eosinophils % (Manual) Metamyelocytes % Myelocytes % Promyelocytes % Blast Cells % Diff Path Review Reviewed Reviewed Reviewed Platelet Estimate Plt Morphology Comment Polychromasia Hypochromasia Anisocytosis Sodium Potassium Chloride Carbon Dioxide Anion Gap BUN Creatinine Estim Creat Clear Calc Est GFR (MDRD) Af Amer Est GFR (MDRD) Non-Af BUN/Creatinine Ratio Glucose Calcium 10/15/18 10/16/18 10/16/18 06:00 05:15 05:15 WBC 15.6 H RBC 3.38 L Hgb 9.4 L Hct 28.9 L MCV 85.5 MCH 27.8 MCHC 32.5 RDW 13.9 RDW Differential 41.7 Plt Count 60 L MPV 10.0 Neut % (Auto) Not Reportable Absolute Neuts (auto) 9.7 H Absolute Lymphs (auto) 2.96 Total Counted 100 Neutrophils % (Manual) 54 Band Neutrophils % 8 H Lymphocytes % (Manual) 19 Monocytes % (Manual) 7 Eosinophils % (Manual) 1 Metamyelocytes % 5 H Myelocytes % 4 H Promyelocytes % 1 H Blast Cells % 1 H* Diff Path Review Reviewed May foll Platelet Estimate MOD DEC Plt Morphology Comment LARGE Polychromasia 1+ Hypochromasia 1+ Anisocytosis 1+ Sodium 141 Potassium 3.7 Chloride 106 Carbon Dioxide 24.0 Anion Gap 11 BUN 12 Creatinine 1.29 Estim Creat Clear Calc 43.96 Est GFR (MDRD) Af Amer 70 Est GFR (MDRD) Non-Af 58 L BUN/Creatinine Ratio 9.3 L Glucose 219 H Calcium 7.8 L POC Glucose 10/15/18 10/15/18 10/15/18 22:00 16:03 11:00 POC Glucose 302 H 279 H 154 H Medical Necessity - Tobacco Use Smoking Status: Former smoker Route of nutrition/ use of supplements: [] Nutritional Intake: [] IV Site: [] Del Rosario Catheter: [] - Assessment/Plan Antibiotics: [] Assessment/Plan: [] Active and Suspected Problems (Last Updated 10/13/18 @ 09:32 by Elijah Frederick MD) Neutropenia due to and not concurrent with chemotherapy (Acute) Septic shock (Acute) Due to enterococcus and steno pyelonephritis with chronic del rosario and R neph tube - much improved. Ok for home on po amoxicillin and levaquin for one more week. Will follow. D/w primary team.
[2018-10-16 10:21] LABS: Pathologist Review Reviewed
[2018-10-16] MEDS: HYDROcodone Bitartrate/Apap 5/325 Tablet PO (11:05)
[2018-10-16 11:31] LABS: Bedside Glucose 339 mg/dL (70-110)
[2018-10-16 16:40] LABS: Bedside Glucose 218 mg/dL (70-110)
--- NOTE | 2018-10-17 13:28 | CASEMGMT ---
RADHA SHAW Discharge F/U Phone Call Laccaitlin: 14 Strata: 4 Discharge date: 10/16/18 Call date: 10/17/18 Call time: [id number] Duration: 3 minutes Admission dx: Septic shock, fever Attempted to reach pt without success at this time, message left for pt to call this RADHA SHAW back when able. Call to pt's granddaughter and she states that pt was 'doing good' after discharge yesterday but she has not seen him yet today as she is working. Granddaughter states that she will call him on her way home today and states no further questions/concerns/needs at this time. [place] RADHA SHAW
== END 2018-10-16 12:20 | disposition home health service (06) | DRG 871 ==
LOC: ED 16:05 → ICU 19:12 → PCU 10-14 11:30
PROVIDERS: Hospitalist; Internal Medicine Critical Care Medicine; Physician Assistant; Admitting Provider Internal Medicine; Emergency Provider Emergency Medicine; Referring Provider Internal Medicine Medical Oncology; Visit Provider Internal Medicine
DX: A41.81 Sepsis due to Enterococcus (principal); D61.810 Antineoplastic chemotherapy induced pancytopenia; R65.21 Severe sepsis with septic shock; N17.9 Acute kidney failure, unspecified; I13.0 Hypertensive heart and chronic kidney disease with heart failure and stage 1 through stage 4 chronic kidney disease, or unspecified chronic kidney disease; I50.22 Chronic systolic (congestive) heart failure; N13.30 Unspecified hydronephrosis; E46 Unspecified protein-calorie malnutrition; E87.1 Hypo-osmolality and hyponatremia; I25.10 Atherosclerotic heart disease of native coronary artery without angina pectoris; A41.9 Sepsis, unspecified organism; N18.3 Chronic kidney disease, stage 3 (moderate); C67.9 Malignant neoplasm of bladder, unspecified; C61 Malignant neoplasm of prostate; T45.1X5A Adverse effect of antineoplastic and immunosuppressive drugs, initial encounter; D70.1 Agranulocytosis secondary to cancer chemotherapy; N30.90 Cystitis, unspecified without hematuria; E87.6 Hypokalemia; E83.39 Other disorders of phosphorus metabolism; E11.22 Type 2 diabetes mellitus with diabetic chronic kidney disease; E78.5 Hyperlipidemia, unspecified; E86.0 Dehydration; T83.022A Displacement of nephrostomy catheter, initial encounter; I25.2 Old myocardial infarction; Z92.3 Personal history of irradiation; Z79.84 Long term (current) use of oral hypoglycemic drugs; Z87.891 Personal history of nicotine dependence; Z79.899 Other long term (current) drug therapy; Z68.23 Body mass index [BMI] 23.0-23.9, adult
CPT/HCPCS: 71045; 74176; 80048; 80053; 80202; 81001; 82962; 83605; 83735; 84100; 84484; 85025; 85027; 85610; 85730; 86850; 86900; 86920; 87040; 87077; 87086; 87088; 87186; 87633; 87641; 93005; 97110; 97116; 97162; 97166; 97530; 97802; 99285; J7030; J7040; J7050; P9016; A4216; C1751; J1447

== ENCOUNTER → 2018-11-26 06:19 | Outpatient (CLI) | payer MEDICARE, OTHER, SELFPAY ==
[2018-09-13 08:52] VITALS: BMI 24.7
[2018-11-07 12:33] VITALS: BMI 24.3
--- NOTE | 2018-11-26 06:22 | CT_ITS ---
STUDY: CT ABDOMEN AND PELVIS WITH CONTRAST REASON FOR EXAM: Male, 78 years old. The patient has a history of prostate carcinoma and bladder carcinoma. Patient is currently on chemotherapy. RADIATION DOSAGE (If Supplied By Facility): CTDIvol = ( 14.67 ) mGy, DLP = ( 975.08 ) mGycm TECHNIQUE: Transaxial images were obtained from the dome of the diaphragm to the symphysis pubis with oral contrast. 100 ml of Isovue 300 contrast was administered. Sagittal and coronal images were reconstructed. Individualized dose optimization techniques were used for this CT. COMPARISON: Comparison is made with prior study dated October 15, 2018. FINDINGS: The visualized lung bases are unremarkable. Coronary artery calcification. Normal liver. Normal gallbladder and extrahepatic biliary system. Normal spleen. Normal pancreas. Normal bilateral adrenal glands. Stable mild right perinephric stranding. Stable moderate degree of left hydronephrosis. A left-sided double-J stent catheter is seen. There is evidence of left perinephric and periureteric stranding. The stomach is filled with residual food particles. Normal small intestine. There are multiple colonic diverticula consistent with diverticulosis. The appendix is visualized and appears normal. There is diffuse atherosclerotic calcification of the abdominal aorta, without a demonstrated aneurysm. Normal inferior vena cava. Normal retroperitoneum. There is diffuse irregular bladder wall thickening. Metallic densities are seen within the prostate bed. Normal abdominal wall. There are diffuse degenerative changes of the visualized lumbar spine. CT/Abdomen/Pelvis WITH Contrast IMPRESSION: Stable left hydronephrosis. Stable left double-J stent catheter. Bilateral perinephric stranding worse on the left side. Diffuse lobular bladder wall thickening. Electronically Signed: Suresh Rosales MD at 13:10 EST Tel [phone], Service support ,
== END ==
PROVIDERS: Referring Provider Internal Medicine Medical Oncology; Visit Provider Internal Medicine Medical Oncology
DX: C61 Malignant neoplasm of prostate (principal)
CPT/HCPCS: 74177; Q9967

== ENCOUNTER 2018-12-07 05:45 | Day surgery (SDC) | payer MEDICARE, OTHER, SELFPAY ==
[2018-09-13 08:52] VITALS: BMI 24.7
[2018-11-05 08:34] VITALS: BMI 24.3
[2018-12-03 08:32] VITALS: BMI 24.3
[2018-12-07 06:15] VITALS: BP 133/69; PULSE 79; RESP 16; TEMP 36.5; O2SAT 99; BMI 24.6
[2018-12-07 06:16] LABS: Bedside Glucose 74 mg/dL (70-110)
--- NOTE | 2018-12-07 07:25 | DCINST_ITS ---
Discharge Diet: Light diet - advance as tolerated Discharge Activity: Return to Normal Activity Suture Line Care: Avoid Pulling/Pushing, Avoid Pinching/Bending Allergies/Adverse Reactions: Allergies No Known Allergies Allergy (Verified 12/03/18 08:31) Medications to take at Discharge Metformin HCl [Glucophage] 1,000 mg PO BIDCM 02/06/15 nitroglycerin 0.4 mg sublingual tablet 0.4 mg SUBLINGUAL Q5M PRN 01/24/18 sitagliptin 100 mg tablet 100 mg PO QDAY 07/03/18 Metoprolol Tartrate [Lopressor (beta prasanth)] 75 mg PO BID 07/26/18 Amlodipine [Norvasc] 10 mg PO DAILY #30 tab 08/26/18 Polyethylene Glycol 3350 [Miralax] 17 gm PO DAILY packet 08/26/18 Dutasteride [Avodart] 0.5 mg PO DAILY 09/04/18 isosorbide mononitrate ER 60 mg tablet,extended release 24 hr 60 mg PO DAILY #90 tab 09/07/18 Oxycodone CR [Oxycontin] 10 mg PO Q12H #60 tablet 09/10/18 Ondansetron [Zofran Odt] 4 mg PO Q8H PRN PRN #30 tablet 09/17/18 Alfuzosin HCl [Uroxatral] 10 mg PO QHS 10/12/18 Levofloxacin [Levaquin] 500 mg PO DAILY #10 tablet 10/31/18 Hydrocodone Bitart/Apap 5-325 [[place] 5/325] 1 - 2 tablet PO Q4H PRN PRN #60 tablet 11/14/18 Aspirin E.C. [Ecotrin] 81 mg PO DAILY@0800 11/30/18 Glimepiride [Amaryl] 2 mg PO DAILY 11/30/18 Primary Care Physician: Jonathan Lombardi MD [Primary Care Provider] - Test Results: Test results from this visit will be discussed in further detail at your follow- up appointment, if applicable. Please Follow Up With: Beltran Yi MD When: in 2 weeks, please call to make an appointment.
[2018-12-07] MEDS: Cefazolin 2 GM in 0.9% Normal Saline 100 ML IV (07:30)
--- NOTE | 2018-12-07 08:01 | PCM.OPRPT ---
Report of Operation Date of Procedure: 12/07/18 Pre-Operative Diagnosis: Bladder cancer with left ureteral obstruction chronic stent Post-Operative Diagnosis: Same Surgery/Procedure Performed:: Cystoscopy, left retrograde pyelogram, left stent change Description of Surgical Findings:: 78-year-old male taken back to the operating room after smooth induction of anesthesia he was placed supine on the table in the dorsolithotomy position, the existing Del Rosario catheter was removed to the penis and testicles are prepped and draped in usual sterile fashion had some foul looking urine coming from the catheter. Then went into the bladder with a 21 Sudanese rigid rigid cystourethroscope and identify the existing stent coming from the left side from chronic obstruction from his bladder cancer grabbed the stent was quite difficult to find and quite difficult to grab but then I was able to pull out the meatus and then cut off the tip and then advance a wire through the stent and then to the wire coiled and would go up the ureter so then over the stent advanced the Pollack catheter for a retrograde pyelogram could see the kink in the ureter in the mid ureter we then did a retrograde pyelogram injected saline this fortunately straightened out the ureter and then tried another wire and the wire went up to the kidney then I backloaded over the wire with the scope and advanced the stent into good position pulled the wire the stent coiled I then repositioned the stent using a grasper and the stent coiled properly in the kidney and bladder in good position bladder was emptied with a place a new 18 Sudanese catheter into the bladder and the patient should follow-up in a few weeks you may consider taking out the catheter for another voiding trial is channel was fairly wide open. Type of Anesthesia:: General Drains: del rosario and stent - Admit VTE Documentation VTE Present on Admission: No VTE Mechan Device Prophylaxis: SCD's
[2018-12-07 08:13] VITALS: BP 131/71; BP 133/69; PULSE 87; RESP 16; TEMP 36.4; O2SAT 100
[2018-12-07 08:15] VITALS: BP 130/76; BP 133/69; PULSE 80; RESP 16; O2SAT 100
[2018-12-07 08:21] LABS: Bedside Glucose 210 mg/dL (70-110)
[2018-12-07 08:30] VITALS: BP 128/67; BP 133/69; PULSE 78; RESP 16; O2SAT 100
[2018-12-07 08:49] VITALS: BP 128/73; BP 133/69; PULSE 77; RESP 16; TEMP 36.3; O2SAT 97
== END 2018-12-07 09:26 | disposition home or self-care (01) ==
LOC: SDC 05:45 → AC 05:46
PROVIDERS: Referring Provider Urology; Visit Provider Urology
PROC: (CPT 52005; principal; 2018-12-07 07:20)
DX: N13.5 Crossing vessel and stricture of ureter without hydronephrosis (principal); C67.9 Malignant neoplasm of bladder, unspecified; E78.00 Pure hypercholesterolemia, unspecified; E11.9 Type 2 diabetes mellitus without complications; I11.0 Hypertensive heart disease with heart failure; I50.9 Heart failure, unspecified; I25.2 Old myocardial infarction; Z87.891 Personal history of nicotine dependence; Z79.84 Long term (current) use of oral hypoglycemic drugs; Z79.82 Long term (current) use of aspirin; Z79.891 Long term (current) use of opiate analgesic; Z79.899 Other long term (current) drug therapy
CPT/HCPCS: 52005; 52332; 76000; 82962; J7120; C1769; C2617; J2405

== ENCOUNTER 2018-12-10 13:21 | Emergency (ER) | payer MEDICARE, OTHER, SELFPAY ==
[2018-09-13 08:52] VITALS: BMI 24.7
[2018-12-10 08:40] VITALS: BMI 24.7
[2018-12-10 13:22] VITALS: BP 147/75; PULSE 100; RESP 16; TEMP 36.3; O2SAT 99; BMI 24.7
--- NOTE | 2018-12-10 14:05 | CT_ITS ---
STUDY: CT ABDOMEN AND PELVIS WITHOUT CONTRAST REASON FOR EXAM: Male, 78 years old. Flank pain, history of bladder and prostate cancer RADIATION DOSAGE (If Supplied By Facility): CTDIvol = ( 7.26 ) mGy, DLP = ( 368.27 ) mGycm TECHNIQUE: Transaxial images were obtained from the dome of the diaphragm to the symphysis pubis without oral contrast, and without intravenous contrast. Sagittal and coronal images were reconstructed. Individualized dose optimization techniques were used for this CT. COMPARISON: 11/26/2018 FINDINGS: There are chronic interstitial fibrotic changes of the lung bases. The visualized portions of the heart are within normal limits. Normal liver. Normal gallbladder and extrahepatic biliary system. Normal spleen. Normal pancreas. Normal bilateral adrenal glands. Stable right hydronephrosis and hydroureter without obstructing stone or mass lesion. There is left-sided hydronephrosis and hydroureter as well despite the presence of a JJ stent. There is perinephric and periureteral inflammatory stranding on the left side likely due to the presence of the stent. No ureteral stones noted. Normal visualized stomach. Normal small intestine. Normal colon. There is non-visualization of the appendix. There is diffuse atherosclerotic calcification of the abdominal aorta, without a demonstrated aneurysm. Normal inferior vena cava. Normal retroperitoneum. Bladder is collapsed around a French catheter. There is however evidence of bladder wall thickening worse on the right side than the left. There are radiotherapy beads noted within the prostate. Normal abdominal wall. There are diffuse degenerative changes of the visualized lumbar spine, and pelvis. CT/Abdomen/Pelvis without Cont IMPRESSION: Left-sided JJ stent noted in satisfactory position. There is left-sided hydronephrosis and hydroureter despite the presence of the stent with periureteral inflammatory stranding likely due to the presence of the stent. Right-sided hydronephrosis and hydroureter No obstructing stones noted in either kidney or ureter Diffuse bladder wall thickening worse on the right than the left Diffuse atherosclerosis Degenerative bony changes Electronically Signed: Waqar Shah MD at 15:26 EST , Service support ,
[2018-12-10 15:16] LABS: Bacteria 0 SEEN /hpf (None Seen); Mucous, Urine 0 SEEN /hpf (<or=2+); Squamous Epithelial Cells - UA 0 SEEN /hpf (0-5)
[2018-12-10 15:18] LABS: Color, Urine Straw (Yellow); Glucose, Dipstick 250 mg/dl (Normal); Ketone-Dipstick Negative (Negative); Leukocyte Esterase-Dipstick 500 /ul (Negative); Nitrite-Dipstick Negative (Negative); Occult Blood-Urine 25 /ul (Negative); Protein-Dipstick 30 mg/dl (Negative); Specific Gravity, Urine 1.005 (1.002-1.030); Urine Bilirubin Dipstick Negative (Negative); Urine Clarity Cloudy (Clear); Urine Urobilinogen Normal (Normal)
[2018-12-10 15:25] LABS: Red Blood Cells-Urine 0-5 SEEN /hpf (0-5); White Blood Cells 25-50 SEEN /hpf (0-5)
[2018-12-10 15:37] VITALS: BP 151/73; PULSE 102; RESP 17; RESP 19; TEMP 36.6; O2SAT 99
--- NOTE | 2018-12-10 15:56 | ED.DCSUM_ITS ---
- ER Visit Summary Date of Service: 12/10/18 Chief Complaint: Abnormal labs History of Present Illness: The patient is a 78 M who was sent to the emergency room by his oncologist. Patient has a history of bladder cancer and had a left ureteral stent placed/changed on Monday. Over the weekend he states that he felt decent. He states he has a French catheter in place and is been draining appropriately. He went to see his oncologist today for chemotherapy when they mary jo labs noticed his creatinine was significantly changed. Today it is 3.04. 1 week ago it was 1.4. Physical Examination: Afebrile vital signs are stable Gen: Well-nourished well-developed Head: Normocephalic atraumatic Eyes: Perrl EOMI ENT: TMs clear no rhinorrhea moist mucous membranes Neck: Supple no lymphadenopathy no JVD nontender CVS: Regular rate rhythm no murmurs normal S1-S2 Respiratory: No distress clear to auscultation bilaterally chest nontender Abdomen: Soft nontender nondistended normal bowel sounds no masses Back: Nontender Extremity: Nontender no edema Skin: Normal color no rash Neuro: alert orientated ?3 CN II-XII intact normal strength sensation reflexes gait cerebellar Psych: Normal affect normal mood Test Results: Urinalysis demonstrated 25-50 white blood cells. No bacteria no epithelial cells 0-5 red cells nitrate negative. CT of the abdomen pelvis noncontrasted demonstrates bilateral hydronephrosis and hydroureter. Emergency Department Course and Treatment: I called Dr. Yi. Impression: 1. Acute kidney injury 2. Bilateral hydronephrosis 3. Bladder cancer This note was generated with [employer] dictation software. It may contain incorrect words, spelling, and punctuation that were not noted in review of the chart prior to signing <Kam Moss - Last Filed: 12/10/18 15:57> - ER Visit Summary Date of Service: 12/10/18 Emergency Department Course and Treatment: Care of the patient was turned over to me awaiting a callback from Dr. Yi. Case was discussed with Dr. Yi. He felt that since the patient is still making urine, the patient does not need to be admitted and can have a repeat basic metabolic profile done in 3 days. If the creatinine is still elevated at that time he stated that the patient may need a nephrostomy tube. Otherwise, the patient could be admitted and have interventional radiology place a nephrostomy tube tomorrow. Discussed the options with the patient and family. He does not want to be admitted to the hospital and have a nephrostomy tube placed. Patient wants to go home and come back in 3 days for repeat lab work. Patient was given a note to have his lab work drawn in 3 days as an outpatient. Patient was instructed to return if worse in any way. Patient and family understood and were agreeable with the plan. All questions were answered. Disposition: Discharge home Impression: 1. Acute kidney injury 2. Bilateral hydronephrosis 3. Bladder cancer This note was generated with [employer] software. It may contain incorrect words, spelling, and punctuation that were not noted in review of the chart prior to signing <Soren Gomez - Last Filed: 12/10/18 17:47> ED Disposition <Kam Moss - Last Filed: 12/10/18 15:57> <Soren Gomez - Last Filed: 12/10/18 17:47> - Plan for ED Patient: Disposition: Home or Assisted Living Chief Complaint: Abn Labs Diagnosis: Acute kidney injury, Bladder cancer Instructions: Discharge Instructions for Acute Kidney Injury Referrals: Jonathan Lombardi MD [Primary Care Provider] -
[2018-12-10 17:00] VITALS: BP 156/79; PULSE 98; RESP 16; O2SAT 98
[2018-12-10 17:48] VITALS: BP 151/75; PULSE 101; RESP 16; O2SAT 99
== END 2018-12-10 18:07 | disposition home or self-care (01) ==
PROVIDERS: Emergency Medicine; Emergency Provider Emergency Medicine
DX: N17.9 Acute kidney failure, unspecified (principal); N13.30 Unspecified hydronephrosis; C67.9 Malignant neoplasm of bladder, unspecified; Z87.891 Personal history of nicotine dependence
CPT/HCPCS: 36415; 74176; 80048; 80053; 81001; 85025; 96360; 96361; 99282; J7030; A4216

== ENCOUNTER 2019-01-09 14:36 | Inpatient (IN) | payer MEDICARE, OTHER, SELFPAY ==
[2018-09-13 08:52] VITALS: BMI 24.7
[2018-12-31 11:22] VITALS: BMI 24.0
--- NOTE | 2019-01-08 17:13 | PCM.HP.BLA ---
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 ALLERGIES: None MEDICATIONS: Hydrochlorothiazide 25 mg tablet Acarbose Amlodipine Besylate 10 mg tablet Aspirin Ec 81 mg tablet, delayed release Atorvastatin Calcium 40 mg tablet Isosorbide Dinitrate 30 mg tablet Januvia 25 mg tablet Metoprolol Tartrate Phenazopyridine Hcl 200 mg tablet Tramadol Hcl 50 mg tablet 1 tablet PO Q 6 H PSH: Cysto Fulgurate < .05 cm - 2014 Cysto Remove Stent FB Sim - 2015 Cystoscopy - 08/23/2018, 2013 Cystoscopy Insert Stent - 12/07/2018, 05/25/2018, 09/01/2017, 03/31/2017, 08/05/2016, 2015, 2014, 2014, 2014, 2013, 2013 Cystoscopy Retrogrades - 12/07/2018, 01/26/2018 Cystoscopy TURBT >5 cm - 2013 Cystoscopy TURBT 2-5 cm - 2013 Laparo New Ureter/bladder - 11/09/2016 Prostate Saturation Sampling - 08/23/2018 Transrectal Biopsy US - 08/23/2018 PSH Notes: Has not had a colonoscopy NON- PSH: Patient not documented to have received pneumococcal vaccination PMH: Other retention of urine - 09/04/2018 Nodular prostate without lower urinary tract symptoms - 08/14/2018 Benign prostatic hyperplasia with lower urinary tract symptoms - 03/12/2018 Frequency of micturition - 03/12/2018 Nocturia - 03/12/2018 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, Left - 08/22/2016, Left, - 07/25/2016 Malignant neoplasm of lateral wall of bladder - 08/22/2016, - 07/25/2016, - 2015 Other hydronephrosis, Left - 07/25/2016, Left, - 2015, Left, - 2015, Left, - 2015, Left, - 2014 Erectile dysfunction due to arterial insufficiency - 2016 Hydronephrosis w ureteral stricture, NEC, Left - 2015, - 2015, - 2015, - 2014, - 2014 Malignant neoplasm of bladder, unspecified - 2015, - 2015, - 2014, - 2015, - 2014, - 2014, - 2014, - 2014, - 2014, - 2014, - 2013, - 2013 Unspecified hydronephrosis, Left - 2015, Left, - 2015, Left, - 2015, Left, - 2014, Left, - 2013 (Improving), - 2013 (Improving), - 2013, - 2013, - 2013 NON- PMH: Essential (primary) hypertension - 2013 Heart disease, unspecified - 2013 Type 2 diabetes mellitus with unspecified complications - 2013 Hyperlipidemia, unspecified Immunizations: None FAMILY HISTORY: Family History Unknown SOCIAL HISTORY: Marital Status: Preferred Language: Togolese; Ethnicity: Not Or ; Race: White Current Smoking Status: Patient does not smoke anymore. Tobacco Use Assessment Completed: Used Smokeless in last 30 days? Smoking cessation counseling was provided. Does not use smokeless tobacco. Does not drink anymore. Does not use drugs. Drinks 4+ caffeinated drinks per day. Has had a blood transfusion. 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 REVIEW OF SYSTEMS: Constitutional: Patient denies fever, chills, weight loss, and weight gain. Genitourinary: Patient reports frequent urination. Patient denies urinary retention, get up at night to void, leakage of urine, painful urination, blood in the urine, frequent uti's, history of stones, difficulty starting stream, weak stream/scanty, and bedwetting. Notes: Reviewed previous review of systems 10/29/2018. No changes. VITAL SIGNS: 01/08/2019 10:48 AM Weight 145 lb / 65.77 kg Height 65 in / 165.1 cm BP 132/70 mmHg BMI 24.1 kg/m? - BMI Counseling was provided. MULTI-SYSTEM PHYSICAL EXAMINATION: Constitutional: Well-nourished. No physical deformities. Normally developed. Good grooming. Neck: Neck symmetrical, not swollen. Normal tracheal position. Respiratory: No labored breathing, no use of accessory muscles. Cardiovascular: Normal temperature, normal extremity pulses, no swelling, no varicosities. Lymphatic: No enlargement of neck, axillae, groin. Skin: No paleness, no jaundice, no cyanosis. No lesion, no ulcer, no rash. Neurologic / Psychiatric: Oriented to time, oriented to place, oriented to person. No depression, no anxiety, no agitation. Gastrointestinal: No mass, no tenderness, no rigidity, non obese abdomen. Eyes: Normal conjunctivae. Normal eyelids. Ears, Nose, Mouth, and Throat: Left ear no scars, no lesions, no masses. Right ear no scars, no lesions, no masses. Nose no scars, no lesions, no masses. Normal hearing. Normal lips. Musculoskeletal: Normal gait and station of head and neck. PAST DATA REVIEWED: Source Of History: Patient Records Review: Previous Patient Records Urine Test Review: Urinalysis PROCEDURES: Renal Ultrasound - 79598 Notes: Reason for Exam: follow up on hydro Technique: Ultrasound evaluation of kidney(s) perfomred with real-time and static taylor scale imaging. Comparison: none Findings: Right Kidney: Normal location of the right kidney, which is normal is size. There is normal cortex of the right kidney. length:. Renal Cortex is normal thickness. No right renal mass or cysts. No right renal calculi. Moderate hydronephrosis. Distal right ureter: There is non-visualization of the distal right ureter. There is no demonstrated right ureterovesical junction calculus. There is no visualized ureterel jet. Left Kidney: Normal location of the left kidney, which is normal is size. There is normal cortex of the left kidney. length: cm. Renal Cortex is normal thickness. No left renal mass or cysts. No left renal calculi. Mild hydronephrosis. stent in place. Distal Left ureter: There is non-visualization of the distal left ureter. There is no demonstrated left ureterovesical junction calculus. There is no visualized ureterel jet. Images saved and documented ASSESSMENT: ICD-10 Details 1 : Malignant neoplasm of lateral wall of bladder - C67.2 2 Other hydronephrosis - N13.39 Right PLAN: Document Letter(s): Created for Patient: Clinical Summary Notes: 78-year-old male history of bladder cancer on ultrasound has new worsening hydronephrosis in the right kidney the left kidney has minimal swelling stent in place. Plan to proceed with cystoscopy and right stent placement tomorrow in the operating room hopefully will able to get a stent in on the right side the other option discussed with the patient would be a nephrostomy tube which you prefer not to have.
[2019-01-09] VITALS (11 sets, daily range): BP systolic 133–163; BP diastolic 62–88; PULSE 67–88; RESP 16–18; TEMP 36.2–37.2; O2SAT 96–100; BMI 24.7; BMI 24.0
--- NOTE | 2019-01-09 | IMM_PTH ---
PATIENT: SHONNA MCCORD LOC: MS2 U#:[id number] AGE/SX: 78/M ROOM: MS219 RE01/09/[address]: Dr. Beltran Yi MD : 1940 BED: 1 DIS: 01/12/2019 SPEC #: [id number] RECD: 01/11/19 12:39 STATUS: NEREYDA REQ #: [id number] VIPUL: 01/09/19 00:[address]: Beltran Yi DEPT: IMMUNOHISTOCHEMISTRY RECD BY: Rylie Manning ENTERED: 01/11/19 12:41 SP TYPE: IMMUNO OTHR DR: Dr. Jonathan Lombardi MD Tissues: Urinary bladder, NOS Procedures: Synapto (add) CD56 (add) CHROMO (add) CK20 (add) CK5-6 (add) CK8 (add) KI-67 (add) P40 (add) CD44 (add) PSAP (add) CK7 (initial) PHYSICIAN [address] [address] SPECIMEN INFORMATION: Tissue Source: Bladder and prostate tissue Clinical Info: Right hydronephrosis, prostate obstruction, bladder tumor Specimen Number: [id number] #4 CPT code: 79499, 68555 x10 METHODOLOGY: Deparaffinized sections of prefer/formalin-fixed tissue or PAP/DQ stained slides are incubated with monoclonal/polyclonal antibodies/oligonucleotide probes. Localization is made via biotin free immunoperoxidase method. Appropriate controls are performed and reacted as expected. Results on target cell population are indicated in the following table: RESULTS: ANTIBODY / CLONE RESULT Block 4 CK7 (OV-TL12/30) negative CK8 (84jgyhA46) positive CK20 (KS20.8) negative CK5-6 (D5 & 1684) negative anti-CD44 (SP37) negative PSAP (PASE/4LJ) negative CD56 (123C3.D5) positive P40 (BC28) negative Synapto (polyclonal) positive Chromo (LK2H10) positive, weak Ki-67 (30-9) positive, high These tests were developed and their performance characteristics determined by [facility]. They may not have been cleared or approved by the U.S. Food and Drug Administration. The FDA has determined that such clearance or approval is not necessary. INTERPRETATION: Bladder and prostate tissue, TUR: Poorly differentiated neuroendocrine carcinoma, small cell carcinoma. SJ:corin 01/14/19 Case has been reviewed in consultation with Dr. Can who concurs with the above diagnosis. IDC:AM
--- NOTE | 2019-01-09 | BLB_PTH ---
PATIENT: SHONNA MCCORD LOC: MS2 U#:[id number] AGE/SX: 78/M ROOM: [facility] [place] RE01/09/[address]: Dr. Beltran Yi MD : 1940 BED: 1 DIS: 01/12/2019 SPEC #: [id number] RECD: 01/09/19 15:25 STATUS: NEREYDA RELucia #: [id number] VIPUL: 01/09/19 00:[address]: Beltran Yi DEPT: SURGICAL PATHOLOGY RECD BY: Ruddy Harrison ENTERED: 01/10/19 07:51 SP TYPE: TURB OTHR DR: Dr. 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 See cancer summary below. BLADDER CANCER (TUR) SUMMARY: Procedure - TURBT and transurethral prostatic resection Histologic type - poorly differentiated carcinoma with neuroendocrine differentiation, small cell carcinoma. Associated epithelial lesions - none identified Histologic grade - high grade Adequacy of material for determining muscularis propria invasion - muscularis propria (detrusor muscle) is present and involved by tumor. Lymph-Vascular invasion - not identified Microscopic extent of tumor - tumor invades muscularis propria (detrusor muscle). Additional pathologic findings - none The above summary is in compliance with College of [place] [employer] (CAP) Cancer Protocols Checklist and [place] Joint Committee on Cancer (AJCC), Staging Manual, 8th Ed. SJ:corin 01/11/19 COMMENT The tumor involves more than 95% of the submitted specimen. The specimen predominantly shows smooth muscle tissue and fibroadipose tissue involved by the tumor. No obvious prostatic glandular tissue is identified. Immunohistochemistry ([id number]) supports the above diagnosis. Please make reference to previous specimen ([id number]) bladder tumor, TUR with diagnosis of necrotic carcinoma, favor squamous cell carcinoma. Please also make reference to previous specimen ([id number]) prostate and base of bladder, core biopsy with diagnosis of poorly differentiated carcinoma with neuroendocrine features, small cell carcinoma. Case has been reviewed in consultation with Dr. Can who concurs with the above diagnosis. IDC:AM MICROSCOPIC DESCRIPTION Slides are reviewed. GROSS DESCRIPTION Received in fixative is one container labeled with the patient's name and designated bladder tissue and prostate tissue. The specimen consists of multiple irregular fragments of chandler soft tissue mixed with fragments of blood clot that in aggregate measure 7 x 3 x 0.6 cm. The entire specimen is submitted in five cassettes. / SJ:corin 01/10/19 TC:0 CPT: 84067
[2019-01-09 12:30] LABS: Bedside Glucose 92 mg/dL (70-110)
[2019-01-09] MEDS: Cefazolin 2 GM in 0.9% Normal Saline 100 ML IV (12:31)
[2019-01-09] MEDS: Lubricating Jelly 60 GM Tube 30 GM TOPICAL (12:35)
--- NOTE | 2019-01-09 13:49 | PCM.OPRPT ---
Report of Operation Date of Procedure: 01/09/19 Pre-Operative Diagnosis: Bladder mass bladder cancer prostate obstruction right hydronephrosis Post-Operative Diagnosis: The same Surgery/Procedure Performed:: Transurethral resection of bladder tumor large, trans-resection of the prostate, attempted right stent placement Description of Surgical Findings:: 78-year-old male with a history of bladder cancer with obstruction the stent in the left side is been working well he is developed new hydronephrosis and he has been getting chemotherapy with the chemo is been on hold because of his elevated creatinine so today were to taken the surgery to try to place a stent on the right side. 78-year-old male taken back to the operating room the smooth induction of anesthesia he was placed supine on the table we placed in the dorsolithotomy position Penis and testicles are prepped and draped in usual sterile fashion went into the bladder with a 21 Portuguese rigid cystourethroscope identified the existing stent on the left side went to the right side a lot of tumors growth was in the trigone area first try just to look around to see if he can find the orifice but it was impossible I then switched over to the resectoscope and resected a large tumor occupying the right trigone of the bladder still could not find the tumor I then resected along the prostate resecting the prostate tissue opened up a nice channel in the mid leg prostate removed some clips in the process of doing this, I then resected a nice open channel in the middle of the prostate and then resected the bladder completely and extensive amount of time was was then taken to look for the ureteral orifice on the left side and on the right side I could not find the ureteral orifice in the right side even resecting down to the base of the bladder I could see some peristalsis motion of the wall but I could not find a wire to go in the area we tried multiple times and at the end after resecting the bladder and the prostate still cannot get stent in the right side so he will be admitted for CBI irrigation and will have a place a nephrostomy tube in the right kidney tomorrow. Type of Anesthesia:: General - Admit VTE Documentation VTE Present on Admission: No VTE Mechan Device Prophylaxis: SCD's
[2019-01-09 14:36] LABS: Hematocrit 27.3 % (40-54); Hemoglobin 8.8 g/dl (13.0-16.5); Mean Corp Hgb Conc 32.2 g/gl (32-36); Mean Corpuscular Hgb 29.6 pg (27.0-32.0); Mean Corpuscular Volume 91.9 fL (80-94); Mean Platelet Vol. 8.6 fl (6.2-12.0); Platelet Count 163 K/mm3 (150-450); RBC Distribution Width CV 14.2 % (11.6-14.6); RBC Distribution Width SD 47.7 fl (35.1-43.9); Red Blood Count 2.97 M/mm3 (4.6-6.2); White Blood Count 11.8 K/mm3 (4.4-11.0)
[2019-01-09 14:37] LABS: Scan Indicated on CBC? Y/N NO
[2019-01-09 14:45] LABS: Anion Gap 8 (5-15); BUN 39 mg/dL (7-18); BUN/Creat Ratio 15.2 RATIO (10-20); Calcium,Total 8.5 mg/dL (8.5-10.1); Chloride 111 mmol/L (98-107); Creatinine, Serum 2.57 mg/dL (0.70-1.30); EST Glomerular Filtration Rate 26 mL/min (>60); Est Glom Filt Rate - Afr Amer 31 mL/min (>60); Estimated Creatinine Clearance 21.27 ml/min; Glucose 83 mg/dL (74-106); Potassium 4.7 mmol/L (3.5-5.1); Sodium Level 141 mmol/L (136-145)
[2019-01-09 15:00] LABS: Bedside Glucose 74 mg/dL (70-110)
[2019-01-09] MEDS: 0.9% Normal Saline 1,000 ML 125 ML IV ×2 (15:05→20:38)
[2019-01-09] MEDS: oxyCODONE 5 MG Tablet PO ×2 (15:41→20:46)
[2019-01-09] MEDS: Ondansetron ODT 4 MG Tablet PO (15:42)
[2019-01-09 17:30] LABS: Bedside Glucose 83 mg/dL (70-110)
[2019-01-09] MEDS: Cefazolin 1 GM/50 ML BAG IV (20:39)
[2019-01-09] MEDS: Docusate Sodium 100 MG Capsule PO (20:39)
[2019-01-09] MEDS: Metoprolol Tartrate 50 MG Tablet 75 MG PO (20:41)
[2019-01-10] MEDS: oxyCODONE 5 MG Tablet PO ×3 (01:54→17:16)
[2019-01-10 01:55] VITALS: BP 140/71; PULSE 82; RESP 16; TEMP 37; O2SAT 97
[2019-01-10] MEDS: 0.9% Normal Saline 1,000 ML 125 ML IV ×3 (04:19→20:57)
[2019-01-10] MEDS: Cefazolin 1 GM/50 ML BAG IV (04:19)
[2019-01-10 05:43] LABS: Hematocrit 26.8 % (40-54); Hemoglobin 8.5 g/dl (13.0-16.5); Mean Corp Hgb Conc 31.7 g/gl (32-36); Mean Corpuscular Hgb 29.9 pg (27.0-32.0); Mean Corpuscular Volume 94.4 fL (80-94); Mean Platelet Vol. 9.1 fl (6.2-12.0); Platelet Count 157 K/mm3 (150-450); RBC Distribution Width CV 13.9 % (11.6-14.6); RBC Distribution Width SD 46.3 fl (35.1-43.9); Red Blood Count 2.84 M/mm3 (4.6-6.2); White Blood Count 15.9 K/mm3 (4.4-11.0)
--- NOTE | 2019-01-10 06:00 | NURSING ---
cbi clamped per order
[2019-01-10 06:02] LABS: Anion Gap 8 (5-15); BUN 40 mg/dL (7-18); BUN/Creat Ratio 13.2 RATIO (10-20); Calcium,Total 8.2 mg/dL (8.5-10.1); Chloride 112 mmol/L (98-107); Creatinine, Serum 3.02 mg/dL (0.70-1.30); EST Glomerular Filtration Rate 22 mL/min (>60); Est Glom Filt Rate - Afr Amer 26 mL/min (>60); Estimated Creatinine Clearance 18.78 ml/min; Glucose 108 mg/dL (74-106); Potassium 4.7 mmol/L (3.5-5.1); Scan Indicated on CBC? Y/N NO; Sodium Level 140 mmol/L (136-145)
--- NOTE | 2019-01-10 07:30 | PCM.PN.BLA ---
Progress Note Urine is clear continue CBI he has right nephrostomy tube ordered for today he has right hydronephrosis that is worsened and his creatinine still high. So we will have him go down to radiology today for a CT-guided right nephrostomy tube placement. Hopefully tomorrow we can discharge patient home will remove the catheter tomorrow for voiding trial.
[2019-01-10 08:11] LABS: International Normalized Ratio 1.3
[2019-01-10 09:09] VITALS: BP 134/68; PULSE 78; RESP 18; TEMP 37.6; O2SAT 96
[2019-01-10 09:10] VITALS: O2SAT 97
[2019-01-10 09:13] VITALS: PULSE 86
[2019-01-10] MEDS: Isosorbide Mononitrate 60 MG Tablet PO (09:13)
[2019-01-10] MEDS: amLODIPine 10 MG Tablet PO (09:13)
[2019-01-10] MEDS: Metoprolol Tartrate 50 MG Tablet 75 MG PO ×2 (09:13→20:56)
--- NOTE | 2019-01-10 10:55 | CASEMGMT ---
Copy of Health Care POA on pt chart under summary section. HCPOA is granddaughter Jacinta Sparr. SW met with pt and inquired about living will. Pt does not have a living will and is not interested in information regarding living will. Pt confirmed HCPOA is accurate. LILY [place]
[2019-01-10] MEDS: Docusate Sodium 100 MG Capsule PO ×2 (12:48→20:57)
[2019-01-10] MEDS: Glimepiride 2 MG Tablet PO (12:49)
[2019-01-10] MEDS: Pantoprazole Sodium 40 MG Tablet PO (12:50)
[2019-01-10] MEDS: LINAGLIPTIN 5 MG TABLET PO (12:50)
--- NOTE | 2019-01-10 13:44 | CASEMGMT ---
RN CM Assessment Presentation: Admitted for Septic Shock, Neutropenia on Chemo, Acute Renal Failure. S/p Transurethral resection of bladder tumor Large, Trans-resection of prostate, attempted Rt stent Placement. Plan: CBI, Nephrostomy tube for Tomorrow, Right Hydronephrosis worsened. Intro role of CM and purpose of RN CM assessment, patient alert and oriented and able to participate in discussion. PCP: Jonathan Lombardi Preferred Pharmacy: [facility]- Changing to [facility] Preference in [facility] Insurance: Medicare A & B, Other Commercial Prescription Benefit: Yes LNOK: Granddarossy Workman Sparr Living Arrangements: Lives alone, Independent with Ambulation and ADL's. States drives around [place] but further distance such as doctor's appointments in [place]- granddaughter Jacinta or her or her mother will drive him. Transportation: Patient drives, family on [place] and for further distances. DME: [employer] HHC: States HH in past but does not remember name and states it was a waste. Denies any SNF in past. DC PLAN: Patient would like to be discharged home but states if needs help can stay with his granddarossy Workman who can assist, states Jacinta works at this hospital in the ER and when at work other family can assist. RADHA RodriguezCM
[2019-01-10 17:06] VITALS: BP 124/68; PULSE 81; RESP 18; TEMP 36.7; O2SAT 100
[2019-01-10 20:56] VITALS: BP 130/62; PULSE 79; RESP 18; TEMP 36.9; O2SAT 99
[2019-01-11] VITALS (14 sets, daily range): BP systolic 98–158; BP diastolic 29–80; PULSE 74–89; RESP 12–18; TEMP 36.3–36.8; O2SAT 92–100
[2019-01-11] MEDS: 0.9% Normal Saline 1,000 ML 125 ML IV ×2 (04:38→11:31)
[2019-01-11] MEDS: Metoprolol Tartrate 50 MG Tablet 75 MG PO ×2 (08:37→21:38)
[2019-01-11] MEDS: Acetaminophen 325 MG Tablet PO ×2 (08:37→21:37)
[2019-01-11] MEDS: amLODIPine 10 MG Tablet PO (08:37)
[2019-01-11] MEDS: oxyCODONE 5 MG Tablet PO ×2 (08:38→21:37)
[2019-01-11] MEDS: Ondansetron ODT 4 MG Tablet PO (08:38)
[2019-01-11] MEDS: Pantoprazole Sodium 40 MG Tablet PO (08:38)
[2019-01-11] MEDS: Docusate Sodium 100 MG Capsule PO ×2 (08:39→21:37)
[2019-01-11] MEDS: Isosorbide Mononitrate 60 MG Tablet PO (08:39)
[2019-01-11] MEDS: LINAGLIPTIN 5 MG TABLET PO (08:39)
[2019-01-11] MEDS: Midazolam 2 MG/2 ML Syringe IV ×2 (09:57→10:26)
--- NOTE | 2019-01-11 10:00 | CT_ITS ---
PROCEDURE: DIGITAL CT GUIDANCE DURING PERCUTANEOUS NEPHROSTOMY PROCEDURE. DATE OF EXAMINATION: January 11, 2019 INDICATION: Male, 78 years old. Right ureteral obstruction PHYSICIAN: Suresh Rosales M.D. CONSENT: The patient's history and physical findings were reviewed. Prior to the procedure the percutaneous nephrostomy and attempted right ureteral stent insertion were described to the patient who then signed a consent. SEDATION: Conscious sedation was performed. The patient received 1 mg of Versed and 75 mcg of fentanyl intravenously. Conscious sedation was started 9:57 AM and terminated at 10:30 AM. The patient was monitored by the department nurse. FLUOROSCOPY TIME (if supplied): (0:02) minutes/seconds. Individualized dose optimization technique utilized. TECHNIQUE: A percutaneous right nephrostomy catheter was inserted under CT guidance. The patient was then transferred to the fluoroscopic suite for evaluation of the right upper collecting system and ureter. Contrast was injected through the right nephrostomy catheter which opacified the right upper collecting system and right ureter. A loop of the pigtail catheter was formed within the right renal pelvis and locked in this position. There is dilatation of the upper collecting system and dilatation of the right ureter to the bladder. No contrast passed into the urinary bladder. A guidewire would not pass into the urinary bladder. The catheter was secured to the skin surface and covered with a sterile dressing. The catheter was attached to a drainage bag attached to the patient's leg. CT/Nephrotube Placement CT IMPRESSION: 1. The percutaneous right nephrostomy catheter is in good position with the pigtail portion located in the right renal pelvis. Electronically Signed: Suresh Rosales MD at 12:49 EST , Service support ,
[2019-01-11] MEDS: fentaNYL 100 MCG/2 ML Ampul IV ×2 (10:02→10:26)
[2019-01-11] MEDS: Glimepiride 2 MG Tablet PO (11:32)
--- NOTE | 2019-01-11 15:46 | PCM.PROGNOTE ---
Subjective: 78-year-old male status post placement of a nephrostomy tube today. Clinically stable we will have the nursing staff remove the three-way catheter for a voiding trial. - Physical Exam General: Alert, Oriented x3, Cooperative HEENT: Atraumatic, PERRLA, EOMI, Normocephalic Neck: Supple, No JVD, Negative Carotid Bruits Lungs: Clear to auscultation, Normal air movement Cardiovascular: Regular rate, No murmurs Abdomen: Bowel Sounds Present, Soft, Non Tender Extremities: No edema, Capillary Refill Less than 3 Seconds Skin: No rashes, No breakdown Musculoskeletal: No Tenderness to Palpation of Joints or Extremities Neurological: Cranial nerves II-XII grossly intact Psych/Mental Status: Normal Affect, Appropriate Vital Signs Temp Pulse Resp BP Pulse Ox 97.4 F L 79 18 132/70 H 100 01/11/19 15:09 01/11/19 15:09 01/11/19 15:09 01/11/19 15:09 01/11/19 15:09 Oxygen Delivery Method [9] Room Air Oxygen Delivery Method [8] Room Air Oxygen Delivery Method [7] Room Air Oxygen Delivery Method [6] Room Air Oxygen Delivery Method [5] Room Air Oxygen Delivery Method [4] Room Air Oxygen Delivery Method [3] Room Air Oxygen Delivery Method [2] Room Air Oxygen Delivery Method [1 ( Room Air Initial Baseline)] Oxygen Delivery Method Room Air Weight: 67.6 kg Body Mass Index (BMI) 24.0 Finger Stick Blood Glucose 74 Intake and Output for Last 24 Hours 01/09/19 01/10/19 01/11/19 23:59 23:59 23:59 Intake Total 2290 / 2290 2829 / 2829 2186 / 2186 Output Total 3100 / 3100 3095 / 3095 1920 / 1920 Balance -810 / -810 -266 / -266 266 / 266 Medical Necessity - Tobacco Use Smoking Status: Former smoker Tobacco Use: Cigarettes Assessment/Plan All Active Problems (Last Reviewed 12/31/18 @ 10:35 by [place]) Neutropenia due to and not concurrent with chemotherapy (Acute) Acute renal failure (Acute) Septic shock (Acute) Status post placement of a nephrostomy tube for obstruction of the right kidney with hydronephrosis status post cystoscopy and TURP and TURBT. Removal of the French catheter for a voiding trial today.
[2019-01-11] MEDS: 0.9% NaCl Peripheral Flush Adult/Peds IV (16:27)
[2019-01-12 02:20] VITALS: BP 141/90; PULSE 79; RESP 18; TEMP 36.7; O2SAT 97
--- NOTE | 2019-01-12 07:01 | DCINST_ITS ---
Discharge Diet: Light diet - advance as tolerated Discharge Activity: Return to Normal Activity Call your doctor if your incision/area has: Continuous Slow Oozing, Sudden Increased Bleeding, Increased Pain/ Swelling, Increased Redness, Foul Smelling Discharge, Swelling at the incision site Call your doctor if you observe: Fever of 101 or Higher Suture Line Care: Avoid Pulling/Pushing, Avoid Pinching/Bending Allergies/Adverse Reactions: Allergies No Known Allergies Allergy (Verified 01/08/19 13:56) Medications to take at Discharge nitroglycerin 0.4 mg sublingual tablet 0.4 mg SUBLINGUAL Q5M PRN 01/24/18 sitagliptin 100 mg tablet 100 mg PO QDAY 07/03/18 Metoprolol Tartrate [Lopressor (beta prasanth)] 75 mg PO BID 07/26/18 isosorbide mononitrate ER 60 mg tablet,extended release 24 hr 60 mg PO DAILY #90 tab 09/07/18 Ondansetron [Zofran Odt] 4 mg PO Q8H PRN PRN #30 tablet 09/17/18 Levofloxacin [Levaquin] 500 mg PO DAILY #10 tablet 10/31/18 Aspirin E.C. [Ecotrin] 81 mg PO DAILY@0800 11/30/18 Glimepiride [Amaryl] 2 mg PO DAILY 11/30/18 Hydrocodone Bitart/Apap 5-325 [[place] 5/325] 1 - 2 tablet PO Q4H PRN PRN #60 tablet 12/19/18 Amlodipine [Norvasc] 10 mg PO DAILY 01/08/19 Primary Care Physician: Jonathan Lombardi MD [Primary Care Provider] - Test Results: Test results from this visit will be discussed in further detail at your follow- up appointment, if applicable. Please Follow Up With: Beltran Yi MD When: in 2 weeks, please call to make an appointment.
--- NOTE | 2019-01-12 07:01 | PCM.DC.SUM ---
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 then IR placed right nephrostomy tube. home today and is going to see oncology. - Physical Exam General: Alert, Oriented x3, Cooperative HEENT: Atraumatic, PERRLA, EOMI, Normocephalic Neck: Supple, No JVD, Negative Carotid Bruits Lungs: Clear to auscultation, Normal air movement Cardiovascular: Regular rate, No murmurs Abdomen: Bowel Sounds Present, Soft, Non Tender Extremities: No edema, Capillary Refill Less than 3 Seconds Skin: No rashes, No breakdown Musculoskeletal: No Tenderness to Palpation of Joints or Extremities Neurological: Cranial nerves II-XII grossly intact Psych/Mental Status: Normal Affect, Appropriate Vital Signs Temp Pulse Resp BP Pulse Ox 98.1 F 79 18 141/90 H 97 01/12/19 02:20 01/12/19 02:20 01/12/19 02:20 01/12/19 02:20 01/12/19 02:20 Oxygen Delivery Method [9] Room Air Oxygen Delivery Method [8] Room Air Oxygen Delivery Method [7] Room Air Oxygen Delivery Method [6] Room Air Oxygen Delivery Method [5] Room Air Oxygen Delivery Method [4] Room Air Oxygen Delivery Method [3] Room Air Oxygen Delivery Method [2] Room Air Oxygen Delivery Method [1 ( Room Air Initial Baseline)] Oxygen Delivery Method Room Air Weight: 67.6 kg Body Mass Index (BMI) 24.0 Finger Stick Blood Glucose 74 Intake and Output for Last 24 Hours 01/10/19 01/11/19 01/12/19 23:59 23:59 23:59 Intake Total 2829 / 2829 2681 / 2681 300 / 300 Output Total 3095 / 3095 2750 / 2750 1530 / 1530 Balance -266 / -266 -69 / -69 -1230 / -1230 Laboratory Tests Past 24 Hrs 01/12/19 06:52 Sodium Pending Potassium Pending Chloride Pending Carbon Dioxide Pending Anion Gap Pending BUN Pending Creatinine Pending Est GFR (MDRD) Af Amer Pending Est GFR (MDRD) Non-Af Pending BUN/Creatinine Ratio Pending Glucose Pending Calcium Pending Discharge Diet: Light diet - advance as tolerated Discharge Activity: Return to Normal Activity Call your doctor if your incision/area has: Continuous Slow Oozing, Sudden Increased Bleeding, Increased Pain/ Swelling, Increased Redness, Foul Smelling Discharge, Swelling at the incision site Call your doctor if you observe: Fever of 101 or Higher Suture Line Care: Avoid Pulling/Pushing, Avoid Pinching/Bending Home Medications: Medications to take at Discharge nitroglycerin 0.4 mg sublingual tablet 0.4 mg SUBLINGUAL Q5M PRN 01/24/18 sitagliptin 100 mg tablet 100 mg PO QDAY 07/03/18 Metoprolol Tartrate [Lopressor (beta prasanth)] 75 mg PO BID 07/26/18 isosorbide mononitrate ER 60 mg tablet,extended release 24 hr 60 mg PO DAILY #90 tab 09/07/18 Ondansetron [Zofran Odt] 4 mg PO Q8H PRN PRN #30 tablet 09/17/18 Levofloxacin [Levaquin] 500 mg PO DAILY #10 tablet 10/31/18 Aspirin E.C. [Ecotrin] 81 mg PO DAILY@0800 11/30/18 Glimepiride [Amaryl] 2 mg PO DAILY 11/30/18 Hydrocodone Bitart/Apap 5-325 [[place] 5/325] 1 - 2 tablet PO Q4H PRN PRN #60 tablet 12/19/18 Amlodipine [Norvasc] 10 mg PO DAILY 01/08/19 Primary Care Physician: Jonathan Lombardi MD [Primary Care Provider] - Please Follow Up With: Beltran Yi MD When: in 2 weeks, please call to make an appointment. Medical Necessity - Tobacco Use Smoking Status: Former smoker Tobacco Use: Cigarettes Meaningful Use Info Meaningful Use Diagnoses (Choose all that apply): None applicable
[2019-01-12] MEDS: Glimepiride 2 MG Tablet PO (07:20)
[2019-01-12 07:26] LABS: Anion Gap 10 (5-15); BUN 38 mg/dL (7-18); BUN/Creat Ratio 14.6 RATIO (10-20); Calcium,Total 8.6 mg/dL (8.5-10.1); Chloride 113 mmol/L (98-107); EST Glomerular Filtration Rate 26 mL/min (>60); Est Glom Filt Rate - Afr Amer 31 mL/min (>60); Estimated Creatinine Clearance 21.81 ml/min; Glucose 69 mg/dL (74-106); Potassium 4.5 mmol/L (3.5-5.1); Sodium Level 141 mmol/L (136-145)
[2019-01-12 08:55] VITALS: BP 145/71; PULSE 91; RESP 18; TEMP 36.7; O2SAT 95
[2019-01-12] MEDS: Pantoprazole Sodium 40 MG Tablet PO (09:00)
[2019-01-12 09:01] VITALS: PULSE 91
[2019-01-12] MEDS: Docusate Sodium 100 MG Capsule PO (09:01)
[2019-01-12] MEDS: LINAGLIPTIN 5 MG TABLET PO (09:01)
[2019-01-12] MEDS: amLODIPine 10 MG Tablet PO (09:01)
[2019-01-12] MEDS: Metoprolol Tartrate 50 MG Tablet 75 MG PO (09:01)
[2019-01-12] MEDS: Isosorbide Mononitrate 60 MG Tablet PO (09:01)
[2019-01-12] MEDS: oxyCODONE 5 MG Tablet PO (09:05)
--- NOTE | 2019-01-15 14:34 | CASEMGMT ---
RN DC Phone call DC Date: 01/12/19 DC Disposition: Home LACE/STRATA: 10/30 Called patient Cell phone, Introduced role of CM to patient via phone, states plans to call Surgeon Dr Yi this week to make a f/u appointment. States picked up Cipro Today as he had some Cipro left over that he was taking. Denies any questions/concerns with DC Instructions, medications or f/u appointments. Gautam Tovar RNCM
== END 2019-01-12 09:40 | disposition home or self-care (01) | DRG 666 ==
LOC: SDC 14:44 → MS2 01-10 01:17
PROVIDERS: Admitting Provider Urology; Referring Provider Urology; Visit Provider Urology
PROC: 0TBB8ZZ Excision of Bladder, Via Natural or Artificial Opening Endoscopic (ICD-10-PCS; principal; 2019-01-09 13:05)
DX: C67.9 Malignant neoplasm of bladder, unspecified (principal); N13.30 Unspecified hydronephrosis; I13.0 Hypertensive heart and chronic kidney disease with heart failure and stage 1 through stage 4 chronic kidney disease, or unspecified chronic kidney disease; I50.22 Chronic systolic (congestive) heart failure; E11.22 Type 2 diabetes mellitus with diabetic chronic kidney disease; N18.3 Chronic kidney disease, stage 3 (moderate); E78.5 Hyperlipidemia, unspecified; I25.10 Atherosclerotic heart disease of native coronary artery without angina pectoris; I25.2 Old myocardial infarction; Z87.891 Personal history of nicotine dependence
CPT/HCPCS: 36415; 50432; 76000; 80048; 82962; 85027; 85610; 88307; 88341; 88342; 99156; 99157; J7030; J7120; A4216; C1769; J2405

== ENCOUNTER → 2019-03-18 | Outpatient (CLI) | payer MEDICARE, OTHER, SELFPAY ==
[2018-09-13 08:52] VITALS: BMI 24.7
[2019-01-22 11:08] VITALS: BMI 24.3
--- NOTE | 2019-03-18 14:51 | CT_ITS ---
STUDY: CT ABDOMEN AND PELVIS WITHOUT CONTRAST REASON FOR EXAM: Male, 78 years old. Follow-up of patient diagnosed with prostate and urinary bladder cancer. Patient has stage III chronic renal insufficiency. Patient has been treated with chemotherapy. RADIATION DOSAGE (If Supplied By Facility): CTDIvol = ( 12.01 ) mGy, DLP = ( 550.06 ) mGycm TECHNIQUE: Transaxial images were obtained from the dome of the diaphragm to the symphysis pubis with oral contrast, and without intravenous contrast. Sagittal and coronal images were reconstructed. Individualized dose optimization techniques were used for this CT. COMPARISON: CT of the abdomen and pelvis dated December 10, 2018. FINDINGS: The visualized lung bases are unremarkable. The visualized portions of the heart are within normal limits. Normal liver. Normal gallbladder and extrahepatic biliary system. Normal spleen. There is diffuse atrophy of the pancreas. Normal bilateral adrenal glands. There is a percutaneously placed nephrostomy in the right renal collecting system. Left kidney has a double pigtail ureteral stent. Normal visualized stomach. There is no evidence for dilated bowel, ascites or pneumoperitoneum. The small bowel has a grossly normal appearance. Stool and/or enteric contrast is visible throughout the colon. There is focal narrowing of the mid sigmoid colon which may result of spasm. Stricture cannot be excluded. There is non-visualization of the appendix. There is diffuse atherosclerotic calcification of the abdominal aorta, without a demonstrated aneurysm. Normal inferior vena cava. Normal retroperitoneum. Urinary bladder wall is mildly thickened. There are prostatic calcifications. Normal abdominal wall. There are diffuse degenerative changes of the visualized spine. CT/Abdomen/Pel W ORAL Cont Only IMPRESSION: 1. No CT evidence of acute intra-abdominal disease. 2. Right-sided percutaneous nephrostomy and left-sided ureteral stents are visible. 3. Possible spasm of the mid sigmoid colon versus mild stricture. Electronically Signed: Nelia Abdi MD at 9:07 EDT , Service support ,
== END | disposition home or self-care (01) ==
LOC: CT 14:50
PROVIDERS: Referring Provider Internal Medicine Medical Oncology; Visit Provider Internal Medicine Medical Oncology
DX: C61 Malignant neoplasm of prostate (principal)
CPT/HCPCS: 74176

== ENCOUNTER 2019-04-26 10:31 | Emergency (ER) | payer MEDICARE, OTHER, SELFPAY ==
[2018-09-13 08:52] VITALS: BMI 24.7
[2019-03-21 13:55] VITALS: BMI 25.4
[2019-04-26 10:32] VITALS: BP 184/95; PULSE 88; RESP 18; TEMP 36.6; O2SAT 99; BMI 25.8
--- NOTE | 2019-04-26 10:47 | EKG12_ITS ---
Test Reason : WOUND Blood Pressure : / mmHG Vent. Rate : 081 BPM Atrial Rate : 081 BPM P-R Int : 134 ms QRS Dur : 080 ms QT Int : 400 ms P-R-T Axes : 070 036 049 degrees QTc Int : 464 ms Normal sinus rhythm Normal ECG Confirmed by IDEGO DSOUZA, TORRES ([id number]), magazine editor LORENA YAÑEZ ([id number]) on 04/29/2019 1:40:42 PM Referred By: JANET Confirmed By:TORRES CORTEZ MD
--- NOTE | 2019-04-26 11:03 | ED.VIS.GEN ---
History of Present Illness Chief Complaint: Wound Informant: Patient, Family Onset: Days - 4 Context: Gradual Onset Timing: Continuous Current Severity: Mild Maximum Severity: Moderate Narrative: 78-year-old male with history of bladder cancer, right-sided nephrostomy tube in place presents with redness around the nephrostomy tube site. It was noticed several days ago by family on dressing changes. There was wound drainage yesterday but it appears somewhat better today. No fever, chills, or weakness. No other systemic symptoms. He otherwise feels well. Past Medical History - Allergies and Home Meds Allergies/Adverse Reactions: Allergies No Known Allergies Allergy (Verified 04/26/19 10:35) Primary Care Physician: Jonathan Lombardi MD [Primary Care Provider] - Surgical History: herniorrhaphy, - - Removal of benign neck mass on the right neck, appendectomy, multiple cystoscopies w/ L stent placement and change, hernia repair, TUR bladder mass, Renal artery stent placement, Prostate Urolift system implant. Smoking Status: Heavy Smoker (>10/day) - Family History Maternal Family History: Family History (Last Reviewed 03/21/19 @ 13:52 by [place] Laguna) Father Prostate cancer Mother CAD (coronary artery disease) Myocardial infarction, Onset Age: 48 Cancer Brother Myocardial infarction Abdominal aortic aneurysm Family History: Reports: Cancer, Heart Disease Paternal Family History: Family History (Last Reviewed 03/21/19 @ 13:52 by [place] Laguna) Father Prostate cancer Mother CAD (coronary artery disease) Myocardial infarction, Onset Age: 48 Cancer Brother Myocardial infarction Abdominal aortic aneurysm Family History: Reports: Cancer Review of Systems General: Denies: Chills, Fever, Sweats Eyes: Denies: Visual changes - bilaterally, Diplopia ENT: Denies: Rhinorrhea, Sore throat Cardiovascular: Denies: Chest pain, Palpitations Respiratory: Denies: Dyspnea, Cough, Dyspnea on exertion Gastrointestinal: Denies: Abdominal pain, Nausea, Vomiting, Diarrhea, Melena, Hematochezia Genitourinary: Denies: Dysuria, Hematuria, Frequency Musculoskeletal: Denies: Back pain, Extremity Pain Skin: Reports: Rash, Wounds Neurological: Denies: Headache, Weakness, Numbness Physical Exam Vital Signs/Narrative: Vital Signs Temp Pulse Resp BP Pulse Ox 04/26/19 10:32 97.9 F 88 18 184/95 H 99 General: Well nourished, Well developed, No Acute Distress Head: Normocephalic, Atraumatic Eyes: Perrl, EOMI ENT: Moist mucous membranes, No rhinorrhea Neck: Supple, Nontender Cardiovascular: Regular rate, Regular rhythm, No murmurs Respiratory: No distress, CTA bilaterally, Chest nontender Abdomen: Soft, Nontender, Nondistended, Normal bowel sounds Back: Nontender, Normal Inspection Extremities: Nontender, No edema Skin: Normal color, - - His right-sided nephrostomy tube has approximately 3 cm of irregularly-shaped erythema no warmth. No palpable abscess. There is clear drainage. Neurological: Alert, Oriented x3, Cranial nerves II-XII grossly intact, Normal Strength, Normal Sensation Psychological: Normal affect, Normal Mood Diagnostic/Tx/Re-eval - Medical Decision Making His labs are fairly unremarkable. Lactic acid normal. Blood and wound cultures were both sent. CT abdomen/pelvis reveals and in place nephrostomy tube. Most of his other findings are unchanged except for questionable rectal wall invasion but nothing acute appearing. He does not appear septic at this time and has no fever. He has already started on Keflex for a total of 3 doses and has improved by approximately 50% since then. I discussed the case with Dr. Yi who recommended continuing the Keflex for 10 days and close follow-up in his office, returning to the emergency department if worse before then. ED Disposition - Plan for ED Patient: Disposition: Home or Assisted Living Diagnosis: Infection associated with nephrostomy catheter Instructions: ED Infec Skin Cellulitis Prescriptions: Cephalexin [Keflex] 500 mg PO Q6 #40 capsule Referrals: Beltran Yi MD [STAFF PHYSICIAN] - As soon as possible
[2019-04-26 11:24] LABS: Absolute Lymphocyte Count 2.07 X10^3/ul (0.83-4.51); Absolute Neutrophil Count 5.5 X10^3/uL (2.0-7.7); Basophil# 0.02 X10^3/uL; Basophil% 0.2 % (0-1); Eosinophil# 0.24 X10^3/uL; Eosinophils% 2.6 % (0-5); Hematocrit 27.3 % (40-54); Hemoglobin 8.7 g/dl (13.0-16.5); Lymphocyte # 2.07 X10^3/ul (4.0); Lymphocyte % 22.2 % (19-41); Mean Corp Hgb Conc 31.9 g/gl (32-36); Mean Corpuscular Hgb 26.9 pg (27.0-32.0); Mean Corpuscular Volume 84.3 fL (80-94); Mean Platelet Vol. 8.7 fl (6.2-12.0); Monocyte# 1.46 X10^3/uL; Monocyte% 15.6 % (0-10); Neutrophil # 5.51 X10^3/uL (2.7-7.7); Neutrophil % 59.1 % (47-70); Platelet Count 177 K/mm3 (150-450); RBC Distribution Width SD 43.7 fl (35.1-43.9); Red Blood Count 3.24 M/mm3 (4.6-6.2); White Blood Count 9.3 K/mm3 (4.4-11.0)
[2019-04-26 11:37] LABS: ALB/GLOB Ratio 0.5 RATIO (0.9-2.4); AST(SGOT) 21 U/L (15-37); Alanine Aminotransfer ALT/SGPT 30 U/L (16-61); Albumin, Serum 2.8 g/dL (3.2-5.0); Alkaline Phosphatase 92 U/L (45-117); Anion Gap 7 (5-15); BUN 36 mg/dL (7-18); BUN/Creat Ratio 15.1 RATIO (10-20); Calcium,Total 8.5 mg/dL (8.5-10.1); Chloride 108 mmol/L (98-107); Creatinine, Serum 2.39 mg/dL (0.70-1.30); EST Glomerular Filtration Rate 28 mL/min (>60); Est Glom Filt Rate - Afr Amer 34 mL/min (>60); Estimated Creatinine Clearance 23.73 ml/min; Globulin 5.2 g/dL (2.2-4.2); Glucose 128 mg/dL (74-106); Potassium 4.1 mmol/L (3.5-5.1); Sodium Level 137 mmol/L (136-145)
[2019-04-26 11:42] LABS: Differential Indicated SCAN CRITERIA MET; POSITIVE COUNT NO; POSITIVE DIFFERENTIAL NO; POSITIVE MORPHOLOGY YES
[2019-04-26 11:44] LABS: Platelet Estimate ADEQUATE (ADEQ); Red Cell Morphology NORM C+C NORMAL (NORM C&C)
[2019-04-26 11:56] LABS: Lactic Acid 1.2 mmol/L (0.4-2.0)
--- NOTE | 2019-04-26 12:30 | CT_ITS ---
STUDY: CT ABDOMEN AND PELVIS WITHOUT CONTRAST REASON FOR EXAM: Male, 78 years old. Right flank pain. RADIATION DOSAGE (If Supplied By Facility): CTDIvol = ( 7.06 ) mGy, DLP = ( 349.03 ) mGycm TECHNIQUE: Transaxial images were obtained from the dome of the diaphragm to the symphysis pubis without oral contrast, and without intravenous contrast. Sagittal and coronal images were reconstructed. Individualized dose optimization techniques were used for this CT. COMPARISON: March 18, 2019. FINDINGS: Lung bases: Mild dependent changes. Heart: Coronary artery disease/stenting. Liver: Minimal hepatic steatosis. No focal hepatic lesions given noncontrast technique. Gallbladder/biliary ducts: Unremarkable. Pancreas: Mild pancreatic atrophy. Spleen: Splenic capsular calcifications. Adrenal glands: Unremarkable. Kidneys/ureters: Right nephrostomy catheter with mild collecting system dilatation. Left ureteral stent in position with moderate persistent left hydroureteronephrosis. Prostate/bladder: Prostate seeds. Enlarged prostate/posterior bladder wall with local pelvic soft tissue invasion (axial image 144 series 2) measuring up to 7 cm x 5.5 cm. Enlarged presacral an parapelvic lymph nodes measuring up to 2.8 cm (axial image 125 series 2). Large bowel/small bowel: Colonic diverticulosis. Soft tissue infiltration/invasion at the right rectal wall (axial image 139 series 2). No perforation. No obstruction. No pneumatosis. No acute small bowel process. Appendix: No secondary signs of appendicitis. Gastroesophageal junction/stomach: Unremarkable. Retroperitoneum/lymph nodes: No intra-abdominal free air. No ascites. Enlarged paraspinal lymph nodes measuring up to 1.5 cm (axial image 59 series 2). Enlarged presacral matted lymph nodes measuring up to 2.8 cm (axial image 125 series 2). Vascular: Vascular calcifications. No aneurysm. Osseous structures: Degenerative changes prominently at L4-5. Osteopenia. No acute process. Subcutaneous/soft tissues: Small bilateral fat-containing inguinal hernias. No acute process. CT/Abdomen/Pelvis without Cont IMPRESSION: No marked change from study dated March 18, 2019 Bladder/prostate neoplasm with enlarged metastatic lymph nodes Left ureteral stent in position with persistent moderate hydronephrosis Right nephrostomy catheter in place with mild right collecting system dilatation Right perirectal soft tissue/matted lymph nodes with suspected right rectal wall invasion (no perforation, obstruction or pneumatosis) Electronically Signed: Soren Smith DO at 13:04 EDT Tel , Service support ,
[2019-04-26 12:48] VITALS: BP 187/84; PULSE 80; RESP 17; O2SAT 100
[2019-04-26 14:05] VITALS: BP 181/90
== END 2019-04-26 14:05 | disposition home or self-care (01) ==
PROVIDERS: Emergency Provider Emergency Medicine
DX: N99.521 Infection of incontinent external stoma of urinary tract (principal); F17.200 Nicotine dependence, unspecified, uncomplicated; Z85.51 Personal history of malignant neoplasm of bladder
CPT/HCPCS: 36415; 74176; 80053; 83605; 85025; 87040; 87070; 87075; 87077; 87186; 87205; 93005; 99284; A4216

== ENCOUNTER → 2019-05-09 | Outpatient (CLI) | payer MEDICARE, OTHER, SELFPAY ==
[2018-09-13 08:52] VITALS: BMI 24.7
[2019-04-26 10:32] VITALS: BMI 25.8
[2019-05-09 12:08] LABS: Bacteria 0 SEEN /hpf (None Seen); Mucous, Urine 0 SEEN /hpf (<or=2+); Squamous Epithelial Cells - UA 0 SEEN /hpf (0-5)
[2019-05-09 12:35] LABS: Hematocrit 26.5 % (40-54); Hemoglobin 8.3 g/dl (13.0-16.5); Mean Corp Hgb Conc 31.3 g/gl (32-36); Mean Corpuscular Hgb 26.4 pg (27.0-32.0); Mean Corpuscular Volume 84.4 fL (80-94); Mean Platelet Vol. 9.2 fl (6.2-12.0); Platelet Count 196 K/mm3 (150-450); RBC Distribution Width CV 14.2 % (11.6-14.6); RBC Distribution Width SD 43.8 fl (35.1-43.9); Red Blood Count 3.14 M/mm3 (4.6-6.2)
[2019-05-09 12:40] LABS: Scan Indicated on CBC? Y/N NO
[2019-05-09 12:58] LABS: Anion Gap 5 (5-15); BUN 33 mg/dL (7-18); BUN/Creat Ratio 12.7 RATIO (10-20); Calcium,Total 9.2 mg/dL (8.5-10.1); Chloride 104 mmol/L (98-107); EST Glomerular Filtration Rate 26 mL/min (>60); Est Glom Filt Rate - Afr Amer 31 mL/min (>60); Glucose 245 mg/dL (74-106); Potassium 4.7 mmol/L (3.5-5.1); Sodium Level 132 mmol/L (136-145)
[2019-05-09 13:40] LABS: Color, Urine Red (Yellow); Glucose, Dipstick Normal (Normal); Ketone-Dipstick Negative (Negative); Leukocyte Esterase-Dipstick 500 /ul (Negative); Nitrite-Dipstick Negative (Negative); Occult Blood-Urine 250 /ul (Negative); Protein-Dipstick 500 mg/dl (Negative); Urine Bilirubin Dipstick Negative (Negative); Urine Clarity Cloudy (Clear); Urine Urobilinogen Normal (Normal); Urine pH 6.5 (5.0 - 8.0)
[2019-05-09 13:51] LABS: Red Blood Cells-Urine > 100 SEEN /hpf (0-5); White Blood Cells >100 SEEN /hpf (0-5)
== END | disposition home or self-care (01) ==
LOC: LAB.FUTURE 11:51
PROVIDERS: Visit Provider Urology
DX: R94.4 Abnormal results of kidney function studies (principal); R31.9 Hematuria, unspecified; C67.9 Malignant neoplasm of bladder, unspecified
CPT/HCPCS: 80048; 81001; 85027; 87086; 87088

== ENCOUNTER → 2019-05-10 08:59 | Outpatient (CLI) | payer MEDICARE, OTHER, SELFPAY ==
[2018-09-13 08:52] VITALS: BMI 24.7
[2019-04-26 10:32] VITALS: BMI 25.8
--- NOTE | 2019-05-10 09:30 | RAD_ITS ---
STUDY: NEPHROSTOMY TUBE EXCHANGE RIGHT REASON FOR EXAM: Male, 79 years old. Chronic right hydronephrosis. Exchange of right percutaneous nephrostomy catheter. FLUOROSCOPY TIME (if supplied): (0:36) minutes/seconds TECHNIQUE: The patient was in the prone position. The overlying skin was prepped and draped in the usual sterile fashion. Following local anesthetic application, the indwelling nephrostomy catheter was exchanged over a guidewire. A new 8.5 [place] percutaneous nephrostomy catheter was then placed. The tip is in the right renal pelvis. The patient tolerated the procedure well. RAD/Nephrostomy Tube Exchange IMPRESSION: Successful exchange of the right percutaneous nephrostomy catheter as described. Electronically Signed: Suresh Rosales, at 11:18 EDT , Service support ,
== END ==
PROVIDERS: Referring Provider Urology; Visit Provider Urology
DX: N13.39 Other hydronephrosis (principal)
CPT/HCPCS: 50435; Q9967

== ENCOUNTER → 2019-05-20 | Outpatient (CLI) | payer MEDICARE, OTHER, SELFPAY ==
[2018-09-13 08:52] VITALS: BMI 24.7
[2019-03-21 13:55] VITALS: BMI 25.4
[2019-04-26 10:32] VITALS: BMI 25.8
--- NOTE | 2019-05-20 14:25 | CT_ITS ---
STUDY: CT ABDOMEN AND PELVIS WITH CONTRAST REASON FOR EXAM: Male, 79 years old. Prostate cancer, bladder cancer, chemoradiation RADIATION DOSAGE (If Supplied By Facility): CTDIvol = ( 9.26 ) mGy, DLP = ( 446.68 ) mGycm TECHNIQUE: Transaxial images were obtained from the dome of the diaphragm to the symphysis pubis without oral contrast. 2 BOTTLES Oral Barium was administered. Sagittal and coronal images were reconstructed. Individualized dose optimization techniques were used for this CT. COMPARISON: None. FINDINGS: There is coronary artery disease. Pericardium is normal. Lung bases are clear. There is no pulmonary edema or pleural effusions. Liver, adrenals spleen and pancreas are intact. There is no biliary dilation. Gallbladder is normal. There is a right nephrostomy with a decompressed renal pelvis. Right ureter is normal. There is a left ureteral double-J stent self-retaining plastic catheter with the upper loop in the renal pelvis and distal loop in the bladder. There is mild hydroureteronephrosis. There is extensive irregularity of the bladder base, likely related to stated history of bladder tumor removal. Assessment of normal versus abnormal bladder wall is not possible. Metallic seeds or markers are present at the prostatic vesicle junction. There is no intestinal obstruction. Appendix is removed. Osseous structures are normal with the density change in the lumbar spine. CT/Abdomen/Pel W ORAL Cont Only IMPRESSION: 1. Decompressed right renal collecting system with nephrostomy in place. 2. Expected position of left ureteral stent with mild hydroureteronephrosis. 3. Postsurgical changes in the bladder, possibly residual tumor. 4. Coronary artery disease. Electronically Signed: Partha Sellers, at 17:13 EDT Tel , Service support ,
== END | disposition home or self-care (01) ==
LOC: CT 14:24
PROVIDERS: Referring Provider Internal Medicine Medical Oncology; Visit Provider Internal Medicine Medical Oncology
DX: C61 Malignant neoplasm of prostate (principal)
CPT/HCPCS: 74176

== ENCOUNTER 2019-05-25 21:20 | Emergency (ER) | payer MEDICARE, OTHER, SELFPAY ==
[2018-09-13 08:52] VITALS: BMI 24.7
[2019-05-23 13:07] VITALS: BMI 24.7
[2019-05-25 21:21] VITALS: BP 145/62; PULSE 83; RESP 16; TEMP 36.8; O2SAT 99; BMI 24.7
--- NOTE | 2019-05-25 22:33 | RAD_ITS ---
STUDY: X-RAY - PELVIS AND RIGHT HIP REASON FOR EXAM: Male, 79 years old. Right right hip pain TECHNIQUE: AP pelvis and 2 views of the right hip COMPARISON: CT abdomen and pelvis from 05/20/2019 FINDINGS: There is a non-specific bowel gas pattern. Normal visualized soft tissue structures. Normal bilateral iliac wings, sacroiliac joints and visualized sacrum. Normal bilateral superior and inferior pubic rami. Normal pubic symphysis. Normal bilateral ischial tuberosities. Normal visualized femoral head. Normal acetabulum. Normal hip joint. There is a left nephroureteral stent with suspected varices visualized. RAD/HIP, UNI W/ Pelvis 2-3 Views IMPRESSION: Negative x-ray examination of the pelvis and hip. No Acute fracture or dislocation. Electronically Signed: Jovanyn Ann, at 23:28 EDT Tel , Service support ,
--- NOTE | 2019-05-25 23:38 | ED.VISSUMM ---
- ER Visit Summary Date of Service: 05/25/19 Chief Complaint: Right hip pain History of Present Illness: The patient is a 79 M with a history of bladder and prostate cancer presents with right hip pain. This been going on about 2 days. It sharp. It was severe at home but is currently only mild. He is able to ambulate. Actually states his symptoms are worse after sitting for prolonged period of time and improved with movement. No fall. No injury. No back pain. No paresthesias or weakness. Physical Examination: Afebrile vitals unremarkable Heart regular rate and rhythm Lungs are clear Abdomen soft Active full range of motion of the right lower extremity no edema no calf tenderness neurovascularly intact normal sensation light touch brisk capillary refill no knee tenderness he does have some tenderness over the lateral hip in the region of the greater trochanter he does not really have reproducible pain with range of motion of the hip there is no deformity Test Results: Right hip x-ray is negative Emergency Department Course and Treatment: Patient was given an oxycodone here as he had increased pain after the x-rays. He has [place] at home. Granddaughter who is a nurse here was concerned for possible bony metastasis given his history of cancer. Fortunately this does not appear to be the case. He was advised to follow-up as an outpatient and return for new or worsening symptoms. Patient discharged. Treatment Plan: [] Disposition: Discharge Impression: Right hip pain This note was generated with [employer] dictation software. It may contain incorrect words, spelling, and punctuation that were not noted in review of the chart prior to signing ED Disposition - Plan for ED Patient: Referrals: Jonathan Lombardi MD [Primary Care Provider] -
--- NOTE | 2019-05-25 23:40 | ED.DEP ---
ED Disposition - Plan for ED Patient: Instructions: Arthralgia Referrals: Jonathan Lombardi MD [Primary Care Provider] -
[2019-05-25] MEDS: oxyCODONE 5 MG Tablet PO (23:41)
[2019-05-25 23:53] VITALS: BP 160/88; PULSE 78; RESP 18; O2SAT 100
== END 2019-05-25 23:56 | disposition home or self-care (01) ==
LOC: ED 22:38
PROVIDERS: Emergency Provider Emergency Medicine
DX: M25.551 Pain in right hip (principal); E11.9 Type 2 diabetes mellitus without complications; I10 Essential (primary) hypertension; Z85.46 Personal history of malignant neoplasm of prostate; Z85.51 Personal history of malignant neoplasm of bladder; Z79.84 Long term (current) use of oral hypoglycemic drugs; Z79.82 Long term (current) use of aspirin; Z79.899 Other long term (current) drug therapy
CPT/HCPCS: 73502; 99283

== ENCOUNTER 2019-05-31 08:01 | Day surgery (SDC) | payer MEDICARE, OTHER, SELFPAY ==
[2018-09-13 08:52] VITALS: BMI 24.7
[2019-05-31 08:26] VITALS: BP 133/68; PULSE 76; RESP 16; TEMP 36.6; O2SAT 98; BMI 22.5
[2019-05-31 09:01] LABS: Bedside Glucose 135 mg/dL (70-110)
[2019-05-31] MEDS: Cefazolin 2 GM in 0.9% Normal Saline 100 ML IV (11:53)
--- NOTE | 2019-05-31 11:58 | DCINST_ITS ---
Discharge Diet: Light diet - advance as tolerated Discharge Activity: Return to Normal Activity Call your doctor if you observe: Fever of 101 or Higher Suture Line Care: Avoid Pulling/Pushing, Avoid Pinching/Bending Catheter: French to leg bag, French to large bag Drain: [place] Allergies/Adverse Reactions: Allergies No Known Allergies Allergy (Verified 05/25/19 21:23) Medications to take at Discharge nitroglycerin 0.4 mg sublingual tablet 0.4 mg SUBLINGUAL Q5M PRN 01/24/18 sitagliptin 100 mg tablet 100 mg PO QDAY 07/03/18 Metoprolol Tartrate [Lopressor (beta prasanth)] 75 mg PO BID 07/26/18 isosorbide mononitrate ER 60 mg tablet,extended release 24 hr 60 mg PO DAILY #90 tab 09/07/18 Aspirin E.C. [Ecotrin] 81 mg PO DAILY@0800 11/30/18 Glimepiride [Amaryl] 2 mg PO DAILY 11/30/18 Metformin HCl [Metformin ER Osmotic] 500 mg PO BID 03/21/19 Gabapentin [Neurontin] 100 mg PO BID 04/26/19 Hydrocodone Bitart/Apap 5-325 [[place] 5/325] 1 - 2 tablet PO Q4H PRN PRN #60 tabl et 05/10/19 Docusate Sodium [Stool Softener] 100 mg PO PRN PRN 05/24/19 Primary Care Physician: Jonathan Lombardi MD [Primary Care Provider] - Test Results: Test results from this visit will be discussed in further detail at your follow- up appointment, if applicable. Please Follow Up With: Beltran Yi MD When: please call to make an appointment.
[2019-05-31] MEDS: Lidocaine Jelly 2% 20 ML Syringe (URO-JET) 20 APPLIC (12:02)
--- NOTE | 2019-05-31 12:20 | PCM.OPRPT ---
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 has a left stent this is a chronic stent needs to be changed Post-Operative Diagnosis: The same plus significant regrowth of cancer within the bladder Surgery/Procedure Performed:: Cystoscopy, left stent change, left retrograde pyelogram, interpretation of fluoroscopic images, Del Rosario placement Description of Surgical Findings:: Bladder cancer is undergone treatment in the past with chemotherapy and with radiation therapy at this point he is on comfort measures he has a right nephrostomy tube that is been working well, he has a left stent in place and needs to be changed, today presents to the operating room for cystoscopy left stent change placement he is also requesting a Del Rosario catheter to help empty his bladder. 79-year-old male taken back to the operating room at the smooth induction of anesthesia he was placed in dorsolithotomy position the penis testicles are prepped and draped in usual fashion, went into the bladder with a 21 Anguillan rigid cystourethroscope the entire length of the urethra was normal the pendulous urethra normal bulbar urethra normal sphincter was intact prostate was nonobstructive once again to the bladder had a lot of debris and a lot of growth of tissue within the bladder cancer throughout the bladder really did not look like a normal bladder overall it was just full of debris sloughing material and tumors growths within the bladder took a while to actually and find a stent eventually did find a stent was able to pull out the meatus advance a wire through the stent went into the kidney over the wire I then loaded up a Pollack catheter performed a retrograde pyelogram interpreted fluoroscopic images then over the wire I advanced a wire up the Pollick catheter and over the wire then I placed a stent is a 6 Anguillan by 24 cm stent the stent coiled in the kidney and bladder good position I then drained the bladder replaced an 18 Anguillan catheter into the bladder the urine was fairly bloody just in the procedure you so much sloughing material cancerous growth throughout the bladder. The nursing staff also change nephrostomy tube dressing on the right side per. Type of Anesthesia:: Local MAC Drains: del rosario, stent and right nephrostomy tube. - Admit VTE Documentation VTE Present on Admission: No VTE Mechan Device Prophylaxis: SCD's
[2019-05-31 12:28] VITALS: BP 109/67; BP 133/68; PULSE 73; RESP 16; TEMP 36.2; O2SAT 109
[2019-05-31 12:35] VITALS: BP 105/67; BP 133/68; PULSE 74; RESP 16; O2SAT 99
[2019-05-31 12:45] VITALS: BP 107/57; BP 133/68; PULSE 73; RESP 16; O2SAT 97
[2019-05-31 13:17] VITALS: BP 101/58; BP 133/68; PULSE 75; RESP 16; TEMP 36.6; O2SAT 97
[2019-05-31 13:47] VITALS: BP 133/68
== END 2019-05-31 13:48 | disposition home or self-care (01) ==
LOC: SDC 08:03 → AC 08:04
PROVIDERS: Referring Provider Urology; Visit Provider Urology
PROC: (CPT 52005; principal; 2019-05-31 10:15)
DX: C67.2 Malignant neoplasm of lateral wall of bladder (principal); N28.89 Other specified disorders of kidney and ureter; N13.1 Hydronephrosis with ureteral stricture, not elsewhere classified; I11.0 Hypertensive heart disease with heart failure; I50.9 Heart failure, unspecified; E11.9 Type 2 diabetes mellitus without complications; E78.5 Hyperlipidemia, unspecified; D64.81 Anemia due to antineoplastic chemotherapy; Z87.891 Personal history of nicotine dependence; Z79.84 Long term (current) use of oral hypoglycemic drugs; Z79.82 Long term (current) use of aspirin; Z79.899 Other long term (current) drug therapy
CPT/HCPCS: 52005; 52332; 76000; 82962; J7120; C1769; C2617; J2405